=== PATIENT | male | born 1940 | race Hispanic/Latino ===

== ENCOUNTER 2018-01-21 19:30 | Inpatient (IN) | payer OTHER ==
--- OUTSIDE RECORDS SUMMARY | 2018-01-21 19:32 | XMS REPORT | Clinical Summary ---
:1940 Author Organization [facility] Address [address] [place] [address] Care Team Providers Name Role Phone Asked, No Pcp Primary Care Provider Unavailable Allergies Active Allergy Reactions Severity Noted Date Comments Codeine Other (See Comments) 05/11/2016 Nausea/vomiting Codeine GI Intolerance 08/03/2016 Current Medications Prescription Sig. Disp. Refills Start Date End Date Status losartan (COZAAR) Take 50 mg by Active 50 MG tablet mouth daily. brimonidine Administer 1 drop Active (ALPHAGAN P) 0.1 to both eyes % drops every 8 (eight) hours. cycloSPORINE 1 drop 2 (two) Active (RESTASIS) 0.05 % times a day. ophthalmic emulsion prednisoLONE 1 drop 4 (four) Active acetate (PRED times a day. FORTE) 1 % ophthalmic suspension ALPHAGAN P 0.1 % 07/11/2016 Active drops losartan (COZAAR) Take 50 mg by 1 05/26/2016 Active 50 MG tablet mouth 2 (two) times a day. prednisoLONE PLACE 1 DROP INTO 4 05/09/2016 Active acetate (PRED THE RIGHT EYE 3 FORTE) 1 % TIMES DAILY. ophthalmic SHAKE WELL BEFORE suspension INSTILLATION cycloSPORINE 1 drop 2 (two) Active (RESTASIS) 0.05 % times a day. ophthalmic emulsion FERROUS FUMARATE Take 56 mg by Active (IRON ORAL) mouth daily. VITAMIN B COMPLEX Take by mouth Active ORAL daily. vitamin A 30454 Take 25,000 Units Active UNIT capsule by mouth daily. ascorbic acid, Take 500 mg by Active vitamin C, mouth daily. (ascorbic acid with tarah hips) 500 MG tablet cholecalciferol, Take 2,000 Units Active vitamin D3, by mouth daily. (VITAMIN D3) 2,000 unit capsule capsule VENTOLIN HFA 90 2 puffs into each 1 05/09/2016 Active mcg/actuation nostril as inhaler needed. ketoconazole Apply 1 Active (NIZORAL) 2 % application shampoo topically 2 (two) times a week. Apply to damp skin, lather, leave on 5 minutes, and rinse tamsulosin TAKE ONE CAPSULE 30 capsule 0 11/16/2017 Active (FLOMAX) 0.4 mg BY MOUTH EVERY capsule,extended DAY release 24hrIndications: Enlarged prostate with urinary obstruction tamsulosin Take 1 capsule 30 capsule 0 10/12/2016 Discontinued (FLOMAX) 0.4 mg (0.4 mg total) by 8 capsule,extended mouth daily. release 24hrIndications: Enlarged prostate with urinary obstruction Active Problems No known active problems Encounters Date Type Specialty Care Team Description 11/16/2017 Refill Urology Gucci Calvin MD Enlarged prostate with urinary obstruction 04/30/2017 Hospital Encounter Radiology Jesus Vigil, Dysphagia, unspecified MD type 04/20/2017 Transcribe Orders Access Jesus Vigil, Dysphagia, unspecified MD type (Primary Dx) 04/20/2017 Transcribe Orders Access Jesus Vigil, Dysphagia, unspecified MD type (Primary Dx) after 01/20/2017 Social History Tobacco Use Types Packs/Day Years Used Date Former Smoker Cigarettes 1 10 Quit: 1967 Smokeless Tobacco: Never Used Alcohol Use Drinks/Week oz/Week Comments No Sex Assigned at Date Recorded Not on file Last Filed Vital Signs Not on file Plan of Treatment Health Maintenance Due Date Last Done Comments ZOSTER VACCINE 1998 PNEUMOCOCCAL POLYSACCHARIDE VACCINE AGE 65 AND OVER 2003 PNEUMOCOCCAL-13 2003 INFLUENZA VACCINE 06/05/2017 Results [place] Modified Barium Swallow (04/30/2017 2:10 PM) Specimen Performing Laboratory [facility] [address] [place] [address] Narrative EXAMINATION:FL MODIFIED BARIUM SWALLOW CLINICAL HISTORY:R13.10 Dysphagiaunspecified, DYSPHAGIA COMPARISON:None. TOTAL PATIENT RADIATION DOSE: 7.17 mGy FINDINGS: The patient swallowed varying consistencies of barium under direct lateral fluoroscopic evaluation. The study was performed in conjunction with speech pathology. IMPRESSION: Flash penetration on swallows of thin barium was seen. No aspiration was seen on swallows of any barium consistency. There is impression on the posterior esophagus from a C6 osteophyte. Please refer to Speech Pathology report for further details. [facility]-[id number] Procedure Note Hm Interface, Radiology Results Incoming - 04/30/2017 6:30 PM CDT EXAMINATION: FL MODIFIED BARIUM SWALLOW CLINICAL HISTORY: R13.10 Dysphagia unspecified, DYSPHAGIA COMPARISON: None. TOTAL PATIENT RADIATION DOSE: 7.17 mGy FINDINGS: The patient swallowed varying consistencies of barium under direct lateral fluoroscopic evaluation. The study was performed in conjunction with speech pathology. IMPRESSION: Flash penetration on swallows of thin barium was seen. No aspiration was seen on swallows of any barium consistency. There is impression on the posterior esophagus from a C6 osteophyte. Please refer to Speech Pathology report for further details. [facility]-[id number] after 01/20/2017 Insurance Payer Benefit Plan / Group Subscriber ID Type Phone Address MEDICARE MEDICARE PART A AND B xxxxxxxxxxx Medicare [place], [place] MEDICARE MEDICARE PART A AND B xxxxxxxxxxx Medicare [place] AETNA AETNA HMO,POS,EPO, MC/EC xxxxxxxxxx HMO AETNA AETNA [employer] INDEMNITY xxxxxxxxxx Indemnity Home: [address] [place], [place] [phone] [place] [id number]
[2018-01-21 20:20] LABS: Absolute Lymphocytes (CBC) 0.6 K/uL (0.7-4.9); Absolute Monocytes 0.4 K/uL (0.1-1.3); Absolute Neutrophil 6.4 K/uL (1.8-8.0); Basophils % 0.7 % (0-1.3); Eosinophils % 1.3 % (0-4.4); MCH 30.2 pg (27.0-35.0); MPV 8.4 fL (7.6-11.3); Monocytes % 5.7 % (3.3-12.3); RBC Red Blood Cell Count 2.23 M/uL (4.33-5.43)
[2018-01-21 20:26] LABS: Hematocrit 20.1 % (39.6-49.0)
[2018-01-21] MEDS ORDERED: LEVALBUTEROL 1.25 MG/3 ML NEB ONE (20:28)
[2018-01-21] MEDS ORDERED: METHYLPREDNISOLONE 125 MG INJ ONE (20:28)
[2018-01-21 20:33] LABS: Magnesium 2.1 mg/dL (1.8-2.5)
[2018-01-21 20:34] LABS: Protime INR 1.18
[2018-01-21 20:50] LABS: Urine Blood 2+ (NEG); Urine Glucose NEGATIVE (NEG); Urine Protein 2+ (NEG)
--- NOTE | 2018-01-21 20:52 | EDPHYS ---
Physician Documentation [facility] Name: Gio Matute Age: 77 yrs Sex: Male : 1940 Arrival Date: 01/21/2018 Time: 19:32 Bed 8 Private MD: ED Physician Sid Tirado HPI: 01/21 20:45 This 77 yrs old Male presents to ER via EMS with complaints of Shortness Of rn Breath. 20:45 The patient has shortness of breath at rest. Onset: The symptoms/episode began/occurred rn at an unknown time. Duration: The symptoms are intermittent. The patient's shortness of breath is aggravated by supine position, talking. Severity of symptoms: At their worst the symptoms were moderate in the emergency department the symptoms are unchanged. The patient has experienced similar episodes in the past. brings patient in for generalized weakness, not eating/drinking, + sob, no fever, oxygen going down to mid-80s, no oxygen at home. No hematemesis/blood in stool. Patient denies pain. . 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 - Social history:: Smoking status: Patient/guardian denies using tobacco. - Family history:: not pertinent. - Hospitalizations: : No recent hospitalization is reported. ROS: 20:45 Constitutional: Negative for fever, chills, + weight loss Eyes: Negative for injury, rn pain, redness, and discharge, ENT: dry MM Neck: Negative for injury, pain, and swelling, Cardiovascular: Negative for chest pain, palpitations, and edema, Respiratory: Negative for wheezing, and pleuritic chest pain, + sob Abdomen/GI: Negative for abdominal pain, nausea, vomiting, diarrhea, and constipation, MS/Extremity: Negative for injury and deformity, Skin: Negative for injury, rash, and discoloration, Neuro: Negative for headache, numbness, tingling, and seizure. Exam: 20:45 Constitutional: This is a well developed, well nourished patient who is awake, alert, rn hard of hearing, has hearing device Head/Face: Normocephalic, atraumatic, sunken temples Eyes: sunken eyes, no trauma ENT: dry MM< no stridor Cardiovascular: Regular rate and rhythm with a normal S1 and S2. No gallops, murmurs, or rubs. Normal PMI, no JVD. No pulse deficits. Respiratory: diminished breath sounds right lung bases, no wheezing, normal respiratory effort Abdomen/GI: scaphoid abdomen, non-tender MS/ Extremity: Pulses equal, no cyanosis. Neuro: Awake and alert, GCS 15, oriented to person, place, and situation. Vital Signs: 19:45 BP 151 / 68; Pulse 86; Resp 12; Temp 98.4(O); Pulse Ox 90% on R/A; Weight 61.23 kg (R); ao Height 6 ft. 1 in. (185.42 cm) (R); Pain 0/10; 21:17 BP 143 / 77; Pulse 84; Resp 12; Pulse Ox 98% on 2 lpm NC; Pain 0/10; ao 19:45 Body Mass Index 17.81 (61.23 kg, 185.42 cm) ao MDM: 19:34 Patient medically screened. rn 20:45 Differential diagnosis: reactive airway disease, cathleen's granulomatosis, pneumonia, rn atypical infection, dehydration, failure to thrive. Data reviewed: vital signs, nurses notes, lab test result(s), radiologic studies, plain films, and as a result, I will admit patient. Counseling: I had a detailed discussion with the patient and/or guardian regarding: the historical points, exam findings, and any diagnostic results supporting the discharge/admit diagnosis, radiology results, the need for further work-up and treatment in the hospital. Admission orders: after a detailed discussion of the patient's condition and case, the admit orders are written by me. ED course: Pt with worsening of CXR, + anemia with 3 point drop, does not seem to be GI in nature, spoke with Dr. Robert, will admit with Dr. Lee consult and abx. . 01/21 19:43 Order name: Blood Culture Adult (2) rn 01/21 19:43 Order name: BMP rn 01/21 19:43 Order name: BNP rn 01/21 19:43 Order name: CBC with Diff rn 01/21 19:43 Order name: Magnesium rn 01/21 19:43 Order name: PT-INR rn 01/21 19:43 Order name: Ptt, Activated rn 01/21 19:43 Order name: Procalcitonin rn 01/21 20:19 Order name: Urine Dipstick--Ancillary (enter results) cc 01/21 20:27 Order name: CBC with Automated Diff; Complete Time: 20:27 EDMS 01/21 20:33 Order name: Basic Metabolic Panel; Complete Time: 21:26 EDMS 01/21 20:33 Order name: Magnesium; Complete Time: 21:26 EDMS 01/21 20:42 Order name: BNP B-Type Natriuretic Peptide; Complete Time: 20:51 EDMS 01/21 20:42 Order name: Protime (+INR); Complete Time: 20:51 EDMS 01/21 19:43 Order name: Urine Dipstick-Ancillary (obtain specimen); Complete Time: 20:16 rn 01/21 19:43 Order name: XRAY CXR (1 view) rn 01/21 19:43 Order name: EKG; Complete Time: 19:44 rn 01/21 19:43 Order name: Cardiac monitoring; Complete Time: 20:02 rn 01/21 19:43 Order name: EKG - Nurse/Tech; Complete Time: 20:02 rn 01/21 19:43 Order name: IV Saline Lock; Complete Time: 20:17 rn 01/21 19:43 Order name: Labs collected and sent; Complete Time: 20:17 rn 01/21 20:42 Order name: PTT, Activated Partial Thromb; Complete Time: 20:51 EDMS 01/21 20:51 Order name: Urine Dipstick-Ancillary; Complete Time: 20:51 EDMS 01/21 21:04 Order name: Type And Screen ao 01/21 21:06 Order name: Procalcitonin; Complete Time: 21:26 EDMS 01/21 21:15 Order name: RAD; Complete Time: 21:26 EDMS 01/21 22:21 Order name: Type and Screen EDMS 01/21 19:43 Order name: O2 Per Protocol; Complete Time: 20:02 rn 01/21 19:43 Order name: O2 Sat Monitoring; Complete Time: 20:02 rn Administered Medications: 20:17 Drug: SOLU-Medrol 125 mg Route: IVP; Site: right antecubital; ao 22:13 Follow up: Response: No adverse reaction ao 20:17 Drug: Xopenex 1.25 mg Route: Inhalation; ao 22:11 Follow up: Response: No adverse reaction ao 21:13 Drug: LevaQUIN 750 mg Volume: 150 ml; Route: IVPB; Infused Over: 90 mins; Site: right ao antecubital; 22:11 Follow up: IV Status: Completed infusion ao Disposition: 01/21/18 20:51 Hospitalization ordered by Jose Luis Robert for Inpatient Admission. Preliminary diagnosis are Dyspnea, unspecified, Anemia, Pneumonia, Urinary tract infection, site not specified. - Bed requested for Telemetry/MedSurg (Inpatient). - Status is Inpatient Admission. ao - Condition is Stable. - Problem is an ongoing problem. - Symptoms have improved. UTI on Admission? Yes Signatures: Dispatcher [employer] EDMS Sid Tirado MD MD rn Ortiz, Alex RN RN Monica Soriano RN RN bs1
--- NOTE | 2018-01-21 20:52 | ER ---
Nurse's Notes [facility] Name: Gio Matute Age: 77 yrs Sex: Male : 1940 Arrival Date: 01/21/2018 Time: 19:32 Bed 8 Private MD: Diagnosis: Dyspnea, unspecified;Anemia;Pneumonia;Urinary tract infection, site not specified Presentation: 01/21 19:33 Presenting complaint: EMS states: Patient has a history of anemia and today the family ao called because he is been weak and with low oxygen. Oxygen at arrival was 88 on 2 L NC. Transition of care: patient was not received from another setting of care. Onset of symptoms is unknown. Care prior to arrival: None. 19:33 Method Of Arrival: EMS: [facility] ao 19:33 Acuity: MACI 3 ao Triage Assessment: 19:35 General: Appears in no apparent distress. uncomfortable, Behavior is calm, drowsy. ao Pain: Denies pain. EENT: Reports decreased hearing Hearing amplifier . Neuro: Level of Consciousness is awake, alert, obeys commands, Oriented to person, place, time, situation, Moves all extremities. Speech is normal, Facial symmetry appears normal, Pupils are PERRLA. Cardiovascular: Heart tones S1 S2 Capillary refill < 3 seconds Patient's skin is warm and dry. Respiratory: Reports shortness of breath at rest Airway is patent Respiratory effort is unlabored, relaxed, weak, Breath sounds are diminished bilaterally. Onset: The symptoms/episode began/occurred at an unknown time. the patient has moderate shortness of breath. GI: Abdomen is non-distended, Bowel sounds present X 4 quads. : Urine is clear. Derm: No signs and/or symptoms reported regarding the dermatologic system. Musculoskeletal: No deficits noted. No signs and/or symptoms reported regarding the musculoskeletal system. 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 - Social history:: Smoking status: Patient/guardian denies using tobacco. - Family history:: not pertinent. - Hospitalizations: : No recent hospitalization is reported. Screenin:22 Abuse screen: Denies threats or abuse. Denies injuries from another. Nutritional ao screening: No deficits noted. Tuberculosis screening: No symptoms or risk factors identified. Fall Risk Fall in past 12 months (25 points). Assessment: 20:23 General: See triage assessment. Cardiovascular: Rhythm is regular. ao 20:26 Reassessment: Received a lab alert H\T\H 6.[address] Tirado was notified. ao 21:14 Reassessment: Patient appears in no apparent distress at this time. No changes from ao previously documented assessment. Patient and/or family updated on plan of care and expected duration. Pain level reassessed. Patient is alert, oriented x 3, equal unlabored respirations, skin warm/dry/pink. Patient to stay in the hospital. Patient and family aware and agree with it. 22:10 Reassessment: Waiting on Nurse to call back for phone report. ao Vital Signs: 19:45 BP 151 / 68; Pulse 86; Resp 12; Temp 98.4(O); Pulse Ox 90% on R/A; Weight 61.23 kg (R); ao Height 6 ft. 1 in. (185.42 cm) (R); Pain 0/10; 21:17 BP 143 / 77; Pulse 84; Resp 12; Pulse Ox 98% on 2 lpm NC; Pain 0/10; ao 19:45 Body Mass Index 17.81 (61.23 kg, 185.42 cm) ao ED Course: 19:32 Patient arrived in ED. fc 19:33 Jarvis Juares, RN is Primary Nurse. ao 19:34 Sid Tirado MD is Attending Physician. rn 19:38 Triage completed. ao 19:39 Arm band placed on right wrist. Patient placed in an exam room, in a wheelchair, on ao oxygen, Patient notified of wait time. 20:00 No provider procedures requiring assistance completed. Inserted saline lock: 18 gauge ao in right antecubital area, using aseptic technique. Blood collected. 20:16 BMP Sent. cc 20:16 BNP Sent. cc 20:16 CBC with Diff Sent. cc 20:16 Magnesium Sent. cc 20:16 Procalcitonin Sent. cc 20:16 Blood Culture Adult (2) Sent. cc 20:16 PT-INR Sent. cc 20:16 Ptt, Activated Sent. cc 20:23 Patient has correct armband on for positive identification. Pulse ox on. NIBP on. ao 20:35 X-ray completed. Portable x-ray completed in exam room. Patient tolerated procedure kw well. 20:51 Jose Luis Robert MD is Hospitalizing Provider. rn 22:08 Patient admitted, IV remains in place. ao Administered Medications: 20:17 Drug: SOLU-Medrol 125 mg Route: IVP; Site: right antecubital; ao 22:13 Follow up: Response: No adverse reaction ao 20:17 Drug: Xopenex 1.25 mg Route: Inhalation; ao 22:11 Follow up: Response: No adverse reaction ao 21:13 Drug: LevaQUIN 750 mg Volume: 150 ml; Route: IVPB; Infused Over: 90 mins; Site: right ao antecubital; 22:11 Follow up: IV Status: Completed infusion ao Outcome: 20:51 Decision to Hospitalize by Provider. rn 22:08 Admitted to Tele accompanied by tech, room 407, with chart, Report called to NATALEE Vieira ao 22:08 Condition: stable 22:08 Instructed on the need for admit. 22:49 Patient left the ED. ao Signatures: Ailyn Leal RN RN fc Nieto, Roman, MD MD rn Whitley, Kimberlee kw Christian, Chelsea cc Ortiz, Alex, RN RN ao
--- NOTE | 2018-01-21 21:15 | RAD REPORT ---
EXAM DESCRIPTION: RAD - Chest Single View - 01/21/2018 8:36 pm CLINICAL HISTORY: Dyspnea, history of anemia COMPARISON: Portable chest November 29, CT chest December 15 TECHNIQUE: AP portable chest image was obtained 2024 hours . FINDINGS: Moderate bilateral pleural effusions are present. There is extensive airspace opacificatio n in the mid and lower right lung field. Patient has atelectasis related to the pleural effusions. Ri ght lung finding is greater than expected for atelectasis. Right base pneumonia is favored. This coul d be infectious or aspiration. Trachea is midline. Heart size is normal. Pulmonary vasculature within normal limits. No pneumothorax. No gross bony abnormality seen. No acute aortic findings suspected. IMPRESSION: Mid and lower right lung field airspace consolidation superimposed on bilateral atelecta sis and pleural effusions. Infectious or aspiration pneumonia in the right lower lung field suspected.
[2018-01-21 21:16] LABS: Potassium 2.7 mEq/L (3.6-5.0)
[2018-01-21] MEDS ORDERED: Levofloxacin 750mg IV 750 MG/150 ML BAG IV ONE (21:24)
[2018-01-21] MEDS ORDERED: NA CHLORIDE 0.9% 250 ML IV SCH (23:16)
[2018-01-21] MEDS ORDERED: ALBUTEROL 2.5 MG/3 ML NEB SOL NEB PRN (23:16)
[2018-01-21] MEDS ORDERED: ACETAMINOPHEN 500 MG TAB PO PRN (23:16)
[2018-01-21] MEDS ORDERED: IPRATROPIUM BROM 0.5MG/2.5ML NEB PRN (23:16)
[2018-01-21] MEDS ORDERED: ONDANSETRON 4 MG/2 ML VIAL IV PRN (23:16)
[2018-01-22 00:11] VITALS: BMI 17.8
[2018-01-22 06:41] LABS: Absolute Lymphocytes (CBC) 0.3 K/uL (0.7-4.9); Absolute Monocytes 0.1 K/uL (0.1-1.3); Absolute Neutrophil 5.5 K/uL (1.8-8.0); Basophils % 0.1 % (0-1.3); Hematocrit 21.9 % (39.6-49.0); Lymphocytes % 5.2 % (15.3-44.8); MCH 28.8 pg (27.0-35.0); MCV 87.9 fL (80-100); MPV 8.8 fL (7.6-11.3); Monocytes % 2.5 % (3.3-12.3); RBC Red Blood Cell Count 2.49 M/uL (4.33-5.43)
[2018-01-22 07:08] LABS: Potassium 3.7 mEq/L (3.6-5.0)
--- NOTE | 2018-01-22 07:34 | EKG ---
Test Date: 2018-01-21 Test Time: 19:58:21 [employer] T[employer]er: [employer] MEASUREMENT RESULTS: Intervals: Rate: 79 NM: 148 QRSD: 84 QT: 380 QTc: 435 [place]: P: 46 NM: 148 QRS: 72 T: 49 INTERPRETIVE STATEMENTS: Normal sinus rhythm ST abnormality, possible digitalis effect Abnormal ECG Compared to ECG 12/15/2017 08:53:36 ST (T wave) deviation now present Electronically Signed On 01-22-18 07:33:45 CDT by Santiago Ha
[2018-01-22 08:36] LABS: Anisocytosis 1+; Blood Morphology Comment NOTED (NOT SEEN); Hypochromasia 1+; Macrocytosis SLIGHT; Platelet Estimate ADEQ
[2018-01-22] MEDS ORDERED: METHYLPREDNISOLONE 40 MG INJ IV SCH (09:00)
--- NOTE | 2018-01-22 11:52 | P.CNS ---
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 He was doing well he is on a low-dose maintenance dose of prednisone became sick over the weekend had some hemoptysis. Became acutely short of breath was admitted from the emergency room and had bilateral airspace disease the anemia possibly pulmonary hemorrhage abnormal renal function test denies any fever or chills Allergies codeine Adverse Reaction (Verified 01/21/18 23:21) Nausea/Vomiting ANTIHISTAMINES Adverse Reaction (Mild, Uncoded 01/21/18 23:21) Unknown Home Medications: Amlodipine [Norvasc*] 10 mg PO DAILY 30 Days #30 tab 12/02/17 Metoprolol Succinate [Toprol Xl] 100 mg PO DAILY #30 tab.sr.24h 12/17/17 Prednisone [Deltasone*] 10 mg PO BID 01/21/18 - Past Medical/Surgical History Diabetic: Yes -: hypertension -: glaucoma -: anemia -: hypoglycemia -: blindness -: enlarged prostate -: HTN -: wedgners disease -: [place] -: hernia -: bone spur in neck -: vocal cord surg -: corneal transplant sx -: hemorroidectomy - Family History Father Medical History: Lung disease - Social History Smoking Status: Unknown if ever smoked Alcohol use: No CD- Drugs: No Caffeine use: Yes Place of Residence: Home Review of Systems 10-point ROS is otherwise unremarkable General: Weakness Respiratory: Cough, Shortness of Breath Physical Examination Temp Pulse Resp BP Pulse Ox 98.6 F 81 18 146/67 H 98 01/22/18 08:00 01/22/18 08:00 01/22/18 08:00 01/22/18 08:00 01/22/18 08:00 General: Alert, Oriented x3 HEENT: Atraumatic Neck: Supple Respiratory: Crackles/rales, Other Cardiovascular: No edema, Normal pulses, Normal S1 S2 Gastrointestinal: Normal bowel sounds, Soft and benign Laboratory Data (last 24 hrs) 01/21/18 20:00: PT 13.9 H, INR 1.18, APTT 30.1 01/21/18 20:00: WBC 7.6, Hgb 6.7 L*, Hct 20.1 L*, Plt Count 180 01/21/18 20:00: B-Natriuretic Peptide 687 H 01/21/18 20:00: Sodium 141, Potassium 2.7 L*, BUN 21 H, Creatinine 0.93, Glucose 125 H, Magnesium 2.1 - Problems (1) Vasculitis Current Visit: Yes Status: Acute Plan: Patient is 77 years of age with a 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 History of recent hemoptysis and bilateral diffuse airspace disease patient is also anemic he has protein urea mild hematuria. 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 Patient is high risk for the use of cyclophosphamide I have started him on high dose steroids continue with levofloxacin patient was transfuse 1 unit vital signs in oxygenation stable
[2018-01-22] MEDS: METHYLPREDNISOLONE 125 MG INJ IV SCH ×2 (12:02→18:13)
--- NOTE | 2018-01-22 12:06 | P.HP ---
Certification for Inpatient Patient admitted to: Inpatient With expected LOS: >2 Midnights Practitioner: I am a practitioner with admitting privileges, knowledge of patient current condition, hospital course, and medical plan of care. 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 HE HAS HG OF 6.4. AND PULMONARY HEMORHAGE. DR MCCORMACK SAW THE PATIENT. HE HAS BEEN ON STEROIDS FOR CHRONIC USE . Allergies codeine Adverse Reaction (Verified 01/21/18 23:21) Nausea/Vomiting ANTIHISTAMINES Adverse Reaction (Mild, Uncoded 01/21/18 23:21) Unknown Home Medications: Amlodipine [Norvasc*] 10 mg PO DAILY 30 Days #30 tab 12/02/17 Metoprolol Succinate [Toprol Xl] 100 mg PO DAILY #30 tab.sr.24h 12/17/17 Prednisone [Deltasone*] 10 mg PO BID 01/21/18 - Past Medical/Surgical History Has patient received pneumonia vaccine in the past: No Diabetic: Yes -: hypertension -: glaucoma -: anemia -: hypoglycemia -: blindness -: enlarged prostate -: HTN -: wedgners disease -: ASSINIBOINE AND [place] TRIBES -: hernia -: bone spur in neck -: vocal cord surg -: corneal transplant sx -: hemorroidectomy - Family History Father -: Lung disease - Social History Smoking Status: Former smoker Alcohol use: No CD- Drugs: No Caffeine use: Yes Place of Residence: Home Review of Systems 10-point ROS is otherwise unremarkable General: Weakness, Malaise Eyes: Other (BLIND SINCE SEVERE PTERIGIUM.) Respiratory: Shortness of Breath Physical Examination - Vital Signs Temperature: 98.6 F Blood Pressure: 146/67 Pulse: 81 Respirations: 18 Pulse Ox (%): 98 - Physical Exam General: Alert, Cachectic (BED BOUND FOR LONG DURATION FROM DEBILITY.), Mild distress HEENT: Atraumatic, PERRLA, Mucous membr. moist/pink, EOMI, Sclerae nonicteric Neck: Supple, 2+ carotid pulse no bruit, No LAD, Without JVD or thyroid abnormality Respiratory: Clear to auscultation bilaterally, Normal air movement Cardiovascular: Regular rate/rhythm, Normal S1 S2 Gastrointestinal: Normal bowel sounds, No tenderness Musculoskeletal: No tenderness Integumentary: No rashes Neurological: Abnormal speech (CHRONIC HOARSENSS.), Abnormal strength Lymphatics: No axilla or inguinal lymphadenopathy - Studies Laboratory Data (last 24 hrs) 01/21/18 20:00: PT 13.9 H, INR 1.18, APTT 30.1 01/21/18 20:00: WBC 7.6, Hgb 6.7 L*, Hct 20.1 L*, Plt Count 180 01/21/18 20:00: B-Natriuretic Peptide 687 H 01/21/18 20:00: Sodium 141, Potassium 2.7 L*, BUN 21 H, Creatinine 0.93, Glucose 125 H, Magnesium 2.1 Assessment and Plan - Problems (Diagnosis) (1) Pulmonary hemorrhage Current Visit: Yes Status: Acute (2) Anemia Onset Date: 11/23/17 Current Visit: No Status: Chronic Plan: TRANSFUSE PRN KEEP HG HIGHER THAN 7 GM PER NEW RULES. 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 - Advance Directives Does patient have a Living Will: No Does patient have a Durable POA for Healthcare: No
[2018-01-22] MEDS ORDERED: NA CHLORIDE 0.9% 0 ML ONE (16:46)
[2018-01-22] MEDS ORDERED: NA CHLORIDE 0.9% 250 ML ONE (16:47)
[2018-01-22] MEDS ORDERED: Levofloxacin500mg IV 500 MG/100 ML BAG IV SCH (21:00)
[2018-01-22] MEDS: ENSURE ENLIVE 237 ML CAN PO SCH (21:00)
[2018-01-22] MEDS: JUVEN PACKET PO SCH (21:00)
[2018-01-22] MEDS ORDERED: NA CHLORIDE 0.9% 500 ML ONE (23:32)
[2018-01-23] MEDS: METHYLPREDNISOLONE 125 MG INJ IV SCH ×5 (00:19→18:00)
[2018-01-23 06:16] LABS: Hematocrit 25.3 % (39.6-49.0)
[2018-01-23] MEDS ORDERED: PNEUMOCOCCAL VACCINE 0.5 ML IMVAC ONE (08:00)
--- NOTE | 2018-01-23 08:48 | P.PN ---
Subjective Date of Service: 01/23/18 Chief Complaint: Presumed pulmonary hemorrhage Subjective: Improving (Patient is doing well hemodynamically stable and denies any hemoptysis patient concerned about having oxygen at home) Review of Systems General: Weakness Respiratory: Shortness of Breath Physical Examination - Vital Signs Temperature: 99.0 F Blood Pressure: 137/60 Pulse: 84 Respirations: 16 Pulse Ox (%): 97 - Physical Exam General: Alert, Cooperative Neck: Supple Respiratory: Clear to auscultation bilaterally Cardiovascular: No edema, Regular rate/rhythm Assessment & Plan - Problems (Diagnosis) (1) Vasculitis Current Visit: Yes Status: Acute Plan: Patient admitted with presumed a diffuse pulmonary hemorrhage and anemia was transfuse 1 unit of packed red blood cells is currently stable hemoglobin he is increasing agitation satisfactory I have reduced his Solu-Medrol to 50 mg IV q. 6 will leave him on for the next few days he is more concerned about having oxygen at home and is willing to pay for it daily room air pulse ox chest x-ray ordered hemoglobin is increased to 8.3 patient is eating and drinking
[2018-01-23] MEDS: AMLODIPINE 10 MG TAB PO SCH (09:00)
[2018-01-23] MEDS: JUVEN PACKET PO SCH ×2 (09:00→21:59)
[2018-01-23] MEDS: METOPROLOL XL 100 MG TAB PO SCH (09:00)
[2018-01-23] MEDS: ENSURE ENLIVE 237 ML CAN PO SCH ×2 (09:00→21:59)
[2018-01-23] MEDS: levoFLOXacin 500 MG TAB PO SCH (09:00)
--- NOTE | 2018-01-23 10:04 | RAD REPORT ---
EXAM DESCRIPTION: RAD - Chest Single View - 01/23/2018 9:47 am CLINICAL HISTORY: Shortness of breath. COMPARISON: January 21, 2018. FINDINGS: The alveolar opacities within the right lung have mildly improved. No significant change h as occurred in the left lung alveolar opacities. The heart remains enlarged. Pleural effusions are unchanged. IMPRESSION: Mild improvement in the right lung opacities with no significant change in the left lung opacities.
--- NOTE | 2018-01-23 18:12 | P.PN ---
Subjective Date of Service: 01/23/18 Chief Complaint: Presumed pulmonary hemorrhage Subjective: Improving (HE IS A LOT BETTER THAN ABOUT TWO MONTHS AGO.) Review of Systems 10-point ROS is otherwise unremarkable General: Weakness, Malaise Integumentary: As per HPI Physical Examination - Vital Signs Temperature: 98.0 F Blood Pressure: 135/66 Pulse: 83 Respirations: 18 Pulse Ox (%): 100 - Physical Exam General: Alert, Cachectic (BUT LOT BETTER AFTER TESTOSTERONE, PREOTEIN DRINKS AND STEROIDS.), Other (BLIND FOR YEARS.) HEENT: Atraumatic, PERRLA, EOMI Neck: Supple, JVD not distended Respiratory: Clear to auscultation bilaterally, Normal air movement Cardiovascular: Regular rate/rhythm, Normal S1 S2 Gastrointestinal: Normal bowel sounds, No tenderness Musculoskeletal: No tenderness Integumentary: No rashes Neurological: Other (NON AMBULATORY WITH CACHEXIA. CONTRACTURES), Abnormal speech (CHR HOARSNESS.) Lymphatics: No axilla or inguinal lymphadenopathy - Studies Medications List Reviewed: Yes Assessment And Plan - Current Problems (Diagnosis) (1) Pulmonary hemorrhage Current Visit: Yes Status: Acute (2) Anemia Onset Date: 11/23/17 Current Visit: No Status: Chronic Plan: TRANSFUSE PRN KEEP HG HIGHER THAN 7 GM PER NEW RULES. HG I SUP TO 8.3 GMNOW. 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
[2018-01-24] MEDS: METHYLPREDNISOLONE 125 MG INJ IV SCH ×5 (00:15→23:04)
[2018-01-24 04:35] LABS: Rheumatoid Factor NEG (NEG)
[2018-01-24 06:13] LABS: Hematocrit 26.1 % (39.6-49.0); MCH 28.4 pg (27.0-35.0); MCV 84.8 fL (80-100); MPV 9.1 fL (7.6-11.3); RBC Red Blood Cell Count 3.08 M/uL (4.33-5.43)
[2018-01-24] MEDS: AMLODIPINE 10 MG TAB PO SCH (08:28)
[2018-01-24] MEDS: JUVEN PACKET PO SCH ×2 (08:28→21:00)
[2018-01-24] MEDS: METOPROLOL XL 100 MG TAB PO SCH (08:28)
[2018-01-24] MEDS: levoFLOXacin 500 MG TAB PO SCH (08:28)
[2018-01-24] MEDS: ENSURE ENLIVE 237 ML CAN PO SCH ×2 (08:29→21:00)
[2018-01-24 10:37] LABS: Potassium 4.5 mEq/L (3.6-5.0)
--- NOTE | 2018-01-24 18:21 | P.PN ---
Subjective Date of Service: 01/24/18 Chief Complaint: FEELS LOT BETTER Subjective: Improving Review of Systems 10-point ROS is otherwise unremarkable General: Weakness, Malaise Eyes: Other (BLIND FOR LONG DURATION) Physical Examination - Vital Signs Temperature: 97.2 F Blood Pressure: 130/70 Pulse: 70 Respirations: 20 Pulse Ox (%): 99 - Physical Exam General: Alert, In no apparent distress, Cachectic (BUT LOT BETTER NOW.) HEENT: Atraumatic, PERRLA, EOMI Neck: Supple, JVD not distended Respiratory: Clear to auscultation bilaterally, Normal air movement Cardiovascular: Regular rate/rhythm, Normal S1 S2 Gastrointestinal: Normal bowel sounds, No tenderness Musculoskeletal: No tenderness Integumentary: No rashes Neurological: Normal speech, Normal tone, Normal affect Lymphatics: No axilla or inguinal lymphadenopathy - Studies Medications List Reviewed: Yes Assessment And Plan - Current Problems (Diagnosis) (1) Pulmonary hemorrhage Current Visit: Yes Status: Acute Plan: STABLE IV STEROIDS DOING THIS FROM JONG'S (2) Anemia Onset Date: 11/23/17 Current Visit: No Status: Chronic Plan: TRANSFUSE PRN KEEP HG HIGHER THAN 7 GM PER NEW RULES. HG I SUP TO 8.3 GMNOW. 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
[2018-01-25] MEDS: METHYLPREDNISOLONE 125 MG INJ IV SCH (05:11)
[2018-01-25 05:22] LABS: MCH 28.2 pg (27.0-35.0); MCV 85.4 fL (80-100); RBC Red Blood Cell Count 3.16 M/uL (4.33-5.43)
[2018-01-25] MEDS: METOPROLOL XL 100 MG TAB PO SCH (08:43)
[2018-01-25] MEDS: JUVEN PACKET PO SCH (08:44)
[2018-01-25] MEDS: AMLODIPINE 10 MG TAB PO SCH (08:44)
[2018-01-25] MEDS: ENSURE ENLIVE 237 ML CAN PO SCH (08:44)
[2018-01-25] MEDS: levoFLOXacin 500 MG TAB PO SCH (08:44)
[2018-01-25 09:39] LABS: Potassium 4.4 mEq/L (3.6-5.0)
--- NOTE | 2018-01-25 10:12 | P.PN ---
Subjective Date of Service: 01/25/18 Chief Complaint: Shortness of breath Patient is improving a shortness of breath has improved no hemoptysis wants to go home requesting a p.r.n. home ox Review of Systems General: Weakness Respiratory: Shortness of Breath Physical Examination - Vital Signs Temperature: 98.1 F Blood Pressure: 119/73 Pulse: 56 Respirations: 18 Pulse Ox (%): 97 - Physical Exam General: Alert, Oriented x3 Respiratory: Clear to auscultation bilaterally, Diminished Cardiovascular: No edema, Regular rate/rhythm - Studies Medications List Reviewed: Yes Assessment & Plan - Problems (Diagnosis) (1) Vasculitis Current Visit: Yes Status: Acute Plan: Patient has pulmonary vasculitis adjust he be discharged home on prednisone 20 mg twice a day for 2 weeks and then taper it by 5 mg per week to her maintenance dose prednisone 10 mg twice a day or even higher hemoglobin is stable patient's BECKY screen is negative anti glomerular basement membrane antibodies also negative Discharge Plan: Home
[2018-01-25 12:24] VITALS: TEMP 98.9; O2SAT 97
[2018-01-25 16:16] VITALS: BP 131/61
[2018-01-25] MEDS ORDERED: predniSONE 20 MG TAB PO SCH (21:00)
--- NOTE | 2018-03-05 13:17 | P.DS ---
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 HE HAS HG OF 6.4. AND PULMONARY HEMORHAGE. DR MCCORMACK SAW THE PATIENT. HE HAS BEEN ON STEROIDS FOR CHRONIC USE . 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 HE IS DOING LOT BETTER WITH IV STEROIDS . HE IS ALSO GIVEN BLOOD FOR HG OF 6.4. HE IS STABLE FOR DISCHARGE. Vital Signs/Physical Exam: Temp Pulse Resp BP Pulse Ox 98.9 F 73 18 131/61 97 01/25/18 16:00 01/25/18 16:00 01/25/18 16:00 01/25/18 16:00 01/25/18 16:00 Laboratory Data at Discharge: WBC 11.3 K/uL (4.3-10.9) H 01/25/18 05:07 Hgb 8.9 g/dL (13.6-17.9) L 01/25/18 05:07 Hct 27.0 % (39.6-49.0) L 01/25/18 05:07 Plt Count 218 K/uL (152-406) 01/25/18 05:07 PT 13.9 SECONDS (9.5-12.5) H 01/21/18 20:00 INR 1.18 01/21/18 20:00 APTT 30.1 SECONDS (24.3-36.9) 01/21/18 20:00 Sodium 134 mEq/L (135-145) L 01/25/18 08:39 Potassium 4.4 mEq/L (3.6-5.0) 01/25/18 08:39 BUN 57 mg/dL (6-20) H 01/25/18 08:39 Creatinine 1.08 mg/dL (0.61-1.24) 01/25/18 08:39 Glucose 175 mg/dL (65-120) H 01/25/18 08:39 Magnesium 2.1 mg/dL (1.8-2.5) 01/21/18 20:00 B-Natriuretic Peptide 687 pg/ml (<=100) H 01/21/18 20:00 Home Medications: Amlodipine [Norvasc*] 10 mg PO DAILY 30 Days #30 tab 12/02/17 Metoprolol Succinate [Toprol Xl] 100 mg PO DAILY #30 tab.sr.24h 12/17/17 Prednisone [Deltasone*] 10 mg PO BID 01/21/18 Levofloxacin [Levaquin*] 500 mg PO DAILY #7 tab 01/25/18 Prednisone [Deltasone] 20 mg PO BID #30 tablet 01/25/18 New Medications: Levofloxacin [Levaquin*] 500 mg PO DAILY #7 tab Prednisone [Deltasone] 20 mg PO BID #30 tablet Diet: Regular Activity: Ad mary Followup: Jared Lee MD [ACTIVE - CAN ADMIT] - 1-2 Weeks (call to schedule appointment) Jose Luis Robert MD [Primary Care Provider] - 1-2 Weeks (call to schedule appointment)
== END 2018-01-25 16:24 | disposition home or self-care (01) | DRG 315 ==
LOC: ER 19:30 → ERHOLD 20:53 → 4TH 21:37
PROVIDERS: ADMIT Internal Medicine; ATTEND Internal Medicine
DX: I28.8 Other diseases of pulmonary vessels (principal); R04.89 Hemorrhage from other sites in respiratory passages; M31.30 Wegener's granulomatosis without renal involvement; I10 Essential (primary) hypertension; H40.9 Unspecified glaucoma; D51.9 Vitamin B12 deficiency anemia, unspecified; E11.9 Type 2 diabetes mellitus without complications
CPT/HCPCS: 36415; 71045; 80048; 81003; 83520; 83735; 83880; 84145; 85014; 85018; 85025; 85027; 85610; 85730; 86038; 86430; 86850; 86900; 86901; 87040; 93005; 94760; 96365; 96375; 97163; 99285; J2930; P9016

== ENCOUNTER 2018-04-11 16:46 | Emergency (ER) | payer OTHER ==
--- OUTSIDE RECORDS SUMMARY | 2018-04-11 16:48 | XMS REPORT | Clinical Summary ---
:1940 Author Organization [facility] Address [address] [place] [address] Care Team Providers Name Role Phone Asked, [...] by mouth Active ORAL daily. vitamin A 67769 Take 25,000 Units Active UNIT capsule by [...] (Primary Dx) 04/20/2017 Transcribe Orders Access Jesus Vigil Dysphagia, unspecified MD type (Primary Dx) after 04/10/2017 Social History Tobacco Use Types Packs/Day Years Used Date Former Smoker Cigarettes 1 10 Quit: 1968 Smokeless Tobacco: Never Used Alcohol Use Drinks/Week oz/Week Comments No Sex Assigned at Date Recorded Not on file Last Filed Vital Signs Not on file Plan of Treatment Health Maintenance Due Date Last Done Comments SHINGRIX VACCINE (#1) 01/24/1988 ZOSTER VACCINE 1998 PNEUMOCOCCAL POLYSACCHARIDE VACCINE AGE 65 AND OVER 2003 PNEUMOCOCCAL-13 2003 INFLUENZA VACCINE 06/05/2018 Results [place] Modified Barium Swallow (04/30/2017 2:10 PM) Specimen Performing Laboratory [facility] [address] [place] [id number] Narrative EXAMINATION:[place] MODIFIED BARIUM SWALLOW CLINICAL HISTORY:R13.10 [...] to Speech Pathology report for further details. [facility]-[id number] Procedure Note Hm Interface, Radiology Results Incoming [...] to Speech Pathology report for further details. [facility]-[id number] after 04/10/2017 Insurance Payer Benefit Plan / Group Subscriber ID Type Phone Address MEDICARE MEDICARE PART A AND B xxxxxxxxxxx Medicare [place], [place] MEDICARE MEDICARE PART A AND B xxxxxxxxxxx Medicare [place] AETNA AETNA HMO,POS,EPO, MC/EC xxxxxxxxxx HMO AETNA [facility]NA [facility] xxxxxxxxxx Indemnity [phone] [facility] [address] [place] [id number]
[2018-04-11 18:23] LABS: Absolute Lymphocytes (CBC) 0.7 K/uL (0.7-4.9); Absolute Neutrophil 12.4 K/uL (1.8-8.0); Basophils % 0.4 % (0-1.3); Eosinophils % 0.3 % (0-4.4); Hematocrit 32.5 % (39.6-49.0); Lymphocytes % 5.1 % (15.3-44.8); MCV 85.4 fL (80-100); MPV 8.1 fL (7.6-11.3); Monocytes % 6.8 % (3.3-12.3); RBC Red Blood Cell Count 3.81 M/uL (4.33-5.43)
[2018-04-11 18:33] LABS: Potassium 4.8 mEq/L (3.6-5.0)
[2018-04-11] MEDS ORDERED: CEFTRIAXONE/SWI 1gm 1 GM/10 ML SYR ONE (18:55)
[2018-04-11] MEDS ORDERED: NA CHLORIDE 0.9% 1,000 ML ONE (18:55)
--- NOTE | 2018-04-11 18:56 | RAD REPORT ---
EXAM DESCRIPTION: Domenico Single View04/11/2018 6:32 pm CLINICAL HISTORY: Shortness of breath COMPARISON: January 2018 FINDINGS: The right base is hazy. Remainder lungs appear clear. The heart is mildly to moderately en larged. IMPRESSION: The right base is hazy which may indicate a small pleural effusion with right basilar a telectasis/infiltrate.
[2018-04-11 19:23] LABS: Urine Blood TRACE (NEG); Urine Glucose NEGATIVE (NEG); Urine Protein 1+ (NEG)
[2018-04-11 19:24] LABS: Urine Bacteria >50 /HPF (NONE SEEN); Urine Culture Reflex Order REFLEXED; Urine RBC NONE SEEN /HPF (NONE SEEN); Urine Volume 1 ML
--- NOTE | 2018-04-11 19:38 | ER ---
Nurse's Notes [facility] Name: Gio Matute Age: 78 yrs Sex: Male : 1940 Arrival Date: 04/11/2018 Time: 16:49 Bed 28 Private MD: Diagnosis: Urinary tract infection, site not specified;Dehydration;Rash and other nonspecific skin eruption Presentation: 04/11 16:49 Presenting complaint: EMS states: rash to lower back/ buttock. Transition of care: ss patient was not received from another setting of care. Onset of symptoms is unknown. Risk Assessment: Do you want to hurt yourself or someone else? Patient reports no desire to harm self or others. 16:49 Method Of Arrival: EMS: [facility] ss 16:49 Acuity: MACI 3 ss 17:20 Initial Sepsis Screen: Does the patient meet any 2 criteria? No. Patient's initial ed1 sepsis screen is negative. Does the patient have a suspected source of infection? No. Patient's initial sepsis screen is negative. Care prior to arrival: None. Historical: - Allergies: 16:50 Antihistamine; ss 16:50 Codeine; ss - PMHx: 16:50 Anemia; BLINDNESS; Diabetes - NIDDM; enlarged prostate; Glaucoma; Hypertension; ss - Immunization history:: Adult Immunizations unknown. - Social history:: Smoking status: Patient/guardian denies using tobacco. - Ebola Screening: : Patient denies exposure to infectious person Patient denies travel to an Ebola-affected area in the 21 days before illness onset. Screenin:20 Abuse screen: Denies threats or abuse. Denies injuries from another. Nutritional ed1 screening: No deficits noted. Tuberculosis screening: No symptoms or risk factors identified. Fall Risk Fall in past 12 months (25 points). Secondary diagnosis (15 points) impaired mobility, No IV (0 pts). Ambulatory Aid- None/Bed Rest/Nurse Assist (0 pts). Gait- Normal/Bed Rest/Wheelchair (0 pts) Mental Status- Oriented to own ability (0 pts). Total Hines Fall Scale indicates Low Risk Score (25-44 pts). Fall prevention measures have been instituted. Side Rails Up X 2 Frequent Obs/Assesments occuring Family Present and informed to notify staff if they need to leave bedside As available Patient and Family Educated on Fall Prevention Program and strategies. Assessment: 17:20 General: Appears in no apparent distress. Behavior is calm, cooperative. Pain: Denies ed1 pain. Neuro: Level of Consciousness is awake, alert, obeys commands, Oriented to person. Cardiovascular: Denies chest pain, Heart tones S1 S2 present. Respiratory: Airway is patent Respiratory effort is even, unlabored, Respiratory pattern is regular, symmetrical, Breath sounds are clear bilaterally. GI: No signs and/or symptoms were reported involving the gastrointestinal system. : No signs and/or symptoms were reported regarding the genitourinary system. EENT: No signs and/or symptoms were reported regarding the EENT system. Derm: Skin is fragile, is thin, Skin is dry, Skin is normal, Skin temperature is warm Parent/caregiver reports the patient having rash to buttock area. Musculoskeletal: pt unable to ambulate. 17:30 General: The previous assessment is accurate, call light remains within reach. . ss 18:36 Reassessment: Patient appears in no apparent distress at this time. No changes from ed1 previously documented assessment. Patient and/or family updated on plan of care and expected duration. Pain level reassessed. 19:42 Reassessment: Patient appears in no apparent distress at this time. No changes from ed1 previously documented assessment. Patient and/or family updated on plan of care and expected duration. Pain level reassessed. Vital Signs: 16:49 BP 134 / 69; Pulse 65; Resp 16; Temp 98.4(O); Pulse Ox 100% on R/A; Height 6 ft. 1 in. ss (185.42 cm); 18:36 BP 135 / 78; Pulse 60; Resp 18; Pulse Ox 100% on R/A; Pain 4/10; ed1 19:42 BP 133 / 63; Pulse 62; Resp 18; Pulse Ox 100% on R/A; Pain 0/10; ed1 ED Course: 16:49 Patient arrived in ED. ss 16:49 Arm band placed on right wrist. ss 16:57 Triage completed. ss 17:19 Edna Fox LVN is Primary Nurse. ed1 17:20 Patient has correct armband on for positive identification. Placed in gown. Bed in low ed1 position. Call light in reach. Side rails up X2. Adult w/ patient. Pulse ox on. NIBP on. 17:22 Resting quietly. Awaiting ED provider evaluation. ed1 17:28 Bismark Sumner MD is Attending Physician. 17:28 Alex Champion PA is PHCP. [email or web address] 18:32 X-ray completed. Portable x-ray completed in exam room. Patient tolerated procedure bb2 well. 18:32 XRAY Chest (1 view) In Process Unspecified. EDMS 18:57 Inserted saline lock: 22 gauge in right antecubital area, using aseptic technique. ed1 20:04 transfer transportation to receiving facility. ed1 20:04 No provider procedures requiring assistance completed. IV discontinued, intact, ed1 bleeding controlled, No redness/swelling at site. Pressure dressing applied. Administered Medications: 18:57 Drug: NS 0.9% 1000 ml Route: IV; Rate: 1000 ml; Site: right antecubital; ed1 20:05 Follow up: IV Status: Completed infusion; IV Intake: 1000ml ed1 18:58 Drug: Rocephin 1 grams Route: IV; Rate: calculated rate; Site: right antecubital; ed1 20:05 Follow up: Response: No adverse reaction; IV Status: Completed infusion ed1 Intake: 20:05 IV: 1000ml; Total: 1000ml. ed1 Outcome: 19:37 Discharge ordered by . [email or web address] 20:17 Discharged to home via ambulance. ed1 20:17 Condition: good 20:17 Discharge instructions given to high worker, Instructed on discharge instructions, follow up and referral plans. medication usage, Demonstrated understanding of instructions, follow-up care, medications, Prescriptions given X 1. 20:17 Patient left the ED. ed1 Addendum: 04/15/2018 07:18 Addendum: Culture Results: Positive urine culture. Bacteria is resistant to, has s s intermediate sensitivity, or is not tested against prescribed antibiotics. Report given to CECI for further evaluation and then to offset proof press operator for follow up with patient. Signatures: Dispatcher [employer] [facility] Brooke Garcia RN RN Edna Ortega LVN PROGRAM SUPPORT SPECIALIST ed1 Alex Champion PA PA jrBismark Gross MD MD gs Bock, Brittany bb2
--- NOTE | 2018-04-11 19:38 | EDPHYS ---
Physician Documentation [facility] Name: Gio Matute Age: 78 yrs Sex: Male : 1940 Arrival Date: 04/11/2018 Time: 16:49 Bed 28 Private MD: ED Physician Bismark Sumner HPI: 04/11 18:29 This 78 yrs old Male presents to ER via EMS with complaints of Rash. jr8 18:29 The rash is located on the back and buttocks. The rash can be described as papular. jr8 Onset: The symptoms/episode began/occurred gradually, 3 week(s) ago. Associated signs and symptoms: Pertinent positives: itching. Severity of symptoms: At their worst the symptoms were mild in the emergency department the symptoms are unchanged. The patient has not experienced similar symptoms in the past. The patient has not recently seen a physician. Stated that they have tried hydrocortisone and nystatin powder. No results. Noticed he has been sleeping more and note eating as well. Historical: - Allergies: 16:50 Antihistamine; ss 16:50 Codeine; ss - PMHx: 16:50 Anemia; BLINDNESS; Diabetes - NIDDM; enlarged prostate; Glaucoma; Hypertension; ss - Immunization history:: Adult Immunizations unknown. - Social history:: Smoking status: Patient/guardian denies using tobacco. - Ebola Screening: : Patient denies exposure to infectious person Patient denies travel to an Ebola-affected area in the 21 days before illness onset. ROS: 18:29 Eyes: Negative for injury, pain, redness, and discharge, ENT: Negative for injury, jr8 pain, and discharge, Neck: Negative for injury, pain, and swelling, Cardiovascular: Negative for chest pain, palpitations, and edema, Respiratory: Negative for shortness of breath, cough, wheezing, and pleuritic chest pain, Abdomen/GI: Negative for abdominal pain, nausea, vomiting, diarrhea, and constipation, Back: Negative for injury and pain, MS/Extremity: Negative for injury and deformity, Neuro: Negative for headache, weakness, numbness, tingling, and seizure. 18:29 Skin: Positive for rash. Exam: 18:29 Head/Face: Normocephalic, atraumatic. Eyes: Pupils equal round and reactive to light, jr8 extra-ocular motions intact. Lids and lashes normal. Conjunctiva and sclera are non-icteric and not injected. Cornea within normal limits. Periorbital areas with no swelling, redness, or edema. ENT: Nares patent. No nasal discharge, no septal abnormalities noted. Tympanic membranes are normal and external auditory canals are clear. Oropharynx with no redness, swelling, or masses, exudates, or evidence of obstruction, uvula midline. Mucous membranes moist. Neck: Trachea midline, no thyromegaly or masses palpated, and no cervical lymphadenopathy. Supple, full range of motion without nuchal rigidity, or vertebral point tenderness. No Meningismus. Cardiovascular: Regular rate and rhythm with a normal S1 and S2. No gallops, murmurs, or rubs. Normal PMI, no JVD. No pulse deficits. Respiratory: Lungs have equal breath sounds bilaterally, clear to auscultation and percussion. No rales, rhonchi or wheezes noted. No increased work of breathing, no retractions or nasal flaring. Abdomen/GI: Soft, non-tender, with normal bowel sounds. No distension or tympany. No guarding or rebound. No evidence of tenderness throughout. Back: No spinal tenderness. No costovertebral tenderness. Full range of motion. MS/ Extremity: Pulses equal, no cyanosis. Neurovascular intact. Full, normal range of motion. Neuro: Awake and alert, GCS 15, oriented to person, place, time, and situation. Cranial nerves II-XII grossly intact. Motor strength 5/5 in all extremities. Sensory grossly intact. Cerebellar exam normal. Normal gait. 18:29 : a chirinos is noted, urine is cloudy. 18:29 Skin: papular red rash noted to buttocks and low back. Small area to right shoulder . Vital Signs: 16:49 BP 134 / 69; Pulse 65; Resp 16; Temp 98.4(O); Pulse Ox 100% on R/A; Height 6 ft. 1 in. ss (185.42 cm); 18:36 BP 135 / 78; Pulse 60; Resp 18; Pulse Ox 100% on R/A; Pain 4/10; ed1 19:42 BP 133 / 63; Pulse 62; Resp 18; Pulse Ox 100% on R/A; Pain 0/10; ed1 MDM: 17:30 Patient medically screened. [facility] 19:36 Data reviewed: vital signs, nurses notes, lab test result(s), radiologic studies, plain jr8 films, and as a result, I will discharge patient. Data interpreted: Pulse oximetry: on room air is 100 %. Interpretation: normal. Counseling: I had a detailed discussion with the patient and/or guardian regarding: the historical points, exam findings, and any diagnostic results supporting the discharge/admit diagnosis, lab results, radiology results, the need for outpatient follow up, a family practitioner, to return to the emergency department if symptoms worsen or persist or if there are any questions or concerns that arise at home. 04/11 17:52 Order name: CBC with Diff; Complete Time: 19:50 8 04/11 17:52 Order name: Basic Metabolic Panel; Complete Time: 18:37 8 04/11 17:52 Order name: Urine Microscopic Only; Complete Time: 19:36 jr8 04/11 18:01 Order name: Urine Dipstick--Ancillary (enter results); Complete Time: 19:36 ag 04/11 18:27 Order name: Manual Differential; Complete Time: 19:50 EDMT 04/11 19:25 Order name: Urine Culture; Complete Time: 11:22 EDMT 04/11 17:52 Order name: IV; Complete Time: 18:51 8 04/11 17:52 Order name: Urine Dipstick-Ancillary (obtain specimen); Complete Time: 18:01 8 04/11 17:52 Order name: XRAY Chest (1 view); Complete Time: 19:23 jr8 Administered Medications: 18:57 Drug: NS 0.9% 1000 ml Route: IV; Rate: 1000 ml; Site: right antecubital; ed1 20:05 Follow up: IV Status: Completed infusion; IV Intake: 1000ml ed1 18:58 Drug: Rocephin 1 grams Route: IV; Rate: calculated rate; Site: right antecubital; ed1 20:05 Follow up: Response: No adverse reaction; IV Status: Completed infusion ed1 Disposition: 04/11/18 19:37 Discharged to Home. Impression: Urinary tract infection, site not specified, Dehydration, Rash and other nonspecific skin eruption. - Condition is Stable. - Discharge Instructions: Dehydration, Adult, Rash, Urinary Tract Infection. - Prescriptions for Augmentin 875- 125 mg Oral Tablet - take 1 tablet by ORAL route every 12 hours for 10 days; 20 tablet. - SBAR form, Medication Reconciliation Form, Thank You Letter, Antibiotic Education, Prescription Opioid Use form. - Follow up: Private Physician; When: 2 - 3 days; Reason: Recheck today's complaints, Continuance of care, Re-evaluation by your physician. - Problem is new. - Symptoms have improved. Addendum: 04/19/2018 11:51 Co-signature as Attending Physician, Bismark Sumner MD. g s Signatures: Dispatcher [employer] EDMT Brooke Garcia RN RN ss Edna Fox, BUSINESS WRITER BUSINESS WRITER ed1 Alex Champion PA PA jr8 Messi Shook, CANDLE MAKER CANDLE MAKER pm1 Bismark Sumner MD MD Corrections: (The following items were deleted from the chart) 04/11 20:17 19:37 04/11/2018 19:37 Discharged to Home. Impression: Urinary tract infection, site ed1 not specified; Dehydration; Rash and other nonspecific skin eruption. Condition is Stable. Forms are Medication Reconciliation Form, Thank You Letter, Antibiotic Education, Prescription Opioid Use. Follow up: Private Physician; When: 2 - 3 days; Reason: Recheck today's complaints, Continuance of care, Re-evaluation by your physician. Problem is new. Symptoms have improved. jr8
[2018-04-11 19:41] LABS: Blood Morphology Comment NOT SEEN (NOT SEEN); Platelet Estimate ADEQ
[2018-04-11 20:22] VITALS: TEMP 98.4; O2SAT 100
[2018-04-11 20:25] VITALS: BP 133/63
== END 2018-04-11 20:17 | disposition home or self-care (01) ==
LOC: ER 16:46
DX: N39.0 Urinary tract infection, site not specified (principal); E86.0 Dehydration; I10 Essential (primary) hypertension; Z88.5 Allergy status to narcotic agent; Z88.8 Allergy status to other drugs, medicaments and biological substances
CPT/HCPCS: 36415; 71045; 80048; 85025; 87077 ×3; 87086; 87088; 87186 ×3; 96361; 96365; 99284; J0696; J7030; 81003; 81015

== ENCOUNTER 2018-08-02 11:01 | Emergency (ER) | payer OTHER ==
--- OUTSIDE RECORDS SUMMARY | 2018-08-02 11:04 | XMS REPORT | Clinical Summary ---
:1940 Author Organization [facility] Address [address] [place] [address] Care Team Providers Name Role Phone Asked, [...] by mouth Active ORAL daily. vitamin A 85385 Take 25,000 Units Active UNIT capsule by [...] Calvin MD Enlarged prostate with urinary obstruction after 08/01/2017 Social History Tobacco Use Types Packs/Day Years [...] 2003 PNEUMOCOCCAL-13 2003 INFLUENZA VACCINE 06/05/2018 Results Not on fileafter 08/01/2017 Insurance Payer Benefit Plan / Group Subscriber ID Type Phone Address MEDICARE MEDICARE PART A AND B xxxxxxxxxxx Medicare [place], [place] MEDICARE MEDICARE PART A AND B xxxxxxxxxxx Medicare [place] AETNA AETNA HMO,POS,EPO, MC/EC xxxxxxxxxx HMO AETNA AETNA USHE[employer] INDEMNITY xxxxxxxxxx Indemnity [phone] [place] [id number]
[2018-08-02] MEDS ORDERED: NA CHLORIDE 0.9% 500 ML ONE (11:45)
[2018-08-02 11:58] LABS: Urine Blood NEGATIVE (NEG); Urine Glucose NEGATIVE (NEG); Urine Protein TRACE (NEG); Urine pH 5.5 (5.0-7.0)
--- NOTE | 2018-08-02 12:08 | RAD REPORT ---
EXAM DESCRIPTION: RAD - Chest Single View - 08/02/2018 12:00 pm CLINICAL HISTORY: COUGH Chest pain. COMPARISON: Chest Single View dated 04/11/2018; Chest Single View dated 01/23/2018; Chest Single View d ated 01/21/2018; Chest Single View dated 11/29/2017 FINDINGS: Portable technique limits examination quality. Emphysematous changes are present throughout the lungs. Small calcified granulomas are present bilate rally. No focal infiltrate detected. The heart is normal in size. No displaced fractures. IMPRESSION: Prominent COPD.
[2018-08-02 12:17] LABS: Absolute Lymphocytes (CBC) 1.7 K/uL (0.7-4.9); Absolute Monocytes 1.3 K/uL (0.1-1.3); Absolute Neutrophil 9.6 K/uL (1.8-8.0); Basophils % 0.2 % (0-1.3); Eosinophils % 0.6 % (0-4.4); Hematocrit 37.3 % (39.6-49.0); Lymphocytes % 13.1 % (15.3-44.8); MCH 28.3 pg (27.0-35.0); MPV 8.5 fL (7.6-11.3); Monocytes % 10.1 % (3.3-12.3); RBC Red Blood Cell Count 4.56 M/uL (4.33-5.43)
[2018-08-02 12:23] LABS: Potassium 3.5 mmol/L (3.5-5.1)
[2018-08-02 12:24] LABS: Urine Bacteria 20-50 /HPF (NONE SEEN); Urine Culture Reflex Order NOT NEEDED; Urine RBC <5 /HPF (NONE SEEN)
[2018-08-02 12:25] LABS: Urine Yeast FEW (NONE SEEN)
--- NOTE | 2018-08-02 13:13 | EDPHYS ---
Physician Documentation [facility] Name: Gio Matute Age: 78 yrs Sex: Male : 1940 Arrival Date: 08/02/2018 Time: 11:11 Bed 16 Private MD: ED Physician Sid Tirado HPI: 08/02 11:41 This 78 yrs old Male presents to ER via EMS with complaints of cough, mucous. rn 11:41 The patient or guardian reports cough. Onset: The symptoms/episode began/occurred 4 rn day(s) ago. Severity of symptoms: At their worst the symptoms were mild, in the emergency department the symptoms are unchanged. Modifying factors: The symptoms are alleviated by nothing, the symptoms are aggravated by nothing. The patient has experienced similar episodes in the past. Family reports cough, a lot of mucous, no fever, not on oxygen, no hemoptysis, unable to get in with pcp due to bed-ridden and lack of transportation, so came here, not as bad as he has bene in past, no pain.. 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 - Family history:: not pertinent. - Hospitalizations: : No recent hospitalization is reported. ROS: 11:42 Constitutional: Negative for fever, chills, and weight loss, Eyes: Negative for injury, rn pain, redness, and discharge, Neck: Negative for injury, pain, and swelling, Cardiovascular: Negative for chest pain, palpitations, and edema, Respiratory: + cough Abdomen/GI: Negative for abdominal pain, nausea, vomiting, diarrhea, and constipation, MS/Extremity: Negative for injury and deformity, Skin: Negative for injury, rash, and discoloration, Neuro: Negative for headache, numbness, tingling, and seizure. Exam: 11:42 Constitutional: This is a well developed, well nourished patient who is awake, alert, rn and in no acute distress. Head/Face: Normocephalic, atraumatic. Eyes: Pupils equal round and reactive to light, extra-ocular motions intact. Lids and lashes normal. Conjunctiva and sclera are non-icteric and not injected. Cornea within normal limits. Periorbital areas with no swelling, redness, or edema. ENT: dry MM, no stridor Cardiovascular: Regular rate and rhythm with a normal S1 and S2. No gallops, murmurs, or rubs. Normal PMI, no JVD. No pulse deficits. Respiratory: decreased breath sounds/air movement bilaterally, no wheezing, no retractions, breathing comfortably Abdomen/GI: Soft, non-tender, with normal bowel sounds. No distension or tympany. No guarding or rebound. No evidence of tenderness throughout. MS/ Extremity: Pulses equal, no cyanosis. Neurovascular intact. Full, normal range of motion. Equal circumference. Neuro: Awake and alert, GCS 15, oriented to person, place, and situation. Cranial nerves II-XII grossly intact. Motor strength 4/5 in all extremities, slightly weaker in lower extremities. Sensory grossly intact. Vital Signs: 11:15 BP 135 / 88; Pulse 64; Resp 16 S; Temp 98.0(TE); Pulse Ox 100% on R/A; Pain 0/10; aa5 13:01 BP 113 / 74; Pulse 82; Resp 18; Pulse Ox 100% on R/A; em MDM: 11:27 Patient medically screened. rn 13:11 Differential Diagnosis: Bronchitis Upper Respiratory Infection Viral Syndrome rn Pneumonia. Data reviewed: vital signs, nurses notes, lab test result(s), radiologic studies, plain films, and as a result, I will discharge patient. Counseling: I had a detailed discussion with the patient and/or guardian regarding: the historical points, exam findings, and any diagnostic results supporting the discharge/admit diagnosis, lab results, the need for outpatient follow up, to return to the emergency department if symptoms worsen or persist or if there are any questions or concerns that arise at home. Special discussion: I discussed with the patient/guardian in detail that at this point there is no indication for admission to the hospital. It is understood, however, that if the symptoms persist or worsen the patient needs to return immediately for re-evaluation. 08/02 11:36 Order name: CBC with Diff; Complete Time: 13:40 rn 08/02 11:36 Order name: Basic Metabolic Panel; Complete Time: 12:58 rn 08/02 11:36 Order name: Urine Culture rn 08/02 11:36 Order name: Urine Microscopic Only; Complete Time: 12:58 rn 08/02 11:36 Order name: Blood Culture Adult (2) rn 08/02 11:36 Order name: Procalcitonin; Complete Time: 12:58 rn 08/02 11:36 Order name: IV Start; Complete Time: 12:05 rn 08/02 11:36 Order name: Urine Dipstick-Ancillary (obtain specimen); Complete Time: 11:55 rn 08/02 11:36 Order name: XRAY Chest (1 view); Complete Time: 12:18 rn 08/02 11:54 Order name: Urine Dipstick--Ancillary (enter results); Complete Time: 12:18 eb 08/02 13:29 Order name: CBC Smear Scan; Complete Time: 13:40 EDMS Administered Medications: 12:00 Drug: NS 0.9% 500 ml Route: IV; Rate: bolus; Site: left antecubital; aa5 12:59 Follow up: IV Status: Completed infusion; IV Intake: 500ml em Disposition: 08/02/18 13:12 Discharged to Home. Impression: Dehydration, Cough. - Condition is Stable. - Discharge Instructions: Dehydration, Adult, Cough, Adult. - Medication Reconciliation Form, Thank You Letter, Antibiotic Education, Prescription Opioid Use form. - Follow up: Private Physician; When: As needed; Reason: Recheck today's complaints, Re-evaluation by your physician. - Problem is new. - Symptoms have improved. Signatures: Dispatcher [employer] [facility] Jaswant Sweet, ELECTRICAL ASSISTANT ELECTRICAL ASSISTANT Sid Briceño MD MD rn Calderon, Audri, RN RN aa5 Corrections: (The following items were deleted from the chart) 14:00 13:12 08/02/2018 13:12 Discharged to Home. Impression: Dehydration; Cough. Condition is em Stable. Forms are Medication Reconciliation Form, Thank You Letter, Antibiotic Education, Prescription Opioid Use. Follow up: Private Physician; When: As needed; Reason: Recheck today's complaints, Re-evaluation by your physician. Problem is new. Symptoms have improved. rn
--- NOTE | 2018-08-02 13:13 | ER ---
Nurse's Notes [facility] Name: Gio Matute Age: 78 yrs Sex: Male : 1940 Arrival Date: 08/02/2018 Time: 11:11 Bed 16 Private MD: Diagnosis: Dehydration;Cough Presentation: 08/02 11:11 Presenting complaint: Presenting complaint: Pt's states "he has Jong's and it aa5 causes him to have difficulty coughing up or swallowing but lately he's been having more difficulty controlling the mucus". 11:11 Transition of care: patient was not received from another setting of care. Onset of aa5 symptoms was August 02, 2018. Risk Assessment: Do you want to hurt yourself or someone else? Patient reports no desire to harm self or others. Initial Sepsis Screen: Does the patient meet any 2 criteria? No. Patient's initial sepsis screen is negative. Does the patient have a suspected source of infection? No. Patient's initial sepsis screen is negative. Care prior to arrival: None. 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 - Family history:: not pertinent. - Hospitalizations: : No recent hospitalization is reported. Screenin:20 Abuse screen: Denies threats or abuse. Nutritional screening: No deficits noted. aa5 Tuberculosis screening: No symptoms or risk factors identified. 12:00 Fall Risk No fall in past 12 months (0 pts). Secondary diagnosis (15 points) impaired aa5 mobility, Blind. IV access (20 points). Ambulatory Aid- None/Bed Rest/Nurse Assist (0 pts). Gait- Normal/Bed Rest/Wheelchair (0 pts) Mental Status- Oriented to own ability (0 pts). Total Hines Fall Scale indicates Low Risk Score (25-44 pts). Fall prevention measures have been instituted. Side Rails Up X 2. Assessment: 11:15 General: Appears comfortable, Behavior is calm, cooperative. Pain: Denies pain. Neuro: aa5 Level of Consciousness is awake, alert, obeys commands, Oriented to person, place, time, situation, Rock Climbing Instructor are equal bilaterally Moves all extremities. Unable to visualize pupils, pt states he is blind. . Cardiovascular: Heart tones S1 S2 present Rhythm is regular. Respiratory: Reports cough. Pt states "I only cough when I feel the mucus" Airway is patent Respiratory effort is even, unlabored, Respiratory pattern is regular, symmetrical, Breath sounds are diminished bilaterally. GI: Abdomen is round non-distended, Bowel sounds present X 4 quads. Abd is soft and non tender X 4 quads. Patient currently denies nausea, vomiting. : Brief noted, condom catheter noted. EENT: No signs and/or symptoms were reported regarding the EENT system. Derm: Skin is pink, warm \\T\\ dry. Musculoskeletal: Pt reports being bed bound. 13:05 Reassessment: Patient appears in no apparent distress at this time. Patient and/or em family updated on plan of care and expected duration. Pain level reassessed. 13:41 Reassessment: Patient appears in no apparent distress at this time. Patient and/or em family updated on plan of care and expected duration. Pain level reassessed. pt discharged, pending ambulance to transport home. 14:00 Reassessment: Patient appears in no apparent distress at this time. Patient and/or em family updated on plan of care and expected duration. Pain level reassessed. report given to [facility]. Vital Signs: 11:15 BP 135 / 88; Pulse 64; Resp 16 S; Temp 98.0(TE); Pulse Ox 100% on R/A; Pain 0/10; aa5 13:01 BP 113 / 74; Pulse 82; Resp 18; Pulse Ox 100% on R/A; em ED Course: 11:11 Patient arrived in ED. aa5 11:11 Arm band placed on Patient placed in an exam room, on a stretcher. aa5 11:11 Patient has correct armband on for positive identification. Bed in low position. Call aa5 light in reach. Side rails up X2. Adult w/ patient. 11:13 Ronit Pratt, NATALEE is Primary Nurse. aa5 11:14 Triage completed. aa5 11:27 Sid Tirado MD is Attending Physician. rn 11:48 X-ray completed. Portable x-ray completed in exam room. Patient tolerated procedure ml well. 11:50 XRAY Chest (1 view) In Process Unspecified. EDNH 11:54 Urine collected: Gaviria catheter specimen, cloudy, sofía colored. 3 11:59 Initial lab(s) drawn, by nc, sent to lab. Inserted saline lock: 20 gauge in left aa5 antecubital area, using aseptic technique. Blood collected. 12:30 Report given to Jaswant Sweet LVN. aa5 13:41 No provider procedures requiring assistance completed. IV discontinued, intact, em bleeding controlled, No redness/swelling at site. Pressure dressing applied. Administered Medications: 12:00 Drug: NS 0.9% 500 ml Route: IV; Rate: bolus; Site: left antecubital; aa5 12:59 Follow up: IV Status: Completed infusion; IV Intake: 500ml em Intake: 12:59 IV: 500ml; Total: 500ml. em Outcome: 13:12 Discharge ordered by MD. rn 13:41 Discharged to home via ambulance. em 13:41 Condition: good 13:41 Discharge instructions given to family, Instructed on discharge instructions, follow up and referral plans. Demonstrated understanding of instructions, follow-up care. 14:00 Patient left the ED. em Addendum: 08/05/2018 16:45 Addendum: Culture Results: Positive urine culture. Phone call Attempt #1 no answer, s s left VM. Certified letter sent to listed address for patient. Signatures: Dispatcher [employer] [facility] Jaswant Sweet LVN SALES RECRUITMENT SPECIALIST Dulce Ulrich Sid Tirado MD MD rn Calderon, Audri RN RN 5 Brooke Garcia RN RN ss Herrera, Deanna formerly [facility] Corrections: (The following items were deleted from the chart) 08/02 11:14 11:14 Presenting complaint: aa5 aa5 11:22 11:11 Presenting complaint: aa5 aa5
[2018-08-02 13:32] LABS: Blood Morphology Comment NOT SEEN (NOT SEEN); Platelet Estimate ADEQ; Urine White Blood Cell Casts OK
[2018-08-02 14:19] VITALS: TEMP 98; O2SAT 100
[2018-08-02 14:20] VITALS: BP 113/74
== END 2018-08-02 14:00 | disposition home or self-care (01) ==
LOC: ER 11:01
DX: E86.0 Dehydration (principal); I10 Essential (primary) hypertension; Z88.5 Allergy status to narcotic agent; Z88.8 Allergy status to other drugs, medicaments and biological substances
CPT/HCPCS: 36415; 71045; 80048; 81003; 81015; 84145; 85025; 87040; 87077; 87086; 87088; 87186; 96360; 99284

== ENCOUNTER 2018-09-23 21:17 | Emergency (ER) | payer OTHER ==
--- OUTSIDE RECORDS SUMMARY | 2018-09-23 21:19 | XMS REPORT | Clinical Summary ---
:1940 Author Organization [facility] Address [address] [place] [address] Care Team Providers Name Role Phone Asked, No Pcp Primary Care Provider Unavailable Allergies Active Allergy Reactions Severity Noted Date Comments Codeine Other (See Comments) 05/11/2016 Nausea/vomiting Codeine GI Intolerance 08/03/2016 Medications Medication Sig Dispensed Refills Start Date End Date Status losartan (COZAAR) Take 50 mg by 0 Active 50 MG tablet mouth daily. brimonidine Administer 1 drop 0 Active (ALPHAGAN P) 0.1 to both eyes % drops every 8 (eight) hours. cycloSPORINE 1 drop 2 (two) 0 Active (RESTASIS) 0.05 % times a day. ophthalmic emulsion prednisoLONE 1 drop 4 (four) 0 Active acetate (PRED times a day. FORTE) 1 % ophthalmic suspension ALPHAGAN P 0.1 % 0 07/11/2016 Active drops losartan (COZAAR) Take 50 mg by 1 05/26/2016 Active 50 MG tablet mouth 2 (two) times a day. prednisoLONE PLACE 1 DROP INTO 4 05/09/2016 Active acetate (PRED THE RIGHT EYE 3 FORTE) 1 % TIMES DAILY. ophthalmic SHAKE WELL BEFORE suspension INSTILLATION cycloSPORINE 1 drop 2 (two) 0 Active (RESTASIS) 0.05 % times a day. ophthalmic emulsion FERROUS FUMARATE Take 56 mg by 0 Active (IRON ORAL) mouth daily. VITAMIN B COMPLEX Take by mouth 0 Active ORAL daily. vitamin A 99648 Take 25,000 Units 0 Active UNIT capsule by mouth daily. ascorbic acid, Take 500 mg by 0 Active vitamin C, mouth daily. (ascorbic acid with tarah hips) 500 MG tablet cholecalciferol, Take 2,000 Units 0 Active vitamin D3, by mouth daily. (VITAMIN D3) 2,000 unit capsule capsule VENTOLIN HFA 90 2 puffs into each 1 05/09/2016 Active mcg/actuation nostril as inhaler needed. ketoconazole Apply 1 0 Active (NIZORAL) 2 % application shampoo topically [...] MD Enlarged prostate with urinary obstruction after 09/22/2017 Social History Tobacco Use Types Packs/Day Years Used Date Former Smoker Cigarettes 1 10 Quit: 1967 Smokeless Tobacco: Never Used Alcohol Use Drinks/Week oz/Week Comments No Sex Assigned at Date Recorded Not on file Job Start Date Occupation Industry Not on file Not on file Not on file Travel History Travel Start Travel End No recent travel history available. Last Filed Vital Signs Not on file Plan of Treatment Health Maintenance Due Date Last Done Comments SHINGRIX VACCINE (1 of 2) 01/24/1988 ZOSTER VACCINE 1998 PNEUMOCOCCAL POLYSACCHARIDE VACCINE AGE 65 AND OVER 2003 PNEUMOCOCCAL-13 2003 INFLUENZA VACCINE 06/05/2018 Results Not on fileafter 09/22/2017 Insurance Payer Benefit Plan / Group Subscriber ID Type Phone Address MEDICARE MEDICARE PART A AND B xxxxxxxxxxx Medicare [place], [place] MEDICARE MEDICARE PART A AND B xxxxxxxxxxx Medicare [place] AETNA AETNA HMO,POS,EPO, MC/EC xxxxxxxxxx HMO AETNA AETNA USHEALTHCARE INDEMNITY xxxxxxxxxx Indemnity ([address] [place] [address] Advance Directives Patient has advance care planning documents on file. For more information, please contact:Babar [id number] [place] [address]
--- NOTE | 2018-09-23 22:44 | RAD REPORT ---
EXAM DESCRIPTION: RAD - Chest Single View - 09/23/2018 10:38 pm CLINICAL HISTORY: SOB Chest pain. COMPARISON: Chest Single View dated 08/02/2018; Chest Single View dated 04/11/2018; Chest Single View d ated 01/23/2018; Chest Single View dated 01/21/2018 FINDINGS: Portable technique limits examination quality. Bibasilar lung opacities are noted, greater on the right, suspicious for pneumonia. The heart is mild ly enlarged in size. No displaced fractures. IMPRESSION: Moderate bibasilar pneumonia.
[2018-09-23 23:04] LABS: Absolute Monocytes 0.9 K/uL (0.1-1.3); Absolute Neutrophil 9.7 K/uL (1.8-8.0); Basophils % 0.3 % (0-1.3); Eosinophils % 0.6 % (0-4.4); Hematocrit 36.2 % (39.6-49.0); Lymphocytes % 8.9 % (15.3-44.8); MCH 29.5 pg (27.0-35.0); MCV 88.3 fL (80-100); MPV 8.7 fL (7.6-11.3); Monocytes % 7.3 % (3.3-12.3)
[2018-09-23 23:05] LABS: Protime INR 1.08
[2018-09-23 23:20] LABS: ALT/SGPT 28 U/L (12-78); AST/SGOT 15 U/L (15-37); Albumin 2.7 g/dL (3.4-5.0); Alkaline Phosphatase 119 U/L (45-117); BUN Blood Urea Nitrogen 14 mg/dL (7-18); Bicarbonate 25 mmol/L (21-32); Bilirubin Direct 0.2 mg/dL (0-0.2); Bilirubin Total 0.6 mg/dL (0.2-1.0); Glucose Level 93 mg/dL (74-106); Magnesium 2.1 mg/dL (1.8-2.4); NT PRO-BNP 3230 pg/mL (<450); Potassium 3.4 mmol/L (3.5-5.1); Protein, Total 5.9 g/dL (6.4-8.2); Sodium Level 140 mmol/L (136-145); Troponin (Emerg Dept Use Only) < 0.02 ng/mL (0.0-0.045)
[2018-09-24 00:11] LABS: Blood Morphology Comment NOT SEEN (NOT SEEN); Platelet Estimate ADEQ
[2018-09-24] MEDS ORDERED: Levofloxacin 750mg IV 750 MG/150 ML BAG IV ONE (01:57)
--- NOTE | 2018-09-24 02:29 | ER ---
Nurse's Notes [facility] Name: Gio Matute Age: 78 yrs Sex: Male : 1940 Arrival Date: 09/23/2018 Time: 21:23 Bed 6 Private MD: Diagnosis: Malignant otitis externa, right ear Presentation: 09/23 21:10 Presenting complaint: EMS states: coughing out mucus since last night, which according cc3 to the family was not normal for the patient. Transition of care: patient was not received from another setting of care. Onset of symptoms was September 22, 2018. Risk Assessment: Do you want to hurt yourself or someone else? Patient reports no desire to harm self or others. Initial Sepsis Screen: Does the patient meet any 2 criteria? No. Patient's initial sepsis screen is negative. Does the patient have a suspected source of infection? No. Patient's initial sepsis screen is negative. Care prior to arrival: None. 21:10 Method Of Arrival: EMS: [facility] cc3 21:10 Acuity: MACI 3 cc3 Triage Assessment: 21:10 General: Appears in no apparent distress. comfortable, Behavior is calm, cooperative. cc3 Pain: Denies pain. EENT: Parent/caregiver reports the patient having coughing out mucus continuously since last night, right ear swelling and discharge since 3-4 days as per the patient's family. Neuro: Level of Consciousness is awake, alert, obeys commands, Oriented to person, place. Cardiovascular: Denies chest pain. Respiratory: Reports cough that is productive, persistent since last night Airway is patent Respiratory effort is even, unlabored, Respiratory pattern is regular, symmetrical, Onset: The symptoms/episode began/occurred yesterday, the patient has mild shortness of breath. GI: Abdomen is round non-distended. : condom catheter. Derm: No signs and/or symptoms reported regarding the dermatologic system. Musculoskeletal: Circulation, motion, and sensation intact. Range of motion: limited in bilateral legs. 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 - Social history:: Smoking status: Patient/guardian denies using tobacco, but has a distant history of tobacco abuse. - Ebola Screening: : No symptoms or risks identified at this time. Screenin:10 Abuse screen: Denies threats or abuse. Denies injuries from another. Nutritional cc3 screening: No deficits noted. Tuberculosis screening: No symptoms or risk factors identified. Fall Risk Ambulatory Aid- None/Bed Rest/Nurse Assist (0 pts). Gait- Impaired (20 pts.). Mental Status- Oriented to own ability (0 pts). Assessment: 21:10 General: see triage assessment. cc3 21:10 Cardiovascular: Rhythm is regular. Respiratory: Airway is patent Respiratory effort is cc3 even, unlabored, Respiratory pattern is regular, symmetrical, Breath sounds are clear bilaterally. 22:20 Reassessment: Patient appears in no apparent distress at this time. Patient and/or cc3 family updated on plan of care and expected duration. Pain level reassessed. Patient is alert, oriented x 3, equal unlabored respirations, skin warm/dry/pink. 23:15 Reassessment: Patient appears in no apparent distress at this time. Patient and/or cc3 family updated on plan of care and expected duration. Pain level reassessed. Patient is alert, oriented x 3, equal unlabored respirations, skin warm/dry/pink. 09/24 00:14 Reassessment: Patient appears in no apparent distress at this time. Patient and/or cc3 family updated on plan of care and expected duration. Pain level reassessed. Patient is alert, oriented x 3, equal unlabored respirations, skin warm/dry/pink. Patient came back from CT scan department, CT soft tissue neck done as ordered, awaiting result. 01:10 Reassessment: Patient appears in no apparent distress at this time. Patient and/or cc3 family updated on plan of care and expected duration. Pain level reassessed. Patient is alert, oriented x 3, equal unlabored respirations, skin warm/dry/pink. 01:50 Reassessment: Patient appears in no apparent distress at this time. Patient and/or cc3 family updated on plan of care and expected duration. Pain level reassessed. Patient is alert, oriented x 3, equal unlabored respirations, skin warm/dry/pink. Dr. Jameson said the patient is for transfer to [facility] in [place], transfer on process. 02:10 Reassessment: Patient appears in no apparent distress at this time. Patient and/or cc3 family updated on plan of care and expected duration. Pain level reassessed. Patient is alert, oriented x 3, equal unlabored respirations, skin warm/dry/pink. Report given to [facility] air liaison and special staffNATALEE Rosas for continuity of care. 03:00 Reassessment: Patient appears in no apparent distress at this time. Patient and/or cc3 family updated on plan of care and expected duration. Pain level reassessed. Patient is alert, oriented x 3, equal unlabored respirations, skin warm/dry/pink. [facility] came and took the patient for transfer to [facility] vitally stable by stretcher with family. 03:15 Reassessment: Patient left ER vitally stable by stretcher EMS with family. 3 Vital Signs: 09/23 21:10 BP 160 / 80; Pulse 81; Resp 20 S; Temp 98.1(O); Pulse Ox 98% on R/A; Weight 63.5 kg cc3 (R); Height 6 ft. 1 in. (185.42 cm) (R); 22:30 BP 142 / 85; Pulse 67; Resp 19 S; Pulse Ox 99% on R/A; cc3 23:10 BP 139 / 87; Pulse 73; Resp 18 S; Pulse Ox 98% on R/A; cc3 09/24 00:13 BP 137 / 64; Pulse 77; Resp 19 S; Pulse Ox 98% on R/A; cc3 01:04 BP 135 / 77; Pulse 73; Resp 17; Pulse Ox 98% on R/A; cc3 02:31 BP 133 / 79; Pulse 75; Resp 19 S; Pulse Ox 99% on R/A; cc3 02:50 BP 123 / 79; Pulse 73; Resp 18 S; Pulse Ox 98% on R/A; cc3 09/23 21:10 Body Mass Index 18.47 (63.50 kg, 185.42 cm) cc3 ED Course: 09/23 21:10 Arm band placed on right wrist. Patient notified of wait time. cc3 21:10 Patient has correct armband on for positive identification. Bed in low position. Call cc3 light in reach. Side rails up X2. mechanical door repairer on. Pulse ox on. NIBP on. 21:23 Patient arrived in ED. ak1 21:29 Juno Jameson MD is Attending Physician. tw4 21:32 Marielos Emanuel is Primary Nurse. cc3 21:38 Triage completed. cc3 22:40 Inserted saline lock: 22 gauge in right antecubital area, using aseptic technique. cc3 Blood collected. inserted by turbine technician Arun. 22:46 Radiology exam delayed due to lab results not completed at this time. (BUN/Creatinine). kw1 23:[address] via stretcher. kw1 09/24 00:03 CT completed. Patient tolerated procedure well. Patient moved back from CT. kw1 02:10 No provider procedures requiring assistance completed. Patient transferred, IV remains cc3 in place. Administered Medications: 01:50 Drug: LevaQUIN 750 mg Volume: 150 ml; Route: IVPB; Infused Over: 90 mins; Site: right cc3 antecubital; 02:50 Follow up: Response: No adverse reaction; IV Status: Infusion continued upon transfer cc3 Outcome: 02:28 ER care complete, transfer ordered by . tw4 03:00 Transferred by ground EMS to [facility], Transfer form completed. cc3 03:00 Condition: stable 03:00 Instructed on the need for transfer, Demonstrated understanding of instructions. 03:17 Patient left the ED. cc3 Signatures: Natasha Armendariz, RN RN ak1 Rema Talbot kw1 Juno Jameson MD MD tw4 Marielos Emanuel cc3 Corrections: (The following items were deleted from the chart) 00:15 00:13 Pulse 77bpm; Resp 19bpm; Spontaneous; Pulse Ox 98% RA; cc3 cc3 02:10 09/23 21:10 EENT: Parent/caregiver reports the patient having coughing out mucus cc3 continuously since last night. cc3 09/24 03:14 02:10 Reassessment: Patient appears in no apparent distress at this time. Patient cc3 and/or family updated on plan of care and expected duration. Pain level reassessed. Patient is alert, oriented x 3, equal unlabored respirations, skin warm/dry/pink. Report given to [facility] air liaison and special staff Arvind Rosas for continuity of care. cc3
--- NOTE | 2018-09-24 02:29 | EDPHYS ---
Physician Documentation [facility] Name: Gio Matute Age: 78 yrs Sex: Male : 1940 Arrival Date: 09/23/2018 Time: 21:23 Bed 6 Private MD: ED Physician Juno Jameson HPI: 09/24 02:07 This 78 yrs old Male presents to ER via EMS with complaints of Productive tw4 Cough. 02:07 The patient or guardian reports cough. Onset: The symptoms/episode began/occurred 1 tw4 week(s) ago. Severity of symptoms: At their worst the symptoms were moderate, in the emergency department the symptoms are unchanged. Modifying factors: The symptoms are alleviated by nothing, the symptoms are aggravated by nothing. The patient has experienced similar episodes in the past. history from Family pt nonverbal due to hearing loss. 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 - Social history:: Smoking status: Patient/guardian denies using tobacco, but has a distant history of tobacco abuse. - Ebola Screening: : No symptoms or risks identified at this time. ROS: 09/24 02:07 Constitutional: Negative for fever, chills, and weight loss, Eyes: Negative for injury, tw4 pain, redness, and discharge, Cardiovascular: Negative for chest pain, palpitations, and edema, Abdomen/GI: Negative for abdominal pain, nausea, vomiting, diarrhea, and constipation. ENT: Positive for drainage from ear(s). Respiratory: Positive for cough, Negative for dyspnea on exertion, hemoptysis, orthopnea, pleurisy, sputum production. Exam: 02:07 Constitutional: This is a well developed, well nourished patient who is awake, alert, tw4 and in no acute distress. Head/Face: Normocephalic, atraumatic. 02:07 Chest/axilla: Normal chest wall appearance and motion. Nontender with no deformity. No lesions are appreciated. Cardiovascular: Regular rate and rhythm with a normal S1 and S2. No gallops, murmurs, or rubs. Normal PMI, no JVD. No pulse deficits. Respiratory: Lungs have equal breath sounds bilaterally, clear to auscultation and percussion. No rales, rhonchi or wheezes noted. No increased work of breathing, no retractions or nasal flaring. Abdomen/GI: Soft, non-tender, with normal bowel sounds. No distension or tympany. No guarding or rebound. No evidence of tenderness throughout. MS/ Extremity: Pulses equal, no cyanosis. Neurovascular intact. Full, normal range of motion. Neuro: Awake and alert, GCS 15, oriented to person, place, time, and situation. Cranial nerves II-XII grossly intact. Motor strength 5/5 in all extremities. Sensory grossly intact. Cerebellar exam normal. Normal gait. 02:07 ENT: External ear(s): cellulitis, erythema, of the pinna of right ear and right ear canal, Ear canal(s): erythema, of the right canal, purulent discharge, TM's: Vital Signs: 09/23 21:10 BP 160 / 80; Pulse 81; Resp 20 S; Temp 98.1(O); Pulse Ox 98% on R/A; Weight 63.5 kg cc3 (R); Height 6 ft. 1 in. (185.42 cm) (R); 22:30 BP 142 / 85; Pulse 67; Resp 19 S; Pulse Ox 99% on R/A; cc3 23:10 BP 139 / 87; Pulse 73; Resp 18 S; Pulse Ox 98% on R/A; cc3 09/24 00:13 BP 137 / 64; Pulse 77; Resp 19 S; Pulse Ox 98% on R/A; cc3 01:04 BP 135 / 77; Pulse 73; Resp 17; Pulse Ox 98% on R/A; cc3 02:31 BP 133 / 79; Pulse 75; Resp 19 S; Pulse Ox 99% on R/A; cc3 02:50 BP 123 / 79; Pulse 73; Resp 18 S; Pulse Ox 98% on R/A; cc3 09/23 21:10 Body Mass Index 18.47 (63.50 kg, 185.42 cm) cc3 MDM: 09/23 21:29 Patient medically screened. tw4 09/24 02:07 Differential Diagnosis: Bronchitis Influenza. Data reviewed: vital signs, nurses notes. tw4 Data interpreted: Pulse oximetry:. Test interpretation: by ED physician or midlevel provider: plain radiologic studies. Counseling: I had a detailed discussion with the patient and/or guardian regarding: the historical points, exam findings, and any diagnostic results supporting the discharge/admit diagnosis. 09/23 22:16 Order name: Basic Metabolic Panel tw4 09/23 22:16 Order name: CBC with Diff tw4 09/23 22:16 Order name: LFT's [facility] 09/23 22:16 Order name: Magnesium tw4 09/23 22:16 Order name: NT PRO-BNP tw4 09/23 22:16 Order name: PT-INR tw4 09/23 22:16 Order name: Troponin (emerg Dept Use Only) tw4 09/23 23:09 Order name: Protime (+INR); Complete Time: 00:24 EDMS 09/23 23:10 Order name: CBC with Automated Diff; Complete Time: 00:23 EDMS 09/23 23:21 Order name: Basic Metabolic Panel; Complete Time: 00:24 EDMS 09/24 01:14 Interpretation: Normal except: K 3.4; GFR 81. tw4 09/23 23:21 Order name: Liver (Hepatic) Function; Complete Time: 01:36 EDMS 09/23 23:21 Order name: Troponin (Emerg Dept Use Only); Complete Time: 01:36 EDMS 09/23 23:21 Order name: NT PRO-BNP; Complete Time: 01:36 EDMS 09/23 23:21 Order name: Magnesium; Complete Time: 01:36 EDMS 09/23 22:16 Order name: XRAY Chest (1 view) tw4 09/23 22:16 Order name: EKG; Complete Time: 22:17 tw4 09/23 22:16 Order name: Cardiac monitoring; Complete Time: 22:48 [facility] 09/23 22:16 Order name: IV Saline Lock; Complete Time: 22:57 [facility] 09/23 22:16 Order name: Labs collected and sent; Complete Time: 22:57 [facility] 09/23 22:16 Order name: O2 Per Protocol; Complete Time: 22:48 [facility] 09/23 22:16 Order name: O2 Sat Monitoring; Complete Time: 22:48 [facility] 09/23 22:42 Order name: CT Soft Tissue Neck W/contr [facility] 09/23 22:45 Order name: RAD; Complete Time: 01:36 EDMS 09/24 00:11 Order name: Manual Differential; Complete Time: 01:36 EDMS Administered Medications: 01:50 Drug: LevaQUIN 750 mg Volume: 150 ml; Route: IVPB; Infused Over: 90 mins; Site: right cc3 antecubital; 02:50 Follow up: Response: No adverse reaction; IV Status: Infusion continued upon transfer cc3 Disposition: 09/24/18 02:28 Transfer ordered to [facility]. Diagnosis is Malignant otitis externa, right ear. - Reason for transfer: Higher level of care. - Accepting physician is Dr Curry \[id number]. - Condition is Stable. - Problem is new. - Symptoms are unchanged. Signatures: Dispatcher [employer] EDJuno Reed MD MD tw4 Marielos Emanuel cc3 Corrections: (The following items were deleted from the chart) 09/23 22:58 22:16 EKG - Nurse/Tech ordered. [facility] cc3 09/24 01:14 01:12 K 3.4. 4 tw4 03:17 02:28 09/24/2018 02:28 Transfer ordered to [facility]. Diagnosis is cc3 Malignant otitis externa, right ear. Reason for transfer: Higher level of care. Accepting physician is Dr Curry \[id number]. Condition is Stable. Problem is new. Symptoms are unchanged. tw4
[2018-09-24 03:27] VITALS: BP 123/79; O2SAT 98
[2018-09-24 03:31] VITALS: TEMP 98.8
--- NOTE | 2018-09-24 08:31 | RAD REPORT ---
EXAM DESCRIPTION: CT - Soft Tissue Neck W/Contr CLINICAL HISTORY: FACIAL PAIN Mucoid production, neck pain COMPARISON: SOFT TISSUE NECK W CONTRAST dated 08/08/2015; SOFT TISSUE NECK W CONTRAST dated 4; SOFT TISSUE NECK W CONTRAST dated 06/10/[address] scans are performed using dose optimization technique as appropriate and may includ e automated exposure control or mA/KV adjustment according to patient size. FINDINGS: Chronic opacification of the left maxillary antrum is seen with bony hyperostosis compatib le with chronic sinusitis. Right-sided mastoid fluid is present with soft tissue in the middle ear cavity. There is some coalesc ence of the right mastoid air cells noted with soft tissue thickening adjacent to the mastoid air nhan l and a small rim enhancing collection present measuring 21 x 16 mm. This is suspicious for right-mel ed abscess. Moderate fluid is present in the left mastoid air cell with mild soft tissue noted in the middle ear cavity as well. Intrinsic neck mass is not seen. No bulky adenopathy in the neck. IMPRESSION: The findings are suspicious for right-sided coalescent otomastoiditis with subcutaneous abscess present in the region of the external ear. Direct clinical inspection of this region is advis ed. Early similar mastoiditis versus mastoid effusion findings on the left also noted. Chronic left maxillary sinusitis also seen.
== END 2018-09-24 03:17 | disposition short-term general hospital (02) ==
LOC: ER 21:17
DX: H60.21 Malignant otitis externa, right ear (principal); I10 Essential (primary) hypertension; E11.9 Type 2 diabetes mellitus without complications
CPT/HCPCS: 36415; 70491; 71045; 80048; 80076; 83735; 83880; 84484; 85025; 85610; 96365; 99285; Q9967

== ENCOUNTER 2018-10-31 07:29 | Inpatient (IN) | payer OTHER ==
--- OUTSIDE RECORDS SUMMARY | 2018-10-31 07:32 | XMS REPORT | Clinical Summary ---
:1940 Author Organization [facility] Address [address] [place] [address] Care Team Providers Name Role Phone Jakob Jose Luis Brito Primary Care Provider Allergies Active Allergy Reactions Severity Noted Date Comments Antihistamines - Piperazine 09/25/2018 Urinary retention Codeine Nausea And Vomiting 01/27/2015 nausea Medications Medication Sig Dispensed Refills Start Date End Date Status brimonidine 0 Active (ALPHAGAN P) 0.1 % Drop b complex vitamins Take 1 tablet 0 Active tablet by mouth daily. ferrous sulfate 325 Take 325 mg 0 Active (65 FE) MG tablet by mouth daily with breakfast. amLODIPine Take 1 tablet 30 tablet 0 09/26/2018 09/26/2019 Active (NORVASC) 10 MG (10 mg total) tablet by mouth daily. metoprolol Take 1 tablet 30 tablet 0 09/26/2018 09/26/2019 Active (TOPROL-XL) 100 MG (100 mg 24 hr tablet total) by mouth daily. losartan (COZAAR) Take 50 mg by 0 09/25/2018 Discontinued 50 MG tablet mouth daily. amoxicillin-clavula Take 1 tablet 30 tablet 0 09/25/2018 10/05/2018 óscar (AUGMENTIN) by mouth 3 500-125 mg per (three) times tablet daily for 10 days. levoFLOXacin Take 1 tablet 10 tablet 0 09/25/2018 10/05/2018 (LEVAQUIN) 500 MG (500 mg tablet total) by mouth daily for 10 days. predniSONE Take 1 tablet 0 09/25/2018 10/05/2018 (DELTASONE) 10 MG (10 mg total) tablet by mouth 2 (two) times daily for 10 days. Active Problems Problem Noted Date Otitis externa 09/24/2018 Ear infection 09/24/2018 Encounters Date Type Specialty Care Team Description 09/24/2018 - Hospital Encounter Oncology Alyssa Curry Ear infection 09/25/2018 MD Mariya Tracy Alok, MD Zindani, Shireen, MD after 10/30/2017 Social History Tobacco Use Types Packs/Day Years Used Date Never Smoker Alcohol Use Drinks/Week oz/Week Comments No Sex Assigned at Date Recorded Not on file Job Start Date Occupation Industry Not on file Not on file Not on file Travel History Travel Start Travel End No recent travel history available. Last Filed Vital Signs Vital Sign Reading Time Taken Blood Pressure 130/69 09/25/2018 3:25 PM LATHE SETUP OPERATOR Pulse 90 09/25/2018 3:25 PM LATHE SETUP OPERATOR Temperature 36.7 C (98 F) 09/25/2018 3:25 PM LATHE SETUP OPERATOR Respiratory Rate 18 09/25/2018 3:25 PM LATHE SETUP OPERATOR Oxygen Saturation 100% 09/25/2018 3:25 PM LATHE SETUP OPERATOR Inhaled Oxygen Concentration - - Weight - - Height 182.9 cm (6') 09/24/2018 4:00 AM LATHE SETUP OPERATOR Body Mass Index - - Plan of Treatment Not on file Procedures Procedure Name Priority Date/Time Associated Comments Diagnosis XR CHEST 1 VIEW STAT 09/25/2018 4:07 Results for this PORTABLE/BEDSIDE PM LATHE SETUP OPERATOR procedure are in the results section. HEMOGLOBIN AND Routine 09/25/2018 12:41 Results for this HEMATOCRIT PM LATHE SETUP OPERATOR procedure are in the results section. CBC W/PLT COUNT & Routine 09/25/2018 5:14 Results for this AUTO DIFFERENTIAL AM LATHE SETUP OPERATOR procedure are in the results section. TSH/FREE T4 IF Routine 09/25/2018 5:14 Results for this INDICATED AM LATHE SETUP OPERATOR procedure are in the results section. CBC W/PLT COUNT & Routine 09/25/2018 5:14 Results for this AUTO DIFFERENTIAL AM LATHE SETUP OPERATOR procedure are in the results section. MAGNESIUM Routine 09/25/2018 5:14 Results for this AM LATHE SETUP OPERATOR procedure are in the results section. BASIC METABOLIC PANEL Routine 09/25/2018 5:14 Results for this (7) AM LATHE SETUP OPERATOR procedure are in the results section. ANAEROBIC CULTURE Routine 09/24/2018 7:59 Results for this PM LATHE SETUP OPERATOR procedure are in the results section. EAR CULTURE + GRAM Routine 09/24/2018 5:42 Results for this STAIN PM LATHE SETUP OPERATOR procedure are in the results section. BLOOD CULTURE Routine 09/24/2018 5:51 Results for this AM LATHE SETUP OPERATOR procedure are in the results section. CBC W/PLT COUNT & Routine 09/24/2018 5:50 Results for this AUTO DIFFERENTIAL AM LATHE SETUP OPERATOR procedure are in the results section. CBC W/PLT COUNT & Routine 09/24/2018 5:50 Results for this AUTO DIFFERENTIAL AM LATHE SETUP OPERATOR procedure are in the results section. MAGNESIUM Routine 09/24/2018 5:50 Results for this AM LATHE SETUP OPERATOR procedure are in the results section. BASIC METABOLIC PANEL Routine 09/24/2018 5:50 Results for this (7) AM LATHE SETUP OPERATOR procedure are in the results section. after 10/30/2017 Results XR chest 1 view portable / bedside (09/25/2018 4:07 PM LATHE SETUP OPERATOR) Narrative Performed At FINAL REPORT [facility] INDICATION: SOB TECHNIQUE: Chest radiograph, single view, portable technique. FINDINGS / IMPRESSION: Heart shadow is prominent and there is suggestion of pulmonary venous congestion. No overt pulmonary edema and no pleural effusion demonstrated. No pneumothorax or consolidation. Calcified plaque in the aortic arch noted. Osseous structures unremarkable. Signed: Fabio Rivera MD Report Verified Date/Time:09/25/2018 16:48:03 Reading Location: [facility] Diagnostic Imaging Reading Room - [place] [address] Procedure Note Interface, External Ris In - 09/25/2018 4:59 PM LATHE SETUP OPERATOR FINAL REPORT INDICATION: SOB TECHNIQUE: Chest radiograph, single view, portable technique. FINDINGS / IMPRESSION: Heart shadow is prominent and there is suggestion of pulmonary venous congestion. No overt pulmonary edema and no pleural effusion demonstrated. No pneumothorax or consolidation. Calcified plaque in the aortic arch noted. Osseous structures unremarkable. Signed: Fabio Rivera MD Report Verified Date/Time: 09/25/2018 16:48:03 Reading Location: [facility] Diagnostic Imaging Reading Room - [place] [address] [id number] Performing Organization Address City/State/Zipcode Phone Number [facility] Hemoglobin and hematocrit (09/25/2018 12:41 PM LATHE SETUP OPERATOR) Hemoglobin 10.4 (L) 13.7 - 17.5 GM/DL [facility] Hematocrit 32.6 (L) 40.1 - 51.0 % [facility] Specimen Blood Performing Organization Address City/[facility]/Zipcode Phone Number [address] [address] CENTER TSH/Free T4 If Indicated (09/25/2018 5:14 AM LATHE SETUP OPERATOR) TSH 1.57 0.35 - 4.94 uIU/mL [facility] Specimen Blood - Arm, Left Performing Organization Address [facility] Phone Number [address] [address] CENTER CBC with platelet count + automated diff (09/25/2018 5:14 AM LATHE SETUP OPERATOR)Only the most recent of2 resultswithin the time period is included. WBC 9.3 3.5 - 10.5 K/L [facility] RBC 3.30 (L) 4.63 - 6.08 M/L [facility] Hemoglobin 9.9 (L) 13.7 - 17.5 GM/DL [facility] Hematocrit 30.7 (L) 40.1 - 51.0 % [facility] MCV 93.0 (H) 79.0 - 92.2 fL [facility] MCH 30.0 25.7 - 32.2 pg [facility] MCHC 32.2 (L) 32.3 - 36.5 GM/DL [facility] RDW 15.9 (H) 11.6 - 14.4 % [facility] Platelets 143 (L) 150 - 450 K/CU MM [facility] MPV 10.9 9.4 - 12.4 fL [facility] nRBC 0 0 - 0 /100 WBC [facility] % Neutros 87 % [facility] % Lymphs 6 % [facility] % Monos 5 % [facility] % Eos 0 % [facility] % Baso 0 % [facility] # Neutros 8.10 (H) 1.78 - 5.38 K/L [facility] # Lymphs 0.51 (L) 1.32 - 3.57 K/L [facility] # Monos 0.46 0.30 - 0.82 K/L [facility] # Eos 0.01 (L) 0.04 - 0.54 K/L [facility] # Baso 0.01 0.01 - 0.08 K/L [facility] Immature Granulocytes-Relative 2 (H) 0 - 1 % [facility] Specimen Blood - Arm, Left Performing Organization Address City/[facility] Phone Number [address] [address] CENTER Magnesium (09/25/2018 5:14 AM LATHE SETUP OPERATOR)Only the most recent of2 resultswithin the time period is included. Magnesium 1.8 1.6 - 2.6 mg/dL [facility] Specimen Blood - Arm, Left Performing Organization Address City/[facility]/Zipcode Phone Number [address] [address] CENTER Basic metabolic panel (09/25/2018 5:14 AM LATHE SETUP OPERATOR)Only the most recent of2 resultswithin the time period is included. Sodium 136 136 - 145 meq/L [facility] Potassium 4.0 3.5 - 5.1 meq/L [facility] Chloride 109 (H) 98 - 107 meq/L [facility] CO2 21 (L) 22 - 29 meq/L [facility] BUN 11 7 - 21 mg/dL [facility] Creatinine 0.70 0.57 - 1.25 mg/dL [facility] Glucose 97 70 - 105 mg/dL [facility] Calcium 8.2 (L) 8.4 - 10.2 mg/dL [facility] EGFR 109Comment: ESTIMATED GFR IS mL/min/1.73 sq m [facility] NOT ACCURATE CREATININE [facility] CENTER CLEARANCE IN PREDICTING GLOMERULAR FILTRATION RATE. ESTIMATED GFR IS NOT APPLICABLE FOR DIALYSIS PATIENTS. Specimen Blood - Arm, Left Performing Organization Address City/State/Zipcode Phone Number [address] [address] CENTER Anaerobic culture (09/24/2018 7:59 PM LATHE SETUP OPERATOR) Result No anaerobes isolated [facility] Specimen Wound - Ear, Right Performing Organization Address City/[facility] Phone Number [address] [address] [place] Ear culture + gram stain (09/24/2018 5:42 PM LATHE SETUP OPERATOR) Result PSEUDOMONAS AERUGINOSA (A) [facility] Gram Stain Result 4+ WBCs [facility] Gram Stain Result No organisms seen [facility] Specimen Ear - Ear, Right Organism Antibiotic Method Susceptibility Pseudomonas aeruginosa Amikacin <=8: Susceptible Pseudomonas aeruginosa Aztreonam 4: Susceptible Pseudomonas aeruginosa Cefepime <=4: Susceptible Pseudomonas aeruginosa Ceftazidime <=1: Susceptible Pseudomonas aeruginosa Ciprofloxacin <=0.5: Susceptible Pseudomonas aeruginosa Gentamicin <=2: Susceptible Pseudomonas aeruginosa Levofloxacin <=1: Susceptible Pseudomonas aeruginosa Meropenem <=0.5: Susceptible Pseudomonas aeruginosa Piperacillin <=16: Susceptible Pseudomonas aeruginosa Piperacillin + Tazobactam <=8: Susceptible Pseudomonas aeruginosa Tobramycin <=2: Susceptible Pseudomonas aeruginosa Trimethoprim + Sulfamethoxazole >80: Resistant Performing Organization Address City/[facility] Phone Number [facility] [address] [place] [address] [place] Blood culture #1 (09/24/2018 5:51 AM LATHE SETUP OPERATOR) Result No growth in 5 days [facility] Specimen Blood - Arm, Right Performing Organization Address [facility] Phone Number [facility] [address] [place] [address] [phone] CENTER after 10/30/2017 Insurance Payer Benefit Plan / Group Subscriber ID Type Phone Address MEDICARE MEDICARE A B xxxxxxxxxxx Medicare AETNA - MGD CARE AETNA HMO POS QPOS xxxxxxxxxx HMO/POS HUMANA - MEDICARE MGD HUMANA MEDICARE ADV xxxxxxxxx Maps Contracted CARE AETNA - MGD CARE AETNA [facility] xxxxxxxxxx HMO/POS ACCESS ([place]) [address] [place] [id number] Advance Directives For more information, please contact:[address] [phone] Code Status Date Activated Date Inactivated Comments Full Code 09/24/2018 4:58 AM This code status was determined by: Patient
--- OUTSIDE RECORDS SUMMARY | 2018-10-31 07:32 | XMS REPORT | Clinical Summary ---
:1940 Author Organization [facility] Address [address] [place] [address] Care Team Providers Name Role Phone Asked, [...] mouth 0 Active ORAL daily. vitamin A 08648 Take 25,000 Units 0 Active UNIT capsule [...] MD Enlarged prostate with urinary obstruction after 10/30/2017 Social History Tobacco Use Types [...] Health Maintenance Due Date Last Done Comments SHINGLES VACCINES (1 of 2) 01/24/1988 PNEUMOCOCCAL POLYSACCHARIDE VACCINE AGE 65 AND OVER 2003 PNEUMOCOCCAL-13 2003 INFLUENZA VACCINE 06/05/2018 Results Not on fileafter 10/30/2017 Insurance Payer Benefit Plan / Group Subscriber ID Type Phone Address MEDICARE MEDICARE PART A AND B xxxxxxxxxxx Medicare [place], [place] MEDICARE MEDICARE PART A AND B xxxxxxxxxxx Medicare [place], [place] AETNA AETNA HMO,POS,EPO, MC/EC xxxxxxxxxx HMO AETNA AETNA [employer] INDEMNITY xxxxxxxxxx Indemnity ([place]) [address] [place] [id number] Advance Directives Patient has advance care planning documents on file. For more information, please contact:Babar Rooney[address] [place] [address]
--- OUTSIDE RECORDS SUMMARY | 2018-10-31 07:32 | XMS REPORT ---
:1940 [facility] Address [address] [place] [address] Care Team Providers Name Role Phone CARLOS BARBER Unavailable Unavailable Problems This patient has no known problems. Allergies, Adverse Reactions, Alerts This patient has no known allergies or adverse reactions. Medications This patient has no known medications. Results Test Description Test Time Test Comments Text Results Atomic Results Result Comments BLOOD CULTURE 2018-09-29 11:00:00 Test Item Value Reference Range Comments CULTURE (BEAKER) (test ldef=1975) No growth in 5 days ANAEROBIC [id number] 12:34:00 Test Item Value Reference Range Comments CULTURE (BEAKER) (test trvg=4577) No anaerobes isolated EAR CULTURE + GRAM [id number] 14:27:00 Test Item Value Reference Range Comments CULTURE (BEAKER) (test PSEUDOMONAS 1+ Pseudomonas klni=6343) AERUGINOSA aeruginosa Amikacin (test code=1) Susceptible 0-16 , Resistant <0 or >16 Aztreonam (test code=32) Susceptible 0-8 , Resistant <0 or >8 Cefepime (test code=51) Susceptible 0-8 , Resistant <0 or >8 Ceftazidime (test Susceptible 0-8 , code=27) Resistant <0 or >8 Ciprofloxacin (test Susceptible 0-1 , code=7) Resistant <0 or >1 Gentamicin (test code=18) Susceptible 0-4 , Resistant <0 or >4 Levofloxacin (test Susceptible 0-2 , code=22) Resistant <0 or >2 Meropenem (test code=34) Susceptible 0-2 , Resistant <0 or >2 Piperacillin (test Susceptible 0-16 , code=24) Resistant <0 or >16 Piperacillin + Tazobactam Susceptible 0-16 , (test code=29) Resistant <0 or >16 Tobramycin (test code=25) Susceptible 0-4 , Resistant <0 or >4 Trimethoprim + Susceptible 0-40 , Sulfamethoxazole (test Resistant <0 or >40 code=47) GRAM STAIN RESULT 4+ WBCs (BEAKER) (test kazf=0367) GRAM STAIN RESULT No organisms seen (BEAKER) (test dhrt=859854) RAD, CHEST, 1 VIEW, NON [id number] 16:48:00Reason for exam:->SOBShould this be performed at the bedside?->YesFINAL REPORT INDICATION: SOB TECHNIQUE: Chest radiograph, single view, portable technique. FINDINGS / IMPRESSION: Heart shadow is prominent and there is suggestion of pulmonary venous congestion. No overt pulmonary edema and no pleural effusion demonstrated. No pneumothorax or consolidation. Calcified plaque in the aortic arch noted. Osseous structures unremarkable. Signed: Fabio Riveraeport Verified Date/Time: 09/25/2018 16:48:03 Reading Location: [facility] Diagnostic Imaging Reading Room - [place] [address] HEMOGLOBIN AND [id number] 13:03:00 Test Item Value Reference Range Comments HEMOGLOBIN (BEAKER) (test aprh=561) 10.4 GM/DL 13.7-17.5 HEMATOCRIT (BEAKER) (test ynsh=353) 32.6 % 40.1-51.0 TSH/FREE T4 IF [id number] 06:43:00 Test Item Value Reference Range Comments THYROID STIMULATING HORMONE (BEAKER) (test 1.57 uIU/mL 0.35-4.94 cgml=402) [id number] 06:28:00 Test Item Value Reference Range Comments MAGNESIUM (BEAKER) (test ftyb=722) 1.8 mg/dL 1.6-2.6 BASIC METABOLIC [id number] 06:28:00 Test Item Value Reference Range Comments SODIUM (BEAKER) (test 136 meq/L 136-145 cvdc=498) POTASSIUM (BEAKER) (test 4.0 meq/L 3.5-5.1 bujx=326) CHLORIDE (BEAKER) (test 109 meq/L 98-107 elsq=556) CO2 (BEAKER) (test 21 meq/L 22-29 guox=698) BLOOD UREA NITROGEN 11 mg/dL 7-21 (BEAKER) (test qfpc=561) CREATININE (BEAKER) (test 0.70 mg/dL 0.57-1.25 iyjh=866) GLUCOSE RANDOM (BEAKER) 97 mg/dL 70-105 (test umgh=604) CALCIUM (BEAKER) (test 8.2 mg/dL 8.4-10.2 trhx=906) EGFR (BEAKER) (test 109 mL/min/1.73 sq m ESTIMATED GFR IS NOT hkmc=1478) ACCURATE CREATININE CLEARANCE IN PREDICTING GLOMERULAR FILTRATION RATE. ESTIMATED GFR IS NOT APPLICABLE FOR DIALYSIS PATIENTS. CBC W/PLT COUNT & AUTO [id number] 05:49:00 Test Item Value Reference Range Comments WHITE BLOOD CELL COUNT (BEAKER) (test dgdj=291) 9.3 K/ L 3.5-10.5 RED BLOOD CELL COUNT (BEAKER) (test rwmu=299) 3.30 M/ L 4.63-6.08 HEMOGLOBIN (BEAKER) (test bfls=533) 9.9 GM/DL 13.7-17.5 HEMATOCRIT (BEAKER) (test ghxl=688) 30.7 % 40.1-51.0 MEAN CORPUSCULAR VOLUME (BEAKER) (test piwo=389) 93.0 fL 79.0-92.2 MEAN CORPUSCULAR HEMOGLOBIN (BEAKER) (test 30.0 pg 25.7-32.2 uzpm=252) MEAN CORPUSCULAR HEMOGLOBIN CONC (BEAKER) (test 32.2 GM/DL 32.3-36.5 cnuz=459) RED CELL DISTRIBUTION WIDTH (BEAKER) (test 15.9 % 11.6-14.4 ciob=237) PLATELET COUNT (BEAKER) (test fxoo=902) 143 K/CU MM 150-450 MEAN PLATELET VOLUME (BEAKER) (test xzhy=598) 10.9 fL 9.4-12.4 NUCLEATED RED BLOOD CELLS (BEAKER) (test 0 /100 WBC 0-0 gjok=863) NEUTROPHILS RELATIVE PERCENT (BEAKER) (test 87 % efmu=624) LYMPHOCYTES RELATIVE PERCENT (BEAKER) (test 6 % jsng=415) MONOCYTES RELATIVE PERCENT (BEAKER) (test 5 % hzib=078) EOSINOPHILS RELATIVE PERCENT (BEAKER) (test 0 % qyrq=844) BASOPHILS RELATIVE PERCENT (BEAKER) (test 0 % xecf=011) NEUTROPHILS ABSOLUTE COUNT (BEAKER) (test 8.10 K/ L 1.78-5.38 wgyd=377) LYMPHOCYTES ABSOLUTE COUNT (BEAKER) (test 0.51 K/ L 1.32-3.57 jscl=905) MONOCYTES ABSOLUTE COUNT (BEAKER) (test 0.46 K/ L 0.30-0.82 pzzv=898) EOSINOPHILS ABSOLUTE COUNT (BEAKER) (test 0.01 K/ L 0.04-0.54 ujfp=927) BASOPHILS ABSOLUTE COUNT (BEAKER) (test 0.01 K/ L 0.01-0.08 ziyg=321) IMMATURE GRANULOCYTES-RELATIVE PERCENT (BEAKER) 2 % 0-1 (test fqqt=4495) CBC W/PLT COUNT & AUTO [id number] 07:25:00 Test Item Value Reference Range Comments WHITE BLOOD CELL COUNT (BEAKER) (test rxht=376) 11.2 K/ L 3.5-10.5 RED BLOOD CELL COUNT (BEAKER) (test zbvz=392) 3.99 M/ L 4.63-6.08 HEMOGLOBIN (BEAKER) (test rmjf=606) 11.8 GM/DL 13.7-17.5 HEMATOCRIT (BEAKER) (test syex=110) 36.4 % 40.1-51.0 MEAN CORPUSCULAR VOLUME (BEAKER) (test duoh=518) 91.2 fL 79.0-92.2 MEAN CORPUSCULAR HEMOGLOBIN (BEAKER) (test 29.6 pg 25.7-32.2 ulwv=706) MEAN CORPUSCULAR HEMOGLOBIN CONC (BEAKER) (test 32.4 GM/DL 32.3-36.5 lrem=700) RED CELL DISTRIBUTION WIDTH (BEAKER) (test 16.2 % 11.6-14.4 qtta=455) PLATELET COUNT (BEAKER) (test mkgz=279) 168 K/CU MM 150-450 MEAN PLATELET VOLUME (BEAKER) (test bfju=943) 11.3 fL 9.4-12.4 NUCLEATED RED BLOOD CELLS (BEAKER) (test 0 /100 WBC 0-0 zxmh=856) NEUTROPHILS RELATIVE PERCENT (BEAKER) (test 75 % hcpj=070) LYMPHOCYTES RELATIVE PERCENT (BEAKER) (test 14 % gcyr=045) MONOCYTES RELATIVE PERCENT (BEAKER) (test 8 % twbt=296) EOSINOPHILS RELATIVE PERCENT (BEAKER) (test 1 % xfrf=300) BASOPHILS RELATIVE PERCENT (BEAKER) (test 0 % wxgh=848) NEUTROPHILS ABSOLUTE COUNT (BEAKER) (test 8.31 K/ L 1.78-5.38 qyid=684) LYMPHOCYTES ABSOLUTE COUNT (BEAKER) (test 1.54 K/ L 1.32-3.57 erer=205) MONOCYTES ABSOLUTE COUNT (BEAKER) (test 0.87 K/ L 0.30-0.82 ibvk=564) EOSINOPHILS ABSOLUTE COUNT (BEAKER) (test 0.09 K/ L 0.04-0.54 oibd=989) BASOPHILS ABSOLUTE COUNT (BEAKER) (test 0.03 K/ L 0.01-0.08 mslr=095) IMMATURE GRANULOCYTES-RELATIVE PERCENT (BEAKER) 3 % 0-1 (test eunb=5681) [id number] 07:11:00 Test Item Value Reference Range Comments MAGNESIUM (BEAKER) (test libm=143) 1.9 mg/dL 1.6-2.6 BASIC METABOLIC [id number] 07:11:00 Test Item Value Reference Range Comments SODIUM (BEAKER) (test 136 meq/L 136-145 tudx=707) POTASSIUM (BEAKER) (test 3.4 meq/L 3.5-5.1 xktl=297) CHLORIDE (BEAKER) (test 106 meq/L 98-107 syuu=122) CO2 (BEAKER) (test 23 meq/L 22-29 fwby=066) BLOOD UREA NITROGEN 12 mg/dL 7-21 (BEAKER) (test yano=372) CREATININE (BEAKER) (test 0.74 mg/dL 0.57-1.25 rdyf=412) GLUCOSE RANDOM (BEAKER) 91 mg/dL 70-105 (test opvf=003) CALCIUM (BEAKER) (test 8.3 mg/dL 8.4-10.2 igso=899) EGFR (BEAKER) (test 102 mL/min/1.73 sq m ESTIMATED GFR IS NOT lqen=7488) ACCURATE CREATININE CLEARANCE IN PREDICTING GLOMERULAR FILTRATION RATE. ESTIMATED GFR IS NOT APPLICABLE FOR DIALYSIS PATIENTS.
[2018-10-31 08:20] LABS: Protime INR 1.04
[2018-10-31] MEDS ORDERED: METHYLPREDNISOLONE 125 MG INJ ONE (08:20)
[2018-10-31] MEDS ORDERED: NA CHLORIDE 0.9% 1,000 ML ONE (08:21)
[2018-10-31] MEDS ORDERED: IPRATROPIUM BROM 0.5MG/2.5ML ONE (08:21)
[2018-10-31] MEDS ORDERED: LEVALBUTEROL 1.25 MG/3 ML NEB ONE (08:21)
[2018-10-31] MEDS ORDERED: ALBUTEROL 2.5 MG/3 ML NEB SOL ONE (08:21)
[2018-10-31] MEDS ORDERED: Levofloxacin 750mg IV 750 MG/150 ML BAG IV ONE (08:21)
[2018-10-31 08:26] LABS: Absolute Lymphocytes (CBC) 1.1 K/uL (0.7-4.9); Absolute Neutrophil 14.5 K/uL (1.8-8.0); Basophils % 0.4 % (0-1.3); Eosinophils % 0.4 % (0-4.4); Hematocrit 40.2 % (39.6-49.0); Lymphocytes % 6.3 % (15.3-44.8); Monocytes % 6.2 % (3.3-12.3); RBC Red Blood Cell Count 4.51 M/uL (4.33-5.43)
[2018-10-31 08:54] LABS: ALT/SGPT 31 U/L (12-78); AST/SGOT 20 U/L (15-37); Albumin 2.8 g/dL (3.4-5.0); Alkaline Phosphatase 114 U/L (45-117); BUN Blood Urea Nitrogen 15 mg/dL (7-18); Bicarbonate 26 mmol/L (21-32); Bilirubin Direct 0.1 mg/dL (0-0.2); Bilirubin Total 0.4 mg/dL (0.2-1.0); CKMB Creatine Kinase MB 1.3 ng/mL (0.3-3.6); Creatine Phosphokinase 32 U/L (39-308); Glucose Level 92 mg/dL (74-106); Lipase 161 U/L (73-393); Magnesium 1.9 mg/dL (1.8-2.4); NT PRO-BNP 4074 pg/mL (<450); Potassium 3.8 mmol/L (3.5-5.1); Protein, Total 6.4 g/dL (6.4-8.2); Sodium Level 141 mmol/L (136-145); Troponin (Emerg Dept Use Only) < 0.02 ng/mL (0.0-0.045)
[2018-10-31 08:56] LABS: Platelet Estimate ADEQ; Urine White Blood Cell Casts OK
[2018-10-31 08:57] LABS: Blood Morphology Comment NOT SEEN (NOT SEEN)
--- NOTE | 2018-10-31 08:58 | EKG ---
Test Date: 2018-10-31 Test Time: 08:08:35 [employer] Logging Operator: KLAUDIA MEASUREMENT RESULTS: Intervals: Rate: 125 NE: QRSD: 82 QT: 296 QTc: 427 [place]: P: NE: QRS: 75 T: -90 INTERPRETIVE STATEMENTS: Atrial fibrillation with rapid ventricular response Nonspecific T wave abnormality Abnormal ECG Compared to ECG 01/21/2018 19:58:21 T-wave abnormality now present Sinus rhythm no longer present ST (T wave) deviation no longer present Electronically Signed On 10-31-18 08:57:38 SODA CLERK by Jamir Marie
--- NOTE | 2018-10-31 09:02 | EDPHYS ---
Physician Documentation [facility] Name: Gio Matute Age: 78 yrs Sex: Male : 1940 Arrival Date: 10/31/2018 Time: 07:35 Bed 4 Private MD: ED Physician Shayy Alonso HPI: 10/31 07:42 This 78 yrs old Male presents to ER via EMS with complaints of Shortness Of ma2 Breath. 07:42 The patient has shortness of breath at rest. Onset: The symptoms/episode began/occurred ma2 gradually, 2 day(s) ago. Duration: The symptoms are continuous. Associated signs and symptoms: Pertinent positives: productive cough, Pertinent negatives: chest pain, diaphoresis, dizziness, hemoptysis, loss of consciousness, nausea, numbness in extremities, visual changes. Severity of symptoms: At their worst the symptoms were moderate in the emergency department the symptoms are unchanged. The patient has experienced similar episodes in the past. 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 - Social history:: Smoking status: Patient/guardian denies using tobacco, Patient/guardian denies using alcohol, street drugs, The patient lives with family. - Ebola Screening: : Patient negative for fever greater than or equal to 101.5 degrees Fahrenheit, and additional compatible Ebola Virus Disease symptoms Patient denies exposure to infectious person Patient denies travel to an Ebola-affected area in the 21 days before illness onset No symptoms or risks identified at this time. - Family history:: not pertinent. - Hospitalizations: : No recent hospitalization is reported. ROS: 07:42 Neck: Negative for injury, pain, and swelling, Cardiovascular: Negative for chest pain, ma2 palpitations, and edema. 07:42 Constitutional: Positive for fever, Negative for body aches, chills, malaise, poor PO intake. 07:42 Respiratory: Positive for cough, shortness of breath, Negative for dyspnea on exertion, hemoptysis, orthopnea, pleurisy, wheezing, acute changes. 07:42 All other systems are negative. Exam: 07:42 Constitutional: This is a well developed, well nourished patient who is awake, alert, ma2 and in no acute distress. Chest/axilla: Normal chest wall appearance and motion. Nontender with no deformity. No lesions are appreciated. Cardiovascular: Regular rate and rhythm with a normal S1 and S2. No gallops, murmurs, or rubs. Normal PMI, no JVD. No pulse deficits. 07:42 MS/ Extremity: Pulses equal, no cyanosis. Neurovascular intact. Full, normal range of motion. Neuro: Awake and alert, GCS 15, oriented to person, place, time, and situation. Cranial nerves II-XII grossly intact. Motor strength 5/5 in all extremities. Sensory grossly intact. Cerebellar exam normal. Normal gait. 07:42 Respiratory: mild respiratory distress is noted, moderate respiratory distress is noted, Breath sounds: rales, that are moderate, are located in both bases. Vital Signs: 07:35 BP 140 / 100; Pulse 135; Resp 27; Temp 99.8; Pulse Ox 89% on R/A; Weight 79.38 kg; bp 09:50 BP 126 / 70; Pulse 101; Resp 16; Temp 99.6(O); Pulse Ox 100% on 12% Nebulizer Mask; bp 11:00 BP 132 / 73; Pulse 100; Resp 15; Pulse Ox 100% ; bp MDM: 07:37 Patient medically screened. ma2 07:42 Differential diagnosis: Anemia Anxiety Reaction asthma, Chronic Obstructive Pulmonary ma2 Disease pneumonia. Antibiotic administration: Levaquin given. 09:00 Data reviewed: vital signs, nurses notes, EKG, radiologic studies. Counseling: I had a ma2 detailed discussion with the patient and/or guardian regarding: the historical points, exam findings, and any diagnostic results supporting the discharge/admit diagnosis, the presence of at least one elevated blood pressure reading (>120/80) during this emergency department visit, the need for further work-up and treatment in the hospital. ED course: discussed with dr. robert. 10/31 07:40 Order name: Blood Culture Adult (2) ma2 10/31 07:40 Order name: BMP; Complete Time: 08:56 10/31 07:40 Order name: CBC with Diff; Complete Time: 08:58 10/31 07:40 Order name: Ckmb; Complete Time: 08:56 10/31 07:40 Order name: CPK; Complete Time: 08:56 10/31 07:40 Order name: Hepatic Function; Complete Time: 08:56 10/31 07:40 Order name: Lipase; Complete Time: 08:56 10/31 07:40 Order name: Magnesium; Complete Time: 08:56 10/31 07:40 Order name: NT PRO-BNP; Complete Time: 08:56 10/31 07:40 Order name: PT-INR; Complete Time: 08:56 10/31 07:40 Order name: Ptt, Activated; Complete Time: 08:56 10/31 07:40 Order name: Troponin (emerg Dept Use Only); Complete Time: 08:56 10/31 07:40 Order name: Lactate; Complete Time: 08:56 10/31 07:41 Order name: Blood Culture [facility] 10/31 07:40 Order name: XRAY CXR (1 view); Complete Time: 11:09 10/31 07:40 Order name: EKG; Complete Time: 07:42 10/31 07:41 Order name: Influenza Screen (a \T\ B); Complete Time: 08:56 10/31 08:35 Order name: CBC Smear Scan; Complete Time: 08:58 [facility] 10/31 09:13 Order name: Regular [facility] 10/31 09:13 Order name: Basic Metabolic Panel [facility] 10/31 09:13 Order name: Basic Metabolic Panel [facility] 10/31 09:13 Order name: CBC with Automated Diff [facility] 10/31 09:13 Order name: CBC with Automated Diff [facility] 10/31 07:40 Order name: Gaviria; Complete Time: 08:24 10/31 07:40 Order name: Cardiac monitoring; Complete Time: 08:10 10/31 07:40 Order name: EKG - Nurse/Tech; Complete Time: 08:10 10/31 07:40 Order name: IV Saline Lock; Complete Time: 08:10 [facility] 10/31 07:40 Order name: Labs collected and sent; Complete Time: 08:10 [facility] 10/31 07:40 Order name: O2 Per Protocol; Complete Time: 08:11 [facility] 10/31 07:40 Order name: O2 Sat Monitoring; Complete Time: 08:11 [facility] 10/31 09:13 Order name: EKG Electrocardiogram [facility] 10/31 09:13 Order name: EKG Electrocardiogram EDMS Administered Medications: 08:00 Drug: SOLU-Medrol 125 mg Route: IVP; Site: left antecubital; bp 11:05 Follow up: Response: No adverse reaction bp 08:00 Drug: Xopenex 1.25 mg Route: Inhalation; bp 08:00 Drug: Albuterol 1.25 mg Route: Inhalation; bp 08:00 Drug: AtroVENT Aerosol 0.5 mg Route: Inhalation; bp 08:00 Drug: LevaQUIN 750 mg Volume: 150 ml; Route: IVPB; Infused Over: 90 mins; Site: left bp antecubital; 09:30 Follow up: IV Status: Completed infusion; IV Intake: 150ml bp 08:00 Drug: NS 0.9% 1000 ml Route: IV; Rate: 1 bolus; Site: left antecubital; bp 11:04 Follow up: IV Status: Completed infusion; IV Intake: 1000ml bp 09:05 Drug: Metoprolol 5 mg Route: IVP; Site: left antecubital; bp 11:03 Follow up: Response: Marked relief of symptoms bp Disposition: 10/31/18 09:01 Hospitalization ordered by Jose Luis Robert for Inpatient Admission. Preliminary diagnosis are Pneumonia due to other specified bacteria, Unspecified atrial fibrillation. - Bed requested for Telemetry/MedSurg (Inpatient). - Status is Inpatient Admission. bp - Condition is Fair. - Problem is new. - Symptoms have improved. UTI on Admission? No Signatures: Dispatcher [employer] Anna John RN RN df Peltier, Brian, RN RN bp Alzahri, Mohammad, MD MD ma2 Corrections: (The following items were deleted from the chart) 10:04 09:01 Hospitalization Ordered by Jose Luis Robert MD for Inpatient Admission. Preliminary df diagnosis is Pneumonia due to other specified bacteria; Unspecified atrial fibrillation. Bed requested for Telemetry/MedSurg (Inpatient). Status is Inpatient Admission. Condition is Fair. Problem is new. Symptoms have improved. UTI on Admission? No. ma2 11:49 10:04 10/31/2018 09:01 Hospitalization Ordered by Jose Luis Robert MD for Inpatient bp Admission. Preliminary diagnosis is Pneumonia due to other specified bacteria; Unspecified atrial fibrillation. Bed requested for Telemetry/MedSurg (Inpatient). Status is Inpatient Admission. Condition is Fair. Problem is new. Symptoms have improved. UTI on Admission? No. df
--- NOTE | 2018-10-31 09:02 | ER ---
Nurse's Notes [facility] Name: Gio Matute Age: 78 yrs Sex: Male : 1940 Arrival Date: 10/31/2018 Time: 07:35 Bed 4 Private MD: Diagnosis: Pneumonia due to other specified bacteria;Unspecified atrial fibrillation Presentation: 10/31 07:36 Presenting complaint: EMS states: INCREASING SHORTNESS OF BREATH AND MALAISE. bp Transition of care: patient was not received from another setting of care. Onset of symptoms is unknown. Risk Assessment: Do you want to hurt yourself or someone else? Patient reports no desire to harm self or others. Initial Sepsis Screen: Does the patient meet any 2 criteria? HR > 90 bpm. No. Patient's initial sepsis screen is negative. Does the patient have a suspected source of infection? No. Patient's initial sepsis screen is negative. Care prior to arrival: None. 07:36 Method Of Arrival: EMS: [facility] bp 07:36 Acuity: MACI 2 bp Triage Assessment: 07:40 General: Appears distressed, comfortable, Behavior is cooperative, appropriate for age, bp anxious. Pain: Denies pain. EENT: Parent/caregiver reports the patient having BLIND AND [place]. Neuro: Level of Consciousness is awake, alert, obeys commands, Oriented to person, place, time, situation, Appropriate for age. Cardiovascular: Rhythm is atrial fibrillation with rapid ventricular response. Respiratory: Reports shortness of breath cough that is Breath sounds are coarse Onset: The symptoms/episode began/occurred at an unknown time. the patient has mild shortness of breath. GI: No signs and/or symptoms were reported involving the gastrointestinal system. : CONDOM CATH. Derm: No deficits noted. Musculoskeletal: Circulation, motion, and sensation intact. BED BOUND. 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 - Social history:: Smoking status: Patient/guardian denies using tobacco, Patient/guardian denies using alcohol, street drugs, The patient lives with family. - Ebola Screening: : Patient negative for fever greater than or equal to 101.5 degrees Fahrenheit, and additional compatible Ebola Virus Disease symptoms Patient denies exposure to infectious person Patient denies travel to an Ebola-affected area in the 21 days before illness onset No symptoms or risks identified at this time. - Family history:: not pertinent. - Hospitalizations: : No recent hospitalization is reported. Screenin:59 Abuse screen: Denies threats or abuse. Denies injuries from another. Nutritional bp screening: No deficits noted. Tuberculosis screening: No symptoms or risk factors identified. Fall Risk None identified. Assessment: 10:33 Cardiovascular: Rhythm is atrial fibrillation with rapid ventricular response. bp Respiratory: Airway is patent Respiratory effort is even, labored. 11:07 Reassessment: ADMIT PENDING, AFIB NOTED ON MONITOR. bp Vital Signs: 07:35 BP 140 / 100; Pulse 135; Resp 27; Temp 99.8; Pulse Ox 89% on R/A; Weight 79.38 kg; bp 09:50 BP 126 / 70; Pulse 101; Resp 16; Temp 99.6(O); Pulse Ox 100% on 12% Nebulizer Mask; bp 11:00 BP 132 / 73; Pulse 100; Resp 15; Pulse Ox 100% ; bp ED Course: 07:35 Patient arrived in ED. bp 07:35 Arm band placed on. bp 07:37 Triage completed. bp 07:37 Shayy Alonso MD is Attending Physician. ma2 07:45 First set of blood cultures drawn by me, EKG done, by ED staff, reviewed by Shayy Alonso MD Flu and/or RSV swab sent to lab. 07:59 Patient has correct armband on for positive identification. Bed in low position. Call bp light in reach. Side rails up X2. Adult w/ patient. 08:00 Second set of blood cultures drawn by . justice 08:09 Initial lab(s) drawn, by me, sent to lab. Inserted saline lock: 22 gauge in left jb1 antecubital area, using aseptic technique. Blood collected. 08:10 X-ray completed. Portable x-ray completed in exam room. Patient tolerated procedure tm4 well. 08:11 XRAY CXR (1 view) In Process Unspecified. EDMS 08:17 EKG done, by residential service technician. reviewed by Shayy Alonso MD. tc 08:22 Dipesh Sanchez, RN is Primary Nurse. bp 09:00 Jose Luis Rboert MD is Hospitalizing Provider. ma2 10:37 No provider procedures requiring assistance completed. Patient admitted, IV remains in bp place. Administered Medications: 08:00 Drug: SOLU-Medrol 125 mg Route: IVP; Site: left antecubital; bp 11:05 Follow up: Response: No adverse reaction bp 08:00 Drug: Xopenex 1.25 mg Route: Inhalation; bp 08:00 Drug: Albuterol 1.25 mg Route: Inhalation; bp 08:00 Drug: AtroVENT Aerosol 0.5 mg Route: Inhalation; bp 08:00 Drug: LevaQUIN 750 mg Volume: 150 ml; Route: IVPB; Infused Over: 90 mins; Site: left bp antecubital; 09:30 Follow up: IV Status: Completed infusion; IV Intake: 150ml bp 08:00 Drug: NS 0.9% 1000 ml Route: IV; Rate: 1 bolus; Site: left antecubital; bp 11:04 Follow up: IV Status: Completed infusion; IV Intake: 1000ml bp 09:05 Drug: Metoprolol 5 mg Route: IVP; Site: left antecubital; bp 11:03 Follow up: Response: Marked relief of symptoms bp Intake: 09:30 IV: 150ml; Total: 150ml. bp 11:04 IV: 1000ml; Total: 1150ml. bp Outcome: 09:01 Decision to Hospitalize by Provider. ma2 11:07 Condition: stable bp 11:07 Instructed on the need for admit. 11:35 Admitted to Med/surg accompanied by tech, family with patient, via stretcher, room 217, bp with oxygen, with chart, Report called to THANIA ALBRIGHT 11:49 Patient left the ED. bp Signatures: Dispatcher [employer] EDMS Dav Nunn jb1 Debi Higginbotham tm4 Elida Rene, chalk extruding machine operator EKG Ttc Dipesh Sanchez, RN RN bp Shayy Alonso MD MD ma2 Viridiana Henderson lt1 Corrections: (The following items were deleted from the chart) 10:39 09:50 BP 126 / 70; Pulse 101bpm; Resp 16bpm; Pulse Ox 100%; Temp 99.6F Oral; lt1 bp
[2018-10-31] MEDS ORDERED: METOPROLOL TARTRATE 5 MG/5 ML INJ IV ONE (09:18)
--- NOTE | 2018-10-31 10:12 | RAD REPORT ---
EXAM DESCRIPTION: Domenico Single View10/31/2018 8:12 am CLINICAL HISTORY: Shortness of breath COMPARISON: September 2018 FINDINGS: Moderate bilateral alveolar opacities. The heart is mildly enlarged IMPRESSION: Moderate bilateral alveolar opacities may represent pneumonia or pulmonary edema
[2018-10-31 13:06] VITALS: BMI 23.1
[2018-10-31] MEDS: ALBUTEROL 2.5 MG/3 ML NEB SOL NEB SCH ×2 (13:08→19:54)
--- NOTE | 2018-10-31 15:24 | RAD REPORT ---
EXAM DESCRIPTION: CT - Thorax W/ Con CLINICAL HISTORY: Chest pain PNEUMONIA VS CHF COMPARISON: Thorax Wo Con dated 12/15/2017 FINDINGS: Moderate to large bilateral pleural effusions are present, slightly larger on the right, w ith compressive atelectasis in both lung bases. No pericardial effusion is seen. No pneumothorax. No axillary, mediastinal or hilar adenopathy. No concerning bony finding. No gross upper abdominal finding. All CT scans are performed using dose optimization technique as appropriate and may include automated exposure control or mA/KV adjustment according to patient size. IMPRESSION: Moderate to large bilateral pleural effusions with compressive atelectasis in the lung b ases.No CHF or pneumonia findings are seen.
[2018-10-31] MEDS ORDERED: PIPER/TAZO/NS 3.375gm 3.375 GM/100 ML BAG IV SCH (17:00)
--- NOTE | 2018-10-31 18:00 | P.HP ---
Certification for Inpatient Patient admitted to: Observation With expected LOS: <2 Midnights Practitioner: I am a practitioner with admitting privileges, knowledge of patient current condition, hospital course, and medical plan of care. Services: Services provided to patient in accordance with Admission requirements found in Title 42 Section 412.3 of the Code of Federal Regulations Patient History Date of Service: 10/31/18 Reason for admission: I have pneumonia History of Present Illness: Mr. Matute is a complicated patient with Cortez's granulomatosis, with severe pterygeum induced blindess, history of severe epistaxis but not in recent past. He has improved significantly with prednsione threapy. He was very cachctic before and now he has regained weight. He could not clear up his throat so he came to hospital ER saying I have pneumonia and ER doctor did Xray and called me that he is in for pneumonia. Actually he has no pneumonia symptoms. He has no fever, dyspnea, cough or chest pain. His WBC count is high from chronic steroids and not pneuomnia. I ordered CT scan of chest and it does not show pneumonia. Allergies codeine Adverse Reaction (Verified 01/21/18 23:21) Nausea/Vomiting ANTIHISTAMINES Adverse Reaction (Mild, Uncoded 01/21/18 23:21) Unknown Home Medications: Amlodipine [Norvasc*] 10 mg PO DAILY 30 Days #30 tab 12/02/17 Metoprolol Succinate [Toprol Xl] 100 mg PO DAILY #30 tab.sr.24h 12/17/17 predniSONE [Deltasone*] 10 mg PO BID 01/21/18 - Past Medical/Surgical History Has patient received pneumonia vaccine in the past: No Diabetic: No -: hypertension -: glaucoma -: anemia -: hypoglycemia -: blindness -: enlarged prostate -: HTN -: wedgners disease -: NOME -: hernia -: bone spur in neck -: copd -: vocal cord surg -: corneal transplant sx -: hemorroidectomy -: eye sx - Family History Father -: Lung disease - Social History Smoking Status: Former smoker Alcohol use: No CD- Drugs: No Caffeine use: Yes Place of Residence: Home Review of Systems General: Weakness, Malaise Physical Examination - Vital Signs Temperature: 97.8 F Blood Pressure: 150/81 Pulse: 110 Respirations: 20 Pulse Ox (%): 99 - Physical Exam General: Alert, In no apparent distress, Other (blind totally and deaf also. ) HEENT: Atraumatic, PERRLA, Mucous membr. moist/pink, EOMI, Sclerae nonicteric Neck: Supple, 2+ carotid pulse no bruit, No LAD, Without JVD or thyroid abnormality Respiratory: Clear to auscultation bilaterally, Normal air movement Cardiovascular: Regular rate/rhythm, Normal S1 S2 Gastrointestinal: Normal bowel sounds, No tenderness Musculoskeletal: No tenderness Integumentary: No rashes Neurological: Normal gait, Normal speech, Normal strength at 5/5 x4 extr, Normal tone, Normal affect Lymphatics: No axilla or inguinal lymphadenopathy - Studies Laboratory Data (last 24 hrs) 10/31/18 08:00: PT 12.3, INR 1.04, APTT 28.8 10/31/18 08:00: WBC 16.8 H, Hgb 13.1 L, Hct 40.2, Plt Count 218 10/31/18 08:00: Sodium 141, Potassium 3.8, BUN 15, Creatinine 1.01, Glucose 92, Magnesium 1.9, Total Bilirubin 0.4, AST 20, ALT 31, Alkaline Phosphatase 114, Lipase 161 Microbiology Data (last 24 hrs): 10/31/18 08:00 Nasopharnyx Influenza Type A Antigen Screen - Final 10/31/18 08:00 Nasopharnyx Influenza Type B Antigen Screen - Final Assessment and Plan - Problems (Diagnosis) (1) Pleural effusion due to another disorder Current Visit: Yes Status: Chronic Plan: He has no pneumonia. Large pleural effusions are asymptomatic- once his albumin comes up his effusions will get better. He is looking a lot better but still has poor nutrition. I advise Deniz bid or ensure plus. - Advance Directives Does patient have a Living Will: No Does patient have a Durable POA for Healthcare: Yes
[2018-10-31] MEDS: JUVEN PACKET PO SCH (21:37)
[2018-10-31] MEDS: predniSONE 10 MG TAB PO SCH (21:37)
[2018-11-01] MEDS: ALBUTEROL 2.5 MG/3 ML NEB SOL NEB SCH ×3 (01:27→12:45)
[2018-11-01 05:50] LABS: Absolute Lymphocytes (CBC) 0.2 K/uL (0.7-4.9); Absolute Monocytes 0.4 K/uL (0.1-1.3); Basophils % 0.1 % (0-1.3); Hematocrit 33.7 % (39.6-49.0); Lymphocytes % 1.8 % (15.3-44.8); MPV 9.1 fL (7.6-11.3); Monocytes % 3.8 % (3.3-12.3); RBC Red Blood Cell Count 3.83 M/uL (4.33-5.43)
[2018-11-01 06:18] LABS: Potassium 3.8 mmol/L (3.5-5.1)
[2018-11-01 07:01] LABS: Urine White Blood Cell Casts OK
[2018-11-01 07:02] LABS: Blood Morphology Comment NOT SEEN (NOT SEEN); Platelet Estimate ADEQ
[2018-11-01 08:35] VITALS: O2SAT 99
[2018-11-01] MEDS ORDERED: METOPROLOL XL 100 MG TAB PO SCH (09:00)
[2018-11-01] MEDS ORDERED: AMLODIPINE 10 MG TAB PO SCH (09:00)
[2018-11-01] MEDS: JUVEN PACKET PO SCH (09:54)
[2018-11-01] MEDS: predniSONE 10 MG TAB PO SCH (09:54)
[2018-11-01] MEDS ORDERED: FUROSEMIDE 20 MG/ 2ML VIAL IV SCH (10:18)
[2018-11-01] MEDS ORDERED: FLUTICASONE 50MCG NASAL SPRAY NAS SCH (10:23)
--- NOTE | 2018-11-01 10:24 | P.CNS ---
Date of Consult: 11/01/18 Reason for Consult: SHORTNESS OF BREATH Chief Complaint: SHORTNESS OF BREATH History of Present Illness: Patient is 78 years of age with a history of ANCA positive vasculitis admitted with shortness of breath which is been intermittent very difficult to understand patient has significant hoarseness also has problems swallowing he is nonambulatory in addition patient was found to have bilateral pleural effusions denies any fever or chills was admitted with a diagnosis of pneumonia patient is on chronic prednisone therapy no recent hemoptysis Allergies codeine Adverse Reaction (Verified 01/21/18 23:21) Nausea/Vomiting ANTIHISTAMINES Adverse Reaction (Mild, Uncoded 01/21/18 23:21) Unknown Home Medications: Amlodipine [Norvasc*] 10 mg PO DAILY 30 Days #30 tab 12/02/17 Metoprolol Succinate [Toprol Xl] 100 mg PO DAILY #30 tab.sr.24h 12/17/17 predniSONE [Deltasone*] 10 mg PO BID 01/21/18 - Past Medical/Surgical History Diabetic: No -: hypertension -: glaucoma -: anemia -: hypoglycemia -: blindness -: enlarged prostate -: HTN -: wedgners disease -: [place] -: hernia -: bone spur in neck -: copd -: vocal cord surg -: corneal transplant sx -: hemorroidectomy -: eye sx - Family History Father Medical History: Lung disease - Social History Smoking Status: Unknown if ever smoked Alcohol use: No CD- Drugs: No Caffeine use: Yes Place of Residence: Home Review of Systems General: Weakness Respiratory: Shortness of Breath Physical Examination Temp Pulse Resp BP Pulse Ox 97.7 F 109 H 18 152/90 H 97 11/01/18 00:00 11/01/18 09:55 11/01/18 00:00 11/01/18 09:55 11/01/18 00:00 General: Alert, Cooperative Neck: Supple Respiratory: Diminished Cardiovascular: No edema, Regular rate/rhythm, Normal S1 S2, Irregular heart rate/rhythm - Problems (1) Diastolic heart failure Current Visit: Yes Status: Acute Plan: Patient is 78 years of age admitted with shortness of breath I suspect he has underlying diastolic dysfunction patient has symmetrical bilateral pleural effusions previous echo in 2018 showed and presumed diastolic dysfunction I have added some Lasix repeat echocardiogram reduce dose of prednisone to 10 mg a day no evidence of sepsis patient's blood pressure is also elevated also quite possible that he has postnasal drainage I have added some Flonase daily room air pulse ox Qualifiers: Heart failure chronicity: acute on chronic Qualified Code(s): I50.33 - Acute on chronic diastolic (congestive) heart failure
[2018-11-01 11:30] VITALS: BP 135/79
--- NOTE | 2018-11-01 13:28 | P.DS ---
Admission Date: 10/31/18 Discharge Date: 11/01/18 Disposition: ROUTINE DISCHARGE Discharge Condition: FAIR Reason for Admission: SHORTNESS OF BREATH - Problems (1) Pleural effusion due to another disorder Onset Date: 11/01/18 Current Visit: Yes Status: Chronic Brief History of Present Illness: Mr. Jarvis is a complicated patient with Cortez's granulomatosis, with severe pterygeum induced blindess, history of severe epistaxis but not in recent past. He has improved significantly with prednsione threapy. He was very cachctic before and now he has regained weight. He could not clear up his throat so he came to hospital ER saying I have pneumonia and ER doctor did Xray and called me that he is in for pneumonia. Actually he has no pneumonia symptoms. He has no fever, dyspnea, cough or chest pain. His WBC count is high from chronic steroids and not pneuomnia. I ordered CT scan of chest and it does not show pneumonia. 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 HE COMES FOR NOT BEING ABLE TO CLEAR THE THROAT. HE HAS NO DYSPNEA. HE HAS BILAT PL EFFUSIONS FROM HYPOALBUMINNEMIA FROM MALNUTRITON FROM POOR INTAKE. I ADVISED HIGH PROTEIN DRINKS WHILE AGO BUT HE HAS NOT DONE IT DAILY. HE IS STABLE TO BE DISCHARGED. HE DID NOT NEED AN ADMISSION ANYWAY. Vital Signs/Physical Exam: Temp Pulse Resp BP Pulse Ox 97.6 F 105 H 19 135/79 99 11/01/18 08:00 11/01/18 11:26 11/01/18 08:00 11/01/18 11:26 11/01/18 08:00 Laboratory Data at Discharge: WBC 9.6 K/uL (4.3-10.9) D 11/01/18 05:00 Hgb 11.4 g/dL (13.6-17.9) L 11/01/18 05:00 Hct 33.7 % (39.6-49.0) L D 11/01/18 05:00 Plt Count 187 K/uL (152-406) 11/01/18 05:00 PT 12.3 SECONDS (9.5-12.5) 10/31/18 08:00 INR 1.04 10/31/18 08:00 APTT 28.8 SECONDS (24.3-36.9) 10/31/18 08:00 Sodium 141 mmol/L (136-145) 11/01/18 05:00 Potassium 3.8 mmol/L (3.5-5.1) 11/01/18 05:00 BUN 22 mg/dL (7-18) H 11/01/18 05:00 Creatinine 0.91 mg/dL (0.55-1.3) 11/01/18 05:00 Glucose 210 mg/dL (74-106) H 11/01/18 05:00 Magnesium 1.9 mg/dL (1.8-2.4) 10/31/18 08:00 Total Bilirubin 0.4 mg/dL (0.2-1.0) 10/31/18 08:00 AST 20 U/L (15-37) 10/31/18 08:00 ALT 31 U/L (12-78) 10/31/18 08:00 Alkaline Phosphatase 114 U/L (45-117) 10/31/18 08:00 Lipase 161 U/L (73-393) 10/31/18 08:00 Home Medications: Amlodipine [Norvasc*] 10 mg PO DAILY 30 Days #30 tab 12/02/17 Metoprolol Succinate [Toprol Xl] 100 mg PO DAILY #30 tab.sr.24h 12/17/17 Furosemide 20 mg PO DAILY #90 tablet 11/01/18 predniSONE [Deltasone*] 10 mg PO DAILY tab 11/01/18 New Medications: Furosemide 20 mg PO DAILY #90 tablet Diet: AHA Activity: Ad mary
[2018-11-01 17:22] VITALS: TEMP 98.2
[2018-11-02] MEDS ORDERED: predniSONE 10 MG TAB PO SCH (09:00)
== END 2018-11-01 17:23 | disposition home or self-care (01) | DRG 543 ==
LOC: ER 07:29 → ERHOLD 09:12 → 2ND 11:36
PROVIDERS: ADMIT Internal Medicine; ATTEND Internal Medicine
DX: M31.30 Wegener's granulomatosis without renal involvement (principal); J91.8 Pleural effusion in other conditions classified elsewhere; H54.7 Unspecified visual loss; I10 Essential (primary) hypertension
CPT/HCPCS: 36415; 71045; 71260; 80048; 80076; 82550; 82553; 83605; 83690; 83735; 83880; 84484; 85025; 85610; 85730; 87040; 87804; 93005; 96361; 96365; 96375; 99285; J1940; J2543; J2930; J7030; J7512; Q9967

== ENCOUNTER 2019-01-04 18:22 | Inpatient (IN) | payer OTHER ==
--- OUTSIDE RECORDS SUMMARY | 2019-01-04 18:25 | XMS REPORT | Clinical Summary ---
:1940 Author Organization [facility] Address [address] [place] [address] Care Team Providers Name Role Phone Asked, No Pcp Primary Care Provider Unavailable Allergies Active Allergy Reactions Severity Noted Date Comments Codeine Other (See Comments) 05/11/2016 Nausea/vomiting Codeine GI Intolerance 08/03/2016 Medications Medication Sig Dispensed Refills Start Date End Date Status losartan (COZAAR) 50 Take 50 mg by mouth 0 Active MG tablet daily. brimonidine Administer 1 drop 0 Active (ALPHAGAN P) 0.1 % to both eyes every drops 8 (eight) hours. cycloSPORINE 1 drop 2 (two) 0 Active (RESTASIS) 0.05 % times a day. ophthalmic emulsion prednisoLONE acetate 1 drop 4 (four) 0 Active (PRED FORTE) 1 % times a day. ophthalmic suspension ALPHAGAN P 0.1 % 0 07/11/2016 Active drops losartan (COZAAR) 50 Take 50 mg by mouth 1 05/26/2016 Active MG tablet 2 (two) times a day. prednisoLONE acetate PLACE 1 DROP INTO 4 05/09/2016 Active (PRED FORTE) 1 % THE RIGHT EYE 3 ophthalmic TIMES DAILY. SHAKE suspension WELL BEFORE INSTILLATION cycloSPORINE 1 drop 2 (two) 0 Active (RESTASIS) 0.05 % times a day. ophthalmic emulsion FERROUS FUMARATE Take 56 mg by mouth 0 Active (IRON ORAL) daily. VITAMIN B COMPLEX Take by mouth 0 Active ORAL daily. vitamin A 43509 UNIT Take 25,000 Units 0 Active capsule by mouth daily. ascorbic acid, Take 500 mg by 0 Active vitamin C, (ascorbic mouth daily. acid with tarah hips) 500 MG tablet cholecalciferol, Take 2,000 Units by 0 Active vitamin D3, (VITAMIN mouth daily. D3) 2,000 unit capsule capsule VENTOLIN HFA 90 2 puffs into each 1 05/09/2016 Active mcg/actuation nostril as needed. inhaler ketoconazole Apply 1 application 0 Active (NIZORAL) 2 % topically 2 (two) shampoo times a week. Apply to damp skin, lather, leave on 5 minutes, and rinse tamsulosin (FLOMAX) TAKE ONE CAPSULE BY 30 capsule 0 11/16/2017 Active 0.4 mg MOUTH EVERY DAY capsule,extended release 24hrIndications: Enlarged prostate with urinary obstruction Active Problems No known active problems Social History Tobacco Use Types Packs/Day Years [...] Due Date Last Done Comments SHINGLES VACCINES (#1) 01/24/1988 65+ PNEUMOCOCCAL VACCINE (1 of 2 - PCV13) 2003 PNEUMOCOCCAL POLYSACCHARIDE VACCINE AGE 65 AND OVER 2003 INFLUENZA VACCINE 06/05/2018 Results Not on fileafter 01/03/2018 Insurance Payer Benefit Plan / Group Subscriber ID Type Phone Address MEDICARE MEDICARE PART A AND B xxxxxxxxxxx Medicare [place], [place] MEDICARE MEDICARE PART A AND B xxxxxxxxxxx Medicare [place] AETNA AETNA HMO,POS,EPO, MC/EC xxxxxxxxxx HMO AETNA AETNA [employer] INDEMNITY xxxxxxxxxx Indemnity ([place]) [address] [place] [id number] Advance Directives Patient has advance care planning documents on file. For more information, please contact:[place] [address]
--- OUTSIDE RECORDS SUMMARY | 2019-01-04 18:25 | XMS REPORT | Clinical Summary ---
:1940 Author Organization [facility] Address [address] [place] [address] Care Team Providers Name Role Phone Jakob [...] Tracy Alok, MD Zindani, Shireen, MD after 01/03/2018 Social History Tobacco Use Types Packs/Day Years [...] Taken Blood Pressure 130/69 09/25/2018 3:25 PM [employer]SEMBLY CLEANER Pulse 90 09/25/2018 3:25 PM [employer]SEMBLY CLEANER Temperature 36.7 C (98 F) 09/25/2018 3:25 PM ASSEMBLY CLEANER Respiratory Rate 18 09/25/2018 3:25 PM ASSEMBLY CLEANER Oxygen Saturation 100% 09/25/2018 3:25 PM ASSEMBLY CLEANER Inhaled Oxygen Concentration - - Weight - - Height 182.9 cm (6') 09/24/2018 4:00 AM ASSEMBLY CLEANER Body Mass Index - - Plan of Treatment Not on file Procedures Procedure Name Priority Date/Time Associated Comments Diagnosis XR CHEST 1 VIEW STAT 09/25/2018 4:07 Results for this PORTABLE/BEDSIDE PM [employer] procedure are in the results section. HEMOGLOBIN AND Routine 09/25/2018 12:41 Results for this HEMATOCRIT PM [employer] procedure are in the results section. CBC W/PLT COUNT & Routine 09/25/2018 5:14 Results for this AUTO DIFFERENTIAL AM [employer] procedure are in the results section. TSH/FREE T4 IF Routine 09/25/2018 5:14 Results for this INDICATED AM [employer] procedure are in the results section. CBC W/PLT COUNT & Routine 09/25/2018 5:14 Results for this AUTO DIFFERENTIAL AM [employer] CLE[employer] procedure are in the results section. MAGNESIUM Routine 09/25/2018 5:14 Results for this AM [employer] procedure are in the results section. BASIC METABOLIC PANEL Routine 09/25/2018 5:14 Results for this (7) AM [employer] procedure are in the results section. ANAEROBIC CULTURE Routine 09/24/2018 7:59 Results for this PM [employer] procedure are in the results section. EAR CULTURE + GRAM Routine 09/24/2018 5:42 Results for this STAIN PM [employer] procedure are in the results section. BLOOD CULTURE Routine 09/24/2018 5:51 Results for this AM [employer] procedure are in the results section. CBC W/PLT COUNT & Routine 09/24/2018 5:50 Results for this AUTO DIFFERENTIAL AM [employer] procedure are in the results section. CBC W/PLT COUNT & Routine 09/24/2018 5:50 Results for this AUTO DIFFERENTIAL AM [employer]ER procedure are in the results section. MAGNESIUM Routine 09/24/2018 5:50 Results for this AM [employer]ER procedure are in the results section. BASIC METABOLIC PANEL Routine 09/24/2018 5:50 Results for this (7) AM [employer]ER procedure are in the results section. after 01/03/2018 Results XR chest 1 view portable / bedside (09/25/2018 4:07 PM ASSEMBLY CLEANER) Narrative Performed At FINAL REPORT Major Aide INDICATION: SOB TECHNIQUE: Chest radiograph, single view, portable technique. FINDINGS / IMPRESSION: Heart shadow is prominent and there is suggestion of pulmonary venous congestion. No overt pulmonary edema and no pleural effusion demonstrated. No pneumothorax or consolidation. Calcified plaque in the aortic arch noted. Osseous structures unremarkable. Signed: Fabio Rivera MD Report Verified Date/Time:09/25/2018 16:48:03 Reading Location: [facility] Diagnostic Imaging Reading Room - [place] [address] Procedure Note Interface, External Ris In - 09/25/2018 4:59 PM ASSEMBLY CLEANER FINAL REPORT INDICATION: SOB TECHNIQUE: Chest radiograph, single view, portable technique. FINDINGS / IMPRESSION: Heart shadow is prominent and there is suggestion of pulmonary venous congestion. No overt pulmonary edema and no pleural effusion demonstrated. No pneumothorax or consolidation. Calcified plaque in the aortic arch noted. Osseous structures unremarkable. Signed: Fabio Rivera MD Report Verified Date/Time: 09/25/2018 16:48:03 Reading Location: [facility] Diagnostic Imaging Reading Room - [place] [address]120 Performing Organization Address City/State/Zipcode Phone Number Major Aide Hemoglobin and hematocrit (09/25/2018 12:41 PM ASSEMBLY CLEANER) Hemoglobin 10.4 (L) 13.7 - 17.5 GM/DL [facility] Hematocrit 32.6 (L) 40.1 - 51.0 % [facility] Specimen Blood Performing Organization Address City/[facility]/Zipcode Phone Number [address] [address] [phone] CENTER TSH/Free T4 If Indicated (09/25/2018 5:14 AM ASSEMBLY CLEANER) TSH 1.57 0.35 - 4.94 uIU/mL [facility] Specimen Blood - Arm, Left Performing Organization Address [facility] Phone Number [address] [address] [phone] CENTER CBC with platelet count + automated diff (09/25/2018 5:14 AM ASSEMBLY CLEANER)Only the most recent of2 resultswithin the time period is included. WBC 9.3 3.5 - 10.5 K/L [facility] RBC 3.30 (L) 4.63 - 6.08 M/L [facility] Hemoglobin 9.9 (L) 13.7 - 17.5 GM/DL [facility] Hematocrit 30.7 (L) 40.1 - 51.0 % [facility] MCV 93.0 (H) 79.0 - 92.2 fL [facility] MCH 30.0 25.7 - 32.2 pg [facility] MCHC 32.2 (L) 32.3 - 36.5 GM/DL [facility] RDW 15.9 (H) 11.6 - 14.4 % [facility] Platelets 143 (L) 150 - 450 K/CU MM [facility] MPV 10.9 9.4 - 12.4 fL [facility] nRBC 0 0 - 0 /100 WBC [facility] % Neutros 87 % [facility] % Lymphs 6 % [facility] % Monos 5 % [facility] % Eos 0 % [facility] % Baso 0 % [facility] # Neutros 8.10 (H) 1.78 - 5.38 K/L [facility] # Lymphs 0.51 (L) 1.32 - 3.57 K/L [facility] # Monos 0.46 0.30 - 0.82 K/L [facility] # Eos 0.01 (L) 0.04 - 0.54 K/L [facility] # Baso 0.01 0.01 - 0.08 K/L [facility] Immature Granulocytes-Relative 2 (H) 0 - 1 % [facility] Specimen Blood - Arm, Left Performing Organization Address City/[facility] Phone Number [address] [address] CENTER Magnesium (09/25/2018 5:14 AM ASSEMBLY CLEANER)Only the most recent of2 resultswithin the time period is included. Magnesium 1.8 1.6 - 2.6 mg/dL [facility] Specimen Blood - Arm, Left Performing Organization Address City/[facility]/Zipcode Phone Number [address] [address] CENTER Basic metabolic panel (09/25/2018 5:14 AM ASSEMBLY CLEANER)Only the most recent of2 resultswithin the time period is included. Sodium 136 136 - 145 meq/L [facility] Potassium 4.0 3.5 - 5.1 meq/L [facility] Chloride 109 (H) 98 - 107 meq/L [facility] CO2 21 (L) 22 - 29 meq/L [facility] BUN 11 7 - 21 mg/dL [facility] Creatinine 0.70 0.57 - 1.25 mg/dL [facility] Glucose 97 70 - 105 mg/dL [facility] Calcium 8.2 (L) 8.4 - 10.2 mg/dL [facility] EGFR 109Comment: ESTIMATED GFR IS mL/min/1.[address] [facility] NOT ACCURATE CREATININE [facility] CLEARANCE IN PREDICTING GLOMERULAR FILTRATION RATE. ESTIMATED GFR IS NOT APPLICABLE FOR DIALYSIS PATIENTS. Specimen Blood - Arm, Left Performing Organization Address City/State/Zipcode Phone Number [address] [address] CENTER Anaerobic culture (09/24/2018 7:59 PM ASSEMBLY CLEANER) Result No anaerobes isolated [facility] Specimen Wound - Ear, Right Performing Organization Address City/[facility] Phone Number [address] [address] [phone] [place] Ear culture + gram stain (09/24/2018 5:42 PM ASSEMBLY CLEANER) Result PSEUDOMONAS AERUGINOSA (A) [facility] Gram Stain Result 4+ WBCs [facility] Gram Stain Result No organisms seen [facility] Specimen Ear - Ear, Right Organism Antibiotic [...] + Sulfamethoxazole >80: Resistant Performing Organization Address City/[facility] Phone Number [facility] [address] [place] [address] [place] Blood culture #1 (09/24/2018 5:51 AM ASSEMBLY CLEANER) Result No growth in 5 days [facility] Specimen Blood - Arm, Right Performing Organization Address [facility] Phone Number [facility] [address] [place] [address] [phone] CENTER after 01/03/2018 Insurance Payer Benefit Plan / Group Subscriber ID Type Phone Address MEDICARE MEDICARE A B xxxxxxxxxxx Medicare AETNA - [place] CARE AETNA HMO POS QPOS xxxxxxxxxx HMO/POS HUMANA - MEDICARE MGD HUMANA MEDICARE ADV xxxxxxxxx Maps Contracted CARE AETNA - [place] CARE AETNA [facility] xxxxxxxxxx HMO/POS ACCESS ([place]) [address] [place] [phone] Advance Directives For more information, please contact:[address] [phone] Code Status Date Activated Date Inactivated Comments Full Code 09/24/2018 4:58 AM This code status was determined by: Patient
--- OUTSIDE RECORDS SUMMARY | 2019-01-04 18:25 | XMS REPORT ---
:1940 [facility] Address [address] [place] [address] Dr. Hill [address] [place] [address] Care Team Providers Name Role Phone CARLOS BARBER Unavailable Unavailable Problems This patient has no known problems. Allergies, Adverse Reactions, Alerts This patient has no known allergies or adverse reactions. Medications This patient has no known medications. Results Test Description Test Time Test Comments Text Results Atomic Results Result Comments BLOOD CULTURE 2018-09-29 11:00:00 Test Item Value Reference Range Comments CULTURE (BEAKER) (test lxst=0260) No growth in 5 days ANAEROBIC [id number] 12:34:00 Test Item Value Reference Range Comments CULTURE (BEAKER) (test dqmb=9445) No anaerobes isolated EAR CULTURE + GRAM [id number] 14:27:00 Test Item Value Reference Range Comments CULTURE (BEAKER) (test PSEUDOMONAS 1+ Pseudomonas cmwy=4927) AERUGINOSA aeruginosa Amikacin (test code=1) Susceptible 0-16 [...] GRAM STAIN RESULT 4+ WBCs (BEAKER) (test yhyd=3716) GRAM STAIN RESULT No organisms seen (BEAKER) (test ownn=445671) RAD, CHEST, 1 VIEW, NON [id number] 16:48:00Reason for exam:->SOBShould this be performed at [...] [place] Verified Date/Time: 09/25/2018 16:48:03 Reading [facility] Diagnostic Imaging Reading Room - [place] [address] HEMOGLOBIN AND [id number] 13:03:00 Test Item Value Reference Range Comments HEMOGLOBIN (BEAKER) (test uers=891) 10.4 GM/DL 13.7-17.5 HEMATOCRIT (BEAKER) (test nilh=973) 32.6 % 40.1-51.0 TSH/FREE T4 IF [id number] 06:43:00 Test Item Value Reference Range Comments THYROID STIMULATING HORMONE (BEAKER) (test 1.57 uIU/mL 0.35-4.94 gnmk=823) [id number] 06:28:00 Test Item Value Reference Range Comments MAGNESIUM (BEAKER) (test xzid=416) 1.8 mg/dL 1.6-2.6 BASIC METABOLIC [id number] 06:28:00 Test Item Value Reference Range Comments SODIUM (BEAKER) (test 136 meq/L 136-145 wgqk=193) POTASSIUM (BEAKER) (test 4.0 meq/L 3.5-5.1 yfbv=224) CHLORIDE (BEAKER) (test 109 meq/L 98-107 adrx=178) CO2 (BEAKER) (test 21 meq/L 22-29 cgka=819) BLOOD UREA NITROGEN 11 mg/dL 7-21 (BEAKER) (test qmid=127) CREATININE (BEAKER) (test 0.70 mg/dL 0.57-1.25 tbkz=850) GLUCOSE RANDOM (BEAKER) 97 mg/dL 70-105 (test zibt=631) CALCIUM (BEAKER) (test 8.2 mg/dL 8.4-10.2 rlam=500) EGFR (BEAKER) (test 109 mL/min/1.73 sq m ESTIMATED GFR IS NOT gmii=7446) ACCURATE CREATININE CLEARANCE IN PREDICTING GLOMERULAR FILTRATION RATE. ESTIMATED GFR IS NOT APPLICABLE FOR DIALYSIS PATIENTS. CBC W/PLT COUNT & AUTO [id number] 05:49:00 Test Item Value Reference Range Comments WHITE BLOOD CELL COUNT (BEAKER) (test jxsx=274) 9.3 K/ L 3.5-10.5 RED BLOOD CELL COUNT (BEAKER) (test nwjp=513) 3.30 M/ L 4.63-6.08 HEMOGLOBIN (BEAKER) (test cikm=345) 9.9 GM/DL 13.7-17.5 HEMATOCRIT (BEAKER) (test pnnx=081) 30.7 % 40.1-51.0 MEAN CORPUSCULAR VOLUME (BEAKER) (test npay=574) 93.0 fL 79.0-92.2 MEAN CORPUSCULAR HEMOGLOBIN (BEAKER) (test 30.0 pg 25.7-32.2 lcup=914) MEAN CORPUSCULAR HEMOGLOBIN CONC (BEAKER) (test 32.2 GM/DL 32.3-36.5 bqfu=351) RED CELL DISTRIBUTION WIDTH (BEAKER) (test 15.9 % 11.6-14.4 yaqk=011) PLATELET COUNT (BEAKER) (test ehzj=080) 143 K/CU MM 150-450 MEAN PLATELET VOLUME (BEAKER) (test fbmr=085) 10.9 fL 9.4-12.4 NUCLEATED RED BLOOD CELLS (BEAKER) (test 0 /100 WBC 0-0 xcdl=241) NEUTROPHILS RELATIVE PERCENT (BEAKER) (test 87 % vjgt=739) LYMPHOCYTES RELATIVE PERCENT (BEAKER) (test 6 % inab=765) MONOCYTES RELATIVE PERCENT (BEAKER) (test 5 % uomr=294) EOSINOPHILS RELATIVE PERCENT (BEAKER) (test 0 % pyaw=691) BASOPHILS RELATIVE PERCENT (BEAKER) (test 0 % avii=144) NEUTROPHILS ABSOLUTE COUNT (BEAKER) (test 8.10 K/ L 1.78-5.38 pkrt=322) LYMPHOCYTES ABSOLUTE COUNT (BEAKER) (test 0.51 K/ L 1.32-3.57 uqin=787) MONOCYTES ABSOLUTE COUNT (BEAKER) (test 0.46 K/ L 0.30-0.82 bnuu=745) EOSINOPHILS ABSOLUTE COUNT (BEAKER) (test 0.01 K/ L 0.04-0.54 bzhw=362) BASOPHILS ABSOLUTE COUNT (BEAKER) (test 0.01 K/ L 0.01-0.08 sygu=241) IMMATURE GRANULOCYTES-RELATIVE PERCENT (BEAKER) 2 % 0-1 (test zusw=7683) CBC W/PLT COUNT & AUTO [id number] 07:25:00 Test Item Value Reference Range Comments WHITE BLOOD CELL COUNT (BEAKER) (test numh=384) 11.2 K/ L 3.5-10.5 RED BLOOD CELL COUNT (BEAKER) (test qdha=486) 3.99 M/ L 4.63-6.08 HEMOGLOBIN (BEAKER) (test knts=441) 11.8 GM/DL 13.7-17.5 HEMATOCRIT (BEAKER) (test yofw=559) 36.4 % 40.1-51.0 MEAN CORPUSCULAR VOLUME (BEAKER) (test mtsf=791) 91.2 fL 79.0-92.2 MEAN CORPUSCULAR HEMOGLOBIN (BEAKER) (test 29.6 pg 25.7-32.2 dfbm=217) MEAN CORPUSCULAR HEMOGLOBIN CONC (BEAKER) (test 32.4 GM/DL 32.3-36.5 oqpa=232) RED CELL DISTRIBUTION WIDTH (BEAKER) (test 16.2 % 11.6-14.4 jfhs=829) PLATELET COUNT (BEAKER) (test rctn=320) 168 K/CU MM 150-450 MEAN PLATELET VOLUME (BEAKER) (test dfqq=136) 11.3 fL 9.4-12.4 NUCLEATED RED BLOOD CELLS (BEAKER) (test 0 /100 WBC 0-0 kvxd=933) NEUTROPHILS RELATIVE PERCENT (BEAKER) (test 75 % hjcw=527) LYMPHOCYTES RELATIVE PERCENT (BEAKER) (test 14 % wdbw=900) MONOCYTES RELATIVE PERCENT (BEAKER) (test 8 % hgbi=703) EOSINOPHILS RELATIVE PERCENT (BEAKER) (test 1 % cgkl=581) BASOPHILS RELATIVE PERCENT (BEAKER) (test 0 % nfry=934) NEUTROPHILS ABSOLUTE COUNT (BEAKER) (test 8.31 K/ L 1.78-5.38 ebgy=246) LYMPHOCYTES ABSOLUTE COUNT (BEAKER) (test 1.54 K/ L 1.32-3.57 nmkf=806) MONOCYTES ABSOLUTE COUNT (BEAKER) (test 0.87 K/ L 0.30-0.82 vclv=015) EOSINOPHILS ABSOLUTE COUNT (BEAKER) (test 0.09 K/ L 0.04-0.54 qmky=848) BASOPHILS ABSOLUTE COUNT (BEAKER) (test 0.03 K/ L 0.01-0.08 rfpn=749) IMMATURE GRANULOCYTES-RELATIVE PERCENT (BEAKER) 3 % 0-1 (test bkbn=9014) [id number] 07:11:00 Test Item Value Reference Range Comments MAGNESIUM (BEAKER) (test ijtj=537) 1.9 mg/dL 1.6-2.6 BASIC METABOLIC [id number] 07:11:00 Test Item Value Reference Range Comments SODIUM (BEAKER) (test 136 meq/L 136-145 hlqj=762) POTASSIUM (BEAKER) (test 3.4 meq/L 3.5-5.1 xind=339) CHLORIDE (BEAKER) (test 106 meq/L 98-107 wzts=342) CO2 (BEAKER) (test 23 meq/L 22-29 pwzz=367) BLOOD UREA NITROGEN 12 mg/dL 7-21 (BEAKER) (test pgwz=560) CREATININE (BEAKER) (test 0.74 mg/dL 0.57-1.25 asao=309) GLUCOSE RANDOM (BEAKER) 91 mg/dL 70-105 (test xtgt=929) CALCIUM (BEAKER) (test 8.3 mg/dL 8.4-10.2 luaj=051) EGFR (BEAKER) (test 102 mL/min/1.73 sq m ESTIMATED GFR IS NOT sdjh=4750) ACCURATE CREATININE CLEARANCE IN PREDICTING GLOMERULAR FILTRATION RATE. ESTIMATED GFR IS NOT APPLICABLE FOR DIALYSIS PATIENTS.
[2019-01-04 19:09] LABS: Absolute Lymphocytes (CBC) 0.7 K/uL (0.7-4.9); Absolute Monocytes 0.8 K/uL (0.1-1.3); Absolute Neutrophil 15.5 K/uL (1.8-8.0); Basophils % 0.2 % (0-1.3); Hematocrit 40.5 % (39.6-49.0); Lymphocytes % 3.9 % (15.3-44.8); MPV 8.9 fL (7.6-11.3); Monocytes % 4.5 % (3.3-12.3); RBC Red Blood Cell Count 4.91 M/uL (4.33-5.43)
[2019-01-04 19:12] LABS: Protime INR 1.12
[2019-01-04 19:26] LABS: Albumin 2.7 g/dL (3.4-5.0); Bilirubin Direct 0.2 mg/dL (0-0.2); Bilirubin Total 0.6 mg/dL (0.2-1.0); Magnesium 2.1 mg/dL (1.8-2.4); Protein, Total 6.1 g/dL (6.4-8.2); Troponin (Emerg Dept Use Only) 0.03 ng/mL (0.0-0.045)
[2019-01-04 20:06] LABS: Blood Morphology Comment NOT SEEN (NOT SEEN); Platelet Estimate ADEQ; Urine White Blood Cell Casts OK
[2019-01-04 20:14] LABS: Urine Bacteria LOADED /HPF (NONE SEEN); Urine Culture Reflex Order REFLEXED; Urine RBC 20-50 /HPF (NONE SEEN)
[2019-01-04 20:16] LABS: Urine Blood 2+ (NEG); Urine Glucose NEGATIVE (NEG); Urine Protein 3+ (NEG)
--- NOTE | 2019-01-04 20:20 | RAD REPORT ---
EXAM DESCRIPTION: Domenico Single View01/04/2019 7:05 pm CLINICAL HISTORY: Shortness of breath COMPARISON: October 2018 FINDINGS: Small to moderate bilateral pleural effusions are suspected with bibasilar atelectasis Mild right upper lobe opacities. The upper lobe vessels are prominent indicative of pulmonary venous hypertension. The heart is enlarged IMPRESSION: Small to moderate bilateral pleural effusions Mild right upper lobe opacities may indicate pneumonia
--- NOTE | 2019-01-04 21:12 | ER ---
Nurse's Notes [facility] Name: Gio Matute Age: 78 yrs Sex: Male : 1940 Arrival Date: 01/04/2019 Time: 18:29 Bed 23 Private MD: Diagnosis: Pneumonia due to other specified bacteria;Urinary tract infection, site not specified Presentation: 01/04 18:29 Presenting complaint: EMS states: with O2 sat at 94% RA. Swelling of Right ARM and ca1 both Feet. Transition of care: patient was not received from another setting of care. Onset of symptoms was January 04, 2019. Risk Assessment: Do you want to hurt yourself or someone else? Patient reports no desire to harm self or others. Initial Sepsis Screen: Does the patient meet any 2 criteria? No. Patient's initial sepsis screen is negative. Does the patient have a suspected source of infection? Yes: Productive cough/pneumonia. Care prior to arrival: Glucose check: 122. 18:29 Method Of Arrival: EMS: [facility] ca1 18:29 Acuity: MACI 3 ca1 Triage Assessment: 18:34 General: Appears in no apparent distress. ill, Behavior is calm, cooperative, ca1 appropriate for age. Pain: Denies pain. Respiratory: Reports cough that is Onset: The symptoms/episode began/occurred today, the patient has moderate shortness of breath. Historical: - Allergies: 18:34 Antihistamine; ca1 18:34 Codeine; ca1 - Home Meds: 18:34 amlodipine oral [Active]; metoprolol tartrate 100 mg Oral tab 1 tab once daily ca1 [Active]; prednisone 10 mg Oral tab 2 times per day [Active]; - PMHx: 18:34 BLINDNESS; Condom Gaviria catheter; COPD; Diabetes - NIDDM; enlarged prostate; Hearing ca1 difficulty (hearing aids); Hypertension; Jong's-Reported by family; - PSHx: 18:34 Eye Surgery; Vocal Cords Surgery; ca1 - Immunization history:: Flu vaccine is not up to date. - Social history:: Smoking status: Patient/guardian denies using tobacco. - Ebola Screening: : No symptoms or risks identified at this time. Screenin:30 Abuse screen: Denies threats or abuse. Denies injuries from another. Nutritional ca1 screening: No deficits noted. Tuberculosis screening: No symptoms or risk factors identified. Fall Risk Secondary diagnosis (15 points) blindness. IV access (20 points). Ambulatory Aid- None/Bed Rest/Nurse Assist (0 pts). Assessment: 18:30 General: Appears in no apparent distress. uncomfortable, Behavior is calm, cooperative, ca1 appropriate for age. General: Reports Difficulty of breathing since today. Pain: Denies pain. Neuro: Level of Consciousness is awake, alert, obeys commands, Oriented to person, place, time, situation. Neuro:. Cardiovascular: Heart tones S1 S2 Capillary refill is > 3 seconds Patient's skin is warm and dry. Edema is 2+ to right upper arm, right elbow, right forearm, right wrist, right hand, right fingers, pubic area, left lower thigh, left knee, left midcalf, left ankle, left foot, left toes, left upper arm, left elbow, left fingers, right lower thigh, right knee, right midcalf, right ankle, right foot and right toes Rhythm is irregular. Respiratory: Reports cough that is productive, Airway is patent Respiratory effort is even, unlabored, Respiratory pattern is regular, symmetrical, Breath sounds are clear bilaterally. GI: Abdomen is round Bowel sounds present X 4 quads. Abd is non tender X 4 quads. : : condom. Urine is cloudy, Inguinal Hernia. EENT: No signs and/or symptoms were reported regarding the EENT system. Derm: Skin is fragile, is thin, Skin is pink, warm \T\ dry. Musculoskeletal: Capillary refill is > 3 seconds, Swelling present in right arm, right leg and left leg. 19:25 Reassessment: Patient appears in no apparent distress at this time. Patient and/or ca1 family updated on plan of care and expected duration. Pain level reassessed. Patient is alert, oriented x 3, equal unlabored respirations, skin warm/dry/pink. 20:38 Reassessment: Patient appears in no apparent distress at this time. Patient and/or ca1 family updated on plan of care and expected duration. Pain level reassessed. Patient is alert, oriented x 3, equal unlabored respirations, skin warm/dry/pink. 21:30 Reassessment: Patient appears in no apparent distress at this time. Patient and/or ca1 family updated on plan of care and expected duration. Pain level reassessed. Patient is alert, oriented x 3, equal unlabored respirations, skin warm/dry/pink. family at bedside. 22:30 Reassessment: Patient appears in no apparent distress at this time. Patient and/or ca1 family updated on plan of care and expected duration. Pain level reassessed. Patient is alert, oriented x 3, equal unlabored respirations, skin warm/dry/pink. Vital Signs: 18:29 BP 149 / 79; Pulse 96; Resp 18; Temp 98.7; Pulse Ox 94% on R/A; Height 6 ft. 1 in. ca1 (185.42 cm); Pain 0/10; 19:30 BP 151 / 87; Pulse 84; Resp 16; Pulse Ox 98% on 2 lpm NC; ca1 20:38 BP 133 / 83; Pulse 81; Resp 17; Pulse Ox 100% on 2 lpm NC; ca1 21:30 BP 118 / 79; Pulse 83; Resp 19; Pulse Ox 100% on 2 lpm NC; ca1 22:30 BP 153 / 97; Pulse 94; Resp 21; Pulse Ox 99% on 2 lpm NC; ca1 ED Course: 18:29 Patient arrived in ED. ca1 18:29 Arm band placed on right wrist. EKG completed in triage. Results shown to MD. ca1 18:30 Patient has correct armband on for positive identification. Placed in gown. Bed in low ca1 position. Call light in reach. Side rails up X2. cardiac monitor on. Pulse ox on. NIBP on. Warm blanket given. 18:31 Triage completed. ca1 18:31 Gasper Garcia PA is PHCP. cp 18:31 Shayy Alonso MD is Attending Physician. cp 18:58 Inserted saline lock: 20 gauge in left antecubital area, using aseptic technique. Blood ca1 collected. 18:58 First set of blood cultures drawn by me, Flu and/or RSV swab sent to lab. ca1 19:03 XRAY Chest (1 view) In Process Unspecified. EDMS 19:11 Brenda Corral, RN is Primary Nurse. ca1 19:39 Urine collected: condom cath; 10ml. jp3 19:40 Urine Microscopic Only Sent. jp3 19:40 CBC Smear Scan Sent. jp3 19:40 Blood Culture Adult (2) Sent. jp3 21:11 Shayy Evans MD is Hospitalizing Provider. cp 22:37 No provider procedures requiring assistance completed. Patient admitted, IV remains in ca1 place. Administered Medications: 21:05 Drug: Lasix 40 mg Route: IVP; Site: left antecubital; ca1 22:34 Follow up: Urine output 900 ml; Response: No adverse reaction ca1 21:12 Drug: LevaQUIN 750 mg Volume: 150 ml; Route: IVPB; Infused Over: 90 mins; Site: left ca1 antecubital; 22:37 Follow up: Response: No adverse reaction; IV Status: Infusion continued upon transfer ca1 Output: 22:34 Urine: 900ml; Total: 900ml. ca1 Outcome: 21:11 Decision to Hospitalize by Provider. cp 22:37 Admitted to Med/surg accompanied by tech, family with patient, via stretcher, room 211, ca1 with oxygen, with chart, Report called to Cici Michele RN 22:37 Condition: stable 22:37 Instructed on the need for admit. 22:57 Patient left the ED. ca1 Signatures: Dispatcher [employer] EDMS Gasper Garcia PA PA cp Mike Angel jp3 Brenda Corral RN RN ca1 Corrections: (The following items were deleted from the chart) 20:09 18:30 Cardiovascular: Heart tones S1 S2 Capillary refill is > 3 seconds Patient's skin ca1 is warm and dry. Edema is 2+ to right upper arm, right elbow, right forearm, right wrist, right hand, right fingers, pubic area, left lower thigh, left knee, left midcalf, left ankle, left foot, left toes, left upper arm, left elbow, left fingers, right lower thigh, right knee, right midcalf, right ankle, right foot and right toes Rhythm is irregular ca1
--- NOTE | 2019-01-04 21:12 | EDPHYS ---
Physician Documentation [facility] Name: Gio Matute Age: 78 yrs Sex: Male : 1940 Arrival Date: 01/04/2019 Time: 18:29 Bed 23 Private MD: ED Physician Shayy Alonso HPI: 01/04 18:45 This 78 yrs old Male presents to ER via EMS with complaints of Breathing cp Difficulty. 18:45 The patient has shortness of breath at rest. Onset: The symptoms/episode began/occurred cp today. Duration: The symptoms are continuous. Associated signs and symptoms: Pertinent negatives: chest pain, diaphoresis, fever. Severity of symptoms: in the emergency department the symptoms are unchanged despite home interventions. Historical: - Allergies: 18:34 Antihistamine; ca1 18:34 Codeine; ca1 - Home Meds: 18:34 amlodipine oral [Active]; metoprolol tartrate 100 mg Oral tab 1 tab once daily ca1 [Active]; prednisone 10 mg Oral tab 2 times per day [Active]; - PMHx: 18:34 BLINDNESS; Condom Gaviria catheter; COPD; Diabetes - NIDDM; enlarged prostate; Hearing ca1 difficulty (hearing aids); Hypertension; Jong's-Reported by family; - PSHx: 18:34 Eye Surgery; Vocal Cords Surgery; ca1 - Immunization history:: Flu vaccine is not up to date. - Social history:: Smoking status: Patient/guardian denies using tobacco. - Ebola Screening: : No symptoms or risks identified at this time. ROS: 18:50 Constitutional: Negative for body aches, chills, fever, poor PO intake. cp 18:50 Eyes: Negative for injury, pain, redness, and discharge. cp 18:50 ENT: Negative for drainage from ear(s), ear pain, difficulty swallowing, difficulty handling secretions. 18:50 Cardiovascular: Positive for edema, Negative for chest pain. 18:50 Respiratory: Positive for shortness of breath, at rest. 18:50 Abdomen/GI: Negative for abdominal pain, vomiting, diarrhea, constipation. 18:50 Skin: Negative for cellulitis, rash. 18:50 Neuro: Negative for altered mental status, headache. 18:50 All other systems are negative. Exam: 18:42 ECG was reviewed by the Attending Physician. cp 18:55 Constitutional: The patient appears in no acute distress, alert, awake, cp non-diaphoretic, non-toxic, well developed, well nourished. 18:55 Head/Face: Normocephalic, atraumatic. cp 18:55 Eyes: Periorbital structures: appear normal, Conjunctiva: normal, no exudate, no injection, Lids and lashes: appear normal, bilaterally. 18:55 ENT: External ear(s): are unremarkable, Ear canal(s): are normal, clear, TM's: bulging, is not appreciated, bilaterally, dullness, bilaterally, erythema, is not appreciated, bilaterally, Nose: is normal, Mouth: Lips: moist, Oral mucosa: moist, Posterior pharynx: Airway: no evidence of obstruction, patent. 18:55 Neck: ROM/movement: is normal, is supple, without pain, no range of motions limitations, no meningismus, no nuchal rigidity. 18:55 Chest/axilla: Inspection: normal, Palpation: is normal, no crepitus, no tenderness. 18:55 Cardiovascular: Rate: normal, Rhythm: regular, Edema: ankle edema, that is mild, JVD: is not appreciated. 18:55 Respiratory: the patient does not display signs of respiratory distress, Respirations: normal, no use of accessory muscles, no retractions, no splinting, no tachypnea, labored breathing, is not present, Breath sounds: decreased breath sounds, that are mild, throughout, stridor, is not appreciated, wheezing: is not appreciated. 18:55 Abdomen/GI: Inspection: abdomen appears normal, Bowel sounds: active, all quadrants, Palpation: abdomen is soft and non-tender, in all quadrants. 18:55 Skin: cellulitis, is not appreciated, no rash present. Vital Signs: 18:29 BP 149 / 79; Pulse 96; Resp 18; Temp 98.7; Pulse Ox 94% on R/A; Height 6 ft. 1 in. ca1 (185.42 cm); Pain 0/10; 19:30 BP 151 / 87; Pulse 84; Resp 16; Pulse Ox 98% on 2 lpm NC; ca1 20:38 BP 133 / 83; Pulse 81; Resp 17; Pulse Ox 100% on 2 lpm NC; ca1 21:30 BP 118 / 79; Pulse 83; Resp 19; Pulse Ox 100% on 2 lpm NC; ca1 22:30 BP 153 / 97; Pulse 94; Resp 21; Pulse Ox 99% on 2 lpm NC; ca1 MDM: 18:31 Patient medically screened. cp 19:00 Differential diagnosis: CHF exacerbation, Chronic Obstructive Pulmonary Disease cp Myocardial Infarction pneumonia, Unstable Angina. 21:05 Data reviewed: vital signs, nurses notes, lab test result(s), EKG, radiologic studies, cp plain films. 21:05 Test interpretation: by ED physician or midlevel provider: ECG, plain radiologic cp studies. 21:07 Physician consultation: Shayy Evans MD was called at 20:55, was contacted at 20:55, cp regarding admission, to the telemetry unit. patient's condition. 01/04 18:40 Order name: Basic Metabolic Panel; Complete Time: 20:22 cp 01/04 20:24 Interpretation: Normal except: GLUC 131; GFR 82; CA 8.2. cp 01/04 18:40 Order name: CBC with Diff; Complete Time: 20:22 cp 01/04 20:23 Interpretation: Normal except: WBC 17.0; HGB 13.3; MCV 82.5; RDW 15.7; LEONARDO% 91.4; LYM% cp 3.9; NEUT A 15.5. 01/04 18:40 Order name: LFT's; Complete Time: 20:22 cp 01/04 20:37 Interpretation: Normal except: TP 6.1; ALB 2.7; A/G 0.8. cp 01/04 18:40 Order name: Magnesium; Complete Time: 20:22 cp 01/04 18:40 Order name: NT PRO-BNP; Complete Time: 20:22 cp 01/04 20:23 Interpretation: Abnormal: NT PRO-BNP 6732. cp 01/04 18:40 Order name: PT-INR; Complete Time: 20:22 cp 01/04 18:40 Order name: Troponin (emerg Dept Use Only); Complete Time: 20:22 cp 01/04 18:41 Order name: Blood Culture Adult (2) cp 01/04 18:41 Order name: Influenza Screen (a \T\ B); Complete Time: 20:22 cp 01/04 19:12 Order name: CBC Smear Scan; Complete Time: 20:22 EDMS 01/04 19:38 Order name: Urine Microscopic Only; Complete Time: 20:22 01/04 20:23 Interpretation: Normal except: UWBC 20-50; URBC 20-50; UBACT LOADED. cp 01/04 19:46 Order name: Urine Dipstick--Ancillary (enter results); Complete Time: 20:22 01/04 20:24 Interpretation: Normal except: UBLD 2+; UPROT 3+; UESTR 3+. cp / 20:15 Order name: Urine Culture EDHI 01/04 21:43 Order name: Troponin I EDHI 01/04 18:40 Order name: XRAY Chest (1 view); Complete Time: 20:22 cp / 18:40 Order name: EKG; Complete Time: 18:40 cp 01/04 18:40 Order name: Cardiac monitoring; Complete Time: 18:44 cp 01/04 18:40 Order name: EKG - Nurse/Tech; Complete Time: 18:44 cp 01/04 18:40 Order name: IV Saline Lock; Complete Time: 18:58 cp 01/04 18:40 Order name: Labs collected and sent; Complete Time: 18:58 cp 01/04 18:40 Order name: O2 Per Protocol; Complete Time: 18:44 cp 01/04 18:40 Order name: O2 Sat Monitoring; Complete Time: 18:44 cp 01/04 21:43 Order name: Echo with Doppler EDHI EC:42 Rate is 96 beats/min. Rhythm is irregularly irregular. QRS interval is normal. QT cp interval is normal. Interpreted by me. Reviewed by me. Administered Medications: 21:05 Drug: Lasix 40 mg Route: IVP; Site: left antecubital; ca1 22:34 Follow up: Urine output 900 ml; Response: No adverse reaction ca1 21:12 Drug: LevaQUIN 750 mg Volume: 150 ml; Route: IVPB; Infused Over: 90 mins; Site: left ca1 antecubital; 22:37 Follow up: Response: No adverse reaction; IV Status: Infusion continued upon transfer ca1 Disposition: 01/04/19 21:11 Hospitalization ordered by Shayy Evans for Observation. Preliminary diagnosis are Pneumonia due to other specified bacteria, Urinary tract infection, site not specified. - Bed requested for Telemetry/MedSurg (observation). - Status is Observation. ca1 - Condition is Stable. - Problem is new. - Symptoms have improved. UTI on Admission? Yes Addendum: 01/06/2019 07:30 Co-signature as Attending Physician, Shayy Alonso MD. m a2 Signatures: Dispatcher [employer] EDMS Ivonne Witt RN RN Gasper Mccann, Shayy Doe cp, MD MD ma2 Brenda Corral RN RN ca1 Corrections: (The following items were deleted from the chart) 01/04 20:24 20:23 Normal except: GLUC 131; GFR 82. cp cp 21:45 21:11 Hospitalization Ordered by Shayy Evans MD for Observation. Preliminary mw diagnosis is Pneumonia due to other specified bacteria; Urinary tract infection, site not specified. Bed requested for Telemetry/MedSurg (observation). Status is Observation. Condition is Stable. Problem is new. Symptoms have improved. UTI on Admission? Yes. cp 22:57 21:45 01/04/2019 21:11 Hospitalization Ordered by Shayy Evans MD for Observation. ca1 Preliminary diagnosis is Pneumonia due to other specified bacteria; Urinary tract infection, site not specified. Bed requested for Telemetry/MedSurg (observation). Status is Observation. Condition is Stable. Problem is new. Symptoms have improved. UTI on Admission? Yes.
[2019-01-04] MEDS ORDERED: Levofloxacin 750mg IV 750 MG/150 ML BAG IV ONE (21:26)
[2019-01-04] MEDS ORDERED: FUROSEMIDE 40 MG/4 ML VIAL ONE (21:26)
[2019-01-04] MEDS ORDERED: ACETAMINOPHEN 500 MG TAB PO PRN (21:36)
[2019-01-04] MEDS ORDERED: ONDANSETRON 4 MG/2 ML VIAL IV PRN (21:36)
[2019-01-05 04:34] LABS: Absolute Lymphocytes (CBC) 1.1 K/uL (0.7-4.9); Absolute Monocytes 0.9 K/uL (0.1-1.3); Absolute Neutrophil 8.9 K/uL (1.8-8.0); Basophils % 0.4 % (0-1.3); Eosinophils % 0.6 % (0-4.4); Hematocrit 37.6 % (39.6-49.0); Lymphocytes % 9.8 % (15.3-44.8); MPV 8.9 fL (7.6-11.3); Monocytes % 8.6 % (3.3-12.3); RBC Red Blood Cell Count 4.54 M/uL (4.33-5.43)
[2019-01-05 05:04] LABS: ALT/SGPT 19 U/L (12-78); AST/SGOT 14 U/L (15-37); Albumin 2.3 g/dL (3.4-5.0); Alkaline Phosphatase 82 U/L (45-117); BUN Blood Urea Nitrogen 16 mg/dL (7-18); Bicarbonate 26 mmol/L (21-32); Bilirubin Total 0.6 mg/dL (0.2-1.0); Glucose Level 74 mg/dL (74-106); NT PRO-BNP 6771 pg/mL (<450); Phosphorus 3.2 mg/dL (2.5-4.9); Potassium 3.8 mmol/L (3.5-5.1); Protein, Total 5.6 g/dL (6.4-8.2); Sodium Level 140 mmol/L (136-145)
[2019-01-05] MEDS ORDERED: INFLUENZA VACCINE (for 3y+) 0.5 ML DOSE IMVAC ONE (08:00)
[2019-01-05] MEDS: VALSARTAN 80 MG TAB PO SCH ×2 (09:00→10:02)
[2019-01-05] MEDS ORDERED: METOPROLOL XL 100 MG TAB PO SCH (09:00)
[2019-01-05] MEDS: ASPIRIN EC 81 MG TAB PO SCH ×2 (09:00→10:02)
[2019-01-05] MEDS ORDERED: POTASSIUM 25 MEQ EFFERV TAB PO ONE (09:00)
[2019-01-05] MEDS: predniSONE 10 MG TAB PO SCH (10:02)
[2019-01-05] MEDS: FUROSEMIDE 40 MG/4 ML VIAL IV SCH ×2 (10:02→17:27)
[2019-01-05] MEDS: ENOXAPARIN 40 MG/0.4 ML SQ SCH (10:02)
[2019-01-05] MEDS: METOPROLOL XL 50 MG TAB PO SCH (10:02)
--- NOTE | 2019-01-05 10:03 | P.HP ---
Certification for Inpatient Patient admitted to: Inpatient With expected LOS: >2 Midnights Patient will require the following post-hospital care: None Practitioner: I am a practitioner with admitting privileges, knowledge of patient current condition, hospital course, and medical plan of care. Services: Services provided to patient in accordance with Admission requirements found in Title 42 Section 412.3 of the Code of Federal Regulations Patient History Date of Service: 01/04/19 Reason for admission: Shortness of breath; generalized weakness History of Present Illness: Patient is an 78-year-old gentleman who lives at home with his . She does most of his ADLs. He is very debilitated as he has had numerous procedures over the last year. He pretty much stays in bed most of the day. He has a large inguinal hernia that prevents him from doing much of anything. Over the last few days his condition has worsened. He has had some edema in the lower extremity. He is not eating like he use usually does. He has generalized weakness more so than normal. His brought him into the hospital. His workup revealed a urinary tract infection along with a pneumonia with bilateral pleural effusion. He has poorly nourished and has a significant hypoalbuminemia. Spoke with the and she is needing more assistance at home. She has someone helping her occasionally at night to give him a bath. She had home health but her insurance company is denying her at this time. Will go ahead and admit the patient to the hospital for further evaluation. Allergies codeine Adverse Reaction (Verified 01/04/19 23:21) Nausea/Vomiting ANTIHISTAMINES Adverse Reaction (Mild, Uncoded 01/21/18 23:21) Unknown Home Medications: Amlodipine [Norvasc*] 10 mg PO DAILY 30 Days #30 tab 12/02/17 Metoprolol Succinate [Toprol Xl] 100 mg PO DAILY #30 tab.sr.24h 12/17/17 predniSONE [Deltasone*] 10 mg PO DAILY tab 11/01/18 - Past Medical/Surgical History Has patient received pneumonia vaccine in the past: Yes Diabetic: No -: hypertension -: glaucoma -: anemia -: hypoglycemia -: blindness -: enlarged prostate -: HTN -: wedgners disease -: [place] -: hernia -: bone spur in neck -: copd -: vocal cord surg -: corneal transplant sx -: hemorroidectomy -: eye sx - Family History Father Medical History: Lung disease - Social History Smoking Status: Former smoker Alcohol use: No CD- Drugs: No Caffeine use: Yes Place of Residence: Home Review of Systems 10-point ROS is otherwise unremarkable Physical Examination - Vital Signs Temperature: 98.5 F Blood Pressure: 159/84 Pulse: 110 Respirations: 18 Pulse Ox (%): 97 - Physical Exam General: Alert, In no apparent distress, Oriented x2 HEENT: Atraumatic, PERRLA, Mucous membr. moist/pink, EOMI, Sclerae nonicteric Neck: Supple, 2+ carotid pulse no bruit, No LAD, Without JVD or thyroid abnormality Respiratory: Diminished, Crackles/rales Cardiovascular: Regular rate/rhythm, Normal S1 S2, Systolic murmur Gastrointestinal: Normal bowel sounds, Soft and benign, Non-distended, No tenderness, Other (Large inguinal hernia) Musculoskeletal: No tenderness, Swelling Integumentary: No rashes, Tenderness/swelling Neurological: Normal speech, Normal tone, Sensation intact, Cranial nerves 3-12 intact, Abnormal gait, Abnormal strength, Abnormal affect (Flat affect) Lymphatics: No axilla or inguinal lymphadenopathy - Studies Laboratory Data (last 24 hrs) 01/04/19 18:53: PT 13.2 H, INR 1.12 01/04/19 18:53: WBC 17.0 H, Hgb 13.3 L, Hct 40.5, Plt Count 187 01/04/19 18:53: Sodium 138, Potassium 4.0, BUN 16, Creatinine 0.89, Glucose 131 H, Magnesium 2.1, Total Bilirubin 0.6, AST 17, ALT 24, Alkaline Phosphatase 92 Microbiology Data (last 24 hrs): 01/04/19 18:55 Nasopharnyx Influenza Type A Antigen Screen - Final 01/04/19 18:55 Nasopharnyx Influenza Type B Antigen Screen - Final Assessment & Plan - Problems (Diagnosis) (1) Diastolic heart failure Current Visit: No Status: Acute Qualifiers: (2) Dyspnea Current Visit: No Status: Acute (3) Edema Current Visit: No Status: Acute (4) PNA (pneumonia) Onset Date: 12/17/17 Current Visit: No Status: Acute (5) UTI (urinary tract infection) Current Visit: No Status: Acute (6) Cachexia Current Visit: No Status: Chronic (7) Hypoalbuminemia Current Visit: No Status: Chronic (8) Inguinal hernia Onset Date: 11/22/17 Current Visit: No Status: Chronic (9) Pleural effusion due to another disorder Onset Date: 11/01/18 Current Visit: No Status: Chronic (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 Continue with IV antibiotics 2. Awaiting sputum,blood, urine culture 3. Repeat chest x-ray 4. Will proceed with CT scan of the chest if pneumonia is not improved 5. Case management consultation as patient's is requesting some assistance at the house and she may need information for [employer] to assist at the home or home health evaluation. 6. Supplement with protein as patient is hypoalbuminemic 7. O2 per protocol 8. Heplock IV in am 9. Repeat labs including CBC and renal function in a.m. 10. GI and DVT prophylaxis Discharge Plan: Home Plan to discharge in: Greater than 2 days - Advance Directives Does patient have a Living Will: Yes Does patient have a Durable POA for Healthcare: Yes - Code Status/Comfort Care Code Status Assessed: Yes Code Status: Full Code Critical Care: No Time Spent Managing PTS Care (In Minutes): 50
[2019-01-05] MEDS: PIPER/TAZO/NS 3.375gm 3.375 GM/100 ML BAG IVPB SCH ×2 (13:19→20:10)
[2019-01-06 04:09] VITALS: BMI 27.8
[2019-01-06] MEDS: PIPER/TAZO/NS 3.375gm 3.375 GM/100 ML BAG IVPB SCH ×2 (05:08→12:00)
[2019-01-06 06:15] LABS: Potassium 3.2 mmol/L (3.5-5.1)
[2019-01-06] MEDS: predniSONE 10 MG TAB PO SCH (08:55)
[2019-01-06] MEDS: ENOXAPARIN 40 MG/0.4 ML SQ SCH (08:55)
[2019-01-06] MEDS: FUROSEMIDE 40 MG/4 ML VIAL IV SCH ×2 (08:58→16:26)
[2019-01-06] MEDS: VALSARTAN 80 MG TAB PO SCH (09:00)
[2019-01-06] MEDS: METOPROLOL XL 50 MG TAB PO SCH (09:00)
[2019-01-06] MEDS ORDERED: POTASSIUM CL SA 10 MEQ TAB PO ONE ×2 (09:00→21:00)
[2019-01-06] MEDS: ASPIRIN EC 81 MG TAB PO SCH (09:00)
[2019-01-06] MEDS ORDERED: POTASSIUM CL SA 10 MEQ TAB PO SCH (09:00)
--- NOTE | 2019-01-06 09:16 | EKG ---
Test Date: 2019-01-04 Test Time: 18:31:12 Senior [employer] Developer: MG MEASUREMENT RESULTS: Intervals: Rate: 96 CT: QRSD: 82 QT: 332 QTc: 419 [place]: P: CT: QRS: 83 T: 35 INTERPRETIVE STATEMENTS: Atrial fibrillation Abnormal ECG Compared to ECG 10/31/2018 08:08:35 T-wave abnormality no longer present Electronically Signed On 01-06-19 09:15:47 STOCK BROKER SUPERVISOR by Santiago Ha
--- NOTE | 2019-01-06 10:58 | ECHO ---
HEIGHT: 6 ft 1 in WEIGHT: 211 lb 0 oz DATE OF STUDY: 01/06/[address]: Shayy Evans MD 2-DIMENSIONAL: YES M.MODE: YES DOPPLER: YES COLOR FLOW: YES TDS: NO PORTABLE: NO DEFINITY: NO BUBBLE STUDY: NO DIAGNOSIS: CONGESTIVE HEART FAILURE CARDIAC HISTORY: CATHERIZATION: NO SURGERY: NO PROSTHETIC VALVE: NO PACEMAKER: NO MEASUREMENTS (cm) DIASTOLIC (NORMALS) SYSTOLIC (NORMALS) IVSd 1.3 (0.6-1.2) LA Diam 3.8 (1.9-4.0) LVEF 52% LVIDd 4.1 (3.5-5.7) LVIDs 3.0 (2.0-3.5) %FS 27% LVPWd 1.2 (0.6-1.2) Ao Diam 3.2 (2.0-3.7) 2 DIMENSIONAL ASSESSMENT: RIGHT ATRIUM: NORMAL LEFT ATRIUM: DILATED RIGHT VENTRICLE: NORMAL LEFT VENTRICLE: LEFT VENTRICULAR HYPERTROPHY TRICUSPID VALVE: NORMAL MITRAL VALVE: MITRAL ANNULAR CALCIFICATION PULMONIC VALVE: NORMAL AORTIC VALVE: SCLEROSIS PERICARDIAL EFFUSION: NONE AORTIC ROOT: NORMAL LEFT VENTRICULAR WALL MOTION: NORMAL. DOPPLER/COLOR FLOW: MILD AORTIC REGURGITATION, MITRAL REGURGITATION, TRICUSPID REGURGITATION. NO AORTIC STENOSIS. ESTIMATED RIGHT VENTRICULAR SYSTOLIC PRESSURE 35 [facility] (UPPER LIMIT OF NORMAL). COMMENTS: NORMAL LEFT VENTRICULAR EJECTION FRACTION. LEFT VENTRICULAR HYPERTROPHY. DILATED LEFT ATRIUM. MITRAL ANNULAR CALCIFICATION. AORTIC SCLEROSIS WITH NO AORTIC STENOSIS. MILD AORTIC REGURGITATION, MITRAL REGURGITATION, AND TRICUSPID REGURGITATION. LEFT PLEURAL EFFUSION. TECHNOLOGIST: [facility]
--- NOTE | 2019-01-06 17:41 | P.PN ---
Subjective Date of Service: 01/06/19 Chief Complaint: Shortness of breath; generalized weakness Subjective: Improving MR. JARVIS HAS GENERALAZED ANASARCA. HE HAD QUIT TAKING LASIX A FEW MONTHS AGO HE DID NOT WANT TO. HE HAS CARMITA'S GRANULOMATOSIS. HE DOES NOT COME TO OFFICE HE HAS CONTRACTURES, CAN'T GET AROUND, LEGALLY BLIND AND SEVERELY DEAF. Review of Systems 10-point ROS is otherwise unremarkable General: Weakness, Malaise Physical Examination - Vital Signs Temperature: 97.8 F Blood Pressure: 146/88 Pulse: 93 Respirations: 16 Pulse Ox (%): 96 - Physical Exam General: Alert, Cachectic, Acute distress, Mild distress HEENT: Atraumatic, PERRLA, EOMI Neck: Supple, JVD not distended Respiratory: Clear to auscultation bilaterally, Normal air movement Cardiovascular: Regular rate/rhythm, Normal S1 S2, Edema Gastrointestinal: Normal bowel sounds, No tenderness Musculoskeletal: No tenderness Integumentary: No rashes Neurological: Normal speech, Normal tone, Normal affect Lymphatics: No axilla or inguinal lymphadenopathy - Studies Medications List Reviewed: Yes Assessment And Plan - Current Problems (Diagnosis) (1) Dyspnea Onset Date: 01/06/19 Current Visit: Yes Status: Acute Plan: HE HAS LOW ALBUMIN AND PROTEINURIA. HE MAY HAVE NEPHROTIC SYNDROME WITH THIRD SPACING INTO INTERSTITIAL TISSUE GIVING RISE TO DYSPNEA. HE HAS NO SIGNS OF CHF OR COPD. PROGNOSIS IS GUARDED. WEGNENR'S CAN BE ETIOLOGY FOR NEPHROTIC SYNDROME. Qualifiers: Dyspnea type: shortness of breath Qualified Code(s): R06.02 - Shortness of breath; R06.00 - Dyspnea, unspecified; R06.01 - Orthopnea
--- NOTE | 2019-01-07 04:45 | CON ---
Date of Consultation: 01/06/2019 Chief Complaint: Proteinuria. History Of Present Illness: The patient is an 78-year-old man with multiple medical problems. He is admitted to this hospital because of shortness of breath and generalized weakness. He lives at home with his . He is very deconditioned, debilitated, and has multiple medical procedures done over last year. DICTATION ENDS HERE. DIEGO Voice ID: [id number] Report ID: [id number]
[2019-01-07 06:24] LABS: Potassium 3.3 mmol/L (3.5-5.1)
[2019-01-07] MEDS: VALSARTAN 80 MG TAB PO SCH (09:00)
[2019-01-07] MEDS ORDERED: POTASSIUM 25 MEQ EFFERV TAB PO ONE (09:00)
[2019-01-07] MEDS: ENOXAPARIN 40 MG/0.4 ML SQ SCH (09:00)
[2019-01-07] MEDS: ASPIRIN EC 81 MG TAB PO SCH (09:00)
[2019-01-07] MEDS ORDERED: predniSONE 5 MG TAB PO SCH (09:00)
[2019-01-07] MEDS: predniSONE 10 MG TAB PO SCH (09:00)
--- NOTE | 2019-01-07 09:21 | RAD REPORT ---
EXAM DESCRIPTION: US - Renal Ultrasound-Complete - 01/07/2019 8:37 am CLINICAL HISTORY: Chronic renal disease COMPARISON: August 2018 FINDINGS: The right kidney measures 10 cm with increased echotexture. The left kidney measures 8 cm with increased echotexture. The known small left renal cyst was not vis ualized Hydronephrosis is not seen. 1.4 centimeter right bladder diverticulum. The wall of the bladder is thickened. Marked prostatic hyp ertrophy IMPRESSION: Increased renal echotexture consistent with parenchymal disease Bladder wall thickening probably related to a chronic outlet obstruction
[2019-01-07] MEDS: METOPROLOL XL 50 MG TAB PO SCH (10:35)
[2019-01-07] MEDS: FUROSEMIDE 40 MG/4 ML VIAL IV SCH (10:35)
--- NOTE | 2019-01-07 12:10 | P.DS ---
Admission Date: 01/04/19 Discharge Date: 01/07/19 Disposition: ROUTINE DISCHARGE Discharge Condition: SERIOUS Reason for Admission: Shortness of breath; generalized weakness - Problems (1) Dyspnea Onset Date: 01/06/19 Current Visit: Yes Status: Acute Qualifiers: Dyspnea type: shortness of breath Qualified Code(s): R06.02 - Shortness of breath; R06.00 - Dyspnea, unspecified; R06.01 - Orthopnea Hospital Course: MR. JARVIS IS A DEBILITATED, BEDBOUND GM WITH CONTRACTURE ALL OVER THE JOINTS, COMES WITH DYSPNEA. HE HAS RAPID A FIB THAT IS CONTROLLED. HE CAN'T TAKE ANTICOGUALATION SAFELY HE HAS HAD SEVERE EPISTAXIS BEFORE FROM CARMITA'S GRANULOMATOSIS. HE HAS LOW ALBUMIN MOST LIKELY FROM NEPHROTIC SYNDROME FROM CARMITA'S HE IS SEEN BY ENVIRONMENTAL LAWYER. HE IS NOT ABLE TO COME TO OFFICE FOR VISITS HE IS BED BOUND. FAMILY HAS BEEN EXPLAINED ALL ABOVE. HE IS COMPLETING 24 HOUR URINE AT 3:40 PM AND WILL GO HOME AFTER THAT. HIS EF IS NORMAL ON ECHO. HIS PROGNOSIS IS GUARDED. Vital Signs/Physical Exam: Temp Pulse Resp BP Pulse Ox 98.3 F 95 H 18 148/83 H 99 01/07/19 08:00 01/07/19 10:35 01/07/19 08:00 01/07/19 10:35 01/07/19 08:00 General: In no apparent distress, Cachectic (LEGALLY BLIND.) HEENT: Atraumatic, PERRLA, EOMI Neck: Supple, JVD not distended Respiratory: Clear to auscultation bilaterally, Normal air movement Cardiovascular: Regular rate/rhythm, Normal S1 S2 Gastrointestinal: Normal bowel sounds, No tenderness Musculoskeletal: Other (JOINT CONTRACTURES.) Integumentary: No rashes Neurological: Normal speech, Normal tone, Normal affect Lymphatics: No axilla or inguinal lymphadenopathy Laboratory Data at Discharge: WBC 11.0 K/uL (4.3-10.9) H D 01/05/19 03:38 Hgb 12.2 g/dL (13.6-17.9) L 01/05/19 03:38 Hct 37.6 % (39.6-49.0) L 01/05/19 03:38 Plt Count 172 K/uL (152-406) 01/05/19 03:38 PT 13.2 SECONDS (9.5-12.5) H 01/04/19 18:53 INR 1.12 01/04/19 18:53 Sodium 138 mmol/L (136-145) 01/07/19 05:27 Potassium 3.3 mmol/L (3.5-5.1) L 01/07/19 05:27 BUN 17 mg/dL (7-18) 01/07/19 05:27 Creatinine 0.90 mg/dL (0.55-1.3) 01/07/19 05:27 Glucose 99 mg/dL (74-106) 01/07/19 05:27 Phosphorus 3.2 mg/dL (2.5-4.9) 01/05/19 03:38 Magnesium 2.0 mg/dL (1.8-2.4) 01/05/19 03:38 Total Bilirubin 0.6 mg/dL (0.2-1.0) 01/05/19 03:38 AST 14 U/L (15-37) L 01/05/19 03:38 ALT 19 U/L (12-78) 01/05/19 03:38 Alkaline Phosphatase 82 U/L (45-117) 01/05/19 03:38 Troponin I < 0.02 ng/mL (0.0-0.045) 01/05/19 09:09 Home Medications: Metoprolol Succinate [Toprol Xl] 100 mg PO DAILY #30 tab.sr.24h 12/17/17 Furosemide 20 mg PO DAILY #90 tablet 01/07/19 Spironolactone 50 mg PO DAILY #90 tablet 01/07/19 predniSONE [Prednisone*] 10 mg PO BID 01/07/19 New Medications: Furosemide 20 mg PO DAILY #90 tablet Spironolactone 50 mg PO DAILY #90 tablet Patient Discharge Instructions: FU AT MY OFFICE AND DR. VILLAGRAN FOR 1-2 WEEKS. I CALLED IN PREDNISONE, METOPROLOL FROM OFFICE AND PODIATRIC PHYSICIAN TESTOSTERONE RX FROM OFFICE. STOP AMLODIPINE. Followup: Medina Stuart MD [COURTESY - CAN ADMIT] - 1-2 Weeks
--- NOTE | 2019-01-07 12:46 | RAD REPORT ---
EXAM DESCRIPTION: Domenico Single View01/07/2019 12:36 pm CLINICAL HISTORY: Shortness of breath COMPARISON: January 04 FINDINGS: Small bilateral pleural effusions unchanged. Bibasilar atelectasis. The right upper lobe opacity has mostly resolved. The heart remains enlarged but has mildly decreased size
--- NOTE | 2019-01-07 15:34 | PN ---
Date of Progress Note: 01/07/2019 Subjective: The patient was admitted with anasarca and CHF exacerbation. The patient had history of hypertension. 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 The patient was admitted with congesti ve heart failure exacerbation, increased swelling, cough with sputum. Physical Examination: Vital Signs: When I saw the patient, blood pressure 148/83, pulse of 99, afebrile. The patient had good urine output of 4600 over the night. Chest: Faint crackles at bilateral base. HEART: S1, S2, regular. Abdomen: Soft, nontender. Extremity: Trace edema. Laboratory Data: WBC 11, H and H 12.2/37.6, platelets 172. Sodium 138, potassium 3.3, BUN 17, creat inine 0.9, calcium 8.1. Urinalysis has hematuria, leukouria, proteinuria. ANCA still pending review ing. The record from previous admission, the patient's serology was done. At that time, rheumatoid factor was negative. BECKY was negative. Anti-glomerular basement membrane was negative. ANCA was no t done. The patient at that time was seen by Pulmonary. Had an echocardiogram with ejection fractio n of 52%, questionable diastolic dysfunction. Renal ultrasound 08/12. Chest x-ray showing cardiomega ly with congestion. 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 Serology still pending. We will alessia ntify the proteinuria given the presence of anemia. Light chain disease need to be ruled out. SPEP and UPEP are still pending. The patient is still on the over volume side. I am going to go ahead an d increase the Lasix to q.8 hours and we will follow up the patient. 2.Hypertension, controlled, optimal. We will utilize blood pressure for more diuresis. 3.Hypokalemia. I am going to start the patient on Aldactone to support the presence of congestive h eart failure and for more diuresis. 4.Congestive heart failure as by Cardiology. We will follow up. 5.Proteinuria. SPEP and UPEP are still pending. TSH within normal limit. Continue diuresis. Give n the congestive heart failure, I am going to start the patient on spironolactone and MAURY inhibitor a nd we will follow up the patient. DANY Voice ID: [id number] Report ID: [id number]
[2019-01-07] MEDS ORDERED: FUROSEMIDE 40 MG/4 ML VIAL IV SCH (17:00)
[2019-01-07 17:20] LABS: UR PROTEIN 42 mg/dL (<11.9)
[2019-01-07 18:01] VITALS: BP 137/78; TEMP 98.9
[2019-01-07 18:54] LABS: Urine Total Volume 24 Hours 2650 ml
[2019-01-07 19:08] VITALS: O2SAT 97
--- NOTE | 2019-01-07 21:43 | CON ---
Date of Consultation: 01/06/2019 Chief Complaint: Proteinuria. History Of Present Illness: Nephrology consultation is requested for evaluation and management of pr oteinuria, possible nephrotic syndrome. The patient is an 78-year-old man with multiple medical prob lems. He is admitted to the hospital because of shortness of breath, generalized weakness, failure t o thrive. He lives at home with his . He a has history of deconditioning over last year, his he alth in general has declined. He has multiple procedures done over last year. He has significant co morbidities with history of hypertension, COPD, history of BPH, he is blind and he has history of lar ge hernia. He developed progressively worse shortness of breath, generalized weakness, edema of lower extremitie s. His appetite has declined and he became weak, somewhat obtunded, had episode of altered mental st atus and confusion. He was brought by his to emergency room and workup revealed a urinary tract infection along with pneumonia, bilateral pleural effusions, generalized edema. He was found to hav e hypoalbuminemia and concern was that the patient has nephrotic syndrome. He had fluid overload and he will require treatment with diuretics for volemia control. Review of Systems: Unobtainable. The patient is confused and lethargic. Cannot provide review of systems. Past Medical History: He denies diabetes. There is a history of hypertension, glaucoma, anemia and has blindness, hypoglycemia, BPH, hypertension, hernia, COPD, vocal cord surgery, corneal transplant, hemorrhoidectomy. Family History: Lung disease. Social History: Denies tobacco, alcohol, illicit drugs. Physical Examination: General: The patient is lethargic, confused. Follows commands. Eyes: Anicteric sclerae. He is blind. Ears, Nose, Mouth and Throat: Oral mucosa moist. No pallor. Neck: Supple. No bruits. Lungs: Bilaterally crackles at bases. No wheezing. Heart: S1, S2. No pericardial friction rub. Abdomen: Soft, benign, nontender. Extremities: Edema present in both legs and arms. Neurologic: Moving extremities and follows commands. Laboratory Data: Hemoglobin 13.3, WBC 17.0, platelet count is 187,000, hematocrit 40.5. INR 1.12, P T 13.2. Sodium 138, potassium 4.0, BUN 16, creatinine 0.89, glucose 131, magnesium 2.1. 9 2. Urinalysis showed rbc's from 20-50, wbc's from 20-50, 3+ protein, specific gravity 1.020, pH 7.0, nitrite negative. Anti-GBM pending. ANCA pending. INR 1.12, PT 13.2. Chemistries showed sodium 14 1, potassium 3.2, chloride 104, CO2 of 28, BUN 16, creatinine 0.84, calcium 8.1. BNP 6771, albumin 2 .3, total protein 5.6, globulin is 3.3, phosphorus 3.2, magnesium 2.0. Impression And Plan: 1.Severe hypoalbuminemia, malnutrition, failure to thrive, fluid overload, anasarca. The patient dorota l require diuretics. The patient has congestive heart failure with diastolic dysfunction. Adjust di uretic and monitor fluid balance. Continue to replace potassium when the patient is on diuretic. Mo nitor magnesium and phosphorus. 2.Hypoalbuminemia. Plan is to rule out monoclonal gammopathy of unknown significance and evaluate f or nephrotic range proteinuria. 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 The patient may benef it from TPN. Advance p.o. intake and rule out nephrotic syndrome as a possible etiology. 3.Pleural effusion. The patient needs to be ruled out for empyema. Continue antibiotics, check blo od culture. 4.Urinary tract infection. Continue antibiotics and adjust treatment to the sensitivity panel. 5.Possible pneumonia. The patient will have a CT scan of the chest to rule out empyema. Sputum cul ture, blood culture and urine culture were obtained. The patient was started on broad-spectrum antib iotics. 6.Urinary tract infection. Ultrasound will be done to assess kidney size and echotexture and to rule out obstructive uropathy. EB/MODL Voice ID: [id number] Report ID: [id number]
[2019-01-08] MEDS ORDERED: SPIRONOLACTONE 25 MG TABLET PO SCH (09:00)
[2019-01-11 17:41] LABS: Beta Globulin 24 HR Urine 5 %; Creatinine 24 Hour Urine 0.44 g/24 h (0.50-2.15); Gamma Globulin, 24hr Urine 5 %; Interpretation: REPORT; Urine Alpha-2-Globulins, 24 Hr 7 %; Urine PEP Abn Protein Band1 REPORT; Urine Protein/Creat Ratio 24Hr 2970 mg/g creat (<115); Urine Total Volume 24 Hours 2650 mL
== END 2019-01-07 18:57 | disposition home or self-care (01) | DRG 291 ==
LOC: ER 18:22 → ERHOLD 21:36 → 2ND 22:30
PROVIDERS: ADMIT Hospitalist; ATTEND Internal Medicine
DX: I13.0 Hypertensive heart and chronic kidney disease with heart failure and stage 1 through stage 4 chronic kidney disease, or unspecified chronic kidney disease (principal); J18.9 Pneumonia, unspecified organism; I50.33 Acute on chronic diastolic (congestive) heart failure; N39.0 Urinary tract infection, site not specified; J90 Pleural effusion, not elsewhere classified; M31.30 Wegener's granulomatosis without renal involvement; R64 Cachexia; R06.00 Dyspnea, unspecified; E88.09 Other disorders of plasma-protein metabolism, not elsewhere classified; K40.90 Unilateral inguinal hernia, without obstruction or gangrene, not specified as recurrent; H54.8 Legal blindness, as defined in USA; H91.93 Unspecified hearing loss, bilateral; Z74.01 Bed confinement status; M24.50 Contracture, unspecified joint; I48.91 Unspecified atrial fibrillation; E87.6 Hypokalemia; R80.9 Proteinuria, unspecified; R62.7 Adult failure to thrive; J44.9 Chronic obstructive pulmonary disease, unspecified; N40.0 Benign prostatic hyperplasia without lower urinary tract symptoms; N18.2 Chronic kidney disease, stage 2 (mild); R31.9 Hematuria, unspecified; Z87.891 Personal history of nicotine dependence; Z68.27 Body mass index [BMI] 27.0-27.9, adult
CPT/HCPCS: 36415; 71045; 76770; 80048; 80053; 80076; 81003; 81015; 82570; 82962; 83520; 83735; 83880; 84100; 84132; 84156; 84166; 84484; 85025; 85610; 86021; 87040; 87077; 87086; 87088; 87186; 87804; 93005; 93306; 96365; 96375; 99285; J1650; J1940; J2543; J7512

== ENCOUNTER 2019-02-27 03:14 | Inpatient (IN) | payer OTHER ==
--- OUTSIDE RECORDS SUMMARY | 2019-02-27 03:16 | XMS REPORT | Clinical Summary ---
:1940 Author Organization [facility] Address [address] [place] [address] Care Team Providers Name Role Phone Asked, [...] mouth 0 Active ORAL daily. vitamin A 58674 UNIT Take 25,000 Units 0 Active capsule [...] AGE 65 AND OVER 2003 INFLUENZA VACCINE 06/05/2019 Results Not on fileafter 02/26/2018 Insurance Payer Benefit Plan / Group Subscriber ID Type Phone Address MEDICARE MEDICARE PART A AND B xxxxxxxxxxx Medicare [place], [place] MEDICARE MEDICARE PART A AND B xxxxxxxxxxx Medicare [place] AETNA AETNA HMO,POS,EPO, MC/EC xxxxxxxxxx HMO AETNA AETNA [employer] INDEMNITY xxxxxxxxxx Indemnity ([address]) [address] [place] [id number] Advance Directives Patient has advance care planning documents on file. For more information, please contact:[place] [address]
--- OUTSIDE RECORDS SUMMARY | 2019-02-27 03:17 | XMS REPORT ---
:1940 [facility] Address [address] [place] [address] Dr. Hill [address] [place] [id number] Care Team Providers Name Role Phone CARLOS BARBER Unavailable Unavailable Problems This patient has no known problems. Allergies, Adverse Reactions, Alerts This patient has no known allergies or adverse reactions. Medications This patient has no known medications. Results Test Description Test Time Test Comments Text Results Atomic Results Result Comments BLOOD CULTURE 2018-09-29 11:00:00 Test Item Value Reference Range Comments CULTURE (BEAKER) (test jebt=5562) No growth in 5 days ANAEROBIC [id number] 12:34:00 Test Item Value Reference Range Comments CULTURE (BEAKER) (test issy=3596) No anaerobes isolated EAR CULTURE + GRAM [id number] 14:27:00 Test Item Value Reference Range Comments CULTURE (BEAKER) (test PSEUDOMONAS 1+ Pseudomonas iicm=7240) AERUGINOSA aeruginosa Amikacin (test code=1) Susceptible 0-16 [...] GRAM STAIN RESULT 4+ WBCs (BEAKER) (test guqe=8259) GRAM STAIN RESULT No organisms seen (BEAKER) (test bhhl=187297) RAD, CHEST, 1 VIEW, NON [id number] 16:48:00Reason for exam:->SOBShould this be performed at [...] [place] Verified Date/Time: 09/25/2018 16:48:03 Reading Location: [facility] Diagnostic Imaging Reading Room - [place] [address] HEMOGLOBIN AND [id number] 13:03:00 Test Item Value Reference Range Comments HEMOGLOBIN (BEAKER) (test kqzt=422) 10.4 GM/DL 13.7-17.5 HEMATOCRIT (BEAKER) (test hyfn=045) 32.6 % 40.1-51.0 TSH/FREE T4 IF [id number] 06:43:00 Test Item Value Reference Range Comments THYROID STIMULATING HORMONE (BEAKER) (test 1.57 uIU/mL 0.35-4.94 swhs=213) [id number] 06:28:00 Test Item Value Reference Range Comments MAGNESIUM (BEAKER) (test cnoh=041) 1.8 mg/dL 1.6-2.6 BASIC METABOLIC [id number] 06:28:00 Test Item Value Reference Range Comments SODIUM (BEAKER) (test 136 meq/L 136-145 bseb=119) POTASSIUM (BEAKER) (test 4.0 meq/L 3.5-5.1 rqxw=973) CHLORIDE (BEAKER) (test 109 meq/L 98-107 sksv=323) CO2 (BEAKER) (test 21 meq/L 22-29 mikw=607) BLOOD UREA NITROGEN 11 mg/dL 7-21 (BEAKER) (test gqvh=144) CREATININE (BEAKER) (test 0.70 mg/dL 0.57-1.25 cnre=679) GLUCOSE RANDOM (BEAKER) 97 mg/dL 70-105 (test ggby=511) CALCIUM (BEAKER) (test 8.2 mg/dL 8.4-10.2 iysg=863) EGFR (BEAKER) (test 109 mL/min/1.73 sq m ESTIMATED GFR IS NOT nlcq=8202) ACCURATE CREATININE CLEARANCE IN PREDICTING GLOMERULAR FILTRATION RATE. ESTIMATED GFR IS NOT APPLICABLE FOR DIALYSIS PATIENTS. CBC W/PLT COUNT & AUTO [id number] 05:49:00 Test Item Value Reference Range Comments WHITE BLOOD CELL COUNT (BEAKER) (test glyi=436) 9.3 K/ L 3.5-10.5 RED BLOOD CELL COUNT (BEAKER) (test vzlw=188) 3.30 M/ L 4.63-6.08 HEMOGLOBIN (BEAKER) (test blqn=801) 9.9 GM/DL 13.7-17.5 HEMATOCRIT (BEAKER) (test wlsb=945) 30.7 % 40.1-51.0 MEAN CORPUSCULAR VOLUME (BEAKER) (test hjoj=399) 93.0 fL 79.0-92.2 MEAN CORPUSCULAR HEMOGLOBIN (BEAKER) (test 30.0 pg 25.7-32.2 hnui=079) MEAN CORPUSCULAR HEMOGLOBIN CONC (BEAKER) (test 32.2 GM/DL 32.3-36.5 gdnl=883) RED CELL DISTRIBUTION WIDTH (BEAKER) (test 15.9 % 11.6-14.4 agxe=467) PLATELET COUNT (BEAKER) (test eiqj=975) 143 K/CU MM 150-450 MEAN PLATELET VOLUME (BEAKER) (test zpvu=683) 10.9 fL 9.4-12.4 NUCLEATED RED BLOOD CELLS (BEAKER) (test 0 /100 WBC 0-0 tgnn=799) NEUTROPHILS RELATIVE PERCENT (BEAKER) (test 87 % bbok=838) LYMPHOCYTES RELATIVE PERCENT (BEAKER) (test 6 % wgiy=761) MONOCYTES RELATIVE PERCENT (BEAKER) (test 5 % vukv=102) EOSINOPHILS RELATIVE PERCENT (BEAKER) (test 0 % uldn=188) BASOPHILS RELATIVE PERCENT (BEAKER) (test 0 % cfhd=257) NEUTROPHILS ABSOLUTE COUNT (BEAKER) (test 8.10 K/ L 1.78-5.38 dphs=830) LYMPHOCYTES ABSOLUTE COUNT (BEAKER) (test 0.51 K/ L 1.32-3.57 ltgq=303) MONOCYTES ABSOLUTE COUNT (BEAKER) (test 0.46 K/ L 0.30-0.82 szkg=394) EOSINOPHILS ABSOLUTE COUNT (BEAKER) (test 0.01 K/ L 0.04-0.54 siil=781) BASOPHILS ABSOLUTE COUNT (BEAKER) (test 0.01 K/ L 0.01-0.08 hqef=405) IMMATURE GRANULOCYTES-RELATIVE PERCENT (BEAKER) 2 % 0-1 (test guuu=7320) CBC W/PLT COUNT & AUTO [id number] 07:25:00 Test Item Value Reference Range Comments WHITE BLOOD CELL COUNT (BEAKER) (test rxwp=956) 11.2 K/ L 3.5-10.5 RED BLOOD CELL COUNT (BEAKER) (test owxq=423) 3.99 M/ L 4.63-6.08 HEMOGLOBIN (BEAKER) (test gtcx=717) 11.8 GM/DL 13.7-17.5 HEMATOCRIT (BEAKER) (test pgdu=544) 36.4 % 40.1-51.0 MEAN CORPUSCULAR VOLUME (BEAKER) (test tzdc=994) 91.2 fL 79.0-92.2 MEAN CORPUSCULAR HEMOGLOBIN (BEAKER) (test 29.6 pg 25.7-32.2 janz=777) MEAN CORPUSCULAR HEMOGLOBIN CONC (BEAKER) (test 32.4 GM/DL 32.3-36.5 tfir=133) RED CELL DISTRIBUTION WIDTH (BEAKER) (test 16.2 % 11.6-14.4 jsze=012) PLATELET COUNT (BEAKER) (test hjrx=661) 168 K/CU MM 150-450 MEAN PLATELET VOLUME (BEAKER) (test kree=846) 11.3 fL 9.4-12.4 NUCLEATED RED BLOOD CELLS (BEAKER) (test 0 /100 WBC 0-0 rckf=368) NEUTROPHILS RELATIVE PERCENT (BEAKER) (test 75 % lqvu=977) LYMPHOCYTES RELATIVE PERCENT (BEAKER) (test 14 % szjv=736) MONOCYTES RELATIVE PERCENT (BEAKER) (test 8 % khgl=280) EOSINOPHILS RELATIVE PERCENT (BEAKER) (test 1 % dgvs=112) BASOPHILS RELATIVE PERCENT (BEAKER) (test 0 % tkfv=314) NEUTROPHILS ABSOLUTE COUNT (BEAKER) (test 8.31 K/ L 1.78-5.38 hsog=397) LYMPHOCYTES ABSOLUTE COUNT (BEAKER) (test 1.54 K/ L 1.32-3.57 qihp=326) MONOCYTES ABSOLUTE COUNT (BEAKER) (test 0.87 K/ L 0.30-0.82 fvvw=902) EOSINOPHILS ABSOLUTE COUNT (BEAKER) (test 0.09 K/ L 0.04-0.54 vnko=857) BASOPHILS ABSOLUTE COUNT (BEAKER) (test 0.03 K/ L 0.01-0.08 vuzw=974) IMMATURE GRANULOCYTES-RELATIVE PERCENT (BEAKER) 3 % 0-1 (test lhqm=6667) [id number] 07:11:00 Test Item Value Reference Range Comments MAGNESIUM (BEAKER) (test qmgz=797) 1.9 mg/dL 1.6-2.6 BASIC METABOLIC [id number] 07:11:00 Test Item Value Reference Range Comments SODIUM (BEAKER) (test 136 meq/L 136-145 unbh=444) POTASSIUM (BEAKER) (test 3.4 meq/L 3.5-5.1 vwlz=408) CHLORIDE (BEAKER) (test 106 meq/L 98-107 dacg=963) CO2 (BEAKER) (test 23 meq/L 22-29 jsuo=314) BLOOD UREA NITROGEN 12 mg/dL 7-21 (BEAKER) (test sgjh=973) CREATININE (BEAKER) (test 0.74 mg/dL 0.57-1.25 mafz=840) GLUCOSE RANDOM (BEAKER) 91 mg/dL 70-105 (test bolg=488) CALCIUM (BEAKER) (test 8.3 mg/dL 8.4-10.2 twgw=749) EGFR (BEAKER) (test 102 mL/min/1.73 sq m ESTIMATED GFR IS NOT msfq=2044) ACCURATE CREATININE CLEARANCE IN PREDICTING GLOMERULAR FILTRATION RATE. ESTIMATED GFR IS NOT APPLICABLE FOR DIALYSIS PATIENTS.
--- OUTSIDE RECORDS SUMMARY | 2019-02-27 03:17 | XMS REPORT | Clinical Summary ---
:1940 Author Organization [facility] Address [address] [place] [address] Care Team Providers Name Role Phone Jakob [...] Tracy Alok, MD Zindani, Shireen, MD after 02/26/2018 Social History Tobacco Use Types Packs/Day Years [...] Taken Blood Pressure 130/69 09/25/2018 3:25 PM ORGANIZATIONAL PSYCHOLOGIST Pulse 90 09/25/2018 3:25 PM ORGANIZATIONAL PSYCHOLOGIST Temperature 36.7 C (98 F) 09/25/2018 3:25 PM ORGANIZATIONAL PSYCHOLOGIST Respiratory Rate 18 09/25/2018 3:25 PM ORGANIZATIONAL PSYCHOLOGIST Oxygen Saturation 100% 09/25/2018 3:25 PM ORGANIZATIONAL PSYCHOLOGIST Inhaled Oxygen Concentration - - Weight - - Height 182.9 cm (6') 09/24/2018 4:00 AM ORGANIZATIONAL PSYCHOLOGIST Body Mass Index - - Plan of Treatment Not on file Procedures Procedure Name Priority Date/Time Associated Comments Diagnosis XR CHEST 1 VIEW STAT 09/25/2018 4:07 Results for this PORTABLE/BEDSIDE PM ORGANIZATIONAL PSYCHOLOGIST procedure are in the results section. HEMOGLOBIN AND Routine 09/25/2018 12:41 Results for this HEMATOCRIT PM ORGANIZATIONAL PSYCHOLOGIST procedure are in the results section. CBC W/PLT COUNT & Routine 09/25/2018 5:14 Results for this AUTO DIFFERENTIAL AM ORGANIZATIONAL PSYCHOLOGIST procedure are in the results section. TSH/FREE T4 IF Routine 09/25/2018 5:14 Results for this INDICATED AM ORGANIZATIONAL PSYCHOLOGIST procedure are in the results section. CBC W/PLT COUNT & Routine 09/25/2018 5:14 Results for this AUTO DIFFERENTIAL AM ORGANIZATIONAL PSYCHOLOGIST procedure are in the results section. MAGNESIUM Routine 09/25/2018 5:14 Results for this AM ORGANIZATIONAL PSYCHOLOGIST procedure are in the results section. BASIC METABOLIC PANEL Routine 09/25/2018 5:14 Results for this (7) AM ORGANIZATIONAL PSYCHOLOGIST procedure are in the results section. ANAEROBIC CULTURE Routine 09/24/2018 7:59 Results for this PM ORGANIZATIONAL PSYCHOLOGIST procedure are in the results section. EAR CULTURE + GRAM Routine 09/24/2018 5:42 Results for this STAIN PM ORGANIZATIONAL PSYCHOLOGIST procedure are in the results section. BLOOD CULTURE Routine 09/24/2018 5:51 Results for this AM ORGANIZATIONAL PSYCHOLOGIST procedure are in the results section. CBC W/PLT COUNT & Routine 09/24/2018 5:50 Results for this AUTO DIFFERENTIAL AM ORGANIZATIONAL PSYCHOLOGIST procedure are in the results section. CBC W/PLT COUNT & Routine 09/24/2018 5:50 Results for this AUTO DIFFERENTIAL AM ORGANIZATIONAL PSYCHOLOGIST procedure are in the results section. MAGNESIUM Routine 09/24/2018 5:50 Results for this AM ORGANIZATIONAL PSYCHOLOGIST procedure are in the results section. BASIC METABOLIC PANEL Routine 09/24/2018 5:50 Results for this (7) AM ORGANIZATIONAL PSYCHOLOGIST procedure are in the results section. after 02/26/2018 Results XR chest 1 view portable / bedside (09/25/2018 4:07 PM ORGANIZATIONAL PSYCHOLOGIST) Specimen Narrative Performed At FINAL REPORT [facility] INDICATION: SOB TECHNIQUE: Chest radiograph, single view, portable technique. FINDINGS / IMPRESSION: Heart shadow is prominent and there is suggestion of pulmonary venous congestion. No overt pulmonary edema and no pleural effusion demonstrated. No pneumothorax or consolidation. Calcified plaque in the aortic arch noted. Osseous structures unremarkable. Signed: Fabio Rivera MD Report Verified Date/Time:09/25/2018 16:48:03 Reading Location: [facility] Diagnostic Imaging Reading Room - [place] [address] Procedure Note Interface, External Ris In - 09/25/2018 4:59 PM ORGANIZATIONAL PSYCHOLOGIST FINAL REPORT INDICATION: SOB TECHNIQUE: Chest radiograph, single view, portable technique. FINDINGS / IMPRESSION: Heart shadow is prominent and there is suggestion of pulmonary venous congestion. No overt pulmonary edema and no pleural effusion demonstrated. No pneumothorax or consolidation. Calcified plaque in the aortic arch noted. Osseous structures unremarkable. Signed: Fabio Rivera MD Report Verified Date/Time: 09/25/2018 16:48:03 Reading Location: [facility] Diagnostic Imaging Reading Room - [place] [address] [id number] Performing Organization Address City/State/Zipcode Phone Number RIS Hemoglobin and hematocrit (09/25/2018 12:41 PM ORGANIZATIONAL PSYCHOLOGIST) Hemoglobin 10.4 (L) 13.7 - 17.5 GM/DL [facility] Hematocrit 32.6 (L) 40.1 - 51.0 % [facility] Specimen Blood Performing Organization Address City/[facility]/Zipcode Phone Number [address] [address] [place] TSH/Free T4 If Indicated (09/25/2018 5:14 AM ORGANIZATIONAL PSYCHOLOGIST) TSH 1.57 0.35 - 4.94 uIU/mL [facility] Specimen Blood Performing Organization Address City/[facility] Phone Number [address] [address] [phone] [place] CBC with platelet count + automated diff (09/25/2018 5:14 AM ORGANIZATIONAL PSYCHOLOGIST)Only the most recent of2 resultswithin the time period is included. WBC 9.3 3.5 - 10.5 K/L [facility] RBC 3.30 (L) 4.63 - 6.08 M/L [facility] Hemoglobin 9.9 (L) 13.7 - 17.5 GM/DL [facility] Hematocrit 30.7 (L) 40.1 - 51.0 % [facility] MCV 93.0 (H) 79.0 - 92.2 fL [facility] MCH 30.0 25.7 - 32.2 pg [facility] MCHC 32.2 (L) 32.3 - 36.5 GM/DL [facility] RDW 15.9 (H) 11.6 - 14.4 % [facility] Platelets 143 (L) 150 - 450 K/CU MM [facility] MPV 10.9 9.4 - 12.4 fL [facility] nRBC 0 0 - 0 /100 WBC [facility] % Neutros 87 % [facility] % Lymphs 6 % [facility] % Monos 5 % [facility] % Eos 0 % [facility] % Baso 0 % [facility] # Neutros 8.10 (H) 1.78 - 5.38 K/L [facility] # Lymphs 0.51 (L) 1.32 - 3.57 K/L [facility] # Monos 0.46 0.30 - 0.82 K/L [facility] # Eos 0.01 (L) 0.04 - 0.54 K/L [facility] # Baso 0.01 0.01 - 0.08 K/L [facility] Immature Granulocytes-Relative 2 (H) 0 - 1 % [facility] Specimen Blood Performing Organization Address City/State/Zipcode Phone Number [address] [address] CENTER Magnesium (09/25/2018 5:14 AM ORGANIZATIONAL PSYCHOLOGIST)Only the most recent of2 resultswithin the time period is included. Magnesium 1.8 1.6 - 2.6 mg/dL [facility] Specimen Blood Performing Organization Address City/State/Zipcode Phone Number [address] [address] [phone] CENTER Basic metabolic panel (09/25/2018 5:14 AM ORGANIZATIONAL PSYCHOLOGIST)Only the most recent of2 resultswithin the time period is included. Sodium 136 136 - 145 meq/L [facility] Potassium 4.0 3.5 - 5.1 meq/L [facility] Chloride 109 (H) 98 - 107 meq/L [facility] CO2 21 (L) 22 - 29 meq/L [facility] BUN 11 7 - 21 mg/dL [facility] Creatinine 0.70 0.57 - 1.25 mg/dL [facility] Glucose 97 70 - 105 mg/dL [facility] Calcium 8.2 (L) 8.4 - 10.2 mg/dL [facility] EGFR 109Comment: ESTIMATED GFR IS mL/min/1.[address] [facility] NOT ACCURATE CREATININE [facility] CENTER CLEARANCE IN PREDICTING GLOMERULAR FILTRATION RATE. ESTIMATED GFR IS NOT APPLICABLE FOR DIALYSIS PATIENTS. Specimen Blood Performing Organization Address City/[facility] Cent[facility]ode Phone Number [address] [address] [place] Anaerobic culture (09/24/2018 7:59 PM ORGANIZATIONAL PSYCHOLOGIST) Result No anaerobes isolated [facility] Specimen Wound Performing Organization Address [facility] Phone Number [address] [address] [phone] [place] Ear culture + gram stain (09/24/2018 5:42 PM ORGANIZATIONAL PSYCHOLOGIST) Result PSEUDOMONAS AERUGINOSA (A) [facility] Gram Stain Result 4+ WBCs [facility] Gram Stain Result No organisms seen [facility] Specimen Ear Organism Antibiotic Method Susceptibility Pseudomonas aeruginosa Amikacin [...] + Sulfamethoxazole >80: Resistant Performing Organization Address City/[facility]ode Phone Number [facility] [address] [place] [address] CENTER Blood culture #1 (09/24/2018 5:51 AM ORGANIZATIONAL PSYCHOLOGIST) Result No growth in 5 days [facility] Specimen Blood Performing Organization Address City/[facility]/Zipcode Phone Number [facility] [address] [place] [address] [phone] CENTER after 02/26/2018 Insurance Payer Benefit Plan / Group Subscriber ID Type Phone Address MEDICARE MEDICARE A B xxxxxxxxxxx Medicare AETNA - MGD CARE AETNA HMO POS QPOS xxxxxxxxxx HMO/POS HUMANA - MEDICARE MGD HUMANA MEDICARE ADV xxxxxxxxx [facility] Contracted CARE AETNA - [place]GD CARE AETNA [facility] US xxxxxxxxxx HMO/POS ACCESS ([place]) [address] [place] [phone] Advance Directives For more information, please contact:[address] [phone] Code Status Date Activated Date Inactivated Comments Full Code 09/24/2018 4:58 AM This code status was determined by: Patient
[2019-02-27 04:37] LABS: Absolute Lymphocytes (CBC) 0.5 K/uL (0.7-4.9); Absolute Neutrophil 20.2 K/uL (1.8-8.0); Basophils % 0.4 % (0-1.3); Eosinophils % 0.2 % (0-4.4); Hematocrit 36.5 % (39.6-49.0); Lymphocytes % 2.2 % (15.3-44.8); MPV 8.9 fL (7.6-11.3); Monocytes % 4.6 % (3.3-12.3); RBC Red Blood Cell Count 4.47 M/uL (4.33-5.43)
[2019-02-27 05:04] LABS: Albumin 2.7 g/dL (3.4-5.0); Bilirubin Direct 0.2 mg/dL (0-0.2); Bilirubin Total 0.6 mg/dL (0.2-1.0); Potassium 4.6 mmol/L (3.5-5.1); Protein, Total 5.9 g/dL (6.4-8.2)
[2019-02-27 05:08] LABS: Blood Morphology Comment NOT SEEN (NOT SEEN); Platelet Estimate ADEQ
[2019-02-27 05:27] LABS: Urine Blood 2+ (NEG); Urine Glucose NEGATIVE (NEG); Urine Protein 3+ (NEG); Urine Specific Gravity 1.015 (1.005-1.030)
[2019-02-27 05:35] LABS: Urine Bacteria >50 /HPF (NONE SEEN); Urine Culture Reflex Order REFLEXED; Urine RBC <5 /HPF (NONE SEEN)
--- NOTE | 2019-02-27 05:47 | EDPHYS ---
Physician Documentation [facility] Name: Gio Matute Age: 79 yrs Sex: Male : 1940 Arrival Date: 02/27/2019 Time: 03:26 Bed 2 Private MD: ED Physician Sid Tirado HPI: 02/27 03:28 This 79 yrs old Male presents to ER via Unassigned with complaints of rn coughing, choking. 03:28 The patient or guardian reports cough. Onset: The symptoms/episode began/occurred just rn prior to arrival. Severity of symptoms: At their worst the symptoms were moderate, in the emergency department the symptoms have improved. Modifying factors: The symptoms are alleviated by nothing, the symptoms are aggravated by nothing. The patient has experienced similar episodes in the past. Reports cough and feeling like choking, called nurse hotline who told them to call 911, noted to be in afib with RVR, HR up to 220, given diltiazem IV with improvement, now HR around 110, patient denies pain currently or trouble breathing. states complained of lower abd pain earlier. No vomiting/diarrhea. . 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 - Social history:: Smoking status: Patient/guardian denies using tobacco. - Family history:: not pertinent. - Ebola Screening: : No symptoms or risks identified at this time. - Hospitalizations: : No recent hospitalization is reported. ROS: 03:28 Constitutional: Negative for fever, chills, and weight loss, Eyes: Negative for injury, rn pain, redness, and discharge, Neck: Negative for injury, pain, and swelling, Cardiovascular: Negative for chest pain, palpitations, and edema, Respiratory: Negative for wheezing, and pleuritic chest pain, Abdomen/GI: Negative for abdominal pain, nausea, vomiting, diarrhea, and constipation, MS/Extremity: Negative for injury and deformity, Skin: Negative for injury, rash, and discoloration, Neuro: Negative for headache, numbness, tingling, and seizure. Exam: 03:28 Constitutional: This is a well developed, well nourished patient who is awake, alert, rn and in no acute distress. Head/Face: Normocephalic, atraumatic. ENT: dry MM Cardiovascular: Tachycardic, irregular Respiratory: coarse bilateral breath sounds, no retractions Abdomen/GI: soft, non-tender Male : + indwelling chirinos catheter MS/ Extremity: Pulses equal, no cyanosis. Neuro: Awake, selectively cooperative, very hard of hearing Vital Signs: 03:46 BP 173 / 88; Pulse 106; Resp 20; Pulse Ox 95% on R/A; Weight 86.18 kg; Height 6 ft. 1 lp1 in. (185.42 cm); 04:39 BP 126 / 80; Pulse 84; Resp 18; Pulse Ox 98% on R/A; ea 05:33 BP 124 / 80; Pulse 80; Resp 17; Pulse Ox 97% on R/A; ea 06:23 BP 126 / 75; Pulse 74; Resp 18; Temp 98.9; Pulse Ox 98% ; ea 03:46 Body Mass Index 25.07 (86.18 kg, 185.42 cm) lp1 MDM: 03:27 Patient medically screened. rn 05:43 Differential Diagnosis: Bronchitis Upper Respiratory Infection Viral Syndrome Pneumonia rn Other UTI. Data reviewed: vital signs, nurses notes, lab test result(s), EKG, radiologic studies, plain films, and as a result, I will admit patient. Counseling: I had a detailed discussion with the patient and/or guardian regarding: the historical points, exam findings, and any diagnostic results supporting the discharge/admit diagnosis, lab results, radiology results, the need for further work-up and treatment in the hospital. Response to treatment: the patient's symptoms have mildly improved after treatment, and as a result, I will admit patient. Admission orders: after a detailed discussion of the patient's condition and case, the admit orders are written by me. ED course: Pt with UTI, pulmonary edema, cough and choking likely paroxysmal nocturnal dyspnea. Will admit for AMS, UTI, and afib with rvr. . 02/27 03:28 Order name: CBC with Diff rn 02/27 03:28 Order name: Basic Metabolic Panel rn 02/27 03:28 Order name: Procalcitonin rn 02/27 03:28 Order name: Lactate rn 02/27 03:28 Order name: Blood Culture Adult (2) rn 02/27 03:28 Order name: Flu; Complete Time: 05:24 rn 02/27 03:28 Order name: N-Terminal Pro-brain Natriuretic Peptide; Complete Time: 05:24 rn 02/27 03:28 Order name: Hepatic Function; Complete Time: 05:24 rn 02/27 03:28 Order name: Lipase; Complete Time: 05:24 rn 02/27 03:29 Order name: CBC with Automated Diff; Complete Time: 05:24 EDMS 02/27 03:29 Order name: Basic Metabolic Panel; Complete Time: 05:24 EDMS 02/27 03:29 Order name: Procalcitonin; Complete Time: 06:35 EDMS 02/27 03:29 Order name: Lactate; Complete Time: 05:24 EDMS 02/27 03:29 Order name: Blood Culture EDNH 02/27 03:28 Order name: IV Start; Complete Time: 04:23 rn 02/27 03:28 Order name: EKG; Complete Time: 03:29 rn 02/27 03:28 Order name: EKG - Nurse/Tech; Complete Time: 03:29 rn 02/27 03:28 Order name: XRAY Chest (1 view) rn 02/27 03:28 Order name: Labs collected and sent; Complete Time: 04:23 rn 02/27 03:30 Order name: Troponin (emerg Dept Use Only); Complete Time: 05:24 rn 02/27 04:45 Order name: EKG - Nurse/Tech; Complete Time: 04:59 ms 02/27 04:45 Order name: EKG; Complete Time: 04:45 ms 02/27 04:58 Order name: Urine Dipstick-Ancillary (obtain specimen); Complete Time: 05:25 rn 02/27 05:08 Order name: Manual Differential; Complete Time: 05:24 EDMS 02/27 05:18 Order name: Urine Dipstick--Ancillary (enter results); Complete Time: 06:35 ms 02/27 05:19 Order name: Urine Microscopic Only; Complete Time: 06:35 ms 02/27 05:26 Order name: Urine Culture rn Administered Medications: 05:56 Drug: Rocephin - (cefTRIAXone) 1 grams Route: IVPB; Infused Over: 30 mins; Site: left ea forearm; 06:20 Follow up: Response: No adverse reaction; IV Status: Completed infusion ea Disposition: 02/27/19 05:46 Hospitalization ordered by Jose Luis Robert for Inpatient Admission. Preliminary diagnosis are Altered mental status, unspecified, Urinary tract infection, site not specified, Pulmonary edema. - Bed requested for Telemetry/MedSurg (Inpatient). - Status is Inpatient Admission. ea - Condition is Stable. - Problem is an ongoing problem. - Symptoms are unchanged. UTI on Admission? Yes Signatures: Dispatcher [employer] EDMS Ivonne Witt RN RN mw Rittger, Kevin, MD MD kdr Solis, Maria ms Nieto, Roman, MD MD rn Pena, Laura, RN RN lp1 Kalpana Reddy RN RN ea Corrections: (The following items were deleted from the chart) 03:31 03:28 Constitutional: This is a well developed, well nourished patient who is awake, rn alert, and in no acute distress. rn 05:43 03:28 Constitutional: This is a well developed, well nourished patient who is awake, rn alert, and in no acute distress. Head/Face: Normocephalic, atraumatic. ENT: dry MM Cardiovascular: Tachycardic, irregular Respiratory: coarse bilateral breath sounds, no retractions Abdomen/GI: soft, non-tender MS/ Extremity: Pulses equal, no cyanosis. Neuro: Awake, selectively cooperative, very hard of hearing rn 06:00 05:46 Hospitalization Ordered by Jose Luis Robert MD for Inpatient Admission. Preliminary mw diagnosis is Altered mental status, unspecified; Urinary tract infection, site not specified; Pulmonary edema. Bed requested for Telemetry/MedSurg (Inpatient). Status is Inpatient Admission. Condition is Stable. Problem is an ongoing problem. Symptoms are unchanged. UTI on Admission? Yes. rn 06:44 06:00 02/27/2019 05:46 Hospitalization Ordered by Jose Luis Robert MD for Inpatient ea Admission. Preliminary diagnosis is Altered mental status, unspecified; Urinary tract infection, site not specified; Pulmonary edema. Bed requested for Telemetry/MedSurg (Inpatient). Status is Inpatient Admission. Condition is Stable. Problem is an ongoing problem. Symptoms are unchanged. UTI on Admission? Yes. mw
--- NOTE | 2019-02-27 05:47 | ER ---
Nurse's Notes [facility] Name: Gio Matute Age: 79 yrs Sex: Male : 1940 Arrival Date: 02/27/2019 Time: 03:26 Bed 2 Private MD: Diagnosis: Altered mental status, unspecified;Urinary tract infection, site not specified;Pulmonary edema Presentation: 02/27 03:43 Presenting complaint: EMS states: Called for patient complaint of difficulty breathing, lp1 feels like he is choking; On arrival of EMS patient's airway clear, HR noted to be 160-190, A-fib with RVR; Given Diltiazem 10mg IV with improvement, HR to 110; Temp of 99.0. Transition of care: patient was not received from another setting of care. Onset of symptoms was February 27, 2019. Risk Assessment: Do you want to hurt yourself or someone else? Patient reports no desire to harm self or others. Initial Sepsis Screen:. Care prior to arrival: Medication(s) given: Diltiazem 10mg IV IV initiated. 18 GA, in the right foot Glucose check: 130. 03:43 Method Of Arrival: EMS: [facility] lp1 03:43 Acuity: MACI 2 lp1 04:34 Initial Sepsis Screen: Does the patient meet any 2 criteria? HR > 90 bpm. Does the ea patient have a suspected source of infection? No. Patient's initial sepsis screen is negative. 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 - Social history:: Smoking status: Patient/guardian denies using tobacco. - Family history:: not pertinent. - Ebola Screening: : No symptoms or risks identified at this time. - Hospitalizations: : No recent hospitalization is reported. Screenin:15 Abuse screen: Denies threats or abuse. Nutritional screening: No deficits noted. ea Tuberculosis screening: No symptoms or risk factors identified. Fall Risk IV access (20 points). Assessment: 03:50 General: Appears in no apparent distress. Behavior is cooperative, quiet. Pain: Denies ea pain. Neuro: Level of Consciousness is awake, alert, obeys commands, Oriented to person, place, time, situation. Cardiovascular: Patient's skin is warm and dry. Respiratory: Airway is patent Respiratory effort is even, unlabored, Respiratory pattern is regular, symmetrical. GI: Abdomen is non-distended. : Gaviria in place to gravity drainage. Derm: Skin is dry, Skin is pale, Skin temperature is warm. Musculoskeletal: Circulation, motion, and sensation intact. 04:40 Reassessment: Patient and/or family updated on plan of care and expected duration. Pain ea level reassessed. Patient is alert, oriented x 3, equal unlabored respirations, skin warm/dry/pink. Awaiting on lab results. 05:26 Reassessment: Patient and/or family updated on plan of care and expected duration. Pain ea level reassessed. Pt resting with eyes closed, respirations even and unlabored . Awaiting on lab results. Vital Signs: 03:46 BP 173 / 88; Pulse 106; Resp 20; Pulse Ox 95% on R/A; Weight 86.18 kg; Height 6 ft. 1 lp1 in. (185.42 cm); 04:39 BP 126 / 80; Pulse 84; Resp 18; Pulse Ox 98% on R/A; ea 05:33 BP 124 / 80; Pulse 80; Resp 17; Pulse Ox 97% on R/A; ea 06:23 BP 126 / 75; Pulse 74; Resp 18; Temp 98.9; Pulse Ox 98% ; ea 03:46 Body Mass Index 25.07 (86.18 kg, 185.42 cm) lp1 ED Course: 03:26 Patient arrived in ED. rn 03:26 Sid Tirado MD is Attending Physician. rn 03:29 EKG done, by ED staff, reviewed by Sid Tirado MD. ed1 03:46 Triage completed. lp1 03:46 Arm band placed on left wrist. lp1 03:51 Patient has correct armband on for positive identification. Side rails up X2. Cardiac lp1 monitor on. Pulse ox on. NIBP on. 03:53 X-ray completed. Portable x-ray completed in exam room. Patient tolerated procedure kw well. 03:54 Edna Fox, RN is Primary Nurse. ed1 03:56 XRAY Chest (1 view) In Process Unspecified. EDMS 04:15 Inserted saline lock: 22 gauge in left forearm, using aseptic technique. Blood ea collected. 05:07 Notified ED physician of a critical lab result(s). wbc of 21.8. 05:46 Jose Luis Robert MD is Hospitalizing Provider. rn 06:21 No provider procedures requiring assistance completed. Patient admitted, IV remains in ea place. Administered Medications: 05:56 Drug: Rocephin - (cefTRIAXone) 1 grams Route: IVPB; Infused Over: 30 mins; Site: left ea forearm; 06:20 Follow up: Response: No adverse reaction; IV Status: Completed infusion ea Outcome: 05:46 Decision to Hospitalize by Provider. rn 06:00 Admitted to Med/surg accompanied by nurse, with chart, Report called to Receiving ea nurse on fourth floor. 06:00 Condition: stable 06:00 Instructed on the need for admit. 06:44 Patient left the ED. ea Signatures: Dispatcher [employer] EDAK Ailyn Leal, NATALEE RN Sid Tirado MD MD rn Riggs, Erika, RN RN ed1 Humaira Sainz Laura, RN RN lp1 Kalpana Reddy RN RN ea Corrections: (The following items were deleted from the chart) 03:47 03:46 BP 173 / 88; Pulse 106bpm; Resp 20bpm; Pulse Ox 95% RA; lp1 lp1
[2019-02-27] MEDS ORDERED: CEFTRIAXONE/SWI 1gm 1 GM/10 ML SYR ONE (05:52)
[2019-02-27] MEDS ORDERED: ONDANSETRON 4 MG/2 ML VIAL IV PRN (07:09)
--- NOTE | 2019-02-27 08:37 | EKG ---
Test Date: 2019-02-27 Test Time: 04:52:32 Crew Dispatcher: SURYA MEASUREMENT RESULTS: Intervals: Rate: 91 TN: QRSD: 82 QT: 342 QTc: 420 [place]: P: TN: QRS: 26 T: 89 INTERPRETIVE STATEMENTS: Atrial fibrillation Abnormal ECG Compared to ECG 02/27/2019 03:18:34 ST (T wave) deviation no longer present Electronically Signed On 02-27-19 08:36:29 CDT by Jamir Marie
--- NOTE | 2019-02-27 08:37 | EKG ---
Test Date: 2019-02-27 Test Time: 03:18:34 Hospital Admitting Clerk: SURYA MEASUREMENT RESULTS: Intervals: Rate: 100 [place]: QRSD: 90 QT: 330 QTc: 425 [place]: P: [place]: QRS: 86 T: 127 INTERPRETIVE STATEMENTS: Atrial fibrillation Nonspecific ST and T wave abnormality Abnormal ECG Compared to ECG 01/04/2019 18:31:12 ST (T wave) deviation now present Electronically Signed On 02-27-19 08:36:32 CDT by Jamir Marie
[2019-02-27] MEDS: SOTALOL HCL 80 MG TAB PO SCH ×2 (09:59→21:03)
--- NOTE | 2019-02-27 11:04 | RAD REPORT ---
EXAM DESCRIPTION: RAD - Chest Single View - 02/27/2019 3:58 am CLINICAL HISTORY: The patient is 79 years old and is Male; COUGH TECHNIQUE: Frontal view of the chest. COMPARISON: No relevant prior studies available. FINDINGS: LUNGS: Bibasilar opacities are noted. A 0.9 cm nodule within the right upper lobe is p resent. PLEURAL SPACE: Blunting bilateral costophrenic angles is present. No pneumothorax. HEART: The cardiac silhouette is prominent. MEDIASTINUM: Unremarkable. BONES/JOINTS: There are degenerative changes of the bones. IMPRESSION: 1. Cardiomegaly with findings suggestive of bilateral pleural effusions and bibasilar atelectasis. 2. Right upper lobe pulmonary nodule which may be secondary to calcified granuloma. However, compar layne with prior imaging and/or CT of the chest is recommended. Electronically signed by: Maria Del Rosario Sousa MD 02/27/2019 4:54 AM CDT Due to temporary technical issues with the PACS/Fluency reporting system, reports are being signed by the in house radiologist as a courtesy to ensure prompt reporting. The interpreting radiologist is f ully responsible for the content of the report.
--- NOTE | 2019-02-27 13:08 | P.HP ---
Certification for Inpatient Patient admitted to: Inpatient With expected LOS: >2 Midnights Practitioner: I am a practitioner with admitting privileges, knowledge of patient current condition, hospital course, and medical plan of care. Services: Services provided to patient in accordance with Admission requirements found in Title 42 Section 412.3 of the Code of Federal Regulations Patient History Date of Service: 02/27/19 Reason for admission: WEAK, GAGGING History of Present Illness: MR. 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 HE USUALLY HAS SOME GAGGING FOR WHAT HE COMES. EMS FOUND HIM TO HAVE A FIB AND GAVE A DOSE OF CARDIZEM IV TO CONTROL RATE. Allergies codeine Adverse Reaction (Verified 01/04/19 23:21) Nausea/Vomiting ANTIHISTAMINES Adverse Reaction (Mild, Uncoded 01/21/18 23:21) Unknown Home Medications: Metoprolol Succinate [Toprol Xl] 100 mg PO DAILY #30 tab.sr.24h 12/17/17 Spironolactone 50 mg PO DAILY #90 tablet 01/07/19 predniSONE [Prednisone*] 10 mg PO BID 01/07/19 Amlodipine Besylate 10 mg PO DAILY 02/27/19 - Past Medical/Surgical History Diabetic: No -: hypertension -: glaucoma -: anemia -: hypoglycemia -: blindness -: enlarged prostate -: HTN -: wedgners disease -: [place] -: hernia -: bone spur in neck -: copd -: vocal cord surg -: corneal transplant sx -: hemorroidectomy -: eye sx - Family History Father -: Lung disease - Social History Alcohol use: No CD- Drugs: No Caffeine use: Yes Review of Systems 10-point ROS is otherwise unremarkable General: Weakness, Malaise Respiratory: As per HPI Cardiovascular: As per HPI Physical Examination - Vital Signs Temperature: 97.6 F Blood Pressure: 151/79 Pulse: 70 Respirations: 18 Pulse Ox (%): 98 - Physical Exam General: Alert, Cachectic, Mild distress, Other (BLIND AND DEAF.) HEENT: Atraumatic, PERRLA, Mucous membr. moist/pink, EOMI, Sclerae nonicteric Neck: Supple, 2+ carotid pulse no bruit, No LAD, Without JVD or thyroid abnormality Respiratory: Clear to auscultation bilaterally, Normal air movement Cardiovascular: Regular rate/rhythm, Normal S1 S2 Gastrointestinal: Normal bowel sounds, No tenderness Musculoskeletal: Other (CONTRACTURES ALL JOINTS. ) Integumentary: No rashes Neurological: Abnormal speech (FEEBLE , FAINT.), Abnormal tone (CONTRACTURES, WASTED MUSCLES, NOT BEEN ABLT TO WALK FOR YEARS.) Lymphatics: No axilla or inguinal lymphadenopathy - Studies Laboratory Data (last 24 hrs) 02/27/19 04:15: Sodium 130 L, Potassium 4.6, BUN 22 H, Creatinine 0.90, Glucose 110 H, Total Bilirubin 0.6, AST 22, ALT 38, Alkaline Phosphatase 85, Lipase 346 02/27/19 04:15: WBC 21.8 H*, Hgb 12.3 L, Hct 36.5 L, Plt Count 164 Microbiology Data (last 24 hrs): 02/27/19 04:15 Nasopharnyx Influenza Type A Antigen Screen - Final 02/27/19 04:15 Nasopharnyx Influenza Type B Antigen Screen - Final Assessment and Plan - Problems (Diagnosis) (1) UTI (urinary tract infection) Current Visit: Yes Status: Acute Plan: IS THE MAIN CAUSE OF LEUKOCYTOSIS BESIDES PREDNISONE HE IS ON BID. ROCPHIN DAILY. 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 PROGNOSIS IS POOR. HE SHOULD BE DNR. HE SHOULD BE ON HOSPICE BUT AND KIDS ARE NOT ABLE TO DECIDE YET. (4) A-fib Current Visit: Yes Status: Acute Plan: ADDED BETAPACE STOP METOPROLOL. HE CAN'T TAKE ANTICOAGULATION HE HAS HAD SEVERE ANEMIA, SINUS AND PULMONARY HEMORRHAGE IN THE PAST. Qualifiers: Atrial fibrillation type: paroxysmal Qualified Code(s): I48.0 - Paroxysmal atrial fibrillation - Advance Directives Does patient have a Living Will: Yes Does patient have a Durable POA for Healthcare: Yes
[2019-02-27 17:36] VITALS: BMI 25.0
[2019-02-27] MEDS ORDERED: CEFTRIAXONE 1 GM/NS 50 ML 1 GM/50 ML BAG IV SCH (18:00)
[2019-02-27 20:50] LABS: MPV 8.8 fL (7.6-11.3)
[2019-02-27] MEDS: predniSONE 10 MG TAB PO SCH (21:03)
[2019-02-27] MEDS: CEFTRIAXONE/SWI 1gm 1 GM/10 ML SYR IV SCH (21:03)
[2019-02-27 21:12] LABS: Platelet Estimate ADEQ
[2019-02-28 06:21] LABS: Absolute Lymphocytes (CBC) 0.6 K/uL (0.7-4.9); Absolute Monocytes 0.6 K/uL (0.1-1.3); Absolute Neutrophil 11.3 K/uL (1.8-8.0); Basophils % 0.3 % (0-1.3); Eosinophils % 0.3 % (0-4.4); Hematocrit 35.2 % (39.6-49.0); Lymphocytes % 4.8 % (15.3-44.8); MPV 8.9 fL (7.6-11.3); Monocytes % 4.6 % (3.3-12.3)
[2019-02-28 06:35] LABS: BUN Blood Urea Nitrogen 18 mg/dL (7-18); Bicarbonate 26 mmol/L (21-32); Glucose Level 78 mg/dL (74-106); Potassium 4.1 mmol/L (3.5-5.1); Sodium Level 138 mmol/L (136-145)
[2019-02-28] MEDS: predniSONE 10 MG TAB PO SCH ×2 (08:25→22:09)
[2019-02-28] MEDS: AMLODIPINE 10 MG TAB PO SCH (08:25)
[2019-02-28] MEDS: CEFTRIAXONE/SWI 1gm 1 GM/10 ML SYR IV SCH ×2 (08:25→22:10)
[2019-02-28] MEDS: SPIRONOLACTONE 25 MG TABLET PO SCH (08:25)
[2019-02-28] MEDS: SOTALOL HCL 80 MG TAB PO SCH ×2 (08:25→22:09)
[2019-02-28] MEDS ORDERED: HOME MED 1 EA UNK (Spironolactone [Spironolactone] 50 MG) PO SCH (09:00)
--- NOTE | 2019-02-28 09:45 | RAD REPORT ---
EXAM DESCRIPTION: CT - Thorax W/ Con - 02/28/2019 9:14 am CLINICAL HISTORY: Elevated white blood cell count, pleural effusion COMPARISON: Chest film February 27, CT chest October 2018 TECHNIQUE: Dynamically enhanced 5 mm thick images of the chest were obtained during administration o f 100 mL non-ionic IV contrast. All CT scans are performed using dose optimization technique as appropriate and may include automated exposure control or mA/KV adjustment according to patient size. FINDINGS: Moderately large bilateral pleural effusions are present layering from the apex to lung ba se. Volume of pleural fluid is similar to October 2018. Bilateral lower lobe atelectasis present. Pa rtial atelectasis seen along the major fissure in the right middle lobe. No acute infiltrate or mass identifiable. No endobronchial lesion. No pleural based mass. No pneumothorax. No chest wall mass or abnormal axillary lymphadenopathy. No abnormal mediastinal or hilar mass or lymphadenopathy seen. No pericardial effusion. Limited upper abdomen imaging shows a questionable minimal amount of ascites. Only a small amount of the abdomen is imaged. IMPRESSION: Moderately large bilateral pleural effusions layering in the posterior chest from base t o apex. Pleural fluid volume is similar to the October 2018 study. Complete or near complete bilateral lower lobe atelectasis.
--- NOTE | 2019-02-28 14:43 | P.PN ---
Subjective Date of Service: 02/28/19 Chief Complaint: VERY COMFORTABLE NOW Subjective: Improving MR. JARVIS CAN'T SEE OR HEAR. HE IS NOT ABLE TO COMPLAIN. HE HAS VERY HARD TIME TALKING ALSO. THERE IS NO FAMILY AT BESIDE. Review of Systems is unable to be obtained Physical Examination - Vital Signs Temperature: 98.5 F Blood Pressure: 144/60 Pulse: 68 Respirations: 16 Pulse Ox (%): 100 - Physical Exam General: Alert, In no apparent distress (HE IS NOT IN ANY DISTRESS NOW. BACK TO HIS BASELINE BED BOUND STATUS.) HEENT: Atraumatic, PERRLA, EOMI Neck: Supple, JVD not distended Respiratory: Diminished Cardiovascular: Regular rate/rhythm, Normal S1 S2 Gastrointestinal: Normal bowel sounds, No tenderness Musculoskeletal: No tenderness Integumentary: No rashes Neurological: Other (BLIND AND DEAF), Abnormal speech (HOARSE), Abnormal tone ( WASTED MUSCLES FROM DISUSE ALL BODY.) Lymphatics: No axilla or inguinal lymphadenopathy - Studies Medications List Reviewed: Yes Assessment And Plan - Current Problems (Diagnosis) (1) UTI (urinary tract infection) Current Visit: Yes Status: Acute Plan: IS THE MAIN CAUSE OF LEUKOCYTOSIS BESIDES PREDNISONE HE IS ON BID. ROCPHIN DAILY. WAITING FOR CULTURE HE SHOULD BE ABLE TO GO IN AM. 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 PROGNOSIS IS POOR. HE SHOULD BE DNR. HE SHOULD BE ON HOSPICE BUT AND KIDS ARE NOT ABLE TO DECIDE YET. (4) A-fib Current Visit: Yes Status: Acute Plan: ADDED BETAPACE STOP METOPROLOL. HE CAN'T TAKE ANTICOAGULATION HE HAS HAD SEVERE ANEMIA, SINUS AND PULMONARY HEMORRHAGE IN THE PAST. TOLERATE MEDS WELL. Qualifiers: Atrial fibrillation type: paroxysmal Qualified Code(s): I48.0 - Paroxysmal atrial fibrillation
[2019-02-28] MEDS: ENSURE ENLIVE 237 ML CAN PO SCH (22:10)
[2019-03-01 06:04] LABS: Absolute Lymphocytes (CBC) 0.6 K/uL (0.7-4.9); Absolute Monocytes 0.6 K/uL (0.1-1.3); Basophils % 0.7 % (0-1.3); Eosinophils % 0.3 % (0-4.4); Hematocrit 36.4 % (39.6-49.0); Lymphocytes % 4.6 % (15.3-44.8); MPV 8.4 fL (7.6-11.3); Monocytes % 4.5 % (3.3-12.3); RBC Red Blood Cell Count 4.45 M/uL (4.33-5.43)
[2019-03-01 06:29] LABS: Blood Morphology Comment NOT SEEN (NOT SEEN); Platelet Estimate ADEQ
[2019-03-01 08:44] VITALS: BP 145/76; TEMP 98.3
[2019-03-01] MEDS: ENSURE ENLIVE 237 ML CAN PO SCH (09:00)
[2019-03-01 09:44] VITALS: O2SAT 100
[2019-03-01] MEDS: AMLODIPINE 10 MG TAB PO SCH (10:08)
[2019-03-01] MEDS: SPIRONOLACTONE 25 MG TABLET PO SCH (10:08)
[2019-03-01] MEDS: predniSONE 10 MG TAB PO SCH (10:08)
[2019-03-01] MEDS: SOTALOL HCL 80 MG TAB PO SCH (10:08)
[2019-03-01] MEDS: CEFTRIAXONE/SWI 1gm 1 GM/10 ML SYR IV SCH (10:09)
--- NOTE | 2019-03-01 10:40 | P.DS ---
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 HE USUALLY HAS SOME GAGGING FOR WHAT HE COMES. EMS FOUND HIM TO HAVE A FIB AND GAVE A DOSE OF CARDIZEM IV TO CONTROL RATE. MR. JARVIS IS VERY SICK GENTLEMAN WITH CARMITA'S INDUCED PTERIGYUM INDUCED BLINDNESS, CONTRACTURES ALL OVER THE BODY, TOTAL DEAFNESS, POOR NUTRITION WITH INABLITY TO SWALLOW AND THIS TIME HE HAD UTI. HE IS STABLE WITH POOR PROGNOSIS. HE HAS A VERY CARING FAMILY AND THEY ARE WORKING DAY AND NIGHT TO TAKE CARE OF HIM AT HOME. IDEALLY WITH POOR STATUS HE SHOULD BE ON HOSPICE BUT IS NOT EVEN ABLE TO THINK ABOUT DNR STATUS THAT I ADVISED. I EXPLAINED TO THEM THAT WITH ANY CPR ALL HIS RIBS WILL BREAK AND ATTEMPTS WILL FAIL ANYWAY. I AM ASKING THEM TO THINK ABOUT INEVITABLE WHEN THEY CALL EMT AT HOME AND IF HE QUITS BREATHING THEY MUST HAVE DNR STATUS BUT AGAIN THEY ARE NOT WANTING TO THINK ABOUT THE END OF LIFE. HE IS 79 AND IN VERY POOR SHAPE. THEY SHOULD MAKE HIM DNR. Vital Signs/Physical Exam: Temp Pulse Resp BP Pulse Ox 98.3 F 73 18 145/76 H 100 03/01/19 08:00 03/01/19 08:00 03/01/19 08:00 03/01/19 08:00 03/01/19 08:00 Laboratory Data at Discharge: WBC 12.2 K/uL (4.3-10.9) H 03/01/19 05:56 Hgb 12.3 g/dL (13.6-17.9) L 03/01/19 05:56 Hct 36.4 % (39.6-49.0) L 03/01/19 05:56 Plt Count 195 K/uL (152-406) 03/01/19 05:56 Sodium 138 mmol/L (136-145) 02/28/19 05:50 Potassium 4.1 mmol/L (3.5-5.1) 02/28/19 05:50 BUN 18 mg/dL (7-18) 02/28/19 05:50 Creatinine 0.59 mg/dL (0.55-1.3) 02/28/19 05:50 Glucose 78 mg/dL (74-106) 02/28/19 05:50 Total Bilirubin 0.6 mg/dL (0.2-1.0) 02/27/19 04:15 AST 22 U/L (15-37) 02/27/19 04:15 ALT 38 U/L (12-78) 02/27/19 04:15 Alkaline Phosphatase 85 U/L (45-117) 02/27/19 04:15 Lipase 346 U/L (73-393) 02/27/19 04:15 Home Medications: Spironolactone 50 mg PO DAILY #90 tablet 01/07/19 predniSONE [Prednisone*] 10 mg PO BID 01/07/19 Amlodipine Besylate 10 mg PO DAILY 02/27/19 Cefuroxime [Ceftin] 250 mg PO BID #14 tab 03/01/19 Sotalol HCl [Betapace*] 80 mg PO BID #60 tab 03/01/19 New Medications: Cefuroxime [Ceftin] 250 mg PO BID #14 tab Sotalol HCl [Betapace*] 80 mg PO BID #60 tab
== END 2019-03-01 13:29 | disposition home or self-care (01) | DRG 689 ==
LOC: ER 03:14 → ERHOLD 05:48 → 4TH 06:20
PROVIDERS: ADMIT Internal Medicine; ATTEND Internal Medicine
DX: N39.0 Urinary tract infection, site not specified (principal); R53.2 Functional quadriplegia; J90 Pleural effusion, not elsewhere classified; M31.30 Wegener's granulomatosis without renal involvement; R64 Cachexia; E88.09 Other disorders of plasma-protein metabolism, not elsewhere classified; I48.0 Paroxysmal atrial fibrillation; J44.9 Chronic obstructive pulmonary disease, unspecified; I10 Essential (primary) hypertension; H40.9 Unspecified glaucoma; N40.0 Benign prostatic hyperplasia without lower urinary tract symptoms; H91.93 Unspecified hearing loss, bilateral; H54.7 Unspecified visual loss; M24.50 Contracture, unspecified joint; Z68.25 Body mass index [BMI] 25.0-25.9, adult; Z79.52 Long term (current) use of systemic steroids; Z74.01 Bed confinement status; Z88.5 Allergy status to narcotic agent
CPT/HCPCS: 36415; 71045; 71260; 80048; 80076; 81003; 81015; 83605; 83690; 83880; 84145; 84484; 85025; 85049; 87040; 87077; 87086; 87088; 87186; 87804; 93005; 96365; 99285; J0696; J7512; Q9967

== ENCOUNTER 2019-03-17 04:39 | Emergency (ER) | payer OTHER ==
--- OUTSIDE RECORDS SUMMARY | 2019-03-17 04:41 | XMS REPORT | Clinical Summary ---
:1940 Author Organization [facility] Address [address] [place] [address] Care Team Providers Name Role Phone Asked, [...] mouth 0 Active ORAL daily. vitamin A 16484 UNIT Take 25,000 Units 0 Active capsule [...] INFLUENZA VACCINE 06/05/2019 Results Not on fileafter 03/16/2018 Insurance Payer Benefit Plan / Group Subscriber ID Type Phone Address MEDICARE MEDICARE PART A AND B xxxxxxxxxxx Medicare [place] MEDICARE MEDICARE PART A AND B xxxxxxxxxxx Medicare [place] AETNA AETNA HMO,POS,EPO, MC/EC xxxxxxxxxx HMO AETNA AETNA [employer] INDEMNITY xxxxxxxxxx Indemnity ([place]) [address] [place] [id number] Advance Directives Patient has advance care planning documents on file. For more information, please contact:[place] [address]
--- OUTSIDE RECORDS SUMMARY | 2019-03-17 04:42 | XMS REPORT | Clinical Summary ---
:1940 Author Organization [facility] Address [address] [place] [address] Care Team Providers Name Role Phone Jakob [...] Tracy Alok, MD Zindani, Shireen, MD after 03/16/2018 Social History Tobacco Use Types Packs/Day Years [...] Taken Blood Pressure 130/69 09/25/2018 3:25 PM SINGLE POINTED OPERATOR Pulse 90 09/25/2018 3:25 PM SINGLE POINTED OPERATOR Temperature 36.7 C (98 F) 09/25/2018 3:25 PM SINGLE POINTED OPERATOR Respiratory Rate 18 09/25/2018 3:25 PM SINGLE POINTED OPERATOR Oxygen Saturation 100% 09/25/2018 3:25 PM SINGLE POINTED OPERATOR Inhaled Oxygen Concentration - - Weight - - Height 182.9 cm (6') 09/24/2018 4:00 AM SINGLE POINTED OPERATOR Body Mass Index - - Plan of Treatment Not on file Procedures Procedure Name Priority Date/Time Associated Comments Diagnosis XR CHEST 1 VIEW STAT 09/25/2018 4:07 Results for this PORTABLE/BEDSIDE PM SINGLE POINTED OPERATOR procedure are in the results section. HEMOGLOBIN AND Routine 09/25/2018 12:41 Results for this HEMATOCRIT PM SINGLE POINTED OPERATOR procedure are in the results section. CBC W/PLT COUNT & Routine 09/25/2018 5:14 Results for this AUTO DIFFERENTIAL AM SINGLE POINTED OPERATOR procedure are in the results section. TSH/FREE T4 IF Routine 09/25/2018 5:14 Results for this INDICATED AM SINGLE POINTED OPERATOR procedure are in the results section. CBC W/PLT COUNT & Routine 09/25/2018 5:14 Results for this AUTO DIFFERENTIAL AM SINGLE POINTED OPERATOR procedure are in the results section. MAGNESIUM Routine 09/25/2018 5:14 Results for this AM SINGLE POINTED OPERATOR procedure are in the results section. BASIC METABOLIC PANEL Routine 09/25/2018 5:14 Results for this (7) AM SINGLE POINTED OPERATOR procedure are in the results section. ANAEROBIC CULTURE Routine 09/24/2018 7:59 Results for this PM SINGLE POINTED OPERATOR procedure are in the results section. EAR CULTURE + GRAM Routine 09/24/2018 5:42 Results for this STAIN PM SINGLE POINTED OPERATOR procedure are in the results section. BLOOD CULTURE Routine 09/24/2018 5:51 Results for this AM SINGLE POINTED OPERATOR procedure are in the results section. CBC W/PLT COUNT & Routine 09/24/2018 5:50 Results for this AUTO DIFFERENTIAL AM SINGLE POINTED OPERATOR procedure are in the results section. CBC W/PLT COUNT & Routine 09/24/2018 5:50 Results for this AUTO DIFFERENTIAL AM SINGLE POINTED OPERATOR procedure are in the results section. MAGNESIUM Routine 09/24/2018 5:50 Results for this AM SINGLE POINTED OPERATOR procedure are in the results section. BASIC METABOLIC PANEL Routine 09/24/2018 5:50 Results for this (7) AM SINGLE POINTED OPERATOR procedure are in the results section. after 03/16/2018 Results XR chest 1 view portable / bedside (09/25/2018 4:07 PM SINGLE POINTED OPERATOR) Specimen Narrative Performed At FINAL REPORT [facility] INDICATION: SOB TECHNIQUE: Chest radiograph, single view, portable technique. FINDINGS / IMPRESSION: Heart shadow is prominent and there is suggestion of pulmonary venous congestion. No overt pulmonary edema and no pleural effusion demonstrated. No pneumothorax or consolidation. Calcified plaque in the aortic arch noted. Osseous structures unremarkable. Signed: Fabio Rivera MD Report Verified Date/Time:09/25/2018 16:48:03 Reading Location: [facility] Diagnostic Imaging Reading Room - [place] [address] Procedure Note Interface, External Ris In - 09/25/2018 4:59 PM SINGLE POINTED OPERATOR FINAL REPORT INDICATION: SOB TECHNIQUE: Chest radiograph, single view, portable technique. FINDINGS / IMPRESSION: Heart shadow is prominent and there is suggestion of pulmonary venous congestion. No overt pulmonary edema and no pleural effusion demonstrated. No pneumothorax or consolidation. Calcified plaque in the aortic arch noted. Osseous structures unremarkable. Signed: Fabio Rivera MD Report Verified Date/Time: 09/25/2018 16:48:03 Reading Location: [facility] Diagnostic Imaging Reading Room - [place] [id number] Performing Organization Address City/State/Zipcode Phone Number RIS Hemoglobin and hematocrit (09/25/2018 12:41 PM SINGLE POINTED OPERATOR) Hemoglobin 10.4 (L) 13.7 - 17.5 GM/DL [facility] Hematocrit 32.6 (L) 40.1 - 51.0 % [facility] Specimen Blood Performing Organization Address City/[facility]/Zipcode Phone Number [address] [address] [place] TSH/Free T4 If Indicated (09/25/2018 5:14 AM SINGLE POINTED OPERATOR) TSH 1.57 0.35 - 4.94 uIU/mL [facility] Specimen Blood Performing Organization Address City/[facility] Phone Number [address] [address] [phone] [place] CBC with platelet count + automated diff (09/25/2018 5:14 AM SINGLE POINTED OPERATOR)Only the most recent of2 resultswithin the time period is included. WBC 9.3 3.5 - 10.5 K/L [facility] RBC 3.30 (L) 4.63 - 6.08 M/L [facility] Hemoglobin 9.9 (L) 13.7 - 17.5 GM/DL [facility] Hematocrit 30.7 (L) 40.1 - 51.0 % [facility] MCV 93.0 (H) 79.0 - 92.2 fL [facility] MCH 30.0 25.7 - 32.2 pg [facility] MCHC 32.2 (L) 32.3 - 36.5 GM/DL [facility] RDW 15.9 (H) 11.6 - 14.4 % [facility] Platelets 143 (L) 150 - 450 K/CU MM [facility] MPV 10.9 9.4 - 12.4 fL [facility] nRBC 0 0 - 0 /100 WBC [facility] % Neutros 87 % [facility] % Lymphs 6 % [facility] % Monos 5 % [facility] % Eos 0 % [facility] % Baso 0 % [facility] # Neutros 8.10 (H) 1.78 - 5.38 K/L [facility] # Lymphs 0.51 (L) 1.32 - 3.57 K/L [facility] # Monos 0.46 0.30 - 0.82 K/L [facility] # Eos 0.01 (L) 0.04 - 0.54 K/L [facility] # Baso 0.01 0.01 - 0.08 K/L [facility] Immature Granulocytes-Relative 2 (H) 0 - 1 % [facility] Specimen Blood Performing Organization Address City/State/Zipcode Phone Number [address] [address] [phone] CENTER Magnesium (09/25/2018 5:14 AM SINGLE POINTED OPERATOR)Only the most recent of2 resultswithin the time period is included. Magnesium 1.8 1.6 - 2.6 mg/dL [facility] Specimen Blood Performing Organization Address City/State/Zipcode Phone Number [address] [address] [place] Basic metabolic panel (09/25/2018 5:14 AM SINGLE POINTED OPERATOR)Only the most recent of2 resultswithin the time period is included. Sodium 136 136 - 145 meq/L [facility] Potassium 4.0 3.5 - 5.1 meq/L [facility] Chloride 109 (H) 98 - 107 meq/L [facility] CO2 21 (L) 22 - 29 meq/L [facility] BUN 11 7 - 21 mg/dL [facility] Creatinine 0.70 0.57 - 1.25 mg/dL [facility] Glucose 97 70 - 105 mg/dL [facility] Calcium 8.2 (L) 8.4 - 10.2 mg/dL [facility] EGFR 109Comment: ESTIMATED GFR IS mL/min/1.73 sq m [facility] NOT ACCURATE CREATININE [facility] CLEARANCE IN PREDICTING GLOMERULAR FILTRATION RATE. ESTIMATED GFR IS NOT APPLICABLE FOR DIALYSIS PATIENTS. Specimen Blood Performing Organization Address City/[facility] Phone Number [address] [address] [place] Anaerobic culture (09/24/2018 7:59 PM SINGLE POINTED OPERATOR) Result No anaerobes isolated [facility] Specimen Wound Performing Organization Address [facility] [place] Phone Number [address] [address] [phone] [place] Ear culture + gram stain (09/24/2018 5:42 PM SINGLE POINTED OPERATOR) Result PSEUDOMONAS AERUGINOSA (A) [facility] Gram Stain Result 4+ WBCs [facility] Gram Stain Result No organisms seen [facility] Specimen Ear Organism Antibiotic Method Susceptibility [...] + Sulfamethoxazole >80: Resistant Performing Organization Address City/[facility] Phone Number [facility] [address] [place] [address] [phone] CENTER Blood culture #1 (09/24/2018 5:51 AM SINGLE POINTED OPERATOR) Result No growth in 5 days [facility] Specimen Blood Performing Organization Address City/[facility]/Zipcode Phone Number [facility] [address] [place] [address] CENTER after 03/16/2018 Insurance Payer Benefit Plan / Group Subscriber ID Type Phone Address MEDICARE MEDICARE A B xxxxxxxxxxx Medicare AETNA - [place] CARE AETNA HMO POS QPOS xxxxxxxxxx HMO/POS HUMANA - MEDICARE MGD HUMANA MEDICARE ADV xxxxxxxxx [facility] Contracted CARE AETNA - [place] CARE AETNA SELECT [place] xxxxxxxxxx HMO/POS ACCESS ([place]) [address] [place] [phone] Advance Directives For more information, please contact:[address] [phone] Code Status Date Activated Date Inactivated Comments Full Code 09/24/2018 4:58 AM This code status was determined by: Patient
--- OUTSIDE RECORDS SUMMARY | 2019-03-17 04:42 | XMS REPORT ---
:1940 [facility] Address [address] [place] [address] Dr. Hill [address] [place] [id number] Care Team Providers Name Role Phone CARLOS BARBER Unavailable Unavailable Problems This patient has no known problems. Allergies, Adverse Reactions, Alerts This patient has no known allergies or adverse reactions. Medications This patient has no known medications. Results Test Description Test Time Test Comments Text Results Atomic Results Result Comments BLOOD CULTURE 2018-09-29 11:00:00 Test Item Value Reference Range Comments CULTURE (BEAKER) (test mdkr=4255) No growth in 5 days ANAEROBIC [id number] 12:34:00 Test Item Value Reference Range Comments CULTURE (BEAKER) (test xqyc=1752) No anaerobes isolated EAR CULTURE + GRAM [id number] 14:27:00 Test Item Value Reference Range Comments CULTURE (BEAKER) (test PSEUDOMONAS 1+ Pseudomonas kyuy=3217) AERUGINOSA aeruginosa Amikacin (test code=1) Susceptible 0-16 [...] GRAM STAIN RESULT 4+ WBCs (BEAKER) (test atad=9036) GRAM STAIN RESULT No organisms seen (BEAKER) (test kzmm=119937) RAD, CHEST, 1 VIEW, NON [id number] 16:48:00Reason for exam:->SOBShould this be performed at [...] [place] Verified Date/Time: 09/25/2018 16:48:03 Reading Location: [facility] Diagnostic Imaging Reading Room - [place] [address] HEMOGLOBIN AND [id number] 13:03:00 Test Item Value Reference Range Comments HEMOGLOBIN (BEAKER) (test hhkk=962) 10.4 GM/DL 13.7-17.5 HEMATOCRIT (BEAKER) (test qmqf=713) 32.6 % 40.1-51.0 TSH/FREE T4 IF [id number] 06:43:00 Test Item Value Reference Range Comments THYROID STIMULATING HORMONE (BEAKER) (test 1.57 uIU/mL 0.35-4.94 jvah=119) [id number] 06:28:00 Test Item Value Reference Range Comments MAGNESIUM (BEAKER) (test garx=882) 1.8 mg/dL 1.6-2.6 BASIC METABOLIC [id number] 06:28:00 Test Item Value Reference Range Comments SODIUM (BEAKER) (test 136 meq/L 136-145 tpza=914) POTASSIUM (BEAKER) (test 4.0 meq/L 3.5-5.1 bdyu=462) CHLORIDE (BEAKER) (test 109 meq/L 98-107 xncj=198) CO2 (BEAKER) (test 21 meq/L 22-29 yluv=764) BLOOD UREA NITROGEN 11 mg/dL 7-21 (BEAKER) (test babx=020) CREATININE (BEAKER) (test 0.70 mg/dL 0.57-1.25 jkxp=608) GLUCOSE RANDOM (BEAKER) 97 mg/dL 70-105 (test vfwa=144) CALCIUM (BEAKER) (test 8.2 mg/dL 8.4-10.2 rdyu=348) EGFR (BEAKER) (test 109 mL/min/1.73 sq m ESTIMATED GFR IS NOT zswz=2197) ACCURATE CREATININE CLEARANCE IN PREDICTING GLOMERULAR FILTRATION RATE. ESTIMATED GFR IS NOT APPLICABLE FOR DIALYSIS PATIENTS. CBC W/PLT COUNT & AUTO [id number] 05:49:00 Test Item Value Reference Range Comments WHITE BLOOD CELL COUNT (BEAKER) (test huin=405) 9.3 K/ L 3.5-10.5 RED BLOOD CELL COUNT (BEAKER) (test cbms=727) 3.30 M/ L 4.63-6.08 HEMOGLOBIN (BEAKER) (test baqe=855) 9.9 GM/DL 13.7-17.5 HEMATOCRIT (BEAKER) (test wike=717) 30.7 % 40.1-51.0 MEAN CORPUSCULAR VOLUME (BEAKER) (test qntb=079) 93.0 fL 79.0-92.2 MEAN CORPUSCULAR HEMOGLOBIN (BEAKER) (test 30.0 pg 25.7-32.2 vsrn=735) MEAN CORPUSCULAR HEMOGLOBIN CONC (BEAKER) (test 32.2 GM/DL 32.3-36.5 ibtg=487) RED CELL DISTRIBUTION WIDTH (BEAKER) (test 15.9 % 11.6-14.4 lhjt=508) PLATELET COUNT (BEAKER) (test upbt=482) 143 K/CU MM 150-450 MEAN PLATELET VOLUME (BEAKER) (test ypdg=746) 10.9 fL 9.4-12.4 NUCLEATED RED BLOOD CELLS (BEAKER) (test 0 /100 WBC 0-0 zusw=728) NEUTROPHILS RELATIVE PERCENT (BEAKER) (test 87 % mwje=822) LYMPHOCYTES RELATIVE PERCENT (BEAKER) (test 6 % fsdk=252) MONOCYTES RELATIVE PERCENT (BEAKER) (test 5 % ztnw=186) EOSINOPHILS RELATIVE PERCENT (BEAKER) (test 0 % qbnt=914) BASOPHILS RELATIVE PERCENT (BEAKER) (test 0 % rhdr=894) NEUTROPHILS ABSOLUTE COUNT (BEAKER) (test 8.10 K/ L 1.78-5.38 rdtp=415) LYMPHOCYTES ABSOLUTE COUNT (BEAKER) (test 0.51 K/ L 1.32-3.57 uwju=105) MONOCYTES ABSOLUTE COUNT (BEAKER) (test 0.46 K/ L 0.30-0.82 qhan=518) EOSINOPHILS ABSOLUTE COUNT (BEAKER) (test 0.01 K/ L 0.04-0.54 pkop=391) BASOPHILS ABSOLUTE COUNT (BEAKER) (test 0.01 K/ L 0.01-0.08 ffpk=641) IMMATURE GRANULOCYTES-RELATIVE PERCENT (BEAKER) 2 % 0-1 (test zalu=7929) CBC W/PLT COUNT & AUTO [id number] 07:25:00 Test Item Value Reference Range Comments WHITE BLOOD CELL COUNT (BEAKER) (test cptc=580) 11.2 K/ L 3.5-10.5 RED BLOOD CELL COUNT (BEAKER) (test vkau=540) 3.99 M/ L 4.63-6.08 HEMOGLOBIN (BEAKER) (test llzy=279) 11.8 GM/DL 13.7-17.5 HEMATOCRIT (BEAKER) (test zedp=219) 36.4 % 40.1-51.0 MEAN CORPUSCULAR VOLUME (BEAKER) (test llew=762) 91.2 fL 79.0-92.2 MEAN CORPUSCULAR HEMOGLOBIN (BEAKER) (test 29.6 pg 25.7-32.2 smdz=757) MEAN CORPUSCULAR HEMOGLOBIN CONC (BEAKER) (test 32.4 GM/DL 32.3-36.5 vvgg=573) RED CELL DISTRIBUTION WIDTH (BEAKER) (test 16.2 % 11.6-14.4 rdqd=517) PLATELET COUNT (BEAKER) (test vfui=890) 168 K/CU MM 150-450 MEAN PLATELET VOLUME (BEAKER) (test vcdp=255) 11.3 fL 9.4-12.4 NUCLEATED RED BLOOD CELLS (BEAKER) (test 0 /100 WBC 0-0 zlvh=078) NEUTROPHILS RELATIVE PERCENT (BEAKER) (test 75 % rwnu=005) LYMPHOCYTES RELATIVE PERCENT (BEAKER) (test 14 % txtk=094) MONOCYTES RELATIVE PERCENT (BEAKER) (test 8 % kjir=679) EOSINOPHILS RELATIVE PERCENT (BEAKER) (test 1 % xqvd=600) BASOPHILS RELATIVE PERCENT (BEAKER) (test 0 % umgq=823) NEUTROPHILS ABSOLUTE COUNT (BEAKER) (test 8.31 K/ L 1.78-5.38 zidp=110) LYMPHOCYTES ABSOLUTE COUNT (BEAKER) (test 1.54 K/ L 1.32-3.57 mbiw=927) MONOCYTES ABSOLUTE COUNT (BEAKER) (test 0.87 K/ L 0.30-0.82 hcac=737) EOSINOPHILS ABSOLUTE COUNT (BEAKER) (test 0.09 K/ L 0.04-0.54 vone=223) BASOPHILS ABSOLUTE COUNT (BEAKER) (test 0.03 K/ L 0.01-0.08 sedq=400) IMMATURE GRANULOCYTES-RELATIVE PERCENT (BEAKER) 3 % 0-1 (test snhb=8852) [id number] 07:11:00 Test Item Value Reference Range Comments MAGNESIUM (BEAKER) (test zdbu=145) 1.9 mg/dL 1.6-2.6 BASIC METABOLIC [id number] 07:11:00 Test Item Value Reference Range Comments SODIUM (BEAKER) (test 136 meq/L 136-145 aisd=952) POTASSIUM (BEAKER) (test 3.4 meq/L 3.5-5.1 uuhd=575) CHLORIDE (BEAKER) (test 106 meq/L 98-107 tuvk=268) CO2 (BEAKER) (test 23 meq/L 22-29 egnz=312) BLOOD UREA NITROGEN 12 mg/dL 7-21 (BEAKER) (test dsav=101) CREATININE (BEAKER) (test 0.74 mg/dL 0.57-1.25 epae=081) GLUCOSE RANDOM (BEAKER) 91 mg/dL 70-105 (test aijs=360) CALCIUM (BEAKER) (test 8.3 mg/dL 8.4-10.2 qldo=447) EGFR (BEAKER) (test 102 mL/min/1.73 sq m ESTIMATED GFR IS NOT lqie=6176) ACCURATE CREATININE CLEARANCE IN PREDICTING GLOMERULAR FILTRATION RATE. ESTIMATED GFR IS NOT APPLICABLE FOR DIALYSIS PATIENTS.
[2019-03-17 05:59] LABS: Absolute Lymphocytes (CBC) 0.6 K/uL (0.7-4.9); Absolute Monocytes 0.7 K/uL (0.1-1.3); Basophils % 0.1 % (0-1.3); Eosinophils % 0.2 % (0-4.4); Hematocrit 36.2 % (39.6-49.0); Lymphocytes % 4.2 % (15.3-44.8); MPV 8.8 fL (7.6-11.3); Monocytes % 5.2 % (3.3-12.3)
[2019-03-17 06:01] LABS: Urine Bacteria >50 /HPF (NONE SEEN); Urine Culture Reflex Order REFLEXED; Urine RBC <5 /HPF (NONE SEEN)
[2019-03-17 06:01] LABS: Urine Blood 2+ (NEG); Urine Glucose NEGATIVE (NEG); Urine Protein 2+ (NEG); Urine Specific Gravity 1.015 (1.005-1.030)
[2019-03-17 06:09] LABS: BUN Blood Urea Nitrogen 22 mg/dL (7-18); Bicarbonate 23 mmol/L (21-32); Glucose Level 101 mg/dL (74-106); Potassium 4.8 mmol/L (3.5-5.1); Sodium Level 132 mmol/L (136-145)
[2019-03-17] MEDS ORDERED: CEFTRIAXONE/SWI 1gm 1 GM/10 ML SYR ONE (06:32)
--- NOTE | 2019-03-17 07:01 | EDPHYS ---
Physician Documentation [facility] Name: Gio Matute Age: 79 yrs Sex: Male : 1940 Arrival Date: 03/17/2019 Time: 04:51 Bed 15 Private MD: ED Physician Juno Jameson HPI: 03/17 06:04 This 79 yrs old Male presents to ER via EMS with complaints of Urinary Problem.tw4 06:04 The patient presents with urinary symptoms, dysuria. Onset: The symptoms/episode tw4 began/occurred yesterday. Modifying factors: The symptoms are alleviated by nothing, the symptoms are aggravated by nothing. Associated signs and symptoms: The patient has no apparent associated signs or symptoms. The patient has not experienced similar symptoms in the past. 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 - Social history:: Smoking status: Patient/guardian denies using tobacco, Patient/guardian denies using alcohol. - Ebola Screening: : No symptoms or risks identified at this time. ROS: 06:04 Constitutional: Negative for fever, chills, and weight loss, Eyes: Negative for injury, tw4 pain, redness, and discharge, Cardiovascular: Negative for chest pain, palpitations, and edema, Respiratory: Negative for shortness of breath, cough, wheezing, and pleuritic chest pain, Abdomen/GI: Negative for abdominal pain, nausea, vomiting, diarrhea, and constipation, Back: Negative for injury and pain. 06:04 MS/Extremity: Negative for injury and deformity, Skin: Negative for injury, rash, and discoloration. 06:04 : Positive for burning with urination. Exam: 06:04 Constitutional: This is a well developed, well nourished patient who is awake, alert, tw4 and in no acute distress. Head/Face: Normocephalic, atraumatic. Chest/axilla: Normal chest wall appearance and motion. Nontender with no deformity. No lesions are appreciated. Cardiovascular: Regular rate and rhythm with a normal S1 and S2. No gallops, murmurs, or rubs. Normal PMI, no JVD. No pulse deficits. Respiratory: Lungs have equal breath sounds bilaterally, clear to auscultation and percussion. No rales, rhonchi or wheezes noted. No increased work of breathing, no retractions or nasal flaring. 06:04 MS/ Extremity: Pulses equal, no cyanosis. Neurovascular intact. Full, normal range of motion. Neuro: Awake and alert, GCS 15, oriented to person, place, time, and situation. Cranial nerves II-XII grossly intact. Motor strength 5/5 in all extremities. Sensory grossly intact. Cerebellar exam normal. Normal gait. 06:04 Abdomen/GI: Inspection: abdomen appears normal, Hernia: noted in the right inguinal area and right femoral area, incarceration, is not appreciated, tenderness, is not appreciated, bowel sounds are appreciated on auscultation. 06:04 : CVA tenderness, is absent, Male external genitalia: normal, Bladder: is normal. Vital Signs: 04:36 BP 155 / 84; Pulse 83; Resp 16; Temp 97.8(O); Pulse Ox 99% on R/A; Weight 83.91 kg (R); jb4 Height 6 ft. 1 in. (185.42 cm) (R); Pain 0/10; 05:30 BP 127 / 74; Pulse 85; Resp 19; Pulse Ox 99% on R/A; jb4 06:37 BP 150 / 85; Pulse 76; Resp 16; Pulse Ox 99% on R/A; jb4 07:30 BP 147 / 87; Pulse 75; Resp 18; Temp 97.5; Pulse Ox 99% on R/A; ph 04:36 Body Mass Index 24.41 (83.91 kg, 185.42 cm) jb4 MDM: 04:52 Patient medically screened. tw4 06:04 Data reviewed: vital signs, nurses notes. Data interpreted: Pulse oximetry: tw4 Interpretation: normal. Counseling: I had a detailed discussion with the patient and/or guardian regarding: the historical points, exam findings, and any diagnostic results supporting the discharge/admit diagnosis, the presence of at least one elevated blood pressure reading (>120/80) during this emergency department visit, lab results. 03/17 04:53 Order name: Urine Microscopic Only; Complete Time: 06:04 [facility] 03/17 06:04 Interpretation: Normal except: UBACT >50; UWBC >50. [facility] 03/17 05:24 Order name: Urine Dipstick--Ancillary (enter results) 6 03/17 05:43 Order name: CBC with Diff [facility] 03/17 05:43 Order name: Basic Metabolic Panel; Complete Time: 07:00 [facility] 03/17 07:00 Interpretation: Normal except: BUN 22; NA 132. [facility] 03/17 06:02 Order name: Urine Culture [facility] 03/17 06:09 Order name: CBC Smear Scan [facility] 03/17 04:53 Order name: Urine Dipstick-Ancillary (obtain specimen); Complete Time: 05:26 [facility] 03/17 05:43 Order name: Chest Single View XRAY [facility] 03/17 07:20 Order name: EKG Electrocardiogram [facility] EC:04 Rate is 89 beats/min. Rhythm is irregularly irregular, A fib. Right axis deviation tw4 noted. [place] interval is normal. QRS interval is normal. QT interval is normal. No Q waves. T waves are Normal. No ST changes noted. Clinical impression: Abnormal EKG without significant change. Interpreted by me. Reviewed by me. Administered Medications: 06:27 Drug: Rocephin 1 grams Route: IV; Rate: per protocol; Site: right antecubital; 4 06:29 Follow up: Response: No adverse reaction; IV Status: Completed infusion; IV Intake: [id number] Disposition: 03/17/19 07:01 Discharged to Home. Impression: Urinary tract infection, site not specified. - Condition is Stable. - Discharge Instructions: Urinary Tract Infection, Adult, Antibiotic Medicine, Edjj-cy-Odhn. - Prescriptions for Macrobid 100 mg Oral Capsule - take 1 capsule by ORAL route every 12 hours for 10 days; 20 capsule. - Medication Reconciliation Form, Thank You Letter, Antibiotic Education, Prescription Opioid Use form. - Follow up: Private Physician; When: Upon discharge from the Emergency Department; Reason: If symptoms return, Recheck today's complaints, Continuance of care. - Problem is new. - Symptoms have improved. Signatures: Dispatcher [employer] Shamika Lemus, RN RN Jairo Reed RN RN jb4 Juno Jameson MD MD tw4 Corrections: (The following items were deleted from the chart) 08:22 07:01 03/17/2019 07:01 Discharged to Home. Impression: Urinary tract infection, site ph not specified. Condition is Stable. Forms are Medication Reconciliation Form, Thank You Letter, Antibiotic Education, Prescription Opioid Use. Follow up: Private Physician; When: Upon discharge from the Emergency Department; Reason: If symptoms return, Recheck today's complaints, Continuance of care. Problem is new. Symptoms have improved. tw4
--- NOTE | 2019-03-17 07:01 | ER ---
Nurse's Notes [facility] Name: Gio Matute Age: 79 yrs Sex: Male : 1940 Arrival Date: 03/17/2019 Time: 04:51 Bed 15 Private MD: Diagnosis: Urinary tract infection, site not specified Presentation: 03/17 04:36 Presenting complaint: EMS states: Family reports pt has been complaining of painful jb4 urination. Had a UTI around the of last month. was put on anti-biotics but did not get any better. The urine was cloudy. 04:36 Transition of care: patient was not received from another setting of care. Onset of jb4 symptoms was February 22, 2019. Risk Assessment: Do you want to hurt yourself or someone else? Patient reports no desire to harm self or others. Initial Sepsis Screen: Does the patient meet any 2 criteria? No. Patient's initial sepsis screen is negative. Does the patient have a suspected source of infection? Yes: Dysuria/Frequency/Urgency/UTI. 04:36 Method Of Arrival: EMS: [facility] jb4 04:36 Acuity: MACI 3 jb4 Triage Assessment: 04:36 General: Appears in no apparent distress. comfortable, Behavior is calm, cooperative, jb4 appropriate for age. Pain: Complains of pain in abdomen, generalized Pain does not radiate. Pain currently is 0 out of 10 on a pain scale. EENT: No signs and/or symptoms were reported regarding the EENT system. Neuro: Level of Consciousness is awake, alert, obeys commands, Oriented to person, place, time, situation. Cardiovascular: Patient's skin is warm and dry. Respiratory: Airway is patent Respiratory effort is even, unlabored, Respiratory pattern is regular, symmetrical. GI: Parent/caregiver reports the patient having abdominal pain, inguinal herniation. : Urine is cloudy. Derm: Skin is intact, Skin is pink, warm \T\ dry. Musculoskeletal: Circulation, motion, and sensation intact. 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 - Social history:: Smoking status: Patient/guardian denies using tobacco, Patient/guardian denies using alcohol. - Ebola Screening: : No symptoms or risks identified at this time. Screenin:36 Abuse screen: Denies threats or abuse. Nutritional screening: No deficits noted. jb4 Tuberculosis screening: No symptoms or risk factors identified. Fall Risk IV access (20 points). Total Hines Fall Scale indicates No Risk (0-24 pts). Assessment: 04:36 General: see triage assessment.. Respiratory: Breath sounds with crackles bilaterally. jb4 05:39 Reassessment: Patient appears in no apparent distress at this time. No changes from jb4 previously documented assessment. Patient and/or family updated on plan of care and expected duration. Pain level reassessed. 06:37 Reassessment: Patient appears in no apparent distress at this time. No changes from jb4 previously documented assessment. Patient and/or family updated on plan of care and expected duration. Pain level reassessed. 07:15 Reassessment: Pt cleaned of bowel incontinence and a new diaper placed on pt. sv 07:42 Reassessment: Patient appears in no apparent distress at this time. Patient and/or ph family updated on plan of care and expected duration. Pain level reassessed. Pt awake and alert, VSS, pt bed bound, awaiting EMS for transport home. 08:08 Reassessment: Patient appears in no apparent distress at this time. Patient and/or ph family updated on plan of care and expected duration. Pain level reassessed. Pt awake and alert, [facility] at bedside to transport pt home. Vital Signs: 04:36 BP 155 / 84; Pulse 83; Resp 16; Temp 97.8(O); Pulse Ox 99% on R/A; Weight 83.91 kg (R); jb4 Height 6 ft. 1 in. (185.42 cm) (R); Pain 0/10; 05:30 BP 127 / 74; Pulse 85; Resp 19; Pulse Ox 99% on R/A; jb4 06:37 BP 150 / 85; Pulse 76; Resp 16; Pulse Ox 99% on R/A; jb4 07:30 BP 147 / 87; Pulse 75; Resp 18; Temp 97.5; Pulse Ox 99% on R/A; ph 04:36 Body Mass Index 24.41 (83.91 kg, 185.42 cm) jb4 ED Course: 04:36 Arm band placed on left wrist. jb4 04:36 Patient has correct armband on for positive identification. Bed in low position. Call [facility] light in reach. Side rails up X 1. radiation monitor on. Pulse ox on. NIBP on. 04:51 Patient arrived in ED. jb4 04:52 Juno Jameson MD is Attending Physician. tw4 04:54 Triage completed. jb4 04:55 Inserted saline lock: 20 gauge in right forearm, using aseptic technique. rr5 05:25 Jairo Lamar RN is Primary Nurse. jb4 05:26 Urine Microscopic Only Sent. jb4 06:05 X-ray completed. Portable x-ray completed in exam room. Patient tolerated procedure kw well. 06:06 Chest Single View XRAY In Process Unspecified. EDMS 07:47 No provider procedures requiring assistance completed. IV discontinued, intact, ph bleeding controlled, No redness/swelling at site. Pressure dressing applied. Administered Medications: 06:27 Drug: Rocephin 1 grams Route: IV; Rate: per protocol; Site: right antecubital; 4 06:29 Follow up: Response: No adverse reaction; IV Status: Completed infusion; IV Intake: 25wilt2 Intake: 06:29 IV: 10ml; Total: 10ml. 4 Outcome: 07:01 Discharge ordered by . tw4 08:21 Discharged to home via ambulance, with family. ph 08:21 Condition: good 08:21 Discharge instructions given to family, Instructed on discharge instructions, follow up and referral plans. medication usage, Demonstrated understanding of instructions, follow-up care, medications, Prescriptions given X 1. 08:22 Patient left the ED. ph Signatures: Dispatcher [facility] Francheska Pal RN RN Humaira Sainz Shamika Rodrigez RN RN Jairo Lamar RN RN [facility] Juno Jameson MD MD tw4 Rao Pierce, NATALEE RN rr5
--- NOTE | 2019-03-17 07:35 | RAD REPORT ---
EXAM DESCRIPTION: Domenico Single View03/17/2019 6:06 am CLINICAL HISTORY: Chest pain COMPARISON: February 2019 FINDINGS: Small pleural effusions are suspected with mild bibasilar atelectasis. The upper lobes appear clear. Heart is mildly enlarged
[2019-03-17 08:23] LABS: Blood Morphology Comment NOT SEEN (NOT SEEN); Platelet Estimate ADEQ; Urine White Blood Cell Casts OK
[2019-03-17 08:45] VITALS: O2SAT 99
[2019-03-17 08:47] VITALS: BP 147/87; TEMP 97.5
--- NOTE | 2019-03-17 09:17 | EKG ---
Test Date: 2019-03-17 Test Time: 04:44:53 Industrial Nurse: RR MEASUREMENT RESULTS: Intervals: Rate: 89 [place]: QRSD: 86 QT: 356 QTc: 433 [place]: P: [place]: QRS: 104 T: 103 INTERPRETIVE STATEMENTS: Atrial fibrillation Rightward axis Abnormal ECG Compared to ECG 02/27/2019 04:52:32 Right-axis deviation now present Electronically Signed On 03-17-19 09:17:18 CDT by Santiago Ha
== END 2019-03-17 08:22 | disposition home or self-care (01) ==
LOC: ER 04:39
DX: N39.0 Urinary tract infection, site not specified (principal); H54.7 Unspecified visual loss; J44.9 Chronic obstructive pulmonary disease, unspecified; E11.9 Type 2 diabetes mellitus without complications; I10 Essential (primary) hypertension; I48.91 Unspecified atrial fibrillation; Z88.5 Allergy status to narcotic agent; Z88.8 Allergy status to other drugs, medicaments and biological substances
CPT/HCPCS: 93005; 87088; 85025; 87086; 80048; 36415; 87077; 87186; 71045; 96374; 99285; J0696; 81003; 81015

== ENCOUNTER 2019-03-30 07:56 | Emergency (ER) | payer OTHER ==
--- OUTSIDE RECORDS SUMMARY | 2019-03-30 07:58 | XMS REPORT | Clinical Summary ---
:1940 Author Organization [facility] Address [address] [place] [address] Care Team Providers Name Role Phone Asked, [...] mouth 0 Active ORAL daily. vitamin A 84838 UNIT Take 25,000 Units 0 Active capsule [...] INFLUENZA VACCINE 06/05/2019 Results Not on fileafter 03/29/2018 Insurance Payer Benefit Plan / Subscriber ID Effective Dates Phone Address Type Group MEDICARE MEDICARE PART A AND xxxxxxxxxxx 2003-[place], [place] Medicare B t MEDICARE MEDICARE PART A AND xxxxxxxxxxx 2003-[place], [place] Medicare B t AETNA AETNA HMO,POS,EPO, xxxxxxxxxx 2003-[facility] HMO MC/EC t AETNA AETNA [employer] xxxxxxxxxx 2003-[facility] Indemnity INDEMNITY t ([address] [place] [id number] Advance Directives Patient has advance care planning documents on file. For more information, please contact:[place] [address]
--- OUTSIDE RECORDS SUMMARY | 2019-03-30 07:59 | XMS REPORT | Clinical Summary ---
:1940 Author Organization [facility] Address [address] [place] [address] Care Team Providers Name Role Phone Jakob [...] Tracy Alok, MD Zindani, Shireen, MD after 03/29/2018 Social History Tobacco Use Types Packs/Day Years [...] Taken Blood Pressure 130/69 09/25/2018 3:25 PM NURSES SUPERVISOR Pulse 90 09/25/2018 3:25 PM NURSES SUPERVISOR Temperature 36.7 C (98 F) 09/25/2018 3:25 PM NURSES SUPERVISOR Respiratory Rate 18 09/25/2018 3:25 PM NURSES SUPERVISOR Oxygen Saturation 100% 09/25/2018 3:25 PM NURSES SUPERVISOR Inhaled Oxygen Concentration - - Weight - - Height 182.9 cm (6') 09/24/2018 4:00 AM NURSES SUPERVISOR Body Mass Index - - Plan of Treatment Not on file Procedures Procedure Name Priority Date/Time Associated Comments Diagnosis XR CHEST 1 VIEW STAT 09/25/2018 4:07 Results for this PORTABLE/BEDSIDE PM NURSES SUPERVISOR procedure are in the results section. HEMOGLOBIN AND Routine 09/25/2018 12:41 Results for this HEMATOCRIT PM NURSES SUPERVISOR procedure are in the results section. CBC W/PLT COUNT & Routine 09/25/2018 5:14 Results for this AUTO DIFFERENTIAL AM NURSES SUPERVISOR procedure are in the results section. TSH/FREE T4 IF Routine 09/25/2018 5:14 Results for this INDICATED AM NURSES SUPERVISOR procedure are in the results section. CBC W/PLT COUNT & Routine 09/25/2018 5:14 Results for this AUTO DIFFERENTIAL AM NURSES SUPERVISOR procedure are in the results section. MAGNESIUM Routine 09/25/2018 5:14 Results for this AM NURSES SUPERVISOR procedure are in the results section. BASIC METABOLIC PANEL Routine 09/25/2018 5:14 Results for this (7) AM NURSES SUPERVISOR procedure are in the results section. ANAEROBIC CULTURE Routine 09/24/2018 7:59 Results for this PM NURSES SUPERVISOR procedure are in the results section. EAR CULTURE + GRAM Routine 09/24/2018 5:42 Results for this STAIN PM NURSES SUPERVISOR procedure are in the results section. BLOOD CULTURE Routine 09/24/2018 5:51 Results for this AM NURSES SUPERVISOR procedure are in the results section. CBC W/PLT COUNT & Routine 09/24/2018 5:50 Results for this AUTO DIFFERENTIAL AM NURSES SUPERVISOR procedure are in the results section. CBC W/PLT COUNT & Routine 09/24/2018 5:50 Results for this AUTO DIFFERENTIAL AM NURSES SUPERVISOR procedure are in the results section. MAGNESIUM Routine 09/24/2018 5:50 Results for this AM NURSES SUPERVISOR procedure are in the results section. BASIC METABOLIC PANEL Routine 09/24/2018 5:50 Results for this (7) AM NURSES SUPERVISOR procedure are in the results section. after 03/29/2018 Results XR chest 1 view portable / bedside (09/25/2018 4:07 PM NURSES SUPERVISOR) Specimen Narrative Performed At FINAL REPORT [employer] INDICATION: SOB TECHNIQUE: Chest radiograph, single view, portable technique. FINDINGS / IMPRESSION: Heart shadow is prominent and there is suggestion of pulmonary venous congestion. No overt pulmonary edema and no pleural effusion demonstrated. No pneumothorax or consolidation. Calcified plaque in the aortic arch noted. Osseous structures unremarkable. Signed: Fabio Rivera MD Report Verified Date/Time:09/25/2018 16:48:03 Reading Location: [facility] Diagnostic Imaging Reading Room - [place] [address] Procedure Note Interface, External Ris In - 09/25/2018 4:59 PM NURSES SUPERVISOR FINAL REPORT INDICATION: SOB TECHNIQUE: Chest radiograph, single view, portable technique. FINDINGS / IMPRESSION: Heart shadow is prominent and there is suggestion of pulmonary venous congestion. No overt pulmonary edema and no pleural effusion demonstrated. No pneumothorax or consolidation. Calcified plaque in the aortic arch noted. Osseous structures unremarkable. Signed: Fabio Rivera MD Report Verified Date/Time: 09/25/2018 16:48:03 Reading Location: [facility] Diagnostic Imaging Reading Room - [place] [id number] Performing Organization Address City/State/Zipcode Phone Number GE RIS Hemoglobin and hematocrit (09/25/2018 12:41 PM NURSES SUPERVISOR) Hemoglobin 10.4 (L) 13.7 - 17.5 GM/DL [facility] Hematocrit 32.6 (L) 40.1 - 51.0 % [facility] Specimen Blood Performing Organization Address City/[facility]/Zipcode Phone Number [address] [address] [phone] [place] TSH/Free T4 If Indicated (09/25/2018 5:14 AM NURSES SUPERVISOR) TSH 1.57 0.35 - 4.94 uIU/mL [facility] Specimen Blood Performing Organization Address City/[facility] Phone Number [address] [address] [place] CBC with platelet count + automated diff (09/25/2018 5:14 AM NURSES SUPERVISOR)Only the most recent of2 resultswithin the time period is included. WBC 9.3 3.5 - 10.5 K/L [facility] RBC 3.30 (L) 4.63 - 6.08 M/L [facility] Hemoglobin 9.9 (L) 13.7 - 17.5 GM/DL [facility] Hematocrit 30.7 (L) 40.1 - 51.0 % [facility] MCV 93.0 (H) 79.0 - 92.2 fL [facility] MCH 30.0 25.7 - 32.2 pg [facility] MCHC 32.2 (L) 32.3 - 36.5 GM/DL [facility] RDW 15.9 (H) 11.6 - 14.4 % [facility] Platelets 143 (L) 150 - 450 K/CU MM [facility] MPV 10.9 9.4 - 12.4 fL [facility] nRBC 0 0 - 0 /100 WBC [facility] % Neutros 87 % [facility] % Lymphs 6 % [facility] % Monos 5 % [facility] % Eos 0 % [facility] % Baso 0 % [facility] # Neutros 8.10 (H) 1.78 - 5.38 K/L [facility] # Lymphs 0.51 (L) 1.32 - 3.57 K/L [facility] # Monos 0.46 0.30 - 0.82 K/L [facility] # Eos 0.01 (L) 0.04 - 0.54 K/L [facility] # Baso 0.01 0.01 - 0.08 K/L [facility] Immature Granulocytes-Relative 2 (H) 0 - 1 % [facility] Specimen Blood Performing Organization Address City/State/Zipcode Phone Number [address] [address] [phone] CENTER Magnesium (09/25/2018 5:14 AM NURSES SUPERVISOR)Only the most recent of2 resultswithin the time period is included. Magnesium 1.8 1.6 - 2.6 mg/dL [facility] Specimen Blood Performing Organization Address City/State/Zipcode Phone Number [address] [address] CENTER Basic metabolic panel (09/25/2018 5:14 AM NURSES SUPERVISOR)Only the most recent of2 resultswithin the time period is included. Sodium 136 136 - 145 meq/L [facility] Potassium 4.0 3.5 - 5.1 meq/L [facility] Chloride 109 (H) 98 - 107 meq/L [facility] CO2 21 (L) 22 - 29 meq/L [facility] BUN 11 7 - 21 mg/dL [facility] Creatinine 0.70 0.57 - 1.25 mg/dL [facility] Glucose 97 70 - 105 mg/dL [facility] Calcium 8.2 (L) 8.4 - 10.2 mg/dL [facility] EGFR 109Comment: ESTIMATED GFR IS mL/min/1.73 sq m [facility] NOT ACCURATE CREATININE [facility] CLEARANCE IN PREDICTING GLOMERULAR FILTRATION RATE. ESTIMATED GFR IS NOT APPLICABLE FOR DIALYSIS PATIENTS. Specimen Blood Performing Organization Address City/[facility] Phone Number [address] [address] [phone] [place] Anaerobic culture (09/24/2018 7:59 PM NURSES SUPERVISOR) Result No anaerobes isolated [facility] Specimen Wound Performing Organization Address [facility] Phone Number [address] [address] [place] Ear culture + gram stain (09/24/2018 5:42 PM NURSES SUPERVISOR) Result PSEUDOMONAS AERUGINOSA (A) [facility] Gram Stain Result 4+ WBCs [facility] Gram Stain Result No organisms seen [facility] Specimen Ear Organism Antibiotic Method Susceptibility Pseudomonas [...] + Sulfamethoxazole >80: Resistant Performing Organization Address City/[facility] Phone Number [facility] [address] [place] [address] CENTER Blood culture #1 (09/24/2018 5:51 AM NURSES SUPERVISOR) Result No growth in 5 days [facility] Specimen Blood Performing Organization Address [facility]/Zipcode Phone Number [facility] [address] [place] [address] CENTER after 03/29/2018 Insurance Payer Benefit Plan / Group Subscriber ID Type Phone Address MEDICARE MEDICARE A B xxxxxxxxxxx Medicare AETNA - MGD CARE AETNA HMO POS QPOS xxxxxxxxxx HMO/POS HUMANA - MEDICARE MGD HUMANA MEDICARE ADV xxxxxxxxx [facility] Contracted CARE AETNA - [place]GD CARE AETNA SELECT US xxxxxxxxxx HMO/POS ACCESS ([place]) [address] [place] [phone] Advance Directives For more information, please contact:[address] [phone] Code Status Date Activated Date Inactivated Comments Full Code 09/24/2018 4:58 AM This code status was determined by: Patient
--- OUTSIDE RECORDS SUMMARY | 2019-03-30 07:59 | XMS REPORT ---
:1940 Author Organization [facility] Address [address] [place] [address] Dr. Hill [address] [place] [address] Care Team Providers Name Role Phone CARLOS BARBER Unavailable Unavailable Problems This patient has no known problems. Allergies, Adverse Reactions, Alerts This patient has no known allergies or adverse reactions. Medications This patient has no known medications. Results Test Description Test Time Test Comments Text Results Atomic Results Result Comments BLOOD CULTURE 2018-09-29 11:00:00 Test Item Value Reference Range Comments CULTURE (BEAKER) (test yuoe=3990) No growth in 5 days ANAEROBIC [id number] 12:34:00 Test Item Value Reference Range Comments CULTURE (BEAKER) (test ziwe=3794) No anaerobes isolated EAR CULTURE + GRAM [id number] 14:27:00 Test Item Value Reference Range Comments CULTURE (BEAKER) (test PSEUDOMONAS 1+ Pseudomonas nlmz=0922) AERUGINOSA aeruginosa Amikacin (test code=1) Susceptible 0-16 [...] GRAM STAIN RESULT 4+ WBCs (BEAKER) (test hnxv=3983) GRAM STAIN RESULT No organisms seen (BEAKER) (test fnzk=070955) RAD, CHEST, 1 VIEW, NON [id number] 16:48:00Reason for exam:->SOBShould this be performed at [...] [place]ort Verified Date/Time: 09/25/2018 16:48:03 Reading Location: [facility] Diagnostic Imaging Reading Room - [place] [address] HEMOGLOBIN AND [id number] 13:03:00 Test Item Value Reference Range Comments HEMOGLOBIN (BEAKER) (test xjdn=242) 10.4 GM/DL 13.7-17.5 HEMATOCRIT (BEAKER) (test cipx=991) 32.6 % 40.1-51.0 TSH/FREE T4 IF [id number] 06:43:00 Test Item Value Reference Range Comments THYROID STIMULATING HORMONE (BEAKER) (test 1.57 uIU/mL 0.35-4.94 siea=573) [id number] 06:28:00 Test Item Value Reference Range Comments MAGNESIUM (BEAKER) (test gvyd=499) 1.8 mg/dL 1.6-2.6 BASIC METABOLIC [id number] 06:28:00 Test Item Value Reference Range Comments SODIUM (BEAKER) (test 136 meq/L 136-145 uryu=868) POTASSIUM (BEAKER) (test 4.0 meq/L 3.5-5.1 jrst=408) CHLORIDE (BEAKER) (test 109 meq/L 98-107 simw=239) CO2 (BEAKER) (test 21 meq/L 22-29 imhf=994) BLOOD UREA NITROGEN 11 mg/dL 7-21 (BEAKER) (test madj=788) CREATININE (BEAKER) (test 0.70 mg/dL 0.57-1.25 oswv=723) GLUCOSE RANDOM (BEAKER) 97 mg/dL 70-105 (test hlue=279) CALCIUM (BEAKER) (test 8.2 mg/dL 8.4-10.2 jjot=128) EGFR (BEAKER) (test 109 mL/min/1.73 sq m ESTIMATED GFR IS NOT vavu=6998) ACCURATE CREATININE CLEARANCE IN PREDICTING GLOMERULAR FILTRATION RATE. ESTIMATED GFR IS NOT APPLICABLE FOR DIALYSIS PATIENTS. CBC W/PLT COUNT & AUTO [id number] 05:49:00 Test Item Value Reference Range Comments WHITE BLOOD CELL COUNT (BEAKER) (test drsm=542) 9.3 K/ L 3.5-10.5 RED BLOOD CELL COUNT (BEAKER) (test scwv=599) 3.30 M/ L 4.63-6.08 HEMOGLOBIN (BEAKER) (test ijsk=062) 9.9 GM/DL 13.7-17.5 HEMATOCRIT (BEAKER) (test dnal=619) 30.7 % 40.1-51.0 MEAN CORPUSCULAR VOLUME (BEAKER) (test ywnd=454) 93.0 fL 79.0-92.2 MEAN CORPUSCULAR HEMOGLOBIN (BEAKER) (test 30.0 pg 25.7-32.2 qznk=821) MEAN CORPUSCULAR HEMOGLOBIN CONC (BEAKER) (test 32.2 GM/DL 32.3-36.5 trms=184) RED CELL DISTRIBUTION WIDTH (BEAKER) (test 15.9 % 11.6-14.4 lyjz=208) PLATELET COUNT (BEAKER) (test zunk=609) 143 K/CU MM 150-450 MEAN PLATELET VOLUME (BEAKER) (test uhzw=475) 10.9 fL 9.4-12.4 NUCLEATED RED BLOOD CELLS (BEAKER) (test 0 /100 WBC 0-0 wvmp=390) NEUTROPHILS RELATIVE PERCENT (BEAKER) (test 87 % emqi=677) LYMPHOCYTES RELATIVE PERCENT (BEAKER) (test 6 % wbzf=675) MONOCYTES RELATIVE PERCENT (BEAKER) (test 5 % vcvm=271) EOSINOPHILS RELATIVE PERCENT (BEAKER) (test 0 % xgdz=945) BASOPHILS RELATIVE PERCENT (BEAKER) (test 0 % dleu=383) NEUTROPHILS ABSOLUTE COUNT (BEAKER) (test 8.10 K/ L 1.78-5.38 wjfm=997) LYMPHOCYTES ABSOLUTE COUNT (BEAKER) (test 0.51 K/ L 1.32-3.57 ymcu=493) MONOCYTES ABSOLUTE COUNT (BEAKER) (test 0.46 K/ L 0.30-0.82 lkjo=388) EOSINOPHILS ABSOLUTE COUNT (BEAKER) (test 0.01 K/ L 0.04-0.54 rcqu=961) BASOPHILS ABSOLUTE COUNT (BEAKER) (test 0.01 K/ L 0.01-0.08 fxda=324) IMMATURE GRANULOCYTES-RELATIVE PERCENT (BEAKER) 2 % 0-1 (test wvvj=0954) CBC W/PLT COUNT & AUTO [id number] 07:25:00 Test Item Value Reference Range Comments WHITE BLOOD CELL COUNT (BEAKER) (test iovg=266) 11.2 K/ L 3.5-10.5 RED BLOOD CELL COUNT (BEAKER) (test uevw=389) 3.99 M/ L 4.63-6.08 HEMOGLOBIN (BEAKER) (test lvwd=076) 11.8 GM/DL 13.7-17.5 HEMATOCRIT (BEAKER) (test ynsj=750) 36.4 % 40.1-51.0 MEAN CORPUSCULAR VOLUME (BEAKER) (test ylek=846) 91.2 fL 79.0-92.2 MEAN CORPUSCULAR HEMOGLOBIN (BEAKER) (test 29.6 pg 25.7-32.2 pcto=508) MEAN CORPUSCULAR HEMOGLOBIN CONC (BEAKER) (test 32.4 GM/DL 32.3-36.5 pzwe=173) RED CELL DISTRIBUTION WIDTH (BEAKER) (test 16.2 % 11.6-14.4 dooo=820) PLATELET COUNT (BEAKER) (test hmmo=600) 168 K/CU MM 150-450 MEAN PLATELET VOLUME (BEAKER) (test umlm=378) 11.3 fL 9.4-12.4 NUCLEATED RED BLOOD CELLS (BEAKER) (test 0 /100 WBC 0-0 asbe=605) NEUTROPHILS RELATIVE PERCENT (BEAKER) (test 75 % aytw=372) LYMPHOCYTES RELATIVE PERCENT (BEAKER) (test 14 % yjqy=821) MONOCYTES RELATIVE PERCENT (BEAKER) (test 8 % ucqo=939) EOSINOPHILS RELATIVE PERCENT (BEAKER) (test 1 % ygvd=542) BASOPHILS RELATIVE PERCENT (BEAKER) (test 0 % mzvr=503) NEUTROPHILS ABSOLUTE COUNT (BEAKER) (test 8.31 K/ L 1.78-5.38 knxw=945) LYMPHOCYTES ABSOLUTE COUNT (BEAKER) (test 1.54 K/ L 1.32-3.57 xrvt=832) MONOCYTES ABSOLUTE COUNT (BEAKER) (test 0.87 K/ L 0.30-0.82 nqmg=299) EOSINOPHILS ABSOLUTE COUNT (BEAKER) (test 0.09 K/ L 0.04-0.54 iyys=874) BASOPHILS ABSOLUTE COUNT (BEAKER) (test 0.03 K/ L 0.01-0.08 tdxn=760) IMMATURE GRANULOCYTES-RELATIVE PERCENT (BEAKER) 3 % 0-1 (test trng=7250) [id number] 07:11:00 Test Item Value Reference Range Comments MAGNESIUM (BEAKER) (test pwgo=017) 1.9 mg/dL 1.6-2.6 BASIC METABOLIC [id number] 07:11:00 Test Item Value Reference Range Comments SODIUM (BEAKER) (test 136 meq/L 136-145 pnfo=560) POTASSIUM (BEAKER) (test 3.4 meq/L 3.5-5.1 podl=450) CHLORIDE (BEAKER) (test 106 meq/L 98-107 szlp=423) CO2 (BEAKER) (test 23 meq/L 22-29 oqge=335) BLOOD UREA NITROGEN 12 mg/dL 7-21 (BEAKER) (test ceup=617) CREATININE (BEAKER) (test 0.74 mg/dL 0.57-1.25 oqyb=444) GLUCOSE RANDOM (BEAKER) 91 mg/dL 70-105 (test oxtc=570) CALCIUM (BEAKER) (test 8.3 mg/dL 8.4-10.2 cggv=558) EGFR (BEAKER) (test 102 mL/min/1.73 sq m ESTIMATED GFR IS NOT htoz=2324) ACCURATE CREATININE CLEARANCE IN PREDICTING GLOMERULAR FILTRATION RATE. ESTIMATED GFR IS NOT APPLICABLE FOR DIALYSIS PATIENTS.
[2019-03-30 09:33] LABS: Absolute Neutrophil 10.5 K/uL (1.8-8.0); Basophils % 0.4 % (0-1.3); Eosinophils % 1.1 % (0-4.4); Hematocrit 38.7 % (39.6-49.0); Lymphocytes % 7.7 % (15.3-44.8); MPV 8.3 fL (7.6-11.3); Monocytes % 8.1 % (3.3-12.3); Protime INR 1.03; RBC Red Blood Cell Count 4.65 M/uL (4.33-5.43)
[2019-03-30] MEDS ORDERED: NA CHLORIDE 0.9% 1,000 ML ONE (09:36)
[2019-03-30 09:49] LABS: ALT/SGPT 58 U/L (12-78); AST/SGOT 29 U/L (15-37); Albumin 2.7 g/dL (3.4-5.0); Alkaline Phosphatase 100 U/L (45-117); BUN Blood Urea Nitrogen 21 mg/dL (7-18); Bicarbonate 24 mmol/L (21-32); Bilirubin Direct 0.2 mg/dL (0-0.2); Bilirubin Total 0.5 mg/dL (0.2-1.0); CKMB Creatine Kinase MB 2.4 ng/mL (0.3-3.6); Creatine Phosphokinase 29 U/L (39-308); Glucose Level 74 mg/dL (74-106); Lipase 224 U/L (73-393); Protein, Total 5.8 g/dL (6.4-8.2); Sodium Level 133 mmol/L (136-145); Troponin (Emerg Dept Use Only) < 0.02 ng/mL (0.0-0.045)
--- NOTE | 2019-03-30 11:00 | RAD REPORT ---
EXAM DESCRIPTION: RAD - Chest Single View - 03/30/2019 10:06 am CLINICAL HISTORY: Abdominal pain, atrial fibrillation COMPARISON: March 17 TECHNIQUE: AP portable chest image was obtained 1003 hours . FINDINGS: Lung volumes are low. Interstitial markings are prominent appearing similar or even slight ly less pronounced than seen previously. Vasculature is mildly prominent but stable. Cardiac silhouet te is enlarged also seen as stable. Trachea is in the midline. Granulomatous calcifications are prese nt. No measurable pleural effusion and no pneumothorax. No acute bony abnormality seen. No acute aort ic findings suspected. IMPRESSION: Cardiomegaly and prominent lung markings similar to March 17 imaging. Mild failure/ volume overload pattern suspected.
[2019-03-30 11:04] LABS: Urine Blood 2+ (NEG); Urine Glucose NEGATIVE (NEG); Urine Protein 3+ (NEG)
[2019-03-30 11:15] LABS: Urine Amorphous Sediment 2+ /HPF (NONE SEEN); Urine Bacteria >50 /HPF (NONE SEEN); Urine Culture Reflex Order REFLEXED; Urine RBC 20-50 /HPF (NONE SEEN)
--- NOTE | 2019-03-30 11:38 | RAD REPORT ---
EXAM DESCRIPTION: CT - Abdomen Pelvis W Contrast - 03/30/2019 11:09 am CLINICAL HISTORY: Abdominal pain, known hernia COMPARISON: December 2017 CT imaging TECHNIQUE: Biphasic, helical CT imaging of the abdomen and pelvis was performed following 100 ml non -ionic IV contrast. No oral contrast administered. All CT scans are performed using dose optimization technique as appropriate and may include automated exposure control or mA/KV adjustment according to patient size. FINDINGS: Small to moderate bilateral pleural effusions are present only partially imaged. There is partial atelectasis of each lower lobe. No pericardial thickening or effusion. The liver, spleen, and pancreas show no suspicious findings. A least 1 gallstone is identified. No ac mukesh gallbladder or biliary tree abnormality. Symmetric renal function is seen with no hydronephrosis or suspicious renal mass. No pyelonephritis o r acute parenchymal process. Small renal cortical cysts are present. No adrenal abnormalities. No gastric dilatation or wall thickening. No dilated small bowel loop. No free air or pneumatosis. A n enlarged lobulated prostate gland is present pressing into the bladder base. Large amount of stool is present dilating the rectum and distending the distal sigmoid colon. Minimal diverticulosis is pre sent without diverticulitis. The cecum is intraperitoneal in location with normal ileocecal valve. As cending colon extends into a large known right inguinal hernia. The ascending colon loops into the he rnia. Proximal portion of the hernia is fat filled. A very large quantity of fluid fills and dilates the sc rotum. Scrotum is 20 x 20 x 15 cm and extends inferiorly to the mid femur level. No acute urinary chance dder finding. No mass or bulky lymphadenopathy. No pathologic bone process seen. IMPRESSION: The patient has a known large right inguinal hernia. There is now a large quantity of fl uid or hydrocele filling and dilating the scrotum which measures 20 x 20 x 15 cm. Inferior margin of the scrotum is mid femur level. The proximal portion of the right inguinal hernia along the inguinal canal contains the looping ascen ding colon. Cecum is intraperitoneal. Large quantity of stool dilating the rectum and distending the distal sigmoid colon. Cholelithiasis without acute gallbladder finding. No biliary tree or pancreatic abnormality.
--- NOTE | 2019-03-30 11:40 | RAD REPORT ---
EXAM DESCRIPTION: CT - Head Brain Wo Cont - 03/30/2019 11:08 am CLINICAL HISTORY: Abdominal pain, altered mental status, transient alteration of awareness COMPARISON: November [address] TECHNIQUE: Axial 5 mm thick images of the head were obtained without IV contrast. All CT scans are performed using dose optimization technique as appropriate and may include automated exposure control or mA/KV adjustment according to patient size. FINDINGS: No intracranial hemorrhage, mass, edema or shift of mid-line structures. No acute infarcti on changes seen. Moderate atrophy and chronic ischemic changes are present. Arterial tree calcificati ons are present. Ventricles are normal. Bilateral mastoid air cells are fully opacified similar to the comparison. There is mucosal thickenin g in the sphenoid sinus and complete or near complete opacification of the left maxillary sinus. Scle rotic, thickened left maxillary sinus wall noted. Significant mucosal thickening in the right maxilla ry sinus. No acute bony findings. IMPRESSION: Moderate severity atrophy and chronic ischemic change with no acute intracranial finding . Chronic sinusitis. Complete opacification of the bilateral mastoid air cells similar to comparison.
--- NOTE | 2019-03-30 12:35 | EDPHYS ---
Physician Documentation [facility] Name: Gio Matute Age: 79 yrs Sex: Male : 1940 Arrival Date: 03/30/2019 Time: 08:00 Bed 5 Private MD: ED Physician Panda Sanchez HPI: 03/30 08:36 This 79 yrs old Male presents to ER via EMS with complaints of Abdominal Pain. kdr 08:36 The patient presents with abdominal pain abdominal distention in the right lower kdr quadrant, right lower quadrant. Onset: The symptoms/episode began/occurred This has been a nearly chronic problem for some weeks and has intermittently c/o selling and pain to the RLQ. The patient has an existing right inguinal hernia with apparent prolapse of abdominal contents into the right groin. The patiently being treated for a presumptive UTI with unknown abx (possibly macrobid). The symptoms do not radiate. Associated signs and symptoms: none. The patient is blind and nearly deaf. The history was obtained from the family. 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 - Social history:: Smoking status: Patient/guardian denies using tobacco, Patient/guardian denies using alcohol. - Ebola Screening: : Patient negative for fever greater than or equal to 101.5 degrees Fahrenheit, and additional compatible Ebola Virus Disease symptoms Patient denies exposure to infectious person Patient denies travel to an Ebola-affected area in the 21 days before illness onset. ROS: 08:36 Constitutional: Obtained from the family - they deny fever or other realted s/s kdr Cardiovascular: Negative for chest pain, palpitations, and edema, Respiratory: Negative for shortness of breath, cough, wheezing, and pleuritic chest pain, Back: Negative for injury and pain, Skin: Negative for injury, rash, and discoloration. 08:36 Abdomen/GI: Positive for Swelling in the RLQ/groin - the patient was reportedly to have surgery for this but was felt to be too high risk to withstand anesthesia. Exam: 08:36 Constitutional: This is a well developed, well nourished patient who is awake, alert, kdr and in no acute distress. Head/Face: Normocephalic, atraumatic. Chest/axilla: Normal chest wall appearance and motion. Nontender with no deformity. No lesions are appreciated. Cardiovascular: Regular rate and rhythm with a normal S1 and S2. No gallops, murmurs, or rubs. Normal PMI, no JVD. No pulse deficits. Respiratory: Lungs have equal breath sounds bilaterally, clear to auscultation and percussion. No rales, rhonchi or wheezes noted. No increased work of breathing, no retractions or nasal flaring. Abdomen/GI: Soft, non-tender, with normal bowel sounds. No tympany. No guarding or rebound. There is ab obvious right inguinal hernia with prolapse of abdominal contents into the scrotal sack Back: No spinal tenderness. No costovertebral tenderness. Full range of motion. MS/ Extremity: Pulses equal, no cyanosis. Neurovascular intact. Full, normal range of motion. 12:35 Abdomen/GI: Rectal exam: Prostate: normal, rectal tone poor, Stool: brown, fecal kdr impaction, is not appreciated, the exam is chaperoned by the nurse, Soft brown stool. Vital Signs: 08:07 BP 140 / 78; Pulse 105; Resp 20; Temp 97.8(O); Pulse Ox 97% on R/A; Weight 81.65 kg; hj Height 6 ft. 2 in. (187.96 cm); 09:07 BP 112 / 67; Pulse 84; Resp 18; Pulse Ox 98% on R/A; hj 10:22 BP 150 / 80; Pulse 111; Resp 20; Pulse Ox 95% on R/A; hj 11:25 BP 145 / 78; Pulse 93; Resp 18; Pulse Ox 98% on R/A; hj 12:46 BP 133 / 67; Pulse 90; Resp 18; Pulse Ox 100% on R/A; hj 08:07 Body Mass Index 23.11 (81.65 kg, 187.96 cm) MDM: 12:33 Patient medically screened. [facility] 12:35 Data reviewed: vital signs, nurses notes, lab test result(s), radiologic studies. kdr Counseling: I had a detailed discussion with the patient and/or guardian regarding: the historical points, exam findings, and any diagnostic results supporting the discharge/admit diagnosis, lab results, radiology results, the need for outpatient follow up. ED course: Urine obtained was by staff with clean catch. 03/30 08:34 Order name: Basic Metabolic Panel; Complete Time: 10:23 kdr 03/30 08:34 Order name: CBC with Diff; Complete Time: 09:47 kdr 03/30 08:34 Order name: Creatinine for Radiology; Complete Time: 09:47 kdr 03/30 08:34 Order name: Hepatic Function; Complete Time: 10:23 kdr 03/30 08:34 Order name: Lipase; Complete Time: 10:23 kdr 03/30 08:34 Order name: Blood Culture Adult (2) kdr 03/30 08:34 Order name: Ckmb; Complete Time: 10:23 kdr 03/30 08:34 Order name: CPK; Complete Time: 10:23 kdr 03/30 08:34 Order name: Lactate; Complete Time: 09:47 kdr 03/30 08:34 Order name: Procalcitonin; Complete Time: 10:46 kdr 03/30 08:34 Order name: Protime (+inr); Complete Time: 09:47 kdr 03/30 08:34 Order name: Ptt, Activated; Complete Time: 09:47 kdr 03/30 08:34 Order name: Troponin (emerg Dept Use Only); Complete Time: 10:23 kdr 03/30 08:34 Order name: IV Saline Lock; Complete Time: 09:08 kdr 03/30 08:34 Order name: Labs collected and sent; Complete Time: 09:09 kdr 03/30 08:34 Order name: Urine Microscopic Only; Complete Time: 11:20 kdr 03/30 08:34 Order name: Chest Single View XRAY; Complete Time: 11:20 kdr 03/30 08:34 Order name: Accucheck; Complete Time: 09:08 kdr 03/30 08:34 Order name: Cardiac monitoring; Complete Time: 08:38 kdr 03/30 08:34 Order name: EKG - Nurse/Tech; Complete Time: 09:25 kdr 03/30 08:34 Order name: IV Saline Lock - Large Bore; Complete Time: 09:08 kdr 03/30 08:34 Order name: O2 Per Protocol; Complete Time: 08:39 kdr 03/30 08:34 Order name: O2 Sat Monitoring; Complete Time: 08:39 kdr 03/30 08:34 Order name: CT Head Brain wo Cont; Complete Time: 12:04 kdr 03/30 08:34 Order name: CT Abd/Pelvis - W/Contrast; Complete Time: 12:04 kdr 03/30 10:34 Order name: Urine Dipstick--Ancillary (enter results); Complete Time: 11:20 03/30 11:17 Order name: Urine Culture [facility] [place] 03/30 08:34 Order name: Urine Dipstick-Ancillary (obtain specimen); Complete Time: 10:24 kdr Administered Medications: :26 Drug: NS 0.9% (30 ml/kg) 30 ml/kg Route: IV; Rate: bolus; Site: left forearm; 10:19 Follow up: IV Status: Completed infusion; IV Intake: 1000ml ; 1 L NS only per 10:20 Drug: NS 0.9% (30 ml/kg) 30 ml/kg Route: IV; Rate: bolus; Site: left forearm; 12:47 Follow up: IV Status: Completed infusion; IV Intake: 1000ml ; only to infused 1 L NS 12:40 Drug: Rocephin - (cefTRIAXone) 1 grams Route: IVPB; Infused Over: 30 mins; Site: left hj forearm; 12:46 Follow up: IV Status: Completed infusion; IV Intake: 10ml Point of Care Testing: Blood Glucose: 09:00 Blood Glucose: 107 mg/dL; Ranges: Critical Glucose Levels:Adult <50 mg/dl or >400 mg/dl <40 mg/dl or >180 mg/dl Disposition: 03/30/19 12:33 Discharged to Home. Impression: Constipation, Urinary tract infection, site not specified, Inguinal hernia - EStablished. - Condition is Stable. - Discharge Instructions: Urinary Tract Infection, Adult, Constipation, Adult, [id number]. - Prescriptions for Bactrim DS 800- 160 mg Oral Tablet - take 1 tablet by ORAL route every 12 hours for 10 days; 20 tablet. Miralax 17 gram/dose Oral - take 1 packet by ORAL route once daily dilute powder in 8 ounces of water or juice; 2 box. - Medication Reconciliation Form, Thank You Letter, Antibiotic Education form. - Follow up: Private Physician; When: 2 - 3 days; Reason: If symptoms return, Further diagnostic work-up, Recheck today's complaints, Continuance of care, Re-evaluation by your physician. - Problem is an ongoing problem. - Symptoms are unchanged. Signatures: Dispatcher [employer] [facility] [place] Panda Sanchez MD MD kdr Michael Gatica RN RN hj Corrections: (The following items were deleted from the chart) 08:36 08:35 BASIC METABOLIC PANEL+C.LAB.BRZ ordered. [facility] 13:17 12:33 03/30/2019 12:33 Discharged to Home. Impression: Constipation; Urinary tract hj infection, site not specified; Inguinal hernia - EStablished. Condition is Stable. Forms are Medication Reconciliation Form, Thank You Letter, Antibiotic Education, Prescription Opioid Use. Follow up: Private Physician; When: 2 - 3 days; Reason: If symptoms return, Further diagnostic work-up, Recheck today's complaints, Continuance of care, Re-evaluation by your physician. Problem is an ongoing problem. Symptoms are unchanged. kdr
--- NOTE | 2019-03-30 12:35 | ER ---
Nurse's Notes [facility] Name: Gio Matute Age: 79 yrs Sex: Male : 1940 Arrival Date: 03/30/2019 Time: 08:00 Bed 5 Private MD: Diagnosis: Constipation;Urinary tract infection, site not specified;Inguinal hernia-EStablished Presentation: 03/30 08:00 Presenting complaint: EMS states: from home with complaints of abd pain, chronic, due hj to abdominal hernia; per pt, "the hernia is pushing my bladder area", with condom cath in place, new one placed yesterday; denies fever and chills; pt is deaf and blind, with hx of A fib;. Transition of care: patient was not received from another setting of care. Onset of symptoms was March 30, 2019. Risk Assessment: Do you want to hurt yourself or someone else? Patient reports no desire to harm self or others. Initial Sepsis Screen: Does the patient meet any 2 criteria? No. Patient's initial sepsis screen is negative. Does the patient have a suspected source of infection? No. Patient's initial sepsis screen is negative. Care prior to arrival: None. 08:00 Method Of Arrival: EMS: [facility] 08:00 Acuity: MACI 3 hj 08:04 Note BGL- 88; BP- 160/82; O2 nl;. hj Triage Assessment: 08:05 General: Appears in no apparent distress. uncomfortable, Behavior is cooperative, hj appropriate for age. Pain: Complains of pain in abdomen. EENT: Reports blind and hard of hearing. Neuro: Level of Consciousness is awake, alert, obeys commands. Cardiovascular: Capillary refill < 3 seconds Patient's skin is warm and dry. Respiratory: Airway is patent Respiratory effort is even, unlabored, Respiratory pattern is regular, symmetrical. GI: Abdomen is non-distended, Reports upper abdominal pain. : No signs and/or symptoms were reported regarding the genitourinary system. Derm: No signs and/or symptoms reported regarding the dermatologic system. Musculoskeletal: No signs and/or symptoms reported regarding the musculoskeletal system. 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 - Social history:: Smoking status: Patient/guardian denies using tobacco, Patient/guardian denies using alcohol. - Ebola Screening: : Patient negative for fever greater than or equal to 101.5 degrees Fahrenheit, and additional compatible Ebola Virus Disease symptoms Patient denies exposure to infectious person Patient denies travel to an Ebola-affected area in the 21 days before illness onset. Screenin:06 Abuse screen: Denies threats or abuse. Denies injuries from another. Nutritional hj screening: No deficits noted. Tuberculosis screening: No symptoms or risk factors identified. Fall Risk Secondary diagnosis (15 points). Assessment: 08:07 GI: Bowel sounds present X 4 quads. Abdomen is tender to palpation. hj 08:07 Reassessment: see triage for assessment;. hj 09:31 Reassessment: Patient and/or family updated on plan of care and expected duration. Pain hj level reassessed. awaiting urine sample; will assist in getting specimen; will follow up;. 10:37 Reassessment: Patient and/or family updated on plan of care and expected duration. Pain hj level reassessed. wheeled to XRAY and CT;. 11:25 Reassessment: Patient and/or family updated on plan of care and expected duration. Pain hj level reassessed. awaiting results and POC:. 12:54 Reassessment: awaiting for ambulance ride;. hj Vital Signs: 08:07 BP 140 / 78; Pulse 105; Resp 20; Temp 97.8(O); Pulse Ox 97% on R/A; Weight 81.65 kg; hj Height 6 ft. 2 in. (187.96 cm); 09:07 BP 112 / 67; Pulse 84; Resp 18; Pulse Ox 98% on R/A; hj 10:22 BP 150 / 80; Pulse 111; Resp 20; Pulse Ox 95% on R/A; hj 11:25 BP 145 / 78; Pulse 93; Resp 18; Pulse Ox 98% on R/A; hj 12:46 BP 133 / 67; Pulse 90; Resp 18; Pulse Ox 100% on R/A; hj 08:07 Body Mass Index 23.11 (81.65 kg, 187.96 cm) ED Course: 08:00 Patient arrived in ED. hj 08:02 Triage completed. hj 08:06 Arm band placed on right wrist. hj 08:07 Patient has correct armband on for positive identification. Placed in gown. Bed in low hj position. Call light in reach. Side rails up X2. Adult w/ patient. 08:09 Michael Gatica, RN is Primary Nurse. hj 08:20 Panda Sanchez MD is Attending Physician. kdr 08:37 Radiology exam delayed due to lab results not completed at this time. (BUN/Creatinine). 09:00 Initial lab(s) drawn, by nv, sent to lab. First set of blood cultures drawn by me. hj 09:07 Inserted saline lock: 22 gauge in left forearm, using aseptic technique. Blood collected. 09:16 Second set of blood cultures drawn by me. hj 09:20 EKG done, by ED staff, reviewed by Panda Sanchez MD. hj 10:02 X-ray completed. Portable x-ray completed in exam room. Patient tolerated procedure mh1 well. 10:06 Chest Single View XRAY In Process Unspecified. EDMS 10:23 Urine collected: clean catch specimen, cloudy, sofía colored. jb1 11:09 CT Head Brain wo Cont In Process Unspecified. EDMS 11:09 CT Abd/Pelvis - W/Contrast In Process Unspecified. EDMS 12:51 No provider procedures requiring assistance completed. IV discontinued, intact, hj bleeding controlled, No redness/swelling at site. Pressure dressing applied. Administered Medications: 09:26 Drug: NS 0.9% (30 ml/kg) 30 ml/kg Route: IV; Rate: bolus; Site: left forearm; hj 10:19 Follow up: IV Status: Completed infusion; IV Intake: 1000ml ; 1 L NS only per hj 10:20 Drug: NS 0.9% (30 ml/kg) 30 ml/kg Route: IV; Rate: bolus; Site: left forearm; hj 12:47 Follow up: IV Status: Completed infusion; IV Intake: 1000ml ; only to infused 1 L NS hj 12:40 Drug: Rocephin - (cefTRIAXone) 1 grams Route: IVPB; Infused Over: 30 mins; Site: left hj forearm; 12:46 Follow up: IV Status: Completed infusion; IV Intake: 10ml Point of Care Testing: Blood Glucose: 09:00 Blood Glucose: 107 mg/dL; hj Ranges: Intake: 10:19 IV: 1000ml; Total: 1000ml. hj 12:46 IV: 10ml; Total: 1010ml. hj 12:47 IV: 1000ml; Total: 2010ml. hj Outcome: 12:33 Discharge ordered by MD. kdr 12:52 Discharged to home via ambulance, with family. hj 12:52 Condition: stable 12:52 Discharge instructions given to patient, family, Instructed on discharge instructions, follow up and referral plans. medication usage, Demonstrated understanding of instructions, follow-up care, medications, Prescriptions given X 2. 13:17 Patient left the ED. hj Signatures: Dispatcher [employer] EDMS Dav Nunn jb1 Panda Sanchez MD MD kdr Ivonne Soliz 1 Bhargavi Booth Michael Gatica RN RN hj Corrections: (The following items were deleted from the chart) 08:05 08:00 Presenting complaint: EMS states: from home with complaints of abd pain, chronic, hj due to abdominal hernia; per pt, "the hernia is pushing my bladder area", with chirinos cath in place, inserted yesterday; denies fever and chills; pt is deaf and blind, with hx of A fib; hj
[2019-03-30] MEDS ORDERED: CEFTRIAXONE/SWI 1gm 1 GM/10 ML SYR ONE (12:48)
[2019-03-30 13:24] VITALS: TEMP 97.8
[2019-03-30 13:29] VITALS: BP 133/67; O2SAT 100
--- NOTE | 2019-04-01 08:01 | EKG ---
Test Date: 2019-03-30 Test Time: 09:15:43 Director Payment: FRANCY MEASUREMENT RESULTS: Intervals: Rate: 88 AK: QRSD: 76 QT: 342 QTc: 413 Lewis: P: AK: QRS: 88 T: 101 INTERPRETIVE STATEMENTS: Atrial fibrillation Nonspecific ST abnormality Abnormal ECG Compared to ECG 03/17/2019 04:44:53 ST (T wave) deviation now present Right-axis deviation no longer present Electronically Signed On 04-01-19 07:57:34 CDT by Jamir Marie
== END 2019-03-30 13:17 | disposition home or self-care (01) ==
LOC: ER 07:56
DX: K59.00 Constipation, unspecified (principal); N39.0 Urinary tract infection, site not specified; K40.90 Unilateral inguinal hernia, without obstruction or gangrene, not specified as recurrent; I10 Essential (primary) hypertension; E11.9 Type 2 diabetes mellitus without complications; I48.91 Unspecified atrial fibrillation; J44.9 Chronic obstructive pulmonary disease, unspecified; I50.9 Heart failure, unspecified; Z88.5 Allergy status to narcotic agent; Z88.8 Allergy status to other drugs, medicaments and biological substances
CPT/HCPCS: 96365; 93005; 87040 ×2; 87088; 85025; 87086; 80048; 36415; 82550; 85610; 82962; 80076; 83605; 85730; 87077; 87186; 84484; 82553; 83690; 84145; 70450; 74177; 71045; 96375; 99284; Q9967; J0696; J7030; 81003; 81015

== ENCOUNTER 2019-06-15 18:35 | Emergency (ER) | payer OTHER ==
--- OUTSIDE RECORDS SUMMARY | 2019-06-15 18:38 | XMS REPORT ---
:1940 [facility] Address [address] [place] [address] Dr. [address] [place] [id number] Care Team Providers Name Role Phone CARLOS BARBER Unavailable Unavailable Problems This patient has no known problems. Allergies, Adverse Reactions, Alerts This patient has no known allergies or adverse reactions. Medications This patient has no known medications. Results Test Description Test Time Test Comments Text Results Atomic Results Result Comments BLOOD CULTURE 2018-09-29 11:00:00 Test Item Value Reference Range Comments CULTURE (BEAKER) (test yntp=4375) No growth in 5 days ANAEROBIC [id number] 12:34:00 Test Item Value Reference Range Comments CULTURE (BEAKER) (test fhdx=8654) No anaerobes isolated EAR CULTURE + GRAM [id number] 14:27:00 Test Item Value Reference Range Comments CULTURE (BEAKER) (test PSEUDOMONAS 1+ Pseudomonas mixj=9356) AERUGINOSA aeruginosa Amikacin (test code=1) Susceptible 0-16 [...] GRAM STAIN RESULT 4+ WBCs (BEAKER) (test zyyb=7539) GRAM STAIN RESULT No organisms seen (BEAKER) (test iqyj=175261) RAD, CHEST, 1 VIEW, NON [id number] 16:48:00Reason for exam:->SOBShould this be performed at [...] [place] Verified Date/Time: 09/25/2018 16:48:03 Reading Location: [facility] Diagnostic Imaging Reading Room - [place] [address] HEMOGLOBIN AND [id number] 13:03:00 Test Item Value Reference Range Comments HEMOGLOBIN (BEAKER) (test ixno=088) 10.4 GM/DL 13.7-17.5 HEMATOCRIT (BEAKER) (test drdm=142) 32.6 % 40.1-51.0 TSH/FREE T4 IF [id number] 06:43:00 Test Item Value Reference Range Comments THYROID STIMULATING HORMONE (BEAKER) (test 1.57 uIU/mL 0.35-4.94 usiu=136) [id number] 06:28:00 Test Item Value Reference Range Comments MAGNESIUM (BEAKER) (test ebgc=525) 1.8 mg/dL 1.6-2.6 BASIC METABOLIC [id number] 06:28:00 Test Item Value Reference Range Comments SODIUM (BEAKER) (test 136 meq/L 136-145 onai=823) POTASSIUM (BEAKER) (test 4.0 meq/L 3.5-5.1 tqvd=834) CHLORIDE (BEAKER) (test 109 meq/L 98-107 cfyp=437) CO2 (BEAKER) (test 21 meq/L 22-29 fkux=263) BLOOD UREA NITROGEN 11 mg/dL 7-21 (BEAKER) (test izvs=371) CREATININE (BEAKER) (test 0.70 mg/dL 0.57-1.25 vmvc=635) GLUCOSE RANDOM (BEAKER) 97 mg/dL 70-105 (test pgpo=826) CALCIUM (BEAKER) (test 8.2 mg/dL 8.4-10.2 okix=063) EGFR (BEAKER) (test 109 mL/min/1.73 sq m ESTIMATED GFR IS NOT jdqh=4001) ACCURATE CREATININE CLEARANCE IN PREDICTING GLOMERULAR FILTRATION RATE. ESTIMATED GFR IS NOT APPLICABLE FOR DIALYSIS PATIENTS. CBC W/PLT COUNT & AUTO [id number] 05:49:00 Test Item Value Reference Range Comments WHITE BLOOD CELL COUNT (BEAKER) (test myqh=474) 9.3 K/ L 3.5-10.5 RED BLOOD CELL COUNT (BEAKER) (test dxhj=905) 3.30 M/ L 4.63-6.08 HEMOGLOBIN (BEAKER) (test gfbr=518) 9.9 GM/DL 13.7-17.5 HEMATOCRIT (BEAKER) (test ojkr=992) 30.7 % 40.1-51.0 MEAN CORPUSCULAR VOLUME (BEAKER) (test lfic=692) 93.0 fL 79.0-92.2 MEAN CORPUSCULAR HEMOGLOBIN (BEAKER) (test 30.0 pg 25.7-32.2 ytts=005) MEAN CORPUSCULAR HEMOGLOBIN CONC (BEAKER) (test 32.2 GM/DL 32.3-36.5 yreh=029) RED CELL DISTRIBUTION WIDTH (BEAKER) (test 15.9 % 11.6-14.4 dokr=709) PLATELET COUNT (BEAKER) (test ponu=209) 143 K/CU MM 150-450 MEAN PLATELET VOLUME (BEAKER) (test jiir=716) 10.9 fL 9.4-12.4 NUCLEATED RED BLOOD CELLS (BEAKER) (test 0 /100 WBC 0-0 qzzo=479) NEUTROPHILS RELATIVE PERCENT (BEAKER) (test 87 % nlyh=219) LYMPHOCYTES RELATIVE PERCENT (BEAKER) (test 6 % susi=566) MONOCYTES RELATIVE PERCENT (BEAKER) (test 5 % ctrt=769) EOSINOPHILS RELATIVE PERCENT (BEAKER) (test 0 % xeud=351) BASOPHILS RELATIVE PERCENT (BEAKER) (test 0 % cwmo=707) NEUTROPHILS ABSOLUTE COUNT (BEAKER) (test 8.10 K/ L 1.78-5.38 onnl=124) LYMPHOCYTES ABSOLUTE COUNT (BEAKER) (test 0.51 K/ L 1.32-3.57 xckd=735) MONOCYTES ABSOLUTE COUNT (BEAKER) (test 0.46 K/ L 0.30-0.82 pfvw=914) EOSINOPHILS ABSOLUTE COUNT (BEAKER) (test 0.01 K/ L 0.04-0.54 rwqb=525) BASOPHILS ABSOLUTE COUNT (BEAKER) (test 0.01 K/ L 0.01-0.08 gawv=369) IMMATURE GRANULOCYTES-RELATIVE PERCENT (BEAKER) 2 % 0-1 (test jove=9082) CBC W/PLT COUNT & AUTO [id number] 07:25:00 Test Item Value Reference Range Comments WHITE BLOOD CELL COUNT (BEAKER) (test etpe=799) 11.2 K/ L 3.5-10.5 RED BLOOD CELL COUNT (BEAKER) (test zepi=451) 3.99 M/ L 4.63-6.08 HEMOGLOBIN (BEAKER) (test vviy=768) 11.8 GM/DL 13.7-17.5 HEMATOCRIT (BEAKER) (test jzrq=290) 36.4 % 40.1-51.0 MEAN CORPUSCULAR VOLUME (BEAKER) (test rzli=225) 91.2 fL 79.0-92.2 MEAN CORPUSCULAR HEMOGLOBIN (BEAKER) (test 29.6 pg 25.7-32.2 rizc=660) MEAN CORPUSCULAR HEMOGLOBIN CONC (BEAKER) (test 32.4 GM/DL 32.3-36.5 dbry=011) RED CELL DISTRIBUTION WIDTH (BEAKER) (test 16.2 % 11.6-14.4 vanp=531) PLATELET COUNT (BEAKER) (test uhbz=156) 168 K/CU MM 150-450 MEAN PLATELET VOLUME (BEAKER) (test sczf=629) 11.3 fL 9.4-12.4 NUCLEATED RED BLOOD CELLS (BEAKER) (test 0 /100 WBC 0-0 laio=122) NEUTROPHILS RELATIVE PERCENT (BEAKER) (test 75 % xgdb=778) LYMPHOCYTES RELATIVE PERCENT (BEAKER) (test 14 % olej=978) MONOCYTES RELATIVE PERCENT (BEAKER) (test 8 % qkbi=452) EOSINOPHILS RELATIVE PERCENT (BEAKER) (test 1 % zgmr=810) BASOPHILS RELATIVE PERCENT (BEAKER) (test 0 % rohh=269) NEUTROPHILS ABSOLUTE COUNT (BEAKER) (test 8.31 K/ L 1.78-5.38 oasn=031) LYMPHOCYTES ABSOLUTE COUNT (BEAKER) (test 1.54 K/ L 1.32-3.57 xubc=150) MONOCYTES ABSOLUTE COUNT (BEAKER) (test 0.87 K/ L 0.30-0.82 xgna=339) EOSINOPHILS ABSOLUTE COUNT (BEAKER) (test 0.09 K/ L 0.04-0.54 iccv=881) BASOPHILS ABSOLUTE COUNT (BEAKER) (test 0.03 K/ L 0.01-0.08 qkzz=116) IMMATURE GRANULOCYTES-RELATIVE PERCENT (BEAKER) 3 % 0-1 (test odfw=9999) [id number] 07:11:00 Test Item Value Reference Range Comments MAGNESIUM (BEAKER) (test nbzx=574) 1.9 mg/dL 1.6-2.6 BASIC METABOLIC [id number] 07:11:00 Test Item Value Reference Range Comments SODIUM (BEAKER) (test 136 meq/L 136-145 myli=810) POTASSIUM (BEAKER) (test 3.4 meq/L 3.5-5.1 jzcd=562) CHLORIDE (BEAKER) (test 106 meq/L 98-107 jjsv=150) CO2 (BEAKER) (test 23 meq/L 22-29 syai=713) BLOOD UREA NITROGEN 12 mg/dL 7-21 (BEAKER) (test toet=351) CREATININE (BEAKER) (test 0.74 mg/dL 0.57-1.25 xpfx=838) GLUCOSE RANDOM (BEAKER) 91 mg/dL 70-105 (test fuju=162) CALCIUM (BEAKER) (test 8.3 mg/dL 8.4-10.2 kaml=232) EGFR (BEAKER) (test 102 mL/min/1.73 sq m ESTIMATED GFR IS NOT uwkm=8429) ACCURATE CREATININE CLEARANCE IN PREDICTING GLOMERULAR FILTRATION RATE. ESTIMATED GFR IS NOT APPLICABLE FOR DIALYSIS PATIENTS.
--- OUTSIDE RECORDS SUMMARY | 2019-06-15 18:38 | XMS REPORT | Clinical Summary ---
:1940 Author Organization [facility] Address [address] [place] [address] Care Team Providers Name Role Phone Asked, [...] mouth 0 Active ORAL daily. vitamin A 16940 UNIT Take 25,000 Units 0 Active capsule [...] VACCINE (1 of 2 - PCV13) 2003 INFLUENZA VACCINE 06/05/2019 Results Not on fileafter 06/14/2018 Insurance Payer Benefit Plan / Subscriber ID Effective Dates Phone Address Type Group MEDICARE MEDICARE PART A AND xxxxxxxxxxx 2003-[place], [place] Medicare B t MEDICARE MEDICARE PART A AND xxxxxxxxxxx 2003-[place], [place] Medicare B t AETNA AETNA HMO,POS,EPO, xxxxxxxxxx 2003-[facility] HMO MC/EC t AETNA AETNA [employer] xxxxxxxxxx 2003-[facility] Indemnity INDEMNITY t [address] [place] [address] Advance Directives Patient has advance care planning documents on file. For more information, please contact:[place] [address]
--- OUTSIDE RECORDS SUMMARY | 2019-06-15 18:38 | XMS REPORT | Clinical Summary ---
:1940 Author Organization [facility] Address [address] [place] [address] Care Team Providers Name Role Phone Jakob [...] Tracy Alok, MD Zindani, Shireen, MD after 06/14/2018 Social History Tobacco Use Types Packs/Day Years [...] Taken Blood Pressure 130/69 09/25/2018 3:25 PM EXCEPTIONAL CHILDREN TEACHER ASSISTANT Pulse 90 09/25/2018 3:25 PM EXCEPTIONAL CHILDREN TEACHER ASSISTANT Temperature 36.7 C (98 F) 09/25/2018 3:25 PM EXCEPTIONAL CHILDREN TEACHER ASSISTANT Respiratory Rate 18 09/25/2018 3:25 PM EXCEPTIONAL CHILDREN TEACHER ASSISTANT Oxygen Saturation 100% 09/25/2018 3:25 PM EXCEPTIONAL CHILDREN TEACHER ASSISTANT Inhaled Oxygen Concentration - - Weight - - Height 182.9 cm (6') 09/24/2018 4:00 AM EXCEPTIONAL CHILDREN TEACHER ASSISTANT Body Mass Index - - Plan of Treatment Not on file Procedures Procedure Name Priority Date/Time Associated Comments Diagnosis XR CHEST 1 VIEW STAT 09/25/2018 4:07 Results for this PORTABLE/BEDSIDE PM EXCEPTIONAL CHILDREN TEACHER ASSISTANT procedure are in the results section. HEMOGLOBIN AND Routine 09/25/2018 12:41 Results for this HEMATOCRIT PM EXCEPTIONAL CHILDREN TEACHER ASSISTANT procedure are in the results section. CBC W/PLT COUNT & Routine 09/25/2018 5:14 Results for this AUTO DIFFERENTIAL AM EXCEPTIONAL CHILDREN TEACHER ASSISTANT procedure are in the results section. TSH/FREE T4 IF Routine 09/25/2018 5:14 Results for this INDICATED AM EXCEPTIONAL CHILDREN TEACHER ASSISTANT procedure are in the results section. CBC W/PLT COUNT & Routine 09/25/2018 5:14 Results for this AUTO DIFFERENTIAL AM EXCEPTIONAL CHILDREN TEACHER ASSISTANT procedure are in the results section. MAGNESIUM Routine 09/25/2018 5:14 Results for this AM EXCEPTIONAL CHILDREN TEACHER ASSISTANT procedure are in the results section. BASIC METABOLIC PANEL Routine 09/25/2018 5:14 Results for this (7) AM EXCEPTIONAL CHILDREN TEACHER ASSISTANT procedure are in the results section. ANAEROBIC CULTURE Routine 09/24/2018 7:59 Results for this PM EXCEPTIONAL CHILDREN TEACHER ASSISTANT procedure are in the results section. EAR CULTURE + GRAM Routine 09/24/2018 5:42 Results for this STAIN PM EXCEPTIONAL CHILDREN TEACHER ASSISTANT procedure are in the results section. BLOOD CULTURE Routine 09/24/2018 5:51 Results for this AM EXCEPTIONAL CHILDREN TEACHER ASSISTANT procedure are in the results section. CBC W/PLT COUNT & Routine 09/24/2018 5:50 Results for this AUTO DIFFERENTIAL AM EXCEPTIONAL CHILDREN TEACHER ASSISTANT procedure are in the results section. CBC W/PLT COUNT & Routine 09/24/2018 5:50 Results for this AUTO DIFFERENTIAL AM EXCEPTIONAL CHILDREN TEACHER ASSISTANT procedure are in the results section. MAGNESIUM Routine 09/24/2018 5:50 Results for this AM EXCEPTIONAL CHILDREN TEACHER ASSISTANT procedure are in the results section. BASIC METABOLIC PANEL Routine 09/24/2018 5:50 Results for this (7) AM EXCEPTIONAL CHILDREN TEACHER ASSISTANT procedure are in the results section. after 06/14/2018 Results XR chest 1 view portable / bedside (09/25/2018 4:07 PM EXCEPTIONAL CHILDREN TEACHER ASSISTANT) Specimen Narrative Performed At FINAL REPORT [facility] INDICATION: SOB TECHNIQUE: Chest radiograph, single view, portable technique. FINDINGS / IMPRESSION: Heart shadow is prominent and there is suggestion of pulmonary venous congestion. No overt pulmonary edema and no pleural effusion demonstrated. No pneumothorax or consolidation. Calcified plaque in the aortic arch noted. Osseous structures unremarkable. Signed: Fabio Rivera MD Report Verified Date/Time:09/25/2018 16:48:03 Reading Location: [facility] Diagnostic Imaging Reading Room - [place] [id number] Procedure Note Interface, External Ris In - 09/25/2018 4:59 PM EXCEPTIONAL CHILDREN TEACHER ASSISTANT FINAL REPORT INDICATION: SOB TECHNIQUE: Chest radiograph, single view, portable technique. FINDINGS / IMPRESSION: Heart shadow is prominent and there is suggestion of pulmonary venous congestion. No overt pulmonary edema and no pleural effusion demonstrated. No pneumothorax or consolidation. Calcified plaque in the aortic arch noted. Osseous structures unremarkable. Signed: Fabio Rivera MD Report Verified Date/Time: 09/25/2018 16:48:03 Reading Location: [facility] Diagnostic Imaging Reading Room - [place] [id number] Performing Organization Address City/State/Zipcode Phone Number RIS Hemoglobin and hematocrit (09/25/2018 12:41 PM EXCEPTIONAL CHILDREN TEACHER ASSISTANT) Hemoglobin 10.4 (L) 13.7 - 17.5 GM/DL [facility] Hematocrit 32.6 (L) 40.1 - 51.0 % [facility] Specimen Blood Performing Organization Address City/[facility]/Zipcode Phone Number [address] [address] [place] TSH/Free T4 If Indicated (09/25/2018 5:14 AM EXCEPTIONAL CHILDREN TEACHER ASSISTANT) TSH 1.57 0.35 - 4.94 uIU/mL [facility] Specimen Blood Performing Organization Address City/[facility] Phone Number [address] [phone] [place] CBC with platelet count + automated diff (09/25/2018 5:14 AM EXCEPTIONAL CHILDREN TEACHER ASSISTANT)Only the most recent of2 resultswithin the time period is included. WBC 9.3 3.5 - 10.5 K/L [facility] RBC 3.30 (L) 4.63 - 6.08 M/L [facility] Hemoglobin 9.9 (L) 13.7 - 17.5 GM/DL [facility] Hematocrit 30.7 (L) 40.1 - 51.0 % [facility] MCV 93.0 (H) 79.0 - 92.2 fL [facility] MCH 30.0 25.7 - 32.2 pg [facility] MCHC 32.2 (L) 32.3 - 36.5 GM/DL [facility] RDW 15.9 (H) 11.6 - 14.4 % [facility] Platelets 143 (L) 150 - 450 K/CU MM [facility] MPV 10.9 9.4 - 12.4 fL [facility] nRBC 0 0 - 0 /100 WBC [facility] % Neutros 87 % [facility] % Lymphs 6 % [facility] % Monos 5 % [facility] % Eos 0 % [facility] % Baso 0 % [facility] # Neutros 8.10 (H) 1.78 - 5.38 K/L [facility] # Lymphs 0.51 (L) 1.32 - 3.57 K/L [facility] # Monos 0.46 0.30 - 0.82 K/L [facility] # Eos 0.01 (L) 0.04 - 0.54 K/L [facility] # Baso 0.01 0.01 - 0.08 K/L [facility] Immature Granulocytes-Relative 2 (H) 0 - 1 % [facility] Specimen Blood Performing Organization Address City/State/Zipcode Phone Number [address] [address] CENTER Magnesium (09/25/2018 5:14 AM EXCEPTIONAL CHILDREN TEACHER ASSISTANT)Only the most recent of2 resultswithin the time period is included. Magnesium 1.8 1.6 - 2.6 mg/dL [facility] Specimen Blood Performing Organization Address City/State/Zipcode Phone Number [address] [address] [phone] CENTER Basic metabolic panel (09/25/2018 5:14 AM EXCEPTIONAL CHILDREN TEACHER ASSISTANT)Only the most recent of2 resultswithin the time period is included. Sodium 136 136 - 145 meq/L [facility] Potassium 4.0 3.5 - 5.1 meq/L [facility] Chloride 109 (H) 98 - 107 meq/L [facility] CO2 21 (L) 22 - 29 meq/L [facility] BUN 11 7 - 21 mg/dL [facility] Creatinine 0.70 0.57 - 1.25 mg/dL [facility] Glucose 97 70 - 105 mg/dL [facility] Calcium 8.2 (L) 8.4 - 10.2 mg/dL [facility] EGFR 109Comment: ESTIMATED GFR IS mL/min/1.73 sq m [facility] NOT ACCURATE CREATININE [facility] CLEARANCE IN PREDICTING GLOMERULAR FILTRATION RATE. ESTIMATED GFR IS NOT APPLICABLE FOR DIALYSIS PATIENTS. Specimen Blood Performing Organization Address City/[facility] Phone Number [address] [address] [phone] [place] Anaerobic culture (09/24/2018 7:59 PM EXCEPTIONAL CHILDREN TEACHER ASSISTANT) Result No anaerobes isolated [facility] Specimen Wound Performing Organization Address [facility] Phone Number [facility] [address] [place] [phone] [place] Ear culture + gram stain (09/24/2018 5:42 PM EXCEPTIONAL CHILDREN TEACHER ASSISTANT) Result 1+ Pseudomonas aeruginosa (A) [facility] Gram Stain Result 4+ WBCs [facility] Gram Stain Result No organisms seen [facility] Specimen Ear Organism Antibiotic Method Susceptibility Pseudomonas [...] + Sulfamethoxazole >80: Resistant Performing Organization Address [facility]/Zipcode Phone Number [facility] [address], [place] [phone] CENTER Blood culture #1 (09/24/2018 5:51 AM EXCEPTIONAL CHILDREN TEACHER ASSISTANT) Result No growth in 5 days [facility] Specimen Blood Performing Organization Address [facility] Phone Number [facility] [address], [place] [phone] CENTER after 06/14/2018 Insurance Payer Benefit Plan / Group Subscriber ID Type Phone Address MEDICARE MEDICARE A B xxxxxxxxxxx Medicare AETNA - MGD CARE AETNA HMO POS QPOS xxxxxxxxxx HMO/POS HUMANA - MEDICARE MGD HUMANA MEDICARE ADV xxxxxxxxx [facility] Contracted CARE AETNA - [place] CARE AETNA SELECT US xxxxxxxxxx HMO/POS ACCESS ([place] [place] [phone] Advance Directives For more information, please contact:[address] [phone] Code Status Date Activated Date Inactivated Comments Full Code 09/24/2018 4:58 AM This code status was determined by: Patient
[2019-06-15 19:48] LABS: Absolute Lymphocytes (CBC) 0.9 K/uL (0.7-4.9); Basophils % 0.2 % (0-1.3); Hematocrit 38.6 % (39.6-49.0); Lymphocytes % 6.2 % (15.3-44.8); MPV 8.8 fL (7.6-11.3); RBC Red Blood Cell Count 4.61 M/uL (4.33-5.43)
[2019-06-15 20:08] LABS: ALT/SGPT 29 U/L (12-78); AST/SGOT 36 U/L (15-37); Albumin 2.5 g/dL (3.4-5.0); Alkaline Phosphatase 98 U/L (45-117); BUN Blood Urea Nitrogen 8 mg/dL (7-18); Bicarbonate 24 mmol/L (21-32); Bilirubin Direct < 0.1 mg/dL (0-0.2); Bilirubin Total 0.5 mg/dL (0.2-1.0); Glucose Level 125 mg/dL (74-106); Potassium 4.4 mmol/L (3.5-5.1); Protein, Total 5.8 g/dL (6.4-8.2); Sodium Level 130 mmol/L (136-145)
[2019-06-15 20:32] LABS: Blood Morphology Comment NOTED (NOT SEEN); Platelet Estimate ADEQ; Urine White Blood Cell Casts OK
[2019-06-15 20:33] LABS: Poikilocytosis 1+
[2019-06-15] MEDS ORDERED: CEFTRIAXONE/SWI 1gm 1 GM/10 ML SYR ONE (21:25)
[2019-06-15 21:26] LABS: Urine Bacteria 20-50 /HPF (NONE SEEN); Urine Culture Reflex Order REFLEXED
[2019-06-15 21:27] LABS: Urine Blood 1+ (NEG); Urine Glucose NEGATIVE (NEG); Urine Protein 2+ (NEG); Urine Specific Gravity 1.005 (1.005-1.030); Urine pH 6.5 (5.0-7.0)
--- NOTE | 2019-06-15 22:02 | EDPHYS ---
Physician Documentation [facility] Name: Gio Matute Age: 79 yrs Sex: Male : 1940 Arrival Date: 06/15/2019 Time: 18:38 Bed 7 Private MD: ED Physician Gasper Plummer HPI: 06/15 19:10 This 79 yrs old Male presents to ER via EMS with complaints of Pain All Over. pm1 19:10 Patient with complaints of pain all over. Family reports that when he usually has this pm1 symptom he has a urinary tract infection. Patient uses condom catheter. Onset: The symptoms/episode began/occurred today. Severity of symptoms: in the emergency department the symptoms are worse. The patient has experienced similar episodes in the past, multiple times. The patient has not recently seen a physician, the patient's primary care provider is Dr. Robert. 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 - Social history:: Smoking status: unknown. - Ebola Screening: : No symptoms or risks identified at this time. ROS: 19:10 Constitutional: Negative for fever, chills, and weight loss, Eyes: Negative for injury, pm1 pain, redness, and discharge, ENT: Negative for injury, pain, and discharge, Neck: Negative for injury, pain, and swelling, Cardiovascular: Negative for chest pain, palpitations, and edema, Respiratory: Negative for shortness of breath, cough, wheezing, and pleuritic chest pain, Abdomen/GI: Negative for abdominal pain, nausea, vomiting, diarrhea, and constipation, Back: Negative for injury and pain, : Negative for injury, bleeding, discharge, and swelling, MS/Extremity: Negative for injury and deformity, Skin: Negative for injury, rash, and discoloration, Neuro: Negative for headache, weakness, numbness, tingling, and seizure. Exam: 19:10 Constitutional: This is a well developed, well nourished patient who is awake, alert, pm1 and in no acute distress. Head/Face: Normocephalic, atraumatic. Neck: Trachea midline, no thyromegaly or masses palpated, and no cervical lymphadenopathy. Supple, full range of motion without nuchal rigidity, or vertebral point tenderness. No Meningismus. Chest/axilla: Normal chest wall appearance and motion. Nontender with no deformity. No lesions are appreciated. Cardiovascular: Regular rate and rhythm with a normal S1 and S2. No gallops, murmurs, or rubs. Normal PMI, no JVD. No pulse deficits. Respiratory: Lungs have equal breath sounds bilaterally, clear to auscultation and percussion. No rales, rhonchi or wheezes noted. No increased work of breathing, no retractions or nasal flaring. Abdomen/GI: Soft, non-tender, with normal bowel sounds. No distension or tympany. No guarding or rebound. No evidence of tenderness throughout. Back: No spinal tenderness. No costovertebral tenderness. Full range of motion. Skin: Warm, dry with normal turgor. Normal color with no rashes, no lesions, and no evidence of cellulitis. MS/ Extremity: Pulses equal, no cyanosis. Neurovascular intact. Full, normal range of motion. Vital Signs: 18:40 BP 165 / 95; Pulse 84; Resp 18 S; Temp 98.3(TE); Pulse Ox 100% on R/A; aa5 21:07 BP 146 / 86; Pulse 70; Resp 16; Temp 97.0(TE); Pulse Ox 100% on R/A; Pain 0/10; ss MDM: 18:41 Patient medically screened. chaz 22:01 Data reviewed: vital signs. Data interpreted: Pulse oximetry: on room air is 100 %. pm1 Interpretation: normal. Counseling: I had a detailed discussion with the patient and/or guardian regarding: the historical points, exam findings, and any diagnostic results supporting the discharge/admit diagnosis, lab results, the need for outpatient follow up, to return to the emergency department if symptoms worsen or persist or if there are any questions or concerns that arise at home. 06/15 19:10 Order name: Urine Microscopic Only; Complete Time: 22:09 pm1 06/15 19:10 Order name: CBC with Diff; Complete Time: 21:16 pm1 06/15 19:10 Order name: Basic Metabolic Panel; Complete Time: 20:22 pm1 06/15 19:10 Order name: Hepatic Function; Complete Time: 20:22 pm1 06/15 19:59 Order name: CBC Smear Scan; Complete Time: 21:16 EDMS 06/15 21:17 Order name: Urine Dipstick--Ancillary (enter results); Complete Time: 22:09 lt1 06/15 19:10 Order name: Urine Dipstick-Ancillary (obtain specimen); Complete Time: 21:13 pm1 06/15 19:10 Order name: IV Saline Lock; Complete Time: 19:38 pm1 06/15 19:10 Order name: Labs collected and sent; Complete Time: 19:38 pm1 06/15 21:32 Order name: Urine Culture EDUT Administered Medications: 21:28 Drug: Rocephin 1 grams Route: IV; Rate: calculated rate; Site: left forearm; ss 21:30 Follow up: IV Status: Completed infusion ss Disposition: 06/16 09:35 Co-signature as Attending Physician, Gasper Plummer MD I agree with the assessment and chaz plan of care. Disposition: 06/15/19 22:01 Discharged to Home. Impression: Urinary tract infection, site not specified. - Condition is Stable. - Discharge Instructions: Urinary Tract Infection, Adult. - Prescriptions for cefpodoxime 200 mg Oral Tablet - take 1 tablet by ORAL route every 12 hours for 7 days with food; 14 tablet. - Medication Reconciliation Form, Thank You Letter, Antibiotic Education, Prescription Opioid Use form. - Follow up: Emergency Department; When: As needed; Reason: Worsening of condition. Follow up: Private Physician; When: 2 - 3 days; Reason: Recheck today's complaints, Continuance of care, Re-evaluation by your physician. - Problem is new. - Symptoms have improved. Signatures: Dispatcher [facility] EDUT Gasper Plummer MD MD cha Calderon, Audri RN RN aa5 Brooke Garcia RN RN ss Messi Shook, KADIE PULP SCREEN OPERATOR pm1 Corrections: (The following items were deleted from the chart) 00:29 06/15 22:01 06/15/2019 22:01 Discharged to Home. Impression: Urinary tract infection, ss site not specified. Condition is Stable. Forms are Medication Reconciliation Form, Thank You Letter, Antibiotic Education, Prescription Opioid Use. Follow up: Emergency Department; When: As needed; Reason: Worsening of condition. Follow up: Private Physician; When: 2 - 3 days; Reason: Recheck today's complaints, Continuance of care, Re-evaluation by your physician. Problem is new. Symptoms have improved. pm1
--- NOTE | 2019-06-15 22:02 | ER ---
Nurse's Notes [facility] Name: Gio Matute Age: 79 yrs Sex: Male : 1940 Arrival Date: 06/15/2019 Time: 18:38 Bed 7 Private MD: Diagnosis: Urinary tract infection, site not specified Presentation: 06/15 18:38 Presenting complaint: EMS states: "the family reports that pt's pain is flaring up and aa5 they were concerned because he is hurting more than normal". 18:38 Transition of care: patient was not received from another setting of care. Onset of aa5 symptoms was June 15, 2019. Risk Assessment: Do you want to hurt yourself or someone else? Unable to obtain. Initial Sepsis Screen: Does the patient meet any 2 criteria? No. Patient's initial sepsis screen is negative. Does the patient have a suspected source of infection? No. Patient's initial sepsis screen is negative. Care prior to arrival: None. 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 - Social history:: Smoking status: unknown. - Ebola Screening: : No symptoms or risks identified at this time. Screenin:57 Abuse screen: Denies threats or abuse. Denies injuries from another. Nutritional ss screening: No deficits noted. Tuberculosis screening: Never had TB. Fall Risk No fall in past 12 months (0 pts). Secondary diagnosis (15 points) impaired mobility, IV access (20 points). Ambulatory Aid- None/Bed Rest/Nurse Assist (0 pts). Gait- Normal/Bed Rest/Wheelchair (0 pts) Mental Status- Oriented to own ability (0 pts). Assessment: 20:06 General: Appears in no apparent distress. comfortable, Behavior is calm, cooperative, ss Denies fever, feeling ill, fatigue, chills. Pain: Complains of pain in generalized pain Quality of pain is described as unable to obtain as patient is unable to hear questions for all assessment. Is continuous. Neuro: Level of Consciousness is awake, alert, obeys commands, Oriented to unable to assess properly as patient is unable to hear all question therefore unable to answer appropriately. . Speech gabled, difficult to understand. Is normal . Cardiovascular: Pulses are palpable in right radial artery and left radial artery. Respiratory: Airway is patent Respiratory effort is even, unlabored, Respiratory pattern is regular, symmetrical. GI: Patient currently denies diarrhea, nausea, vomiting. : condom catheter in place. Changed out to obtain clean urine specimen. EENT: Nares are clear. Derm: Skin is intact, is healthy with good turgor, Skin is dry, Skin is pink, warm \\T\\ dry. normal. Musculoskeletal: Range of motion: intact in all extremities, Swelling present in testicles, is baseline. 21:13 Reassessment: Patient appears in no apparent distress at this time. Patient and/or ss family updated on plan of care and expected duration. Pain level reassessed. urine specimen obtained. Patient is resting in exam bed comfortably. Son states, "When we are at the hospital he seems comfortable and sleeps like a baby, but as soon as we get home, it's the opposite.". 21:14 Reassessment: urine specimen obtained, awaiting disposition. ss 22:30 Reassessment: Patient and/or family updated on plan of care and expected duration. Pain ss level reassessed. AWAITING EMS TRANSPORTATION HOME. 23:44 Reassessment: Patient appears in no apparent distress at this time. awaiting EMS ss transportation home. Vital Signs: 18:40 BP 165 / 95; Pulse 84; Resp 18 S; Temp 98.3(TE); Pulse Ox 100% on R/A; aa5 21:07 BP 146 / 86; Pulse 70; Resp 16; Temp 97.0(TE); Pulse Ox 100% on R/A; Pain 0/10; ss ED Course: 18:38 Patient arrived in ED. aa5 18:38 Arm band placed on. aa5 18:38 Patient has correct armband on for positive identification. Bed in low position. Side aa5 rails up X2. quality assurance monitor body on. Pulse ox on. NIBP on. 18:41 Messi Shook NP is PHCP. pm1 18:41 Gasper Plummer MD is Attending Physician. pm1 18:43 Triage completed. aa5 19:37 Initial lab(s) drawn, by la, sent to lab. Inserted saline lock: 22 gauge in left lt1 forearm, using aseptic technique. 19:57 Brooke Garcia, RN is Primary Nurse. ss 21:17 Urine Microscopic Only Sent. lt1 06/16 00:28 No provider procedures requiring assistance completed. IV discontinued, intact, ss bleeding controlled, No redness/swelling at site. Pressure dressing applied. Administered Medications: 06/15 21:28 Drug: Rocephin 1 grams Route: IV; Rate: calculated rate; Site: left forearm; ss 21:30 Follow up: IV Status: Completed infusion ss Outcome: 22:01 Discharge ordered by . pm1 06/16 00:28 Discharged to home with family, VIA EMS ss Condition: good Discharge instructions given to patient, family, Instructed on discharge instructions, follow up and referral plans. medication usage, Demonstrated understanding of instructions, follow-up care, medications, Prescriptions given X 1. 00:29 Patient left the ED. ss Signatures: Ronit Pratt RN RN [facility] Brooke Garcia RN RN Messi Shook NP GROMMET MAN pm1 Viridiana Henderson lt1
[2019-06-16 00:58] VITALS: O2SAT 100
[2019-06-16 01:00] VITALS: BP 146/86; TEMP 97
== END 2019-06-16 00:29 | disposition home or self-care (01) ==
LOC: ER 18:35
DX: N39.0 Urinary tract infection, site not specified (principal); I48.91 Unspecified atrial fibrillation; I11.0 Hypertensive heart disease with heart failure; I50.9 Heart failure, unspecified; J44.9 Chronic obstructive pulmonary disease, unspecified; E11.9 Type 2 diabetes mellitus without complications; H54.7 Unspecified visual loss; Z88.5 Allergy status to narcotic agent; Z88.8 Allergy status to other drugs, medicaments and biological substances
CPT/HCPCS: 87088; 85025; 87086; 80048; 36415; 80076; 96374; 99284; J0696; 81003; 81015; 87077; 87186

== ENCOUNTER 2019-07-06 01:08 | Emergency (ER) | payer OTHER ==
--- OUTSIDE RECORDS SUMMARY | 2019-07-06 01:09 | XMS REPORT | Clinical Summary ---
:1940 Author Organization [facility] Address [address] [place] [address] Care Team Providers Name Role Phone Asked, [...] mouth 0 Active ORAL daily. vitamin A 56211 UNIT Take 25,000 Units 0 Active capsule [...] INFLUENZA VACCINE 06/05/2019 Results Not on fileafter 07/05/2018 Insurance Payer Benefit Plan / Subscriber ID Effective Dates Phone Address Type Group MEDICARE MEDICARE PART A AND xxxxxxxxxxx 2003-[place], [place] Medicare B t MEDICARE MEDICARE PART A AND xxxxxxxxxxx 2003-[place], [place] Medicare B t AETNA AETNA HMO,POS,EPO, xxxxxxxxxx 2003-[facility] HMO MC/EC t AETNA AETNA [employer] xxxxxxxxxx 2003-[facility] Indemnity INDEMNITY t ([address] [place] [address] Advance Directives For more information, please contact: [phone] Type Date Recorded Patient Air Tool Operator Explanation Advance Directives, Living Will and Medical Power of Lepidopterist Advance Directives, Living Will and Medical Power of Lepidopterist
--- OUTSIDE RECORDS SUMMARY | 2019-07-06 01:10 | XMS REPORT ---
:1940 Author Organization [facility] Address [address] [place] [address] Dr. Hill [address] [place] [address] Care Team Providers Name Role Phone CARLOS BARBER Unavailable Unavailable Problems This patient has no known problems. Allergies, Adverse Reactions, Alerts This patient has no known allergies or adverse reactions. Medications This patient has no known medications. Results Test Description Test Time Test Comments Text Results Atomic Results Result Comments BLOOD CULTURE 2018-09-29 11:00:00 Test Item Value Reference Range Comments CULTURE (BEAKER) (test rays=9167) No growth in 5 days ANAEROBIC [id number] 12:34:00 Test Item Value Reference Range Comments CULTURE (BEAKER) (test sytu=3424) No anaerobes isolated EAR CULTURE + GRAM [id number] 14:27:00 Test Item Value Reference Range Comments CULTURE (BEAKER) (test PSEUDOMONAS 1+ Pseudomonas vrnx=1416) AERUGINOSA aeruginosa Amikacin (test code=1) Susceptible 0-16 [...] GRAM STAIN RESULT 4+ WBCs (BEAKER) (test jklo=6189) GRAM STAIN RESULT No organisms seen (BEAKER) (test smkq=619593) RAD, CHEST, 1 VIEW, NON [id number] 16:48:00Reason for exam:->SOBShould this be performed at [...] [place] Verified Date/Time: 09/25/2018 16:48:03 Reading Location: [facility] Diagnostic Imaging Reading Room - [place] [address] HEMOGLOBIN AND [id number] 13:03:00 Test Item Value Reference Range Comments HEMOGLOBIN (BEAKER) (test tgof=273) 10.4 GM/DL 13.7-17.5 HEMATOCRIT (BEAKER) (test cnet=657) 32.6 % 40.1-51.0 TSH/FREE T4 IF [id number] 06:43:00 Test Item Value Reference Range Comments THYROID STIMULATING HORMONE (BEAKER) (test 1.57 uIU/mL 0.35-4.94 invb=058) [id number] 06:28:00 Test Item Value Reference Range Comments MAGNESIUM (BEAKER) (test phbi=420) 1.8 mg/dL 1.6-2.6 BASIC METABOLIC [id number] 06:28:00 Test Item Value Reference Range Comments SODIUM (BEAKER) (test 136 meq/L 136-145 ohiq=708) POTASSIUM (BEAKER) (test 4.0 meq/L 3.5-5.1 uval=645) CHLORIDE (BEAKER) (test 109 meq/L 98-107 hrko=445) CO2 (BEAKER) (test 21 meq/L 22-29 nwkt=144) BLOOD UREA NITROGEN 11 mg/dL 7-21 (BEAKER) (test ljca=005) CREATININE (BEAKER) (test 0.70 mg/dL 0.57-1.25 xjln=077) GLUCOSE RANDOM (BEAKER) 97 mg/dL 70-105 (test tasc=564) CALCIUM (BEAKER) (test 8.2 mg/dL 8.4-10.2 xfcp=216) EGFR (BEAKER) (test 109 mL/min/1.73 sq m ESTIMATED GFR IS NOT vutr=9291) ACCURATE CREATININE CLEARANCE IN PREDICTING GLOMERULAR FILTRATION RATE. ESTIMATED GFR IS NOT APPLICABLE FOR DIALYSIS PATIENTS. CBC W/PLT COUNT & AUTO [id number] 05:49:00 Test Item Value Reference Range Comments WHITE BLOOD CELL COUNT (BEAKER) (test dwxm=765) 9.3 K/ L 3.5-10.5 RED BLOOD CELL COUNT (BEAKER) (test myex=219) 3.30 M/ L 4.63-6.08 HEMOGLOBIN (BEAKER) (test egsd=255) 9.9 GM/DL 13.7-17.5 HEMATOCRIT (BEAKER) (test oxte=117) 30.7 % 40.1-51.0 MEAN CORPUSCULAR VOLUME (BEAKER) (test sbjg=704) 93.0 fL 79.0-92.2 MEAN CORPUSCULAR HEMOGLOBIN (BEAKER) (test 30.0 pg 25.7-32.2 ensz=914) MEAN CORPUSCULAR HEMOGLOBIN CONC (BEAKER) (test 32.2 GM/DL 32.3-36.5 krxr=757) RED CELL DISTRIBUTION WIDTH (BEAKER) (test 15.9 % 11.6-14.4 huey=905) PLATELET COUNT (BEAKER) (test dliq=679) 143 K/CU MM 150-450 MEAN PLATELET VOLUME (BEAKER) (test axwt=611) 10.9 fL 9.4-12.4 NUCLEATED RED BLOOD CELLS (BEAKER) (test 0 /100 WBC 0-0 yhch=353) NEUTROPHILS RELATIVE PERCENT (BEAKER) (test 87 % ajuv=260) LYMPHOCYTES RELATIVE PERCENT (BEAKER) (test 6 % fetc=420) MONOCYTES RELATIVE PERCENT (BEAKER) (test 5 % ltes=235) EOSINOPHILS RELATIVE PERCENT (BEAKER) (test 0 % xybb=973) BASOPHILS RELATIVE PERCENT (BEAKER) (test 0 % umpr=929) NEUTROPHILS ABSOLUTE COUNT (BEAKER) (test 8.10 K/ L 1.78-5.38 hmaa=696) LYMPHOCYTES ABSOLUTE COUNT (BEAKER) (test 0.51 K/ L 1.32-3.57 qnvm=472) MONOCYTES ABSOLUTE COUNT (BEAKER) (test 0.46 K/ L 0.30-0.82 flgj=418) EOSINOPHILS ABSOLUTE COUNT (BEAKER) (test 0.01 K/ L 0.04-0.54 ugvx=494) BASOPHILS ABSOLUTE COUNT (BEAKER) (test 0.01 K/ L 0.01-0.08 xeeu=436) IMMATURE GRANULOCYTES-RELATIVE PERCENT (BEAKER) 2 % 0-1 (test qrvz=6968) CBC W/PLT COUNT & AUTO [id number] 07:25:00 Test Item Value Reference Range Comments WHITE BLOOD CELL COUNT (BEAKER) (test sewj=426) 11.2 K/ L 3.5-10.5 RED BLOOD CELL COUNT (BEAKER) (test oovs=771) 3.99 M/ L 4.63-6.08 HEMOGLOBIN (BEAKER) (test mvdf=198) 11.8 GM/DL 13.7-17.5 HEMATOCRIT (BEAKER) (test bduk=982) 36.4 % 40.1-51.0 MEAN CORPUSCULAR VOLUME (BEAKER) (test uhfk=116) 91.2 fL 79.0-92.2 MEAN CORPUSCULAR HEMOGLOBIN (BEAKER) (test 29.6 pg 25.7-32.2 nrvd=216) MEAN CORPUSCULAR HEMOGLOBIN CONC (BEAKER) (test 32.4 GM/DL 32.3-36.5 hbxe=921) RED CELL DISTRIBUTION WIDTH (BEAKER) (test 16.2 % 11.6-14.4 chac=235) PLATELET COUNT (BEAKER) (test xyeb=783) 168 K/CU MM 150-450 MEAN PLATELET VOLUME (BEAKER) (test zcvr=579) 11.3 fL 9.4-12.4 NUCLEATED RED BLOOD CELLS (BEAKER) (test 0 /100 WBC 0-0 oelh=887) NEUTROPHILS RELATIVE PERCENT (BEAKER) (test 75 % qdpf=627) LYMPHOCYTES RELATIVE PERCENT (BEAKER) (test 14 % skea=980) MONOCYTES RELATIVE PERCENT (BEAKER) (test 8 % kqlu=093) EOSINOPHILS RELATIVE PERCENT (BEAKER) (test 1 % yzqx=710) BASOPHILS RELATIVE PERCENT (BEAKER) (test 0 % govs=837) NEUTROPHILS ABSOLUTE COUNT (BEAKER) (test 8.31 K/ L 1.78-5.38 dkgk=126) LYMPHOCYTES ABSOLUTE COUNT (BEAKER) (test 1.54 K/ L 1.32-3.57 wxln=559) MONOCYTES ABSOLUTE COUNT (BEAKER) (test 0.87 K/ L 0.30-0.82 vhyl=385) EOSINOPHILS ABSOLUTE COUNT (BEAKER) (test 0.09 K/ L 0.04-0.54 ihue=881) BASOPHILS ABSOLUTE COUNT (BEAKER) (test 0.03 K/ L 0.01-0.08 miqj=371) IMMATURE GRANULOCYTES-RELATIVE PERCENT (BEAKER) 3 % 0-1 (test bwzn=9417) [id number] 07:11:00 Test Item Value Reference Range Comments MAGNESIUM (BEAKER) (test brzr=776) 1.9 mg/dL 1.6-2.6 BASIC METABOLIC [id number] 07:11:00 Test Item Value Reference Range Comments SODIUM (BEAKER) (test 136 meq/L 136-145 mmot=982) POTASSIUM (BEAKER) (test 3.4 meq/L 3.5-5.1 bagz=450) CHLORIDE (BEAKER) (test 106 meq/L 98-107 jmiw=515) CO2 (BEAKER) (test 23 meq/L 22-29 oebm=456) BLOOD UREA NITROGEN 12 mg/dL 7-21 (BEAKER) (test jicz=576) CREATININE (BEAKER) (test 0.74 mg/dL 0.57-1.25 rrvj=905) GLUCOSE RANDOM (BEAKER) 91 mg/dL 70-105 (test vcyw=380) CALCIUM (BEAKER) (test 8.3 mg/dL 8.4-10.2 wozp=391) EGFR (BEAKER) (test 102 mL/min/1.73 sq m ESTIMATED GFR IS NOT khep=0774) ACCURATE CREATININE CLEARANCE IN PREDICTING GLOMERULAR FILTRATION RATE. ESTIMATED GFR IS NOT APPLICABLE FOR DIALYSIS PATIENTS.
--- OUTSIDE RECORDS SUMMARY | 2019-07-06 01:10 | XMS REPORT | Clinical Summary ---
:1940 Author Organization [facility] Address [address] [place] [address] Care Team Providers Name Role Phone Jakob [...] Tracy Alok, MD Zindani, Shireen, MD after 07/05/2018 Social History Tobacco Use Types Packs/Day Years [...] Taken Blood Pressure 130/69 09/25/2018 3:25 PM HYDROMETEOROLOGICAL TECHNICIAN Pulse 90 09/25/2018 3:25 PM HYDROMETEOROLOGICAL TECHNICIAN Temperature 36.7 C (98 F) 09/25/2018 3:25 PM HYDROMETEOROLOGICAL TECHNICIAN Respiratory Rate 18 09/25/2018 3:25 PM HYDROMETEOROLOGICAL TECHNICIAN Oxygen Saturation 100% 09/25/2018 3:25 PM HYDROMETEOROLOGICAL TECHNICIAN Inhaled Oxygen Concentration - - Weight - - Height 182.9 cm (6') 09/24/2018 4:00 AM HYDROMETEOROLOGICAL TECHNICIAN Body Mass Index - - Plan of Treatment Not on file Procedures Procedure Name Priority Date/Time Associated Comments Diagnosis XR CHEST 1 VIEW STAT 09/25/2018 4:07 Results for this PORTABLE/BEDSIDE PM HYDROMETEOROLOGICAL TECHNICIAN procedure are in the results section. HEMOGLOBIN AND Routine 09/25/2018 12:41 Results for this HEMATOCRIT PM HYDROMETEOROLOGICAL TECHNICIAN procedure are in the results section. CBC W/PLT COUNT & Routine 09/25/2018 5:14 Results for this AUTO DIFFERENTIAL AM HYDROMETEOROLOGICAL TECHNICIAN procedure are in the results section. TSH/FREE T4 IF Routine 09/25/2018 5:14 Results for this INDICATED AM HYDROMETEOROLOGICAL TECHNICIAN procedure are in the results section. CBC W/PLT COUNT & Routine 09/25/2018 5:14 Results for this AUTO DIFFERENTIAL AM HYDROMETEOROLOGICAL TECHNICIAN procedure are in the results section. MAGNESIUM Routine 09/25/2018 5:14 Results for this AM HYDROMETEOROLOGICAL TECHNICIAN procedure are in the results section. BASIC METABOLIC PANEL Routine 09/25/2018 5:14 Results for this (7) AM HYDROMETEOROLOGICAL TECHNICIAN procedure are in the results section. ANAEROBIC CULTURE Routine 09/24/2018 7:59 Results for this PM HYDROMETEOROLOGICAL TECHNICIAN procedure are in the results section. EAR CULTURE + GRAM Routine 09/24/2018 5:42 Results for this STAIN PM HYDROMETEOROLOGICAL TECHNICIAN procedure are in the results section. BLOOD CULTURE Routine 09/24/2018 5:51 Results for this AM HYDROMETEOROLOGICAL TECHNICIAN procedure are in the results section. CBC W/PLT COUNT & Routine 09/24/2018 5:50 Results for this AUTO DIFFERENTIAL AM HYDROMETEOROLOGICAL TECHNICIAN procedure are in the results section. CBC W/PLT COUNT & Routine 09/24/2018 5:50 Results for this AUTO DIFFERENTIAL AM HYDROMETEOROLOGICAL TECHNICIAN procedure are in the results section. MAGNESIUM Routine 09/24/2018 5:50 Results for this AM HYDROMETEOROLOGICAL TECHNICIAN procedure are in the results section. BASIC METABOLIC PANEL Routine 09/24/2018 5:50 Results for this (7) AM HYDROMETEOROLOGICAL TECHNICIAN procedure are in the results section. after 07/05/2018 Results XR chest 1 view portable / bedside (09/25/2018 4:07 PM HYDROMETEOROLOGICAL TECHNICIAN) Specimen Narrative Performed At FINAL REPORT [employer] INDICATION: SOB TECHNIQUE: Chest radiograph, single view, portable technique. FINDINGS / IMPRESSION: Heart shadow is prominent and there is suggestion of pulmonary venous congestion. No overt pulmonary edema and no pleural effusion demonstrated. No pneumothorax or consolidation. Calcified plaque in the aortic arch noted. Osseous structures unremarkable. Signed: Fabio Rivera MD Report Verified Date/Time:09/25/2018 16:48:03 Reading Location: [facility] Diagnostic Imaging Reading Room - [place] [address] Procedure Note Interface, External Ris In - 09/25/2018 4:59 PM HYDROMETEOROLOGICAL TECHNICIAN FINAL REPORT INDICATION: SOB TECHNIQUE: Chest radiograph, single view, portable technique. FINDINGS / IMPRESSION: Heart shadow is prominent and there is suggestion of pulmonary venous congestion. No overt pulmonary edema and no pleural effusion demonstrated. No pneumothorax or consolidation. Calcified plaque in the aortic arch noted. Osseous structures unremarkable. Signed: Fabio Rivera MD Report Verified Date/Time: 09/25/2018 16:48:03 Reading Location: [facility] Diagnostic Imaging Reading Room - [place] [address] Performing Organization Address City/State/Zipcode Phone Number [facility] Hemoglobin and hematocrit (09/25/2018 12:41 PM HYDROMETEOROLOGICAL TECHNICIAN) Hemoglobin 10.4 (L) 13.7 - 17.5 GM/DL [facility] Hematocrit 32.6 (L) 40.1 - 51.0 % [facility] Specimen Blood Performing Organization Address City/[facility]/Zipcode Phone Number [address] [address] [phone] [place] TSH/Free T4 If Indicated (09/25/2018 5:14 AM HYDROMETEOROLOGICAL TECHNICIAN) TSH 1.57 0.35 - 4.94 uIU/mL [facility] Specimen Blood Performing Organization Address City/[facility] Phone Number [address] [address] [place] CBC with platelet count + automated diff (09/25/2018 5:14 AM HYDROMETEOROLOGICAL TECHNICIAN)Only the most recent of2 resultswithin the time period is included. WBC 9.3 3.5 - 10.5 K/L [facility] RBC 3.30 (L) 4.63 - 6.08 M/L [facility] Hemoglobin 9.9 (L) 13.7 - 17.5 GM/DL [facility] Hematocrit 30.7 (L) 40.1 - 51.0 % [facility] MCV 93.0 (H) 79.0 - 92.2 fL [facility] MCH 30.0 25.7 - 32.2 pg [facility] MCHC 32.2 (L) 32.3 - 36.5 GM/DL [facility] RDW 15.9 (H) 11.6 - 14.4 % [facility] Platelets 143 (L) 150 - 450 K/CU MM [facility] MPV 10.9 9.4 - 12.4 fL [facility] nRBC 0 0 - 0 /100 WBC [facility] % Neutros 87 % [facility] % Lymphs 6 % [facility] % Monos 5 % [facility] % Eos 0 % [facility] % Baso 0 % [facility] # Neutros 8.10 (H) 1.78 - 5.38 K/L [facility] # Lymphs 0.51 (L) 1.32 - 3.57 K/L [facility] # Monos 0.46 0.30 - 0.82 K/L [facility] # Eos 0.01 (L) 0.04 - 0.54 K/L [facility] # Baso 0.01 0.01 - 0.08 K/L [facility] Immature Granulocytes-Relative 2 (H) 0 - 1 % [facility] Specimen Blood Performing Organization Address City/State/Zipcode Phone Number [address] [address] CENTER Magnesium (09/25/2018 5:14 AM HYDROMETEOROLOGICAL TECHNICIAN)Only the most recent of2 resultswithin the time period is included. Magnesium 1.8 1.6 - 2.6 mg/dL [facility] Specimen Blood Performing Organization Address City/State/Zipcode Phone Number [address] [address] CENTER Basic metabolic panel (09/25/2018 5:14 AM HYDROMETEOROLOGICAL TECHNICIAN)Only the most recent of2 resultswithin the time period is included. Sodium 136 136 - 145 meq/L [facility] Potassium 4.0 3.5 - 5.1 meq/L [facility] Chloride 109 (H) 98 - 107 meq/L [facility] CO2 21 (L) 22 - 29 meq/L [facility] BUN 11 7 - 21 mg/dL [facility] Creatinine 0.70 0.57 - 1.25 mg/dL [facility] Glucose 97 70 - 105 mg/dL [facility] Calcium 8.2 (L) 8.4 - 10.2 mg/dL [facility] EGFR 109Comment: ESTIMATED GFR IS mL/min/1.73 sq m [facility] NOT ACCURATE CREATININE [facility] CENTER CLEARANCE IN PREDICTING GLOMERULAR FILTRATION RATE. ESTIMATED GFR IS NOT APPLICABLE FOR DIALYSIS PATIENTS. Specimen Blood Performing Organization Address City/[facility] Centercode Phone Number [address] [address] [phone] [place] Anaerobic culture (09/24/2018 7:59 PM HYDROMETEOROLOGICAL TECHNICIAN) Result No anaerobes isolated [facility] Specimen Wound Performing Organization Address [facility] Phone Number [facility] [address] [place] [address] [phone] [place] Ear culture + gram stain (09/24/2018 5:42 PM HYDROMETEOROLOGICAL TECHNICIAN) Result 1+ Pseudomonas aeruginosa (A) [facility] Gram Stain Result 4+ WBCs [facility] Gram Stain Result No organisms seen [facility] Specimen Ear Organism Antibiotic Method Susceptibility Pseudomonas [...] + Sulfamethoxazole >80: Resistant Performing Organization Address [facility]/Zipcode Phone Number [facility] [address] [place], [place] [phone] CENTER Blood culture #1 (09/24/2018 5:51 AM HYDROMETEOROLOGICAL TECHNICIAN) Result No growth in 5 days [facility] Specimen Blood Performing Organization Address [facility] Centercode Phone Number [facility] [address] [place], [place] [address] CENTER after 07/05/2018 Insurance Payer Benefit Plan / Group Subscriber ID Type Phone Address MEDICARE MEDICARE A B xxxxxxxxxxx Medicare AETNA - [place] CARE AETNA HMO POS QPOS xxxxxxxxxx HMO/POS HUMANA - MEDICARE MGD HUMANA MEDICARE ADV xxxxxxxxx [facility] Contracted CARE AETNA - [place] CARE AETNA SELECT US xxxxxxxxxx HMO/POS ACCESS ([address] [place] [phone] Advance Directives For more information, please contact:[address] [phone] Code Status Date Activated Date Inactivated Comments Full Code 09/24/2018 4:58 AM This code status was determined by: Patient
[2019-07-06 01:42] LABS: Absolute Lymphocytes (CBC) 1.2 K/uL (0.7-4.9); Basophils % 0.4 % (0-1.3); Hematocrit 40.8 % (39.6-49.0); Lymphocytes % 5.2 % (15.3-44.8); MPV 8.2 fL (7.6-11.3); RBC Red Blood Cell Count 4.89 M/uL (4.33-5.43)
[2019-07-06 01:43] LABS: Protime INR 0.96
[2019-07-06 01:56] LABS: ALT/SGPT 49 U/L (12-78); AST/SGOT 25 U/L (15-37); Albumin 2.8 g/dL (3.4-5.0); Alkaline Phosphatase 115 U/L (45-117); BUN Blood Urea Nitrogen 12 mg/dL (7-18); Bicarbonate 27 mmol/L (21-32); Bilirubin Direct 0.2 mg/dL (0-0.2); Bilirubin Total 0.5 mg/dL (0.2-1.0); Glucose Level 82 mg/dL (74-106); Magnesium 1.7 mg/dL (1.8-2.4); NT PRO-BNP 6110 pg/mL (<450); Potassium 4.2 mmol/L (3.5-5.1); Protein, Total 6.1 g/dL (6.4-8.2); Sodium Level 132 mmol/L (136-145); Troponin (Emerg Dept Use Only) < 0.02 ng/mL (0.0-0.045)
[2019-07-06 02:38] LABS: Blood Morphology Comment NOT SEEN (NOT SEEN); Platelet Estimate ADEQ
[2019-07-06] MEDS ORDERED: CEFTRIAXONE/SWI 1gm 1 GM/10 ML SYR ONE (03:37)
[2019-07-06] MEDS ORDERED: AZITHROMYCIN 250 MG TAB ONE (03:37)
--- NOTE | 2019-07-06 03:44 | EDPHYS ---
Physician Documentation [facility] Name: Gio Matute Age: 79 yrs Sex: Male : 1940 Arrival Date: 07/06/2019 Time: 01:15 Bed 16 Private MD: ED Physician Sid Tirado HPI: 07/06 01:58 This 79 yrs old Male presents to ER via EMS with complaints of Chest Pain. pm1 01:58 The patient or guardian reports chest pain that is located primarily in the mid-sternal pm1 area. Onset: yesterday, at 22:45. The pain does not radiate. Associated signs and symptoms: Pertinent negatives: abdominal pain, cough, headache, nausea, shortness of breath, vomiting. Duration: The patient or guardian reports a single episode. Modifying factors: The symptoms are alleviated by nothing. the symptoms are aggravated by nothing. Severity of pain: in the emergency department the pain has resolved. The patient has been recently seen at the [facility] Emergency Department, 06/16/2019 for generalized pain and diagnosed with UTI. 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 - Social history:: Smoking status: Patient/guardian denies using tobacco. - Ebola Screening: : Patient negative for fever greater than or equal to 101.5 degrees Fahrenheit, and additional compatible Ebola Virus Disease symptoms Patient denies exposure to infectious person Patient denies travel to an Ebola-affected area in the 21 days before illness onset. ROS: 01:58 Constitutional: Negative for fever, chills, and weight loss, Eyes: Negative for injury, pm1 pain, redness, and discharge, ENT: Negative for injury, pain, and discharge, Neck: Negative for injury, pain, and swelling. 01:58 Respiratory: Negative for shortness of breath, cough, wheezing, and pleuritic chest pain, Abdomen/GI: Negative for abdominal pain, nausea, vomiting, diarrhea, and constipation, Back: Negative for injury and pain, : Negative for injury, bleeding, discharge, and swelling, MS/Extremity: Negative for injury and deformity, Skin: Negative for injury, rash, and discoloration, Neuro: Negative for headache, weakness, numbness, tingling, and seizure. 01:58 Cardiovascular: Positive for chest pain, Negative for edema, palpitations. Exam: 01:58 Constitutional: This is a well developed, well nourished patient who is awake, alert, pm1 and in no acute distress. Head/Face: Normocephalic, atraumatic. Neck: Trachea midline, no thyromegaly or masses palpated, and no cervical lymphadenopathy. Supple, full range of motion without nuchal rigidity, or vertebral point tenderness. No Meningismus. Chest/axilla: Normal chest wall appearance and motion. Nontender with no deformity. No lesions are appreciated. Cardiovascular: Regular rate and rhythm with a normal S1 and S2. No gallops, murmurs, or rubs. Normal PMI, no JVD. No pulse deficits. Respiratory: Lungs have equal breath sounds bilaterally, clear to auscultation and percussion. No rales, rhonchi or wheezes noted. No increased work of breathing, no retractions or nasal flaring. Abdomen/GI: Soft, non-tender, with normal bowel sounds. No distension or tympany. No guarding or rebound. No evidence of tenderness throughout. Back: No spinal tenderness. No costovertebral tenderness. Full range of motion. Vital Signs: 01:19 BP 149 / 91; Pulse 86; Resp 20; Temp 99.5; Pulse Ox 96% ; Weight 72.57 kg; Height 6 ft. rr5 1 in. (185.42 cm); 02:25 BP 136 / 89; Pulse 85; Resp 19; Pulse Ox 96% ; rr5 03:10 BP 143 / 77; Pulse 76; Resp 17; Pulse Ox 98% ; rr5 04:02 BP 141 / 83; Pulse 84; Resp 19; Temp 98.8; Pulse Ox 98% ; rr5 01:19 Body Mass Index 21.11 (72.57 kg, 185.42 cm) rr5 MDM: 01:16 Patient medically screened. pm1 03:07 Data reviewed: vital signs. Data interpreted: Pulse oximetry: on room air is 96 %. pm1 Interpretation: normal. 03:39 Counseling: I had a detailed discussion with the patient and/or guardian regarding: the pm1 historical points, exam findings, and any diagnostic results supporting the discharge/admit diagnosis, lab results, radiology results, the need for outpatient follow up, to return to the emergency department if symptoms worsen or persist or if there are any questions or concerns that arise at home. 03:40 ED course: Chest x-ray impression volume overload pattern with possible right sided pm1 pneumonia. Elevated WBC. No supplemental oxygen requirements and no shortness of breath, therefore will discharge patient home with antibiotics. 07/06 01:16 Order name: Basic Metabolic Panel; Complete Time: 02:01 pm1 07/06 01:16 Order name: CBC with Diff; Complete Time: 02:45 pm1 07/06 01:16 Order name: LFT's; Complete Time: 02:01 pm1 07/06 01:16 Order name: Magnesium; Complete Time: 02:01 pm1 07/06 01:16 Order name: NT PRO-BNP; Complete Time: 02:01 pm1 07/06 01:16 Order name: PT-INR; Complete Time: 01:51 pm1 07/06 01:16 Order name: Troponin (emerg Dept Use Only); Complete Time: 02:01 pm1 07/06 01:16 Order name: XRAY Chest (1 view) pm1 07/06 01:16 Order name: EKG; Complete Time: 01:22 pm1 07/06 01:51 Order name: Manual Differential; Complete Time: 02:45 EDMS 07/06 03:07 Order name: Troponin (emerg Dept Use Only); Complete Time: 03:34 rr5 07/06 01:16 Order name: Cardiac monitoring; Complete Time: 01:33 pm1 07/06 01:16 Order name: EKG - Nurse/Tech; Complete Time: 01:33 pm1 07/06 01:16 Order name: IV Saline Lock; Complete Time: 03:07 pm1 07/06 01:16 Order name: Labs collected and sent; Complete Time: 01:34 pm1 07/06 01:16 Order name: O2 Per Protocol; Complete Time: 01:42 pm1 07/06 01:16 Order name: O2 Sat Monitoring; Complete Time: 01:42 pm1 EC:58 Rate is 92 beats/min. Rhythm is irregular. No Q waves. T waves are Normal. No ST pm1 changes noted. Clinical impression: Atrial Fibrillation. Administered Medications: 03:38 Drug: AZITHromycin 500 mg Route: PO; rr5 04:12 Follow up: Response: No adverse reaction rr5 03:40 Drug: Rocephin 1 grams Route: IV; Rate: calculated rate; Site: left hand; rr5 04:12 Follow up: Response: No adverse reaction; IV Status: Completed infusion; IV Intake: [id number] Disposition: 06:05 Co-signature as Attending Physician, Sid Tirado MD. rn Disposition: 07/06/19 03:39 Discharged to Home. Impression: Chest pain, unspecified. - Condition is Stable. - Discharge Instructions: Nonspecific Chest Pain. - Prescriptions for Zithromax Z- Breezy 250 mg Oral Tablet - take 1 tablet by ORAL route as directed for 5 days Day 1 - take two (2) tablets one time. Day 2, 3, 4 , 5 take one (1) tablet once daily.; 6 tablet. - Medication Reconciliation Form, Thank You Letter, Antibiotic Education, Prescription Opioid Use form. - Follow up: Emergency Department; When: As needed; Reason: Worsening of condition. Follow up: Private Physician; When: 2 - 3 days; Reason: Recheck today's complaints, Continuance of care, Re-evaluation by your physician. - Problem is new. - Symptoms have improved. Signatures: Dispatcher [employer] EDAK Sid Tirado MD MD rn Marinas, Patrick, KADIE BLOCK SORTER pm1 Rao Pierce, NATALEE RN rr5 Corrections: (The following items were deleted from the chart) 04:54 03:39 07/06/2019 03:39 Discharged to Home. Impression: Chest pain, unspecified. rr5 Condition is Stable. Discharge Instructions: Nonspecific Chest Pain. Prescriptions for Zithromax Z-Breezy 250 mg Oral Tablet - take 1 tablet by ORAL route as directed for 5 days Day 1 - take two (2) tablets one time. Day 2, 3, 4 , 5 take one (1) tablet once daily.; 6 tablet. and Forms are Medication Reconciliation Form, Thank You Letter, Antibiotic Education, Prescription Opioid Use. Follow up: Emergency Department; When: As needed; Reason: Worsening of condition. Follow up: Private Physician; When: 2 - 3 days; Reason: Recheck today's complaints, Continuance of care, Re-evaluation by your physician. Problem is new. Symptoms have improved. pm1
--- NOTE | 2019-07-06 03:44 | ER ---
Nurse's Notes [facility] Name: Gio Matute Age: 79 yrs Sex: Male : 1940 Arrival Date: 07/06/2019 Time: 01:15 Bed 16 Private MD: Diagnosis: Chest pain, unspecified Presentation: 07/06 01:15 Presenting complaint: EMS states: patient complaint of chest pain started at 2245H. he rr5 is having hard to hear legally blind. has a right inguinal hernia. patient took baby aspirin 1 tablet around 9PM. 01:15 Transition of care: patient was not received from another setting of care. Onset of rr5 symptoms was July 05, 2019 at 22:45. Risk Assessment: Do you want to hurt yourself or someone else? Patient reports no desire to harm self or others. Initial Sepsis Screen: Does the patient meet any 2 criteria? No. Patient's initial sepsis screen is negative. Does the patient have a suspected source of infection? No. Patient's initial sepsis screen is negative. Care prior to arrival: Medication(s) given: ASA, 81 mg, x 1. 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 - Social history:: Smoking status: Patient/guardian denies using tobacco. - Ebola Screening: : Patient negative for fever greater than or equal to 101.5 degrees Fahrenheit, and additional compatible Ebola Virus Disease symptoms Patient denies exposure to infectious person Patient denies travel to an Ebola-affected area in the 21 days before illness onset. Screenin:23 Abuse screen: Denies threats or abuse. Denies injuries from another. Nutritional rr5 screening: No deficits noted. Tuberculosis screening: No symptoms or risk factors identified. Fall Risk Secondary diagnosis (15 points) impaired mobility, IV access (20 points). Total Hines Fall Scale indicates Low Risk Score (25-44 pts). Fall prevention measures have been instituted. Side Rails Up X 2 Placed close to Nursing Station Family Present and informed to notify staff if they need to leave bedside As available Patient and Family Educated on Fall Prevention Program and strategies. Assessment: 01:20 General: Appears in no apparent distress. comfortable, Behavior is calm, cooperative. rr5 01:20 Pain: Complains of pain in chest Pain does not radiate. Pain Quality of pain is rr5 described as aching, Pain began gradually, Is intermittent. Neuro: Level of Consciousness is awake, alert, Oriented to person. Cardiovascular: Reports chest pain, Capillary refill < 3 seconds Patient's skin is warm and dry. Respiratory: Airway is patent Respiratory effort is even, unlabored, Respiratory pattern is regular, symmetrical. GI: Abdomen is flat. : to gravity drainage in with condom catheter Urine is cloudy, inguinal hernia, swollen scrotum noted. EENT: Ear canal impacted bilateral ears. blind, hearing difficulty wearing hearing aid. Parent/caregiver reports the patient having patient is blind and having hard to hear.. Derm: Skin is fragile, is thin. Musculoskeletal: Capillary refill < 3 seconds. 01:50 Reassessment: critical laboratory WBC 22.8 called by magdy from laboratory. ED rr5 provider informed. 03:00 Reassessment: Patient appears in no apparent distress at this time. Patient and/or rr5 family updated on plan of care and expected duration. Pain level reassessed. repeat cardiac enzyme extracted and sent to laboratory. 04:09 Reassessment: Patient appears in no apparent distress at this time. Patient and/or rr5 family updated on plan of care and expected duration. Pain level reassessed. discharge instruction given and explained to new car get ready mechanic without complaints made. EMS coordinated by secretary administrative assistant to transport going home. 04:53 Reassessment: endorsed to [facility] vitally stable. escorted by family member. rr5 Vital Signs: 01:19 BP 149 / 91; Pulse 86; Resp 20; Temp 99.5; Pulse Ox 96% ; Weight 72.57 kg; Height 6 ft. rr5 1 in. (185.42 cm); 02:25 BP 136 / 89; Pulse 85; Resp 19; Pulse Ox 96% ; rr5 03:10 BP 143 / 77; Pulse 76; Resp 17; Pulse Ox 98% ; rr5 04:02 BP 141 / 83; Pulse 84; Resp 19; Temp 98.8; Pulse Ox 98% ; rr5 01:19 Body Mass Index 21.11 (72.57 kg, 185.42 cm) rr5 ED Course: 01:15 Patient arrived in ED. rr5 01:16 Messi Shook, KADIE is PHCP. pm1 01:16 Sid Tirado MD is Attending Physician. pm1 01:19 Triage completed. rr5 01:23 Arm band placed on left wrist. EKG completed in triage. Results shown to MD. rr5 01:41 Rao Pierce, RN is Primary Nurse. rr5 01:43 Patient has correct armband on for positive identification. Bed in low position. Call rr5 light in reach. Side rails up X2. Adult w/ patient. quality assurance monitor final on. Pulse ox on. NIBP on. 01:43 No provider procedures requiring assistance completed. Patient maintains SpO2 rr5 saturation greater than 95% on room air. 02:25 condom catheter removed and changed. rr5 02:29 XRAY Chest (1 view) In Process Unspecified. EDMS 03:00 Inserted saline lock: 24 gauge in left hand, using aseptic technique. Blood collected. rr5 04:10 IV discontinued, intact, bleeding controlled, No redness/swelling at site. Pressure rr5 dressing applied. Administered Medications: 03:38 Drug: AZITHromycin 500 mg Route: PO; rr5 04:12 Follow up: Response: No adverse reaction rr5 03:40 Drug: Rocephin 1 grams Route: IV; Rate: calculated rate; Site: left hand; rr5 04:12 Follow up: Response: No adverse reaction; IV Status: Completed infusion; IV Intake: [id number] Intake: 04:12 IV: 10ml; Total: 10ml. rr5 Outcome: 03:39 Discharge ordered by MD. pm1 04:10 Discharged to home via ambulance, with family. rr5 04:10 Condition: stable 04:10 Discharge instructions given to family, Instructed on discharge instructions, follow up and referral plans. medication usage, Demonstrated understanding of instructions, follow-up care, medications, Prescriptions given X 1. 04:54 Patient left the ED. rr5 Signatures: Dispatcher [employer] Messi Vivas NP PIT CRANE OPERATOR pm1 Rao Pierce RN RN rr5 Corrections: (The following items were deleted from the chart) 04:11 04:02 BP 141 / 83; Pulse 84bpm; Resp 75bpm; Pulse Ox 98%; Temp 98.8F; rr5 rr5
[2019-07-06 05:04] VITALS: O2SAT 98
[2019-07-06 05:05] VITALS: BP 141/83; TEMP 98.8
--- NOTE | 2019-07-06 08:07 | EKG ---
Test Date: 2019-07-06 Test Time: 01:07:26 Corporate Safety Coordinator: RR MEASUREMENT RESULTS: Intervals: Rate: 92 [place]: QRSD: 78 QT: 340 QTc: 420 [place]: P: [place]: QRS: 67 T: 60 INTERPRETIVE STATEMENTS: Atrial fibrillation Abnormal ECG Compared to ECG 03/30/2019 09:15:43 ST (T wave) deviation no longer present Electronically Signed On 07-06-19 08:06:45 CDT by Jamir Marie
--- NOTE | 2019-07-06 09:02 | RAD REPORT ---
EXAM DESCRIPTION: Domenico Single View07/06/2019 2:28 am CLINICAL HISTORY: Chest pain COMPARISON: March 2019 FINDINGS: [id number] bilateral pulmonary opacities. Small left pleural effusion is suspected. The heart is moderately enlarged IMPRESSION: Mild to moderate bilateral pulmonary opacities probably representing pulmonary edema. Pn eumonia is another consideration
== END 2019-07-06 04:54 | disposition home or self-care (01) ==
LOC: ER 01:08
DX: R07.9 Chest pain, unspecified (principal); Z88.6 Allergy status to analgesic agent; Z88.8 Allergy status to other drugs, medicaments and biological substances; J44.9 Chronic obstructive pulmonary disease, unspecified; I10 Essential (primary) hypertension; H54.7 Unspecified visual loss
CPT/HCPCS: 96365; 93005; 85025; 80048; 36415; 83735; 85610; 80076; 84484 ×2; 83880; 71045; 99285; J0696

== ENCOUNTER 2019-07-14 23:40 | Emergency (ER) | payer OTHER ==
--- OUTSIDE RECORDS SUMMARY | 2019-07-14 23:42 | XMS REPORT | Clinical Summary ---
:1940 Author Organization [facility] Address [address] [place] [address] Care Team Providers Name Role Phone Asked, [...] mouth 0 Active ORAL daily. vitamin A 49730 UNIT Take 25,000 Units 0 Active capsule [...] INFLUENZA VACCINE 06/05/2019 Results Not on fileafter 07/13/2018 Insurance Payer Benefit Plan / Subscriber ID Effective Dates Phone Address Type Group MEDICARE MEDICARE PART A AND xxxxxxxxxxx 2003-[place] Medicare B t MEDICARE MEDICARE PART A AND xxxxxxxxxxx 2003-[place], [place] Medicare B t AETNA AETNA HMO,POS,EPO, xxxxxxxxxx 2003-[facility] HMO MC/EC t AETNA AETNA [employer] xxxxxxxxxx 2003-[facility] Indemnity INDEMNITY t [address] [place] [address] Advance Directives For more information, please contact: [phone] Type Date Recorded Patient Library Specialist Explanation Advance Directives, Living Will and Medical Power of Promotional Demonstrator Advance Directives, Living Will and Medical Power of Promotional Demonstrator
--- OUTSIDE RECORDS SUMMARY | 2019-07-14 23:43 | XMS REPORT | Clinical Summary ---
:1940 Author Organization [facility] Address [address] [place] [address] Care Team Providers Name Role Phone Jakob [...] Tracy Alok, MD Zindani, Shireen, MD after 07/13/2018 Social History Tobacco Use Types Packs/Day Years [...] Taken Blood Pressure 130/69 09/25/2018 3:25 PM [employer] Pulse 90 09/25/2018 3:25 PM [employer] Temperature 36.7 C (98 F) 09/25/2018 3:25 PM [employer] Respiratory Rate 18 09/25/2018 3:25 PM [employer] Oxygen Saturation 100% 09/25/2018 3:25 PM [employer] Inhaled Oxygen Concentration - - Weight - - Height 182.9 cm (6') 09/24/2018 4:00 AM [employer] Body Mass Index - - Plan of Treatment Not on file Procedures Procedure Name Priority Date/Time Associated Comments Diagnosis XR CHEST 1 VIEW STAT 09/25/2018 4:07 Results for this PORTABLE/BEDSIDE PM [employer] procedure are in the results section. HEMOGLOBIN AND Routine 09/25/2018 12:41 Results for this HEMATOCRIT PM [employer] procedure are in the results section. CBC W/PLT COUNT & Routine 09/25/2018 5:14 Results for this AUTO DIFFERENTIAL AM [employer] procedure are in the results section. TSH/FREE T4 IF Routine 09/25/2018 5:14 Results for this INDICATED AM [employer] procedure are in the results section. CBC W/PLT COUNT & Routine 09/25/2018 5:14 Results for this AUTO DIFFERENTIAL AM [employer] procedure are in the results section. MAGNESIUM Routine 09/25/2018 5:14 Results for this AM [employer] procedure are in the results section. BASIC METABOLIC PANEL Routine 09/25/2018 5:14 Results for this (7) AM [employer] procedure are in the results section. ANAEROBIC CULTURE Routine 09/24/2018 7:59 Results for this PM [employer] procedure are in the results section. EAR CULTURE + GRAM Routine 09/24/2018 5:42 Results for this STAIN PM [employer] procedure are in the results section. BLOOD CULTURE Routine 09/24/2018 5:51 Results for this AM [employer] procedure are in the results section. CBC W/PLT COUNT & Routine 09/24/2018 5:50 Results for this AUTO DIFFERENTIAL AM [employer] procedure are in the results section. CBC W/PLT COUNT & Routine 09/24/2018 5:50 Results for this AUTO DIFFERENTIAL AM [employer] procedure are in the results section. MAGNESIUM Routine 09/24/2018 5:50 Results for this AM [employer] procedure are in the results section. BASIC METABOLIC PANEL Routine 09/24/2018 5:50 Results for this (7) AM [employer] procedure are in the results section. after 07/13/2018 Results XR chest 1 view portable / bedside (09/25/2018 4:07 PM [employer]) Specimen Narrative Performed At FINAL REPORT [employer] INDICATION: SOB TECHNIQUE: Chest radiograph, single view, portable technique. FINDINGS / IMPRESSION: Heart shadow is prominent and there is suggestion of pulmonary venous congestion. No overt pulmonary edema and no pleural effusion demonstrated. No pneumothorax or consolidation. Calcified plaque in the aortic arch noted. Osseous structures unremarkable. Signed: Fabio Rivera MD Report Verified Date/Time:09/25/2018 16:48:03 Reading Location: [facility] Diagnostic Imaging Reading Room - [place] [address] Procedure Note Interface, External Ris In - 09/25/2018 4:59 PM [employer] FINAL REPORT INDICATION: SOB TECHNIQUE: Chest radiograph, single view, portable technique. FINDINGS / IMPRESSION: Heart shadow is prominent and there is suggestion of pulmonary venous congestion. No overt pulmonary edema and no pleural effusion demonstrated. No pneumothorax or consolidation. Calcified plaque in the aortic arch noted. Osseous structures unremarkable. Signed: Fabio Rivera MD Report Verified Date/Time: 09/25/2018 16:48:03 Reading Location: [facility] Diagnostic Imaging Reading Room - [place] [address] 1120 Performing Organization Address City/State/Zipcode Phone Number RIS Hemoglobin and hematocrit (09/25/2018 12:41 PM [employer]) Hemoglobin 10.4 (L) 13.7 - 17.5 GM/DL [facility] Hematocrit 32.6 (L) 40.1 - 51.0 % [facility] Specimen Blood Performing Organization Address City/[facility]/Zipcode Phone Number [address] [address] [phone] [place] TSH/Free T4 If Indicated (09/25/2018 5:14 AM [employer]) TSH 1.57 0.35 - 4.94 uIU/mL [facility] Specimen Blood Performing Organization Address City/[facility] Cent[facility] Phone Number [address] [address] [phone] [place] CBC with platelet count + automated diff (09/25/2018 5:14 AM [employer])Only the most recent of2 resultswithin the time period is included. WBC 9.3 3.5 - 10.5 K/L [facility] RBC 3.30 (L) 4.63 - 6.08 M/L [facility] Hemoglobin 9.9 (L) 13.7 - 17.5 GM/DL [facility] Hematocrit 30.7 (L) 40.1 - 51.0 % [facility] MCV 93.0 (H) 79.0 - 92.2 fL [facility] MCH 30.0 25.7 - 32.2 pg [facility] MCHC 32.2 (L) 32.3 - 36.5 GM/DL [facility] RDW 15.9 (H) 11.6 - 14.4 % [facility] Platelets 143 (L) 150 - 450 K/CU MM [facility] MPV 10.9 9.4 - 12.4 fL [facility] nRBC 0 0 - 0 /100 WBC [facility] % Neutros 87 % [facility] % Lymphs 6 % [facility] % Monos 5 % [facility] % Eos 0 % [facility] % Baso 0 % [facility] # Neutros 8.10 (H) 1.78 - 5.38 K/L [facility] # Lymphs 0.51 (L) 1.32 - 3.57 K/L [facility] # Monos 0.46 0.30 - 0.82 K/L [facility] # Eos 0.01 (L) 0.04 - 0.54 K/L [facility] # Baso 0.01 0.01 - 0.08 K/L [facility] Immature Granulocytes-Relative 2 (H) 0 - 1 % [facility] Specimen Blood Performing Organization Address City/State/Zipcode Phone Number [address] [address] CENTER Magnesium (09/25/2018 5:14 AM [employer])Only the most recent of2 resultswithin the time period is included. Magnesium 1.8 1.6 - 2.6 mg/dL [facility] Specimen Blood Performing Organization Address City/State/Zipcode Phone Number [address] [address] CENTER Basic metabolic panel (09/25/2018 5:14 AM [employer])Only the most recent of2 resultswithin the time period is included. Sodium 136 136 - 145 meq/L [facility] Potassium 4.0 3.5 - 5.1 meq/L [facility] Chloride 109 (H) 98 - 107 meq/L [facility] CO2 21 (L) 22 - 29 meq/L [facility] BUN 11 7 - 21 mg/dL [facility] Creatinine 0.70 0.57 - 1.25 mg/dL [facility] Glucose 97 70 - 105 mg/dL [facility] Calcium 8.2 (L) 8.4 - 10.2 mg/dL [facility] EGFR 109Comment: ESTIMATED GFR IS mL/min/1.73 sq m [facility] NOT ACCURATE CREATININE [facility] CENTER CLEARANCE IN PREDICTING GLOMERULAR FILTRATION RATE. ESTIMATED GFR IS NOT APPLICABLE FOR DIALYSIS PATIENTS. Specimen Blood Performing Organization Address City/[facility] Cent[facility]ode Phone Number [address] [address] [phone] [place] Anaerobic culture (09/24/2018 7:59 PM [employer]) Result No anaerobes isolated [facility] Specimen Wound Performing Organization Address [facility] Phone Number [facility] [address] [place] [address] [phone] [place] Ear culture + gram stain (09/24/2018 5:42 PM [employer]) Result 1+ Pseudomonas aeruginosa (A) [facility] Gram Stain Result 4+ WBCs [facility] Gram Stain Result No organisms seen [facility] Specimen Ear Organism Antibiotic Method [...] + Sulfamethoxazole >80: Resistant Performing Organization Address [facility]/Zipcode Phone Number [facility] [address] [place], [place] [phone] CENTER Blood culture #1 (09/24/2018 5:51 AM [employer]) Result No growth in 5 days [facility] Specimen Blood Performing Organization Address [facility] Phone Number [facility] [address] [place], [place] [phone] CENTER after 07/13/2018 Insurance Payer Benefit Plan / Group Subscriber ID Type Phone Address MEDICARE MEDICARE A B xxxxxxxxxxx Medicare AETNA - MGD CARE AETNA HMO POS QPOS xxxxxxxxxx HMO/POS HUMANA - MEDICARE MGD HUMANA MEDICARE ADV xxxxxxxxx [facility] Contracted CARE AETNA - MGD CARE AETNA SELECT US xxxxxxxxxx HMO/POS [address] [place] [phone] Advance Directives For more information, please contact:[address] [phone] Code Status Date Activated Date Inactivated Comments Full Code 09/24/2018 4:58 AM This code status was determined by: Patient
--- OUTSIDE RECORDS SUMMARY | 2019-07-14 23:43 | XMS REPORT ---
:1940 Author Organization [facility] Address [address] [place] [address] Dr. Hill [address] [place] [address] Care Team Providers Name Role Phone CARLOS BARBER Unavailable Unavailable Problems This patient has no known problems. Allergies, Adverse Reactions, Alerts This patient has no known allergies or adverse reactions. Medications This patient has no known medications. Results Test Description Test Time Test Comments Text Results Atomic Results Result Comments BLOOD CULTURE 2018-09-29 11:00:00 Test Item Value Reference Range Comments CULTURE (BEAKER) (test rhsa=7496) No growth in 5 days ANAEROBIC [id number] 12:34:00 Test Item Value Reference Range Comments CULTURE (BEAKER) (test wijb=0672) No anaerobes isolated EAR CULTURE + GRAM [id number] 14:27:00 Test Item Value Reference Range Comments CULTURE (BEAKER) (test PSEUDOMONAS 1+ Pseudomonas kfwr=6189) AERUGINOSA aeruginosa Amikacin (test code=1) Susceptible 0-16 [...] GRAM STAIN RESULT 4+ WBCs (BEAKER) (test zmme=9370) GRAM STAIN RESULT No organisms seen (BEAKER) (test zznl=210858) RAD, CHEST, 1 VIEW, NON [id number] 16:48:00Reason for exam:->SOBShould this be performed at [...] Riveraeport Verified Date/Time: 09/25/2018 16:48:03 Reading Location: [facility] Diagnostic Imaging Reading Room - [place] [address] HEMOGLOBIN AND [id number] 13:03:00 Test Item Value Reference Range Comments HEMOGLOBIN (BEAKER) (test gmbx=491) 10.4 GM/DL 13.7-17.5 HEMATOCRIT (BEAKER) (test dyxz=034) 32.6 % 40.1-51.0 TSH/FREE T4 IF [id number] 06:43:00 Test Item Value Reference Range Comments THYROID STIMULATING HORMONE (BEAKER) (test 1.57 uIU/mL 0.35-4.94 nqll=736) [id number] 06:28:00 Test Item Value Reference Range Comments MAGNESIUM (BEAKER) (test ctlq=693) 1.8 mg/dL 1.6-2.6 BASIC METABOLIC [id number] 06:28:00 Test Item Value Reference Range Comments SODIUM (BEAKER) (test 136 meq/L 136-145 dpft=907) POTASSIUM (BEAKER) (test 4.0 meq/L 3.5-5.1 qdxw=833) CHLORIDE (BEAKER) (test 109 meq/L 98-107 hbye=365) CO2 (BEAKER) (test 21 meq/L 22-29 pqaa=767) BLOOD UREA NITROGEN 11 mg/dL 7-21 (BEAKER) (test isgt=513) CREATININE (BEAKER) (test 0.70 mg/dL 0.57-1.25 vonl=321) GLUCOSE RANDOM (BEAKER) 97 mg/dL 70-105 (test yecc=495) CALCIUM (BEAKER) (test 8.2 mg/dL 8.4-10.2 tvbc=324) EGFR (BEAKER) (test 109 mL/min/1.73 sq m ESTIMATED GFR IS NOT fcrf=3221) ACCURATE CREATININE CLEARANCE IN PREDICTING GLOMERULAR FILTRATION RATE. ESTIMATED GFR IS NOT APPLICABLE FOR DIALYSIS PATIENTS. CBC W/PLT COUNT & AUTO [id number] 05:49:00 Test Item Value Reference Range Comments WHITE BLOOD CELL COUNT (BEAKER) (test tjky=607) 9.3 K/ L 3.5-10.5 RED BLOOD CELL COUNT (BEAKER) (test lhit=655) 3.30 M/ L 4.63-6.08 HEMOGLOBIN (BEAKER) (test dyxv=723) 9.9 GM/DL 13.7-17.5 HEMATOCRIT (BEAKER) (test kjrf=949) 30.7 % 40.1-51.0 MEAN CORPUSCULAR VOLUME (BEAKER) (test cvaa=040) 93.0 fL 79.0-92.2 MEAN CORPUSCULAR HEMOGLOBIN (BEAKER) (test 30.0 pg 25.7-32.2 xube=050) MEAN CORPUSCULAR HEMOGLOBIN CONC (BEAKER) (test 32.2 GM/DL 32.3-36.5 ewoe=247) RED CELL DISTRIBUTION WIDTH (BEAKER) (test 15.9 % 11.6-14.4 lpnz=013) PLATELET COUNT (BEAKER) (test ovkd=012) 143 K/CU MM 150-450 MEAN PLATELET VOLUME (BEAKER) (test gpxi=670) 10.9 fL 9.4-12.4 NUCLEATED RED BLOOD CELLS (BEAKER) (test 0 /100 WBC 0-0 yymg=782) NEUTROPHILS RELATIVE PERCENT (BEAKER) (test 87 % svir=989) LYMPHOCYTES RELATIVE PERCENT (BEAKER) (test 6 % ownj=765) MONOCYTES RELATIVE PERCENT (BEAKER) (test 5 % tsho=777) EOSINOPHILS RELATIVE PERCENT (BEAKER) (test 0 % bmcj=164) BASOPHILS RELATIVE PERCENT (BEAKER) (test 0 % loal=648) NEUTROPHILS ABSOLUTE COUNT (BEAKER) (test 8.10 K/ L 1.78-5.38 qwuq=221) LYMPHOCYTES ABSOLUTE COUNT (BEAKER) (test 0.51 K/ L 1.32-3.57 fakd=997) MONOCYTES ABSOLUTE COUNT (BEAKER) (test 0.46 K/ L 0.30-0.82 rmqu=145) EOSINOPHILS ABSOLUTE COUNT (BEAKER) (test 0.01 K/ L 0.04-0.54 pqkv=223) BASOPHILS ABSOLUTE COUNT (BEAKER) (test 0.01 K/ L 0.01-0.08 ajmi=633) IMMATURE GRANULOCYTES-RELATIVE PERCENT (BEAKER) 2 % 0-1 (test kslu=6597) CBC W/PLT COUNT & AUTO [id number] 07:25:00 Test Item Value Reference Range Comments WHITE BLOOD CELL COUNT (BEAKER) (test xxom=160) 11.2 K/ L 3.5-10.5 RED BLOOD CELL COUNT (BEAKER) (test tljk=579) 3.99 M/ L 4.63-6.08 HEMOGLOBIN (BEAKER) (test bbrc=953) 11.8 GM/DL 13.7-17.5 HEMATOCRIT (BEAKER) (test duvv=815) 36.4 % 40.1-51.0 MEAN CORPUSCULAR VOLUME (BEAKER) (test stmt=144) 91.2 fL 79.0-92.2 MEAN CORPUSCULAR HEMOGLOBIN (BEAKER) (test 29.6 pg 25.7-32.2 dswx=063) MEAN CORPUSCULAR HEMOGLOBIN CONC (BEAKER) (test 32.4 GM/DL 32.3-36.5 tqal=855) RED CELL DISTRIBUTION WIDTH (BEAKER) (test 16.2 % 11.6-14.4 kdqq=890) PLATELET COUNT (BEAKER) (test urew=103) 168 K/CU MM 150-450 MEAN PLATELET VOLUME (BEAKER) (test yqrw=832) 11.3 fL 9.4-12.4 NUCLEATED RED BLOOD CELLS (BEAKER) (test 0 /100 WBC 0-0 feux=066) NEUTROPHILS RELATIVE PERCENT (BEAKER) (test 75 % ntqu=464) LYMPHOCYTES RELATIVE PERCENT (BEAKER) (test 14 % tkrm=071) MONOCYTES RELATIVE PERCENT (BEAKER) (test 8 % iidr=492) EOSINOPHILS RELATIVE PERCENT (BEAKER) (test 1 % fqqx=966) BASOPHILS RELATIVE PERCENT (BEAKER) (test 0 % qmcz=492) NEUTROPHILS ABSOLUTE COUNT (BEAKER) (test 8.31 K/ L 1.78-5.38 znvf=052) LYMPHOCYTES ABSOLUTE COUNT (BEAKER) (test 1.54 K/ L 1.32-3.57 iscq=643) MONOCYTES ABSOLUTE COUNT (BEAKER) (test 0.87 K/ L 0.30-0.82 ugmo=747) EOSINOPHILS ABSOLUTE COUNT (BEAKER) (test 0.09 K/ L 0.04-0.54 jdwp=939) BASOPHILS ABSOLUTE COUNT (BEAKER) (test 0.03 K/ L 0.01-0.08 alzs=147) IMMATURE GRANULOCYTES-RELATIVE PERCENT (BEAKER) 3 % 0-1 (test nmqq=3802) [id number] 07:11:00 Test Item Value Reference Range Comments MAGNESIUM (BEAKER) (test hnfc=679) 1.9 mg/dL 1.6-2.6 BASIC METABOLIC [id number] 07:11:00 Test Item Value Reference Range Comments SODIUM (BEAKER) (test 136 meq/L 136-145 guuv=427) POTASSIUM (BEAKER) (test 3.4 meq/L 3.5-5.1 rcut=992) CHLORIDE (BEAKER) (test 106 meq/L 98-107 pdov=442) CO2 (BEAKER) (test 23 meq/L 22-29 zqeg=157) BLOOD UREA NITROGEN 12 mg/dL 7-21 (BEAKER) (test bqmp=018) CREATININE (BEAKER) (test 0.74 mg/dL 0.57-1.25 tbck=397) GLUCOSE RANDOM (BEAKER) 91 mg/dL 70-105 (test krpc=073) CALCIUM (BEAKER) (test 8.3 mg/dL 8.4-10.2 qsyj=567) EGFR (BEAKER) (test 102 mL/min/1.73 sq m ESTIMATED GFR IS NOT alva=2151) ACCURATE CREATININE CLEARANCE IN PREDICTING GLOMERULAR FILTRATION RATE. ESTIMATED GFR IS NOT APPLICABLE FOR DIALYSIS PATIENTS.
[2019-07-15 00:41] LABS: Absolute Lymphocytes (CBC) 1.1 K/uL (0.7-4.9); Basophils % 0.8 % (0-1.3); Hematocrit 38.1 % (39.6-49.0); Lymphocytes % 6.3 % (15.3-44.8); MPV 8.2 fL (7.6-11.3); RBC Red Blood Cell Count 4.58 M/uL (4.33-5.43)
[2019-07-15 01:28] LABS: Blood Morphology Comment NOT SEEN (NOT SEEN); Platelet Estimate ADEQ
[2019-07-15 01:51] LABS: ALT/SGPT 44 U/L (12-78); AST/SGOT 23 U/L (15-37); Albumin 2.5 g/dL (3.4-5.0); Alkaline Phosphatase 106 U/L (45-117); BUN Blood Urea Nitrogen 11 mg/dL (7-18); Bicarbonate 24 mmol/L (21-32); Bilirubin Total 0.3 mg/dL (0.2-1.0); Glucose Level 107 mg/dL (74-106); Potassium 4.2 mmol/L (3.5-5.1); Protein, Total 5.3 g/dL (6.4-8.2); Sodium Level 131 mmol/L (136-145)
--- NOTE | 2019-07-15 01:56 | ER ---
Nurse's Notes [facility] Name: Gio Matute Age: 79 yrs Sex: Male : 1940 Arrival Date: 07/14/2019 Time: 23:42 Bed 8 Private MD: Diagnosis: Conjunctivitis Presentation: 07/14 23:44 Presenting complaint: EMS states: they were toned out for report of pt with dyspnea but bb on their arrival the complaint was excessive oral secretions. Transition of care: patient was not received from another setting of care. Onset of symptoms was July 14, 2019. Risk Assessment: Do you want to hurt yourself or someone else? Patient reports no desire to harm self or others. Initial Sepsis Screen: Does the patient meet any 2 criteria? No. Patient's initial sepsis screen is negative. Does the patient have a suspected source of infection? No. Patient's initial sepsis screen is negative. Care prior to arrival: Glucose check: 120. 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 - Social history:: Smoking status: Patient/guardian denies using tobacco. - Ebola Screening: : No symptoms or risks identified at this time. Screenin/10 00:08 Abuse screen: Denies threats or abuse. Denies injuries from another. Nutritional rr5 screening: No deficits noted. Tuberculosis screening: No symptoms or risk factors identified. Fall Risk Secondary diagnosis (15 points) impaired mobility, IV access (20 points). Mental Status- Oriented to own ability (0 pts). Total Hines Fall Scale indicates High Risk Score (45 or more points). Fall prevention measures have been instituted. Side Rails Up X 2 Placed Close to Nursing Station Frequent Obs/Assessments Occuring Family Present and informed to notify staff if the need to leave the bedside As available patient and family educated on Fall Prevention Program and Strategies. Assessment: 07/14 23:45 General: Appears in no apparent distress. comfortable, Behavior is calm, cooperative. rr5 23:45 Pain: Denies pain. Neuro: Level of Consciousness is awake, alert, obeys commands, rr5 Oriented to person. Cardiovascular: Capillary refill < 3 seconds Patient's skin is warm and dry. Respiratory: Airway is patent Respiratory effort is even, unlabored, Respiratory pattern is regular, symmetrical. GI: No signs and/or symptoms were reported involving the gastrointestinal system. : condom catheter connected to urine bag. EENT: ear amplifier and hearing aid attached. patient is having difficulty of hearing.. Parent/caregiver reports the patient having excessive saliva secretion. Derm: Skin is fragile, is thin, Skin temperature is warm. Musculoskeletal: Capillary refill < 3 seconds, bedridden. 23:45 EENT: Parent/caregiver reports the patient having "blind" redness, discharge on the rr5 right eye noted.. 07/15 00:48 Reassessment: Patient appears in no apparent distress at this time. awaiting for result.rr5 02:00 Reassessment: reassessment done by ED provider with order for discharge. rr5 02:22 Reassessment: Patient appears in no apparent distress at this time. discharge rr5 instruction given and explained to processing analyst without complaints made, verbalized understanding. cost clerk called for EMS transport going home. 03:18 Reassessment: Patient appears in no apparent distress at this time. awaiting for EMS rr5 service. it will take time for the EMS to arrive as cost clerk stated. explained to family member of the patient agreed to wait. 06:20 Reassessment: Patient appears in no apparent distress at this time. awaiting for EMS rr5 transport. no complaints made vitally stable. 07:02 Reassessment: Patient appears in no apparent distress at this time. endorsed to [facility] rr5 awake, breathing spontaneously at room air. Vital Signs: 07/14 23:47 BP 156 / 85; Pulse 85; Resp 16 S; Temp 98.3(A); Pulse Ox 98% on R/A; Weight 77.11 kg bb (R); Height 6 ft. 1 in. (185.42 cm) (R); 07/15 00:53 BP 149 / 86; Pulse 71; Resp 16; Pulse Ox 99% on R/A; mt 02:05 BP 112 / 85; Pulse 79; Resp 19; Pulse Ox 97% ; rr5 06:00 BP 144 / 77; Pulse 75; Resp 17; Temp 98; Pulse Ox 99% ; rr5 07/14 23:47 Body Mass Index 22.43 (77.11 kg, 185.42 cm) bb ED Course: 07/14 23:42 Patient arrived in ED. em1 23:43 Messi Shook, KADIE is PHCP. pm1 23:43 Juno Jameson MD is Attending Physician. pm1 23:46 Triage completed. bb 23:47 Rao Pierce, NATALEE is Primary Nurse. rr5 23:47 Arm band placed on Patient placed in an exam room, on a stretcher, on pulse oximetry. bb Family accompanied patient. 07/15 00:09 X-ray completed. Portable x-ray completed in exam room. Patient tolerated procedure kw well. 00:09 Patient has correct armband on for positive identification. Bed in low position. Call rr5 light in reach. Side rails up X2. Adult w/ patient. Pulse ox on. NIBP on. 00:26 Initial lab(s) drawn, by ED staff, sent to lab. rr5 00:28 Missed attempt(s): 20 gauge in left forearm. mt 00:32 Chest Single View XRAY In Process Unspecified. EDMS 01:06 Lab(s) recollected, by me, sent to lab. mt 02:21 No provider procedures requiring assistance completed. Patient did not have IV access rr5 during this emergency room visit. Administered Medications: No medications were administered Output: 03:30 Urine: 600ml (Voided); Total: 600ml. rr5 Outcome: 01:55 Discharge ordered by . pm1 06:21 Discharge instructions given to family, Instructed on discharge instructions, follow up rr5 and referral plans. medication usage, Demonstrated understanding of instructions, follow-up care, medications, Prescriptions given X 1. 07:03 Discharged to home via ambulance. rr5 07:03 Condition: stable 07:03 Patient left the ED. rr5 Signatures: Dispatcher [employer] EDMS Acevedo, Yasemin, RN RN Diego Faria em1 Humaira Sainz Patrick, KADIE SILVERER pm1 Pretty Herrera mt, Raymond, RN RN rr5 Corrections: (The following items were deleted from the chart) 06:21 07/14 23:45 EENT: Parent/caregiver reports the patient having "blind". rr5 rr5 07/15 06:48 03:18 Reassessment: Patient appears in no apparent distress at this time. awaiting for rr5 EMS service. it will take time for the EMS to arrive as cost clerk stated. most probably in the morning. rr5
--- NOTE | 2019-07-15 01:57 | EDPHYS ---
Physician Documentation [facility] Name: Gio Matute Age: 79 yrs Sex: Male : 1940 Arrival Date: 07/14/2019 Time: 23:42 Bed 8 Private MD: ED Physician Juno Jameson HPI: 07/15 00:00 This 79 yrs old Male presents to ER via EMS with complaints of increased oral pm1 secretions. 00:00 Family called EMS due to increased oral secretions. Patient without shortness of breath pm1 or chest pain. No fever or cough.. Onset: The symptoms/episode began/occurred today. Severity of symptoms: in the emergency department the symptoms are unchanged. The patient has been recently seen at the [facility] Emergency Department, last week, for complaint of chest pain. 00:00 Patient with history of urinary tract colonization and condom catheter usage. 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 - Social history:: Smoking status: Patient/guardian denies using tobacco. - Ebola Screening: : No symptoms or risks identified at this time. ROS: 07/15 00:00 Constitutional: Negative for fever, chills, and weight loss, ENT: Negative for injury, pm1 pain, and discharge. Neck: Negative for injury, pain, and swelling, Cardiovascular: Negative for chest pain, palpitations, and edema, Respiratory: Negative for shortness of breath, cough, wheezing, and pleuritic chest pain, Abdomen/GI: Negative for abdominal pain, nausea, vomiting, diarrhea, and constipation, Back: Negative for injury and pain, : Negative for injury, bleeding, discharge, and swelling, MS/Extremity: Negative for injury and deformity, Skin: Negative for injury, rash, and discoloration, Neuro: Negative for headache, weakness, numbness, tingling, and seizure. Eyes: Positive for matting, of the right eye. Exam: 00:00 Constitutional: This is a well developed, well nourished patient who is awake, alert, pm1 and in no acute distress. Head/Face: Normocephalic, atraumatic. ENT: Nares patent. No nasal discharge, no septal abnormalities noted. Tympanic membranes are normal and external auditory canals are clear. Oropharynx with no redness, swelling, or masses, exudates, or evidence of obstruction, uvula midline. Mucous membranes moist. 00:00 Neck: Trachea midline, no thyromegaly or masses palpated, and no cervical lymphadenopathy. Supple, full range of motion without nuchal rigidity, or vertebral point tenderness. No Meningismus. Chest/axilla: Normal chest wall appearance and motion. Nontender with no deformity. No lesions are appreciated. Cardiovascular: Regular rate and rhythm with a normal S1 and S2. No gallops, murmurs, or rubs. Normal PMI, no JVD. No pulse deficits. Respiratory: Lungs have equal breath sounds bilaterally, clear to auscultation and percussion. No rales, rhonchi or wheezes noted. No increased work of breathing, no retractions or nasal flaring. Abdomen/GI: Soft, non-tender, with normal bowel sounds. No distension or tympany. No guarding or rebound. No evidence of tenderness throughout. Back: No spinal tenderness. No costovertebral tenderness. Full range of motion. Skin: Warm, dry with normal turgor. Normal color with no rashes, no lesions, and no evidence of cellulitis. MS/ Extremity: Pulses equal, no cyanosis. Neurovascular intact. Full, normal range of motion. 00:00 Eyes: Periorbital structures: appear normal, Conjunctiva: exudate, in the right eye, injected, Corneas: are normal, Lids and lashes: appear normal. 00:00 Neuro: Orientation: to person, patient's baseline. Vital Signs: 07/14 23:47 BP 156 / 85; Pulse 85; Resp 16 S; Temp 98.3(A); Pulse Ox 98% on R/A; Weight 77.11 kg bb (R); Height 6 ft. 1 in. (185.42 cm) (R); 07/15 00:53 BP 149 / 86; Pulse 71; Resp 16; Pulse Ox 99% on R/A; mt 02:05 BP 112 / 85; Pulse 79; Resp 19; Pulse Ox 97% ; rr5 06:00 BP 144 / 77; Pulse 75; Resp 17; Temp 98; Pulse Ox 99% ; rr5 07/14 23:47 Body Mass Index 22.43 (77.11 kg, 185.42 cm) bb MDM: 07/14 23:43 Patient medically screened. pm1 07/15 01:41 Data reviewed: vital signs. Data interpreted: Pulse oximetry: on room air is 99 %. pm1 Interpretation: normal. 01:41 Counseling: I had a detailed discussion with the patient and/or guardian regarding: the pm1 historical points, exam findings, and any diagnostic results supporting the discharge/admit diagnosis, lab results, radiology results, the need for outpatient follow up, to return to the emergency department if symptoms worsen or persist or if there are any questions or concerns that arise at home. 01:45 ED course: Patient with improved chest xray from prior ER visit on 07/06/2019. Patient pm1 without complaints of shortness of breath or chest pain. VSS with O2 sat of 99%. Patient came to ER with complaints of increased oral secretions. Patient's WBC elevated but decreased from prior visit. Patient with colonization of urine without any complaints of dysuria. I do not want to give the patient any systemic antibiotics without any identifiable source. 07/14 23:56 Order name: CBC with Diff; Complete Time: 01:34 pm1 07/14 23:56 Order name: CMP; Complete Time: 01:54 pm1 07/14 23:56 Order name: Chest Single View XRAY pm1 07/15 00:47 Order name: Manual Differential; Complete Time: 01:34 EDMS 07/15 00:56 Order name: Labs - recollect needed; Complete Time: 01:02 em1 Administered Medications: No medications were administered Disposition: 07/16 05:42 Co-signature as Attending Physician, Juno Jameson MD I agree with the assessment and tw4 plan of care. Disposition: 07/15/19 01:55 Discharged to Home. Impression: Conjunctivitis. - Condition is Stable. - Discharge Instructions: Bacterial Conjunctivitis. - Prescriptions for Erythromycin 5 mg/gram (0.5 %) Ophthalmic Ointment - apply 1 centimeter by OPHTHALMIC route every 8 hours for 7 days; 1 tube. - Medication Reconciliation Form, Thank You Letter, Antibiotic Education, Prescription Opioid Use form. - Follow up: Emergency Department; When: As needed; Reason: Worsening of condition. Follow up: Private Physician; When: 2 - 3 days; Reason: Recheck today's complaints, Continuance of care, Re-evaluation by your physician. - Problem is new. - Symptoms have improved. Signatures: Dispatcher [employer] EDMS Yasemin Acevedo, RN RN Diego Faria em1 Messi Shook, TEXTILE TECHNICAL OFFICER TEXTILE TECHNICAL OFFICER pm1 Juno Jameson MD MD tw4 Rao Pierce RN RN rr5 Corrections: (The following items were deleted from the chart) 07/15 07:03 01:55 07/15/2019 01:55 Discharged to Home. Impression: Conjunctivitis. Condition is rr5 Stable. Forms are Medication Reconciliation Form, Thank You Letter, Antibiotic Education, Prescription Opioid Use. Follow up: Emergency Department; When: As needed; Reason: Worsening of condition. Follow up: Private Physician; When: 2 - 3 days; Reason: Recheck today's complaints, Continuance of care, Re-evaluation by your physician. Problem is new. Symptoms have improved. pm1
[2019-07-15 07:14] VITALS: BP 144/77; TEMP 98; O2SAT 99
--- NOTE | 2019-07-15 07:45 | RAD REPORT ---
EXAM DESCRIPTION: RAD - Chest Single View - 07/15/2019 12:12 am CLINICAL HISTORY: Cough and congestion, dyspnea COMPARISON: July 06 TECHNIQUE: AP portable chest image was obtained 0009 hours . FINDINGS: Lungs are underinflated. Left pleural effusion is similar to comparison. Minimal left base parenchymal opacification improved from the comparison. Right lung field is clear. Trachea is midlin e. Heart size is upper normal. Pulmonary vasculature within normal limits. No measurable pleural effu jeannette and no pneumothorax. No acute bony abnormality seen. No acute aortic findings suspected. IMPRESSION: Small left pleural effusion and remnant left base opacification improved from prior imag ing. No significant failure or volume overload findings.
== END 2019-07-15 07:03 | disposition home or self-care (01) ==
LOC: ER 23:40
DX: H10.9 Unspecified conjunctivitis (principal); I10 Essential (primary) hypertension; Z88.6 Allergy status to analgesic agent; Z88.8 Allergy status to other drugs, medicaments and biological substances
CPT/HCPCS: 36415; 71045; 80053; 85025; 99284

== ENCOUNTER 2019-08-11 09:15 | Inpatient (IN) | payer OTHER, SELFPAY ==
[2019-08-11] MEDS ORDERED: LIDOCAINE VISCOUS 2% SOLN 15 ML UDC ONE (10:04)
[2019-08-11 10:09] LABS: Absolute Lymphocytes (CBC) 0.8 K/uL (0.7-4.9); Basophils % 0.7 % (0-1.3); Hematocrit 36.8 % (39.6-49.0); Lymphocytes % 5.6 % (15.3-44.8); MPV 8.5 fL (7.6-11.3); RBC Red Blood Cell Count 4.44 M/uL (4.33-5.43)
[2019-08-11 10:35] LABS: ALT/SGPT 31 U/L (12-78); AST/SGOT 18 U/L (15-37); Albumin 2.5 g/dL (3.4-5.0); Alkaline Phosphatase 97 U/L (45-117); BUN Blood Urea Nitrogen 13 mg/dL (7-18); Bicarbonate 25 mmol/L (21-32); Bilirubin Direct 0.1 mg/dL (0-0.2); Bilirubin Total 0.4 mg/dL (0.2-1.0); Glucose Level 109 mg/dL (74-106); Lipase 239 U/L (73-393); NT PRO-BNP 5283 pg/mL (<450); Potassium 4.6 mmol/L (3.5-5.1); Protein, Total 5.9 g/dL (6.4-8.2); Sodium Level 132 mmol/L (136-145); Troponin (Emerg Dept Use Only) < 0.02 ng/mL (0.0-0.045)
--- NOTE | 2019-08-11 10:49 | RAD REPORT ---
EXAM DESCRIPTION: RAD - Chest Single View - 08/11/2019 10:38 am CLINICAL HISTORY: COUGH Chest pain. COMPARISON: Chest Single View dated 07/15/2019; Chest Single View dated 07/06/2019; Chest Single View d ated 03/30/2019; Chest Single View dated 03/17/2019 FINDINGS: Portable technique limits examination quality. Mild interstitial pulmonary edema is suspected. Heart is moderately enlarged in size. Trace left pleu ral fluid. IMPRESSION: Mild CHF.
--- NOTE | 2019-08-11 11:08 | ER ---
Nurse's Notes [facility] Name: Gio Matute Age: 79 yrs Sex: Male : 1940 Arrival Date: 08/11/2019 Time: 09:20 Bed 20 Private MD: Diagnosis: Unspecified combined systolic (congestive) and diastolic (congestive) heart failure;Dyspnea;Elevated white blood cell count Presentation: 08/11 09:20 Presenting complaint: EMS states: pt with general malaise, vs stable, pt has hx of tw2 afib, pt is in afib, BGL 115 mg/dL, pt is very hard of hearing , condom catheter in place. Transition of care: patient was not received from another setting of care. Onset of symptoms was August 11, 2019. Risk Assessment: Do you want to hurt yourself or someone else? Patient reports no desire to harm self or others. Initial Sepsis Screen: Does the patient meet any 2 criteria? No. Patient's initial sepsis screen is negative. Does the patient have a suspected source of infection? No. Patient's initial sepsis screen is negative. Care prior to arrival: None. 09:20 Method Of Arrival: EMS: [facility] tw2 09:20 Acuity: MACI 3 tw2 Triage Assessment: 09:31 General: Appears in no apparent distress. Behavior is calm, cooperative, appropriate tw2 for age. Pain: Denies pain. 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 - Social history:: Smoking status: . - Ebola Screening: : Patient denies travel to an Ebola-affected area in the 21 days before illness onset. - Family history:: not pertinent. Screenin:33 Abuse screen: Denies threats or abuse. Nutritional screening: No deficits noted. tw2 Tuberculosis screening: No symptoms or risk factors identified. Fall Risk Secondary diagnosis (15 points) impaired mobility. Assessment: 09:20 General: Appears in no apparent distress. Behavior is appropriate for age, pts family tw2 states he is at baseline. Pain: Denies pain. Neuro: Level of Consciousness is obeys commands, Oriented to person. Cardiovascular: Heart tones S1 S2 Patient's skin is warm and dry. Respiratory: Airway is patent Respiratory effort is even, unlabored, Respiratory pattern is regular, symmetrical, Breath sounds are clear bilaterally. Parent/caregiver reports the patient having shortness of breath at rest on exertion. GI: No signs and/or symptoms were reported involving the gastrointestinal system. Abdomen is flat, Bowel sounds present X 4 quads. : Parent/caregiver report the patient having condom catheter in place, changed today, also reports large hernia to right inguinal area. EENT: No signs and/or symptoms were reported regarding the EENT system. Derm: No signs and/or symptoms reported regarding the dermatologic system. Musculoskeletal: Circulation, motion, and sensation intact. 09:30 Reassessment: provider at bedside at this time. tw2 10:38 Reassessment: No changes from previously documented assessment. Patient and/or family tw2 updated on plan of care and expected duration. Pain level reassessed. 11:40 Reassessment: Patient appears in no apparent distress at this time. No changes from tw2 previously documented assessment. Patient and/or family updated on plan of care and expected duration. Pain level reassessed. 12:30 Reassessment: Patient appears in no apparent distress at this time. No changes from tw2 previously documented assessment. Patient and/or family updated on plan of care and expected duration. Pain level reassessed. 13:08 Reassessment: Patient appears in no apparent distress at this time. No changes from tw2 previously documented assessment. Patient and/or family updated on plan of care and expected duration. Pain level reassessed. 14:00 Reassessment: Patient appears in no apparent distress at this time. No changes from tw2 previously documented assessment. Patient and/or family updated on plan of care and expected duration. Pain level reassessed. Vital Signs: 09:30 BP 151 / 105; Pulse 83; Resp 18; Temp 97.9(TE); Pulse Ox 97% on R/A; Pain 0/10; tw2 10:38 BP 148 / 85; Pulse 86; Resp 16; Pulse Ox 100% on R/A; tw2 11:40 BP 146 / 82; Pulse 75; Resp 17; Pulse Ox 100% on R/A; tw2 12:30 BP 152 / 91; Pulse 75; Resp 17; Pulse Ox 99% on R/A; tw2 13:08 BP 152 / 78; Pulse 88; Resp 18; Pulse Ox 99% on R/A; tw2 14:00 BP 133 / 75; Pulse 87; Resp 17; Pulse Ox 100% on R/A; tw2 ED Course: 09:20 Patient arrived in ED. tw2 09:20 Bed in low position. Call light in reach. Side rails up X2. Adult w/ patient. Cardiac tw2 monitor on. Pulse ox on. NIBP on. 09:22 Triage completed. tw2 09:30 Abiola Kelly, NATALEE is Primary Nurse. tw2 09:31 Arm band placed on. tw2 09:32 Gasper Plummer MD is Attending Physician. chaz 09:33 EKG done, by mechanical laboratory technician. reviewed by Gasper Plummer MD. at1 09:38 Initial lab(s) drawn, by ne, sent to lab. Inserted saline lock: 20 gauge in right ms forearm, using aseptic technique. Blood collected. 10:39 XRAY Chest (1 view) In Process Unspecified. EDMS 11:06 Jose Luis Robert MD is Hospitalizing Provider. chaz 13:52 No provider procedures requiring assistance completed. Patient admitted, IV remains in tw2 place. 13:54 unsuccessful attempt to call report at this time. tw2 Administered Medications: 11:22 Drug: Pepcid 20 mg Route: IVP; Site: right forearm; tw2 13:50 Follow up: Response: No adverse reaction tw2 11:26 Drug: Lasix 40 mg Route: IVP; Site: right forearm; tw2 13:50 Follow up: Response: No adverse reaction tw2 11:26 Drug: Xopenex 1.25 mg Route: Inhalation; tw2 11:26 Drug: AtroVENT Aerosol 0.5 mg Route: Inhalation; tw2 11:27 Drug: Zosyn 3.375 grams Route: IVPB; Infused Over: 60 mins; Site: right forearm; tw2 12:32 Follow up: Response: No adverse reaction; IV Status: Completed infusion tw2 Outcome: 11:07 Decision to Hospitalize by Provider. chaz 14:12 Admitted to Med/surg accompanied by tech, via stretcher, room 417, with chart, Report tw2 called to NATALEE Alejandro 14:12 Condition: stable 14:12 Instructed on the need for admit. 14:25 Patient left the ED. tw2 Signatures: Dispatcher [employer] Gasper Gardner MD MD cha Solis, Maria ms Gonzales, Amanda, depilatory painter EKG Tat1 Abiola Kelly, RN RN tw2
--- NOTE | 2019-08-11 11:09 | EDPHYS ---
Physician Documentation [facility] Name: Gio Matute Age: 79 yrs Sex: Male : 1940 Arrival Date: 08/11/2019 Time: 09:20 Bed 20 Private MD: ED Physician Gasper Plummer HPI: 08/11 09:40 This 79 yrs old Male presents to ER via EMS with complaints of Doesn't Feel chaz Right. 09:40 The patient has shortness of breath at rest, with light activity. Onset: The chaz symptoms/episode began/occurred this morning. Duration: The symptoms are intermittent, with no pattern. The patient's shortness of breath has no apparent modifying factors. The patient or guardian reports chest pain that is located primarily in the substernal area. Onset: at an unknown time. The pain does not radiate. Associated signs and symptoms: The patient has no apparent associated signs or symptoms. Associated signs and symptoms: The patient has no apparent associated signs or symptoms. 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 - Social history:: Smoking status: . - Ebola Screening: : Patient denies travel to an Ebola-affected area in the 21 days before illness onset. - Family history:: not pertinent. ROS: 09:40 Constitutional: Negative for fever, chills, and weight loss, Eyes: Negative for injury, chaz pain, redness, and discharge, ENT: Negative for injury, pain, and discharge, Neck: Negative for injury, pain, and swelling, Cardiovascular: Negative for chest pain, palpitations, and edema, Back: Negative for injury and pain, : Negative for injury, bleeding, discharge, and swelling, MS/Extremity: Negative for injury and deformity, Skin: Negative for injury, rash, and discoloration, Neuro: Negative for headache, weakness, numbness, tingling, and seizure, Psych: Negative for depression, anxiety, suicide ideation, homicidal ideation, and hallucinations, Allergy/Immunology: Negative for hives, rash, and allergies, Endocrine: Negative for neck swelling, polydipsia, polyuria, polyphagia, and marked weight changes, Hematologic/Lymphatic: Negative for swollen nodes, abnormal bleeding, and unusual bruising. 09:40 Respiratory: Positive for cough, shortness of breath. Exam: 09:40 Constitutional: This is a well developed, well nourished patient who is awake, alert, chaz and in no acute distress. Head/Face: Normocephalic, atraumatic. Eyes: Pupils equal round and reactive to light, extra-ocular motions intact. Lids and lashes normal. Conjunctiva and sclera are non-icteric and not injected. Cornea within normal limits. Periorbital areas with no swelling, redness, or edema. ENT: Nares patent. No nasal discharge, no septal abnormalities noted. Tympanic membranes are normal and external auditory canals are clear. Oropharynx with no redness, swelling, or masses, exudates, or evidence of obstruction, uvula midline. Mucous membranes moist. Neck: Trachea midline, no thyromegaly or masses palpated, and no cervical lymphadenopathy. Supple, full range of motion without nuchal rigidity, or vertebral point tenderness. No Meningismus. Chest/axilla: Normal chest wall appearance and motion. Nontender with no deformity. No lesions are appreciated. Cardiovascular: Regular rate and rhythm with a normal S1 and S2. No gallops, murmurs, or rubs. Normal PMI, no JVD. No pulse deficits. Abdomen/GI: Soft, non-tender, with normal bowel sounds. No distension or tympany. No guarding or rebound. No evidence of tenderness throughout. Back: No spinal tenderness. No costovertebral tenderness. Full range of motion. Male : Normal genitalia with no discharge or lesions. Skin: Warm, dry with normal turgor. Normal color with no rashes, no lesions, and no evidence of cellulitis. MS/ Extremity: Pulses equal, no cyanosis. Neurovascular intact. Full, normal range of motion. Psych: Awake, alert, with orientation to person, place and time. Behavior, mood, and affect are within normal limits. 09:40 Respiratory: the patient does not display signs of respiratory distress, Respirations: normal, Breath sounds: decreased breath sounds, Respiratory rate: 18 Vital Signs: 09:30 BP 151 / 105; Pulse 83; Resp 18; Temp 97.9(TE); Pulse Ox 97% on R/A; Pain 0/10; tw2 10:38 BP 148 / 85; Pulse 86; Resp 16; Pulse Ox 100% on R/A; tw2 11:40 BP 146 / 82; Pulse 75; Resp 17; Pulse Ox 100% on R/A; tw2 12:30 BP 152 / 91; Pulse 75; Resp 17; Pulse Ox 99% on R/A; tw2 13:08 BP 152 / 78; Pulse 88; Resp 18; Pulse Ox 99% on R/A; tw2 14:00 BP 133 / 75; Pulse 87; Resp 17; Pulse Ox 100% on R/A; tw2 MDM: 09:32 Patient medically screened. [facility] 09:44 Data reviewed: vital signs, nurses notes, lab test result(s), EKG, radiologic studies, chaz plain films. 08/11 09:39 Order name: Basic Metabolic Panel; Complete Time: 11:03 [facility] 08/11 09:39 Order name: CBC with Diff [facility] 08/11 09:39 Order name: LFT's; Complete Time: 11:03 [facility] 08/11 09:39 Order name: Magnesium; Complete Time: 11:03 [facility] 08/11 09:39 Order name: NT PRO-BNP; Complete Time: 11:03 [facility] 08/11 09:39 Order name: PT-INR; Complete Time: 11:03 [facility] 08/11 09:39 Order name: Troponin (emerg Dept Use Only); Complete Time: 11:03 [facility] 08/11 09:39 Order name: Blood Culture Adult (2) [facility] 08/11 09:39 Order name: Procalcitonin; Complete Time: 11:03 [facility] 08/11 09:39 Order name: Lipase; Complete Time: 11:03 [facility] 08/11 09:39 Order name: Type And Screen chaz 08/11 09:40 Order name: TSH; Complete Time: 11:03 [facility] 08/11 10:24 Order name: Urine Microscopic Only sc 08/11 10:27 Order name: Urine Dipstick--Ancillary (enter results) 08/11 09:39 Order name: XRAY Chest (1 view); Complete Time: 11:03 [facility] 08/11 09:39 Order name: EKG; Complete Time: 09:41 [facility] 08/11 09:39 Order name: Cardiac monitoring; Complete Time: 09:47 [facility] 08/11 09:39 Order name: EKG - Nurse/Tech; Complete Time: 09:48 [facility] 08/11 09:39 Order name: IV Saline Lock; Complete Time: 09:48 [facility] 08/11 09:39 Order name: Labs collected and sent; Complete Time: 09:48 [facility] 08/11 09:39 Order name: O2 Per Protocol; Complete Time: 09:48 [facility] 08/11 09:39 Order name: O2 Sat Monitoring; Complete Time: 09:48 [facility] 08/11 09:39 Order name: Urine Dipstick-Ancillary (obtain specimen); Complete Time: 10:25 [facility] 08/11 11:14 Order name: CONS Physician Consult EDMS 08/11 12:18 Order name: Manual Differential EDMS Administered Medications: 11:22 Drug: Pepcid 20 mg Route: IVP; Site: right forearm; tw2 13:50 Follow up: Response: No adverse reaction tw2 11:26 Drug: Lasix 40 mg Route: IVP; Site: right forearm; tw2 13:50 Follow up: Response: No adverse reaction tw2 11:26 Drug: Xopenex 1.25 mg Route: Inhalation; tw2 11:26 Drug: AtroVENT Aerosol 0.5 mg Route: Inhalation; tw2 11:27 Drug: Zosyn 3.375 grams Route: IVPB; Infused Over: 60 mins; Site: right forearm; tw2 12:32 Follow up: Response: No adverse reaction; IV Status: Completed infusion tw2 Disposition: 08/11/19 11:07 Hospitalization ordered by Jose Luis Robert for Inpatient Admission. Preliminary diagnosis are Unspecified combined systolic (congestive) and diastolic (congestive) heart failure, Dyspnea, Elevated white blood cell count. - Bed requested for Telemetry/MedSurg (Inpatient). - Status is Inpatient Admission. tw2 - Condition is Fair. - Problem is new. - Symptoms have improved. UTI on Admission? No Signatures: Dispatcher [employer] EDMS Dirrim, Gasper Chamberlain MD MD cha Wise, Tara, RN RN tw2 Corrections: (The following items were deleted from the chart) 11:17 11:07 Hospitalization Ordered by Jose Luis Robert MD for Inpatient Admission. Preliminary chaz diagnosis is Unspecified combined systolic (congestive) and diastolic (congestive) heart failure; Dyspnea. Bed requested for Telemetry/MedSurg (Inpatient). Status is Inpatient Admission. Condition is Fair. Problem is new. Symptoms have improved. UTI on Admission? No. chaz 13:51 11:17 08/11/2019 11:07 Hospitalization Ordered by Jose Luis Robert MD for Inpatient bd Admission. Preliminary diagnosis is Unspecified combined systolic (congestive) and diastolic (congestive) heart failure; Dyspnea; Elevated white blood cell count. Bed requested for Telemetry/MedSurg (Inpatient). Status is Inpatient Admission. Condition is Fair. Problem is new. Symptoms have improved. UTI on Admission? No. chaz 14:25 13:51 08/11/2019 11:07 Hospitalization Ordered by Jose Luis Robert MD for Inpatient tw2 Admission. Preliminary diagnosis is Unspecified combined systolic (congestive) and diastolic (congestive) heart failure; Dyspnea; Elevated white blood cell count. Bed requested for Telemetry/MedSurg (Inpatient). Status is Inpatient Admission. Condition is Fair. Problem is new. Symptoms have improved. UTI on Admission? No. bd
[2019-08-11] MEDS ORDERED: FUROSEMIDE 40 MG/4 ML VIAL ONE (11:18)
[2019-08-11] MEDS ORDERED: IPRATROPIUM BROM 0.5MG/2.5ML ONE (11:18)
[2019-08-11] MEDS ORDERED: LEVALBUTEROL 1.25 MG/3 ML NEB ONE (11:18)
[2019-08-11] MEDS ORDERED: FAMOTIDINE 20 MG/2 ML VIAL IV ONE (11:18)
[2019-08-11] MEDS ORDERED: PIPER/TAZO/NS 3.375gm 3.375 GM/100 ML BAG ONE (11:18)
[2019-08-11 11:24] LABS: Urine Bacteria LOADED /HPF (NONE SEEN); Urine Culture Reflex Order REFLEXED
[2019-08-11 11:42] LABS: Urine Blood 2+ (NEG); Urine Glucose NEGATIVE (NEG); Urine Protein 2+ (NEG)
[2019-08-11 12:17] LABS: Platelet Estimate ADEQ
[2019-08-11 12:18] LABS: Blood Morphology Comment NOT SEEN (NOT SEEN)
[2019-08-11] MEDS ORDERED: IPRATROPIUM BROM 0.5MG/2.5ML NEB PRN (14:16)
[2019-08-11] MEDS ORDERED: ONDANSETRON 4 MG/2 ML VIAL IV PRN (14:16)
[2019-08-11] MEDS ORDERED: ALBUTEROL 2.5 MG/3 ML NEB SOL NEB PRN (14:16)
[2019-08-11] MEDS ORDERED: ACETAMINOPHEN 500 MG TAB PO PRN (14:16)
[2019-08-11] MEDS ORDERED: GLUCAGON 1 MG/VIAL IM PRN (14:16)
[2019-08-11] MEDS: INSULIN -REGULAR HUMAN 50 UNIT/0.5 ML ML SQ SCH ×3 (14:16→21:00)
[2019-08-11] MEDS ORDERED: D50W 25 GM/50 ML SYRINGE IV PRN (14:16)
[2019-08-11 16:05] VITALS: BMI 22.8
[2019-08-11] MEDS: HYDROCORTISONE SUC 100 MG INJ IV SCH ×2 (16:23→21:47)
[2019-08-11] MEDS: WATER FOR INJ,STERILE 10 ML IV SCH ×2 (16:23→21:54)
--- NOTE | 2019-08-11 16:47 | CON ---
History Of Present Illness: Mr. Matute came in to the hospital after his called for transportat [facility] to help. She called because the patient was more dyspneic than usual. The patient has a chest x -ray that shows pulmonary edema. He has received some diuretics and seems to be doing better. Mr. Santiago mckeon is a chronically ill gentleman. He has blindness. He is 100% bed-bound, never gets out of bed except with nursing care. I do not think he ever sits in a chair. His x-ray shows that there is pr obably some mild interstitial edema. I do not indicate there is an x-ray, but the patient is being t reated with Zosyn. He does not have elevated temperature. He does have an elevated white count with a left shift, so I think he is being treated for pneumonia just in case. Patient eats all pureed or liquified food, but he seems to get quite a bit of sodium yesterday and drank 4 Glucerna. He likes steak every day, and I add salt to his steak. We do not have any previous echocardiograms. Outpatient Medications: Amlodipine, metoprolol, prednisone. Past Medical History: He has a history of COPD, congestive heart failure, blindness, diabetes, enlar ged prostate, hernia, hypertension, Jong granulomatosis, hearing difficulty. Past Surgical History: He has had previous vocal cord surgery. Physical Examination: Vital Signs: Blood pressure 148/85, heart rate 86, afebrile. HEENT: Reveals bilateral blindness. Lungs: Do not reveal crackles or wheeze. Heart: Regular rate and rhythm. There is a 1/6 holosystolic murmur. No friction rub. Extremities: Reveal a lot of contractures. Atrophic skin. No evidence of any weightbearing on his feet. Distal pulses are diminished. Impression: The patient probably has mild volume overload. He should probably have a diuretic added to his regular regimen and have the family try to follow a low-sodium diet. An echocardiogram might help us provide the best medical care to prevent this from happening in the future. BELKIS/MODL Voice ID: [id number] Report ID: [id number]
[2019-08-11] MEDS ORDERED: PIPER/TAZO/NS 3.375gm 3.375 GM/100 ML BAG IVPB SCH (17:00)
[2019-08-11] MEDS ORDERED: FUROSEMIDE 20 MG/ 2ML VIAL IV SCH (17:00)
--- NOTE | 2019-08-11 17:17 | EKG ---
Test Date: 2019-08-11 Test Time: 09:33:29 Vault Keeper: MECHELLE MEASUREMENT RESULTS: Intervals: Rate: 78 AR: QRSD: 94 QT: 382 QTc: 435 [place]: P: AR: QRS: 79 T: 67 INTERPRETIVE STATEMENTS: Atrial fibrillation with a competing junctional pacemaker Septal infarct, age undetermined Abnormal ECG Compared to ECG 07/06/2019 01:07:26 Myocardial infarct finding now present Electronically Signed On 08-11-19 17:16:41 CDT by Santiago Ha
--- NOTE | 2019-08-11 17:29 | ECHO ---
HEIGHT: 6 ft 2 in WEIGHT: 178 lb 0 oz DATE OF STUDY: 08/11/[address]: Santiago Ha MD 2-DIMENSIONAL: YES M.MODE: YES DOPPLER: YES COLOR FLOW: YES TDS: YES PORTABLE: DEFINITY: BUBBLE STUDY: DIAGNOSIS: CHF CARDIAC HISTORY: CATHERIZATION: NO SURGERY: NO PROSTHETIC VALVE: NO PACEMAKER: NO MEASUREMENTS (cm) DIASTOLIC (NORMALS) SYSTOLIC (NORMALS) IVSd 1.2 (0.6-1.2) LA Diam 3.4 (1.9-4.0) LVEF 58% LVIDd 3.5 (3.5-5.7) LVIDs 2.4 (2.0-3.5) %FS 30% LVPWd 1.3 (0.6-1.2) Ao Diam 2.5 (2.0-3.7) 2 DIMENSIONAL ASSESSMENT: RIGHT ATRIUM: NORMAL LEFT ATRIUM: NORMAL RIGHT VENTRICLE: NORMAL LEFT VENTRICLE: LEFT VENTRICULAR HYPERTROPHY TRICUSPID VALVE: NORMAL MITRAL VALVE: NORMAL PULMONIC VALVE: NORMAL AORTIC VALVE: SCLEROSIS PERICARDIAL EFFUSION: NONE AORTIC ROOT: NORMAL LEFT VENTRICULAR WALL MOTION: NORMAL DOPPLER/COLOR FLOW: MILD AORTIC REGURGITATION, MITRAL REGURGITATION AND TRICUSPID REGURGITATION. NORMAL RIGHT VENTRICULAR SYSTOLIC PRESSURE. NO AORTIC STENOSIS. COMMENTS: NORMAL LEFT VENTRICULAR EJECTION FRACTION. LEFT VENTRICULAR HYPERTROPHY. AORTIC SCLEROSIS WITH NO AORTIC STENOSIS OR AORTIC REGURGITATION. MILD AORTIC REGURGITATION, MITRAL REGURGITATION AND TRICUSPID REGURGITATION. TECHNOLOGIST: NICOLE GRAHAM
[2019-08-11] MEDS ORDERED: PNEUMOCOCCAL VACCINE 0.5 ML IMVAC ONE (18:00)
[2019-08-11] MEDS ORDERED: INFLUENZA VACCINE (for 3y+) 0.5 ML DOSE IMVAC ONE (18:00)
--- NOTE | 2019-08-11 20:31 | P.HP ---
Certification for Inpatient Patient admitted to: Observation With expected LOS: <2 Midnights Practitioner: I am a practitioner with admitting privileges, knowledge of patient current condition, hospital course, and medical plan of care. Services: Services provided to patient in accordance with Admission requirements found in Title 42 Section 412.3 of the Code of Federal Regulations Patient History Date of Service: 08/11/19 Reason for admission: DYSPNEA History of Present Illness: MR. JARVIS IS A VERY SICK GENTLEMAN WHO HAS BEEN BED BOUND FOR ABOUT TWO YEARS, HAS HAD A FIB IN THE PAST BUT DOES NOT LIKE SIDE EFFECTS OF BETA BLOCKERS SO REFUSES TO TAKE IT. HE HAS SEVERE COMPLICATIONS OF CARMITA'S GRANULOMATOSIS LIKE SEVERE BLEEDING FROM NOSE AND LUNGS WHICH NOW HAS RESOLVED WITH STEROIDS. HE IS LEGALLY BLIND FROM PTERIGIUM THAT CAN BE FROM SAME REASON. HE COMES HE WAS MORE DYSPNEIC THAN USUAL. HE DENIES ANY CHEST PAIN. HIS CXR SHOWS MILD PUMONARY EDEMA. ER DOCTOR ALSO GAVE ZOSYN THAT HE DOES NOT POSSIBLY NEED. THERE IS NO PNUEMONIA VISIBLE ON C X RAY. Allergies codeine Adverse Reaction (Verified 01/04/19 23:21) Nausea/Vomiting ANTIHISTAMINES Adverse Reaction (Mild, Uncoded 01/21/18 23:21) Unknown Home Medications: Amlodipine [Norvasc*] 10 mg PO DAILY 08/11/19 Metoprolol Tartrate 100 mg PO DAILY 08/11/19 Prednisone [Sterapred Ds] 10 mg PO BID 08/11/19 - Past Medical/Surgical History Has patient received pneumonia vaccine in the past: No Diabetic: Yes -: hypertension -: glaucoma -: anemia -: hypoglycemia -: blindness -: enlarged prostate -: HTN -: wedgners disease -: [place] -: hernia -: bone spur in neck -: copd -: vocal cord surg -: corneal transplant sx -: hemorroidectomy -: eye sx - Family History Father -: Lung disease - Social History Smoking Status: Former smoker Alcohol use: No CD- Drugs: No Caffeine use: No Place of Residence: Home Review of Systems 10-point ROS is otherwise unremarkable General: Weakness, Malaise Respiratory: Shortness of Breath Neurological: As per HPI Physical Examination - Vital Signs Temperature: 98 F Blood Pressure: 138/78 Pulse: 82 Respirations: 16 Pulse Ox (%): 98 - Physical Exam General: Alert, Cachectic, Mild distress, Other (TOTALLY DEAF, TALKS TO HIM USING A LOUD SPEAKER.) HEENT: Atraumatic, PERRLA, Mucous membr. moist/pink, EOMI, Sclerae nonicteric Neck: Supple, 2+ carotid pulse no bruit, No LAD, Without JVD or thyroid abnormality Respiratory: Clear to auscultation bilaterally, Normal air movement Cardiovascular: Regular rate/rhythm, Normal S1 S2 Gastrointestinal: Normal bowel sounds, No tenderness Musculoskeletal: Other (CONTRACTURES TO ALL JOINTS. FEET HAVE PLANTER FLEXION.) Integumentary: No rashes, Rash(es) (DIFFUSE NON BLANCHING ERYTHEAMTOUS. NEW TODAY. ) Neurological: Normal gait, Normal speech, Normal strength at 5/5 x4 extr, Normal tone, Normal affect Lymphatics: No axilla or inguinal lymphadenopathy - Studies Laboratory Data (last 24 hrs) 08/11/19 09:40: PT 11.8, INR 1.00 08/11/19 09:40: WBC 15.1 H, Hgb 12.7 L, Hct 36.8 L, Plt Count 218 08/11/19 09:40: Sodium 132 L, Potassium 4.6, BUN 13, Creatinine 0.66, Glucose 109 H, Magnesium 2.0, Total Bilirubin 0.4, AST 18, ALT 31, Alkaline Phosphatase 97, Lipase 239 Assessment and Plan - Problems (Diagnosis) (1) A-fib Current Visit: No Status: Chronic Plan: HE REFUSES BETA MARIA ESTHER. START SMALL DOSE OF DIGOXIN . HE CAN'T TO ANTICOAGULATION HE HAS VERY FRAIL MUCOSA ADN UNTIL RECENTLY HE USED TO BLEED PROFUSELY. Qualifiers: Atrial fibrillation type: paroxysmal Qualified Code(s): I48.0 - Paroxysmal atrial fibrillation (2) Diastolic heart failure Onset Date: 01/06/19 Current Visit: No Status: Acute Plan: GENTLE DIRUESIS. PROGNOSIS OVERALL POOR. I AM SURPRISED THAT HE IS STILL ABLE TO SURVIVE. Qualifiers: Heart failure chronicity: acute on chronic (3) Vasculitis Current Visit: No Status: Acute Plan: IV STEORIDS TO OVERCOME VASCULITIC SKIN CHANGES. - Advance Directives Does patient have a Living Will: Yes Does patient have a Durable POA for Healthcare: Yes
[2019-08-11] MEDS: FAMOTIDINE 20 MG/2 ML VIAL IV SCH (21:48)
[2019-08-12] MEDS: WATER FOR INJ,STERILE 10 ML IV SCH ×4 (03:40→21:26)
[2019-08-12] MEDS: HYDROCORTISONE SUC 100 MG INJ IV SCH ×4 (03:40→21:26)
[2019-08-12 04:53] LABS: Absolute Lymphocytes (CBC) 0.7 K/uL (0.7-4.9); Basophils % 0.2 % (0-1.3); Hematocrit 33.1 % (39.6-49.0); Lymphocytes % 5.9 % (15.3-44.8); MPV 8.5 fL (7.6-11.3); RBC Red Blood Cell Count 3.95 M/uL (4.33-5.43)
[2019-08-12 05:47] LABS: Potassium 3.6 mmol/L (3.5-5.1)
--- NOTE | 2019-08-12 07:15 | RAD REPORT ---
EXAM DESCRIPTION: RAD - Chest Single View - 08/12/2019 6:57 am CLINICAL HISTORY: Chest Pain Chest pain. COMPARISON: Chest Single View dated 08/11/2019; Chest Single View dated 07/15/2019; Chest Single View dated 07/06/2019; Chest Single View dated 03/30/2019 FINDINGS: Portable technique limits examination quality. Increased haziness is seen in the inferior right lung likely related to mild increase in a pleural ef fusion. Small left pleural effusion appears unchanged. Mild CHF findings persists. Moderate cardiomeg mable. No displaced fractures. IMPRESSION: Mild worsening in the inferior right hemithorax lung aeration since comparative study.
[2019-08-12] MEDS: INSULIN -REGULAR HUMAN 50 UNIT/0.5 ML ML SQ SCH ×4 (07:30→21:00)
[2019-08-12] MEDS: SPIRONOLACTONE 25 MG TABLET PO SCH (09:00)
[2019-08-12] MEDS: DIGOXIN 0.125 MG TABLET PO SCH (09:00)
[2019-08-12] MEDS: FAMOTIDINE 20 MG/2 ML VIAL IV SCH ×2 (09:01→21:26)
[2019-08-12] MEDS: AMLODIPINE 10 MG TAB PO SCH (09:01)
[2019-08-12] MEDS: FUROSEMIDE 20 MG/ 2ML VIAL IV SCH (09:02)
[2019-08-12 10:27] LABS: Urine Appearance CLOUDY; Urine Bilirubin NEGATIVE (NEG); Urine Blood 3+ (NEG); Urine Color YELLOW; Urine Glucose NEGATIVE (NEG); Urine Protein 2+ (NEG); Urine Urobilinogen 0.2 mg/dL (0.2-1.0); Urine pH 5.5 (5.0-7.0)
[2019-08-12 10:59] LABS: Urine Bacteria <20 /HPF (NONE SEEN); Urine RBC TNTC /HPF (NONE SEEN)
[2019-08-12 11:41] LABS: Urine Culture Reflex Order NOT NEEDED
--- NOTE | 2019-08-12 12:27 | EKG ---
Test Date: 2019-08-12 Test Time: 10:14:56 Senior Sas Programmer: BRITT MEASUREMENT RESULTS: Intervals: Rate: 103 [place]: QRSD: 84 QT: 328 QTc: 429 [place]: P: UT: QRS: 75 T: 71 INTERPRETIVE STATEMENTS: Atrial fibrillation with rapid ventricular response Abnormal ECG Compared to ECG 08/11/2019 09:33:29 Myocardial infarct finding no longer present Electronically Signed On 08-12-19 12:26:19 CDT by Santiago Ha
--- NOTE | 2019-08-13 01:53 | PN ---
Subjective: Mr. Matute is a bed-bound gentleman who is totally with multiple contractures . He has not walked for the last few years and he is reasonably comfortable and is breathing at this point. Physical Examination: Vital Signs: Blood pressure 130/80, pulse is 92. HEENT: No JVD. No carotid bruits. Chest: Clear. Heart: Regular. Neurological: No major changes, but he has contractures of all his joints since has not walked for a few years. Laboratory Examination: White count 11,700, hemoglobin 11, hematocrit 33. Sodium 133, potassium 3.6 , chloride 98, bicarb 28, BUN 20, creatinine 0.84. Assessment And Plan: 1.Mild congestive heart failure secondary to atrial fibrillation. I have started him on digoxin 0.1 25 mg p.o. daily. He has tolerated well this medication. He does not like beta-blockers at home. H e had quit taking beta-blockers. Continue Lasix small dose and spironolactone small dose for control of edema. 2.Edema, which was diffuse from hypoalbuminemia from malnutrition and improved. The family is feedi ng him liquified protein and also protein drinks every day. He seems to have gained some weight with this good care he is getting at home. His albumin is still 2.5, but it looks like he is able to diego id generalized anasarca. Prognosis overall guarded. He never comes to office because he cannot. He always comes to the hospital and ask me to be his primary doctor and appreciates __ to do that. KAREN/SAMSON Voice ID: [id number] Report ID: [id number]
[2019-08-13] MEDS: HYDROCORTISONE SUC 100 MG INJ IV SCH ×2 (03:23→09:35)
[2019-08-13] MEDS: WATER FOR INJ,STERILE 10 ML IV SCH ×2 (03:23→09:47)
[2019-08-13 04:53] VITALS: TEMP 97.1
[2019-08-13] MEDS: INSULIN -REGULAR HUMAN 50 UNIT/0.5 ML ML SQ SCH ×2 (08:00→11:30)
[2019-08-13] MEDS: DIGOXIN 0.125 MG TABLET PO SCH (09:34)
[2019-08-13] MEDS: SPIRONOLACTONE 25 MG TABLET PO SCH (09:34)
[2019-08-13] MEDS: AMLODIPINE 10 MG TAB PO SCH (09:34)
[2019-08-13] MEDS: FAMOTIDINE 20 MG/2 ML VIAL IV SCH (09:35)
[2019-08-13] MEDS: FUROSEMIDE 20 MG/ 2ML VIAL IV SCH (09:35)
--- NOTE | 2019-08-13 11:44 | RAD REPORT ---
EXAM DESCRIPTION: RAD - Lumbar Spine 3 Views - 08/13/2019 11:30 am CLINICAL HISTORY: Back pain FINDINGS: The alignment of the lumbar spine is satisfactory. No fracture or dislocation is seen. Osteoporosis. Mild spondylosis. Osteoarthritis involves facet joints lower lumbar spine
--- NOTE | 2019-08-13 11:47 | RAD REPORT ---
EXAM DESCRIPTION: RAD - Thoracic Spine Ap/Lat - 08/13/2019 11:33 am CLINICAL HISTORY: Back pain FINDINGS: No fracture is seen . Osteoporosis Kyphosis. Mild to moderate spondylosis mainly consisting of osteophytes
[2019-08-13 12:25] VITALS: BP 136/78
[2019-08-13 13:55] VITALS: O2SAT 97
--- NOTE | 2019-08-13 20:49 | P.DS ---
Admission Date: 08/11/19 Discharge Date: 08/13/19 Disposition: ROUTINE DISCHARGE Discharge Condition: SERIOUS Reason for Admission: DYSPNEA - Problems (1) A-fib Status: Chronic Qualifiers: Atrial fibrillation type: paroxysmal Qualified Code(s): I48.0 - Paroxysmal atrial fibrillation (2) Diastolic heart failure Onset Date: 01/06/19 Status: Acute Qualifiers: Heart failure chronicity: acute on chronic (3) Vasculitis Status: Acute Brief History of Present Illness: MR. JARVIS IS A VERY SICK GENTLEMAN WHO HAS BEEN BED BOUND FOR ABOUT TWO YEARS, HAS HAD A FIB IN THE PAST BUT DOES NOT LIKE SIDE EFFECTS OF BETA BLOCKERS SO REFUSES TO TAKE IT. HE HAS SEVERE COMPLICATIONS OF CARMITA'S GRANULOMATOSIS LIKE SEVERE BLEEDING FROM NOSE AND LUNGS WHICH NOW HAS RESOLVED WITH STEROIDS. HE IS LEGALLY BLIND FROM PTERIGIUM THAT CAN BE FROM SAME REASON. HE COMES HE WAS MORE DYSPNEIC THAN USUAL. HE DENIES ANY CHEST PAIN. HIS CXR SHOWS MILD PUMONARY EDEMA. ER DOCTOR ALSO GAVE ZOSYN THAT HE DOES NOT POSSIBLY NEED. THERE IS NO PNUEMONIA VISIBLE ON C X RAY. Hospital Course: MR. 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 HE HAS NOT BEEN TAKING B MARIA ESTHER HE HAS SIDE EFFECTS. I CHANGED TO SMALL DOSE OF DIGOXIN DAILY. HE CAN 'T TAKE ANTICOAGULATION FOR A FIB HE HAS HISTORY OF MASSIVE BLEEDING FROM VASCULITIS. I ALSO ADDE LASIX AND ALDACTONE IN SMALL DOSE TO CONTROL FLUID. HE DOES NOT HAVE THIRD SPACING ANY LOGER HE IS ABLE TO CONSUME CALORIES. HE IS TOTALLY DEAF AND FAMILY IS STRUGGLING TO COMMUNICATE WITH HIM. HE IS STILL VERY SHARP AND VERY CURIOUS ABOUT EVERYTHING. HE ALWAYS HAS WEIRD CONCLUSION TO HIS SYMPOTMS. TODAY HE ASKED FOR ME TO REMOVE FUNGUS BEWEEN HIS EARS. HIS R EAR HAS WAX. WE CAN REMOVE THIS IN OFFICE BUT HE IS NOT ABLE TO COME TO OFFICE. ENT DOCTORS DONT DO REMOVAL OF WAX IN THE HOSPITAL. HIS BACK WAS X RAYED WHILE MOVING HIM THE SON HEARD A POP. THERE IS NO VISIBLE FRACTURE AND HE DOES NOT HAVE MUCH PAIN. Vital Signs/Physical Exam: Temp Pulse Resp BP Pulse Ox 97.1 F 97 H 18 136/78 98 08/13/19 12:00 08/13/19 12:00 08/13/19 12:00 08/13/19 12:00 08/13/19 12:00 Laboratory Data at Discharge: WBC 11.7 K/uL (4.3-10.9) H D 08/12/19 04:20 Hgb 11.1 g/dL (13.6-17.9) L 08/12/19 04:20 Hct 33.1 % (39.6-49.0) L 08/12/19 04:20 Plt Count 178 K/uL (152-406) 08/12/19 04:20 PT 11.8 SECONDS (9.5-12.5) 08/11/19 09:40 INR 1.00 08/11/19 09:40 Sodium 133 mmol/L (136-145) L 08/12/19 04:20 Potassium 3.6 mmol/L (3.5-5.1) 08/12/19 04:20 BUN 20 mg/dL (7-18) H 08/12/19 04:20 Creatinine 0.84 mg/dL (0.55-1.3) 08/12/19 04:20 Glucose 165 mg/dL (74-106) H 08/12/19 04:20 Magnesium 2.0 mg/dL (1.8-2.4) 08/11/19 09:40 Total Bilirubin 0.4 mg/dL (0.2-1.0) 08/11/19 09:40 AST 18 U/L (15-37) 08/11/19 09:40 ALT 31 U/L (12-78) 08/11/19 09:40 Alkaline Phosphatase 97 U/L (45-117) 08/11/19 09:40 Troponin I < 0.02 ng/mL (0.0-0.045) 08/11/19 18:16 Lipase 239 U/L (73-393) 08/11/19 09:40 Home Medications: Amlodipine [Norvasc*] 10 mg PO DAILY 08/11/19 Prednisone [Sterapred Ds] 10 mg PO BID 08/11/19 Amoxicillin 500 mg PO TID 5 Days #15 capsule 08/13/19 Digoxin [Lanoxin*] 0.125 mg PO DAILY #90 tab 08/13/19 Furosemide [Lasix] 20 mg PO DAILY #90 tablet 08/13/19 Spironolactone [Aldactone] 25 mg PO DAILY #90 tablet 08/13/19 New Medications: Amoxicillin 500 mg PO TID 5 Days #15 capsule Digoxin [Lanoxin*] 0.125 mg PO DAILY #90 tab Furosemide [Lasix] 20 mg PO DAILY #90 tablet Spironolactone [Aldactone] 25 mg PO DAILY #90 tablet
== END 2019-08-13 13:59 | disposition home or self-care (01) | DRG 292 ==
LOC: ER 09:15 → ERHOLD 11:10 → 4TH 14:14
PROVIDERS: ADMIT Internal Medicine; ATTEND Internal Medicine
DX: I11.0 Hypertensive heart disease with heart failure (principal); R64 Cachexia; M31.30 Wegener's granulomatosis without renal involvement; E46 Unspecified protein-calorie malnutrition; I50.33 Acute on chronic diastolic (congestive) heart failure; I48.0 Paroxysmal atrial fibrillation; H54.7 Unspecified visual loss; E88.09 Other disorders of plasma-protein metabolism, not elsewhere classified; Z68.22 Body mass index [BMI] 22.0-22.9, adult; I77.6 Arteritis, unspecified; H91.90 Unspecified hearing loss, unspecified ear; Z74.01 Bed confinement status
CPT/HCPCS: 36415; 71045; 72070; 72100; 80048; 80076; 81001; 81003; 81015; 82962; 83690; 83735; 83880; 84145; 84443; 84484; 85025; 85610; 86850; 86900; 86901; 87040; 87077; 87086; 87088; 87186; 92610; 93005; 93306; 96365; 96375; 99285; J1720; J1940; J2543

== ENCOUNTER 2019-08-23 02:23 | Inpatient (IN) | payer OTHER ==
[2019-08-23] MEDS ORDERED: CEFTRIAXONE/SWI 1gm 1 GM/10 ML SYR ONE (03:37)
[2019-08-23] MEDS ORDERED: NA CHLORIDE 0.9% 500 ML ONE (03:43)
[2019-08-23] MEDS ORDERED: NA CHLORIDE 0.9% 1,000 ML ONE (03:43)
[2019-08-23] MEDS ORDERED: FAMOTIDINE 20 MG/2 ML VIAL IV ONE (03:59)
[2019-08-23 04:28] LABS: Protime INR 1.18
[2019-08-23 04:29] LABS: Absolute Lymphocytes (CBC) 0.5 K/uL (0.7-4.9); Basophils % 0.2 % (0-1.3); Hematocrit 36.2 % (39.6-49.0); Lymphocytes % 4.1 % (15.3-44.8); MPV 8.7 fL (7.6-11.3)
[2019-08-23 04:42] LABS: ALT/SGPT 19 U/L (12-78); AST/SGOT 17 U/L (15-37); Albumin 2.3 g/dL (3.4-5.0); Alkaline Phosphatase 99 U/L (45-117); BUN Blood Urea Nitrogen 17 mg/dL (7-18); Bicarbonate 22 mmol/L (21-32); Bilirubin Direct 0.3 mg/dL (0-0.2); Glucose Level 56 mg/dL (74-106); Lipase 81 U/L (73-393); NT PRO-BNP 2511 pg/mL (<450); Potassium 3.9 mmol/L (3.5-5.1); Protein, Total 5.6 g/dL (6.4-8.2); Sodium Level 128 mmol/L (136-145); Troponin (Emerg Dept Use Only) < 0.02 ng/mL (0.0-0.045)
[2019-08-23 05:22] LABS: Blood Morphology Comment NOT SEEN (NOT SEEN); Platelet Estimate ADEQ; Urine White Blood Cell Casts OK
[2019-08-23] MEDS ORDERED: D5 0.45 NS 1,000 ML IV ONE (05:24)
--- NOTE | 2019-08-23 05:27 | ER ---
Nurse's Notes [facility] Name: Gio Matute Age: 79 yrs Sex: Male : 1940 Arrival Date: 08/23/2019 Time: 02:27 Bed 15 Private MD: Diagnosis: Hypoglycemia, unspecified;Anorexia;Weakness;Altered mental status, unspecified;Atrial fibrillation and flutter;Inguinal hernia-right, large, not incarcerated;Urinary tract infection, site not specified Presentation: 08/23 02:44 Presenting complaint: EMS states: PT with AMS since yesterday. PT was just admitted a couple weeks ago for UTI. Pt has Hx of Jong's disease. Transition of care: patient was not received from another setting of care. Onset of symptoms was August 22, 2019. Risk Assessment: Do you want to hurt yourself or someone else? Patient reports no desire to harm self or others. Initial Sepsis Screen: Does the patient meet any 2 criteria? Altered Mental Status. Does the patient have a suspected source of infection? No. Patient's initial sepsis screen is negative. Care prior to arrival: IV initiated. 20 GA, in the right forearm, Glucose check: 81 BS was checked by EMS was 81, started on Iv fluids. 02:44 Method Of Arrival: EMS: [facility] 02:44 Acuity: MACI 3 Historical: - Allergies: 02:53 Antihistamine; 02:53 Codeine; - Home Meds: 02:53 furosemide 40 mg Oral tab 1 tab once daily [Active]; amlodipine 10 mg oral tab 1 tab once daily [Active]; digoxin 125 mcg Oral tab 1 tab once daily [Active]; prednisone 10 mg Oral tab 1 tab 2 times per day [Active]; spironolactone 25 mg Oral tab 1 tab once daily [Active]; - PMHx: 02:53 Atrial Fib; BLINDNESS; CHF; COPD; Diabetes - NIDDM; enlarged prostate; Hearing wh difficulty (hearing aids); Hernia; Hypertension; narrow vocal coords.; narrow vocal cords; Jong's-Reported by family; - Immunization history:: Adult Immunizations up to date. - Social history:: Smoking status: Patient/guardian denies using tobacco. - Ebola Screening: : Patient negative for fever greater than or equal to 101.5 degrees Fahrenheit, and additional compatible Ebola Virus Disease symptoms Patient denies exposure to infectious person. - Family history:: not pertinent. Screenin:48 Abuse screen: Denies threats or abuse. Denies injuries from another. Nutritional wh screening: Difficulty chewing/swallowing? Yes. Tuberculosis screening: No symptoms or risk factors identified. Fall Risk None identified. Assessment: 02:54 General: Appears in no apparent distress. cachectic, Behavior is quiet. Pain: Denies wh pain. Neuro: Level of Consciousness is awake, alert, obeys commands. Cardiovascular: Heart tones S1 S2. Respiratory: Airway is patent Respiratory effort is even, unlabored, Respiratory pattern is regular, symmetrical. GI: Abdomen is flat, non-distended. : to gravity drainage Condom Catheter. EENT: Parent/caregiver reports the patient having blindness. Derm: Skin is intact, is healthy with good turgor, Skin is pink, warm \T\ dry. normal. Musculoskeletal: contractures noted. 03:39 Reassessment: caregiver to change condom cath in order to give a clean sample.. cr4 04:12 Reassessment: Patient appears in no apparent distress at this time. No changes from previously documented assessment. Patient and/or family updated on plan of care and expected duration. Pain level reassessed. Patient is alert, oriented x 3, equal unlabored respirations, skin warm/dry/pink. 05:05 Reassessment: Patient appears in no apparent distress at this time. No changes from previously documented assessment. Patient and/or family updated on plan of care and expected duration. Pain level reassessed. Patient is alert, oriented x 3, equal unlabored respirations, skin warm/dry/pink. BD low at 56 discussed with MD with orders to changed Ivf to D5 1/2 NS and Pt tolerating PO was given 2 orange juice. 06:07 Reassessment: Patient appears in no apparent distress at this time. No changes from previously documented assessment. Patient and/or family updated on plan of care and expected duration. Pain level reassessed. Patient is alert, oriented x 3, equal unlabored respirations, skin warm/dry/pink. Pt much more alert and talkative, was able to drink [place] juice, BS went up to 71 MD notified. 07:05 General: Appears in no apparent distress. comfortable, Behavior is calm. Neuro: Level rb1 of Consciousness is awake, alert, obeys commands. Cardiovascular: Capillary refill < 3 seconds is brisk in bilateral fingers. Respiratory: Airway is patent Respiratory effort is even, unlabored, Respiratory pattern is regular, symmetrical. : Parent/caregiver report the patient having Pt. has a condom catheter on. EENT: Ear canal pt. has hearing aid in right ear, there is not a hearing aid on the left side.. Derm: Skin is pink, warm \T\ dry. 08:00 Reassessment: Patient appears in no apparent distress at this time. No changes from rb1 previously documented assessment. While changing the pt, inspection revealed a large hernia in the scrotum and a Stage 1 decubitus ulcer on his sacrum. 08:24 Reassessment: Gave report to NATALEE Mcduffie. Information from the SBAR was given. All rb1 questions asked and answered. 08:45 Reassessment: Patient appears in no apparent distress at this time. Patient and/or rb1 family updated on plan of care and expected duration. Pain level reassessed. Patient is alert, oriented x 3, equal unlabored respirations, skin warm/dry/pink. Son and caregiver at the bedside. Vital Signs: 02:35 BP 134 / 86; Pulse 93; Resp 17; Temp 97.1(TE); Pulse Ox 97% on R/A; oe 04:13 BP 142 / 86; Pulse 92; Resp 14; Pulse Ox 99% on R/A; wh 05:00 BP 123 / 84; Pulse 74; Resp 18; Pulse Ox 99% on R/A; wh 06:08 BP 136 / 92; Pulse 81; Resp 18; Pulse Ox 99% on R/A; wh 07:08 BP 147 / 87; Pulse 99; Resp 21; Temp 97.1(TE); Pulse Ox 98% on R/A; Pain 0/10; rb1 08:08 BP 135 / 89; Pulse 95; Resp 21; Temp 97.1; Pulse Ox 99% on R/A; Pain 0/10; rb1 ED Course: 02:27 Patient arrived in ED. ds1 02:30 Gasper Plummer MD is Attending Physician. chaz 02:44 Ramez Vivas is Primary Nurse. wh 02:48 Triage completed. wh 02:49 Arm band placed on right wrist. wh 02:49 Patient has correct armband on for positive identification. Placed in gown. Bed in low wh position. Call light in reach. Side rails up X 1. vehicle monitor technician on. Pulse ox on. NIBP on. 02:50 Maintain EMS IV. Dressing intact. Good blood return noted. Site clean \T\ dry. 04:07 X-ray completed. Portable x-ray completed in exam room. Patient tolerated procedure mh1 well. 04:08 XRAY Chest (1 view) In Process Unspecified. EDMS 05:24 Jose Luis Robert MD is Hospitalizing Provider. chaz 07:48 Gordo Harmon MD is Hospitalizing Provider. chaz 08:47 No provider procedures requiring assistance completed. Patient admitted, IV remains in rb1 place. Administered Medications: Discontinued: NS 0.9% 1000 ml IV at 125 ml/hr continuous 03:44 Drug: NS 0.9% 500 ml Route: IV; Rate: bolus; Site: right forearm; cr4 04:24 Follow up: Response: No adverse reaction; IV Status: Completed infusion 03:45 Drug: Rocephin 1 grams Route: IV; Rate: per protocol; Site: right forearm; cr4 05:35 Follow up: Response: No adverse reaction; IV Status: Completed infusion wh 04:05 Drug: Pepcid 20 mg Route: IVP; Site: right forearm; wh 04:24 Follow up: Response: No adverse reaction 04:24 Drug: NS 0.9% 1000 ml Route: IV; Rate: 125 ml/hr; Site: right forearm; wh 05:35 Follow up: IV Status: Order to discontinue infusion 05:28 Drug: D5-1/2 NS 1000 ml Route: IV; Rate: 100 ml/hr; Site: right forearm; wh 07:40 Drug: Digoxin 0.25 mg Route: IVP; Site: right forearm; rb1 07:55 Follow up: Response: No adverse reaction rb1 Intake: 07:55 condom catheter rb1 Output: 07:55 Stool: 1 (Loose Stool) ; Total: 0ml. rb1 07:55 Urine: 75ml (Gaviria); Total: 75ml. rb1 07:55 condom catheter rb1 Outcome: 05:27 Decision to Hospitalize by Provider. chaz 08:47 Admitted to Tele accompanied by tech, family with patient, via stretcher, room 406, rb1 with chart, Report called to Reta, RN 08:47 Condition: stable 08:47 Instructed on the need for admit. 08:47 Patient left the ED. rb1 Signatures: Dispatcher [employer] EDMS Gasper Plummer MD MD cha Harvey, Martha 1 Lisandra Moses 1 Nina Mejia, RN RN cr4 Joselin Sainz RN RN rb1 Manpreet Gerber Winsy Corrections: (The following items were deleted from the chart) 05:55 05:00 BP 123 / 84; Pulse 74bpm; Resp 18bpm; Pulse Ox 99% RA; Temp 18F; wh wh 09:04 09:01 Patient left the ED. rb1 rb1
--- NOTE | 2019-08-23 05:28 | EDPHYS ---
Physician Documentation [facility] Name: Gio Matute Age: 79 yrs Sex: Male : 1940 Arrival Date: 08/23/2019 Time: 02:27 Bed 15 Private MD: ED Physician Gasper Plummer HPI: 08/23 03:02 This 79 yrs old Male presents to ER via EMS with complaints of ams, weakness chaz and anorexia. 03:02 weak, not eating or drinking. The patient presents with confusion, decreased mental chaz status. Onset: The symptoms/episode began/occurred 2 day(s) ago. Possible causes: unknown. Associated signs and symptoms: Pertinent positives: agitation, back pain. Onset: The symptoms/episode began/occurred 2 day(s) ago. Patient's baseline: Neuro: alert but confused. The patient has experienced similar episodes in the past, several times. Historical: - Allergies: 02:53 Antihistamine; wh 02:53 Codeine; wh - Home Meds: 02:53 furosemide 40 mg Oral tab 1 tab once daily [Active]; amlodipine 10 mg oral tab 1 tab wh once daily [Active]; digoxin 125 mcg Oral tab 1 tab once daily [Active]; prednisone 10 mg Oral tab 1 tab 2 times per day [Active]; spironolactone 25 mg Oral tab 1 tab once daily [Active]; - PMHx: 02:53 Atrial Fib; BLINDNESS; CHF; COPD; Diabetes - NIDDM; enlarged prostate; Hearing wh difficulty (hearing aids); Hernia; Hypertension; narrow vocal coords.; narrow vocal cords; Jong's-Reported by family; - Immunization history:: Adult Immunizations up to date. - Social history:: Smoking status: Patient/guardian denies using tobacco. - Ebola Screening: : Patient negative for fever greater than or equal to 101.5 degrees Fahrenheit, and additional compatible Ebola Virus Disease symptoms Patient denies exposure to infectious person. - Family history:: not pertinent. ROS: 03:02 Constitutional: Negative for fever, chills, and weight loss, Eyes: Negative for injury, chaz pain, redness, and discharge, ENT: Negative for injury, pain, and discharge, Neck: Negative for injury, pain, and swelling, Cardiovascular: Negative for chest pain, palpitations, and edema, Respiratory: Negative for shortness of breath, cough, wheezing, and pleuritic chest pain, Abdomen/GI: Negative for abdominal pain, nausea, vomiting, diarrhea, and constipation, Back: Negative for injury and pain, : Negative for injury, bleeding, discharge, and swelling, MS/Extremity: Negative for injury and deformity, Skin: Negative for injury, rash, and discoloration, Psych: Negative for depression, anxiety, suicide ideation, homicidal ideation, and hallucinations, Allergy/Immunology: Negative for hives, rash, and allergies, Endocrine: Negative for neck swelling, polydipsia, polyuria, polyphagia, and marked weight changes, Hematologic/Lymphatic: Negative for swollen nodes, abnormal bleeding, and unusual bruising. 03:02 Neuro: Positive for altered mental status, weakness. Exam: 03:02 Constitutional: This is a well developed, well nourished patient who is awake, alert, chaz and in no acute distress. Head/Face: Normocephalic, atraumatic. Eyes: Pupils equal round and reactive to light, extra-ocular motions intact. Lids and lashes normal. Conjunctiva and sclera are non-icteric and not injected. Cornea within normal limits. Periorbital areas with no swelling, redness, or edema. ENT: Nares patent. No nasal discharge, no septal abnormalities noted. Tympanic membranes are normal and external auditory canals are clear. Oropharynx with no redness, swelling, or masses, exudates, or evidence of obstruction, uvula midline. Mucous membranes moist. Neck: Trachea midline, no thyromegaly or masses palpated, and no cervical lymphadenopathy. Supple, full range of motion without nuchal rigidity, or vertebral point tenderness. No Meningismus. Chest/axilla: Normal chest wall appearance and motion. Nontender with no deformity. No lesions are appreciated. Cardiovascular: Regular rate and rhythm with a normal S1 and S2. No gallops, murmurs, or rubs. Normal PMI, no JVD. No pulse deficits. Respiratory: Lungs have equal breath sounds bilaterally, clear to auscultation and percussion. No rales, rhonchi or wheezes noted. No increased work of breathing, no retractions or nasal flaring. Back: No spinal tenderness. No costovertebral tenderness. Full range of motion. Male : Normal genitalia with no discharge or lesions. Skin: Warm, dry with normal turgor. Normal color with no rashes, no lesions, and no evidence of cellulitis. MS/ Extremity: Pulses equal, no cyanosis. Neurovascular intact. Full, normal range of motion. Psych: Awake, alert, with orientation to person, place and time. Behavior, mood, and affect are within normal limits. 03:02 Abdomen/GI: Inspection: distension, is not seen, Bowel sounds: active, Palpation: abdomen is soft and non-tender. Vital Signs: 02:35 BP 134 / 86; Pulse 93; Resp 17; Temp 97.1(TE); Pulse Ox 97% on R/A; oe 04:13 BP 142 / 86; Pulse 92; Resp 14; Pulse Ox 99% on R/A; wh 05:00 BP 123 / 84; Pulse 74; Resp 18; Pulse Ox 99% on R/A; wh 06:08 BP 136 / 92; Pulse 81; Resp 18; Pulse Ox 99% on R/A; wh 07:08 BP 147 / 87; Pulse 99; Resp 21; Temp 97.1(TE); Pulse Ox 98% on R/A; Pain 0/10; rb1 08:08 BP 135 / 89; Pulse 95; Resp 21; Temp 97.1; Pulse Ox 99% on R/A; Pain 0/10; rb1 MDM: 02:30 Patient medically screened. [facility] 03:02 Data reviewed: vital signs, nurses notes, lab test result(s), EKG, radiologic studies, [facility] CT scan, plain films. 08/23 02:55 Order name: Basic Metabolic Panel; Complete Time: 05:18 [facility] 08/23 02:55 Order name: CBC with Diff; Complete Time: 05:22 [facility] 08/23 02:55 Order name: LFT's; Complete Time: 05:18 [facility] 08/23 02:55 Order name: Magnesium; Complete Time: 05:18 [facility] 08/23 02:55 Order name: NT PRO-BNP; Complete Time: 05:18 [facility] 08/23 02:55 Order name: PT-INR; Complete Time: 05:18 [facility] 08/23 02:55 Order name: Troponin (emerg Dept Use Only); Complete Time: 05:18 [facility] 08/23 02:55 Order name: Lipase; Complete Time: 05:18 [facility] 08/23 02:55 Order name: Urine Culture [facility] 08/23 02:55 Order name: Digoxin; Complete Time: 05:18 [facility] 08/23 02:55 Order name: Procalcitonin; Complete Time: 05:18 [facility] 08/23 02:55 Order name: Blood Culture Adult (2) [facility] 08/23 03:15 Order name: TSH; Complete Time: 05:18 [facility] 08/23 05:22 Order name: CBC Smear Scan; Complete Time: 05:22 [facility] 08/23 02:55 Order name: XRAY Chest (1 view) [facility] 08/23 02:55 Order name: EKG; Complete Time: 02:57 [facility] 08/23 02:55 Order name: Cardiac monitoring; Complete Time: 03:26 [facility] 08/23 02:55 Order name: EKG - Nurse/Tech; Complete Time: 03:26 [facility] 08/23 02:55 Order name: IV Saline Lock; Complete Time: 03:26 [facility] 08/23 02:55 Order name: Labs collected and sent; Complete Time: 03:26 [facility] 08/23 05:51 Order name: Glucometer Result [facility] 08/23 05:53 Order name: Glucose, Ancillary (Novameter); Complete Time: 07:16 [facility] 08/23 08:23 Order name: Urine Dipstick--Ancillary (enter results) 08/23 08:28 Order name: Urine Dipstick-Ancillary [facility] 08/23 02:55 Order name: O2 Per Protocol; Complete Time: 03:26 [facility] 08/23 02:55 Order name: O2 Sat Monitoring; Complete Time: 03:26 [facility] 08/23 02:55 Order name: Urine Dipstick-Ancillary (obtain specimen); Complete Time: 08:17 [facility] 08/23 05:21 Order name: Blood Glucose Level; Complete Time: 05:50 [facility] Administered Medications: Discontinued: NS 0.9% 1000 ml IV at 125 ml/hr continuous 03:44 Drug: NS 0.9% 500 ml Route: IV; Rate: bolus; Site: right forearm; cr4 04:24 Follow up: Response: No adverse reaction; IV Status: Completed infusion 03:45 Drug: Rocephin 1 grams Route: IV; Rate: per protocol; Site: right forearm; cr4 05:35 Follow up: Response: No adverse reaction; IV Status: Completed infusion 04:05 Drug: Pepcid 20 mg Route: IVP; Site: right forearm; 04:24 Follow up: Response: No adverse reaction 04:24 Drug: NS 0.9% 1000 ml Route: IV; Rate: 125 ml/hr; Site: right forearm; 05:35 Follow up: IV Status: Order to discontinue infusion 05:28 Drug: D5-1/2 NS 1000 ml Route: IV; Rate: 100 ml/hr; Site: right forearm; 07:40 Drug: Digoxin 0.25 mg Route: IVP; Site: right forearm; [facility] 07:55 Follow up: Response: No adverse reaction rb1 Disposition: 08/23/19 05:27 Hospitalization ordered by Gordo Harmon for Inpatient Admission. Preliminary diagnosis are Hypoglycemia, unspecified, Anorexia, Weakness, Altered mental status, unspecified, Atrial fibrillation and flutter, Inguinal hernia - right, large, not incarcerated, Urinary tract infection, site not specified. - Bed requested for Telemetry/MedSurg (Inpatient). - Status is Inpatient Admission. rb1 - Condition is Fair. - Problem is new. - Symptoms have improved. UTI on Admission? Yes Signatures: Dispatcher [employer] EDRI Gasper Plummer MD MD cha Ruiz, Claudia, RN RN cr4 Sadie Slade RN RN cg Joselin Sainz, NATALEE RN [facility] Cliff Vivasgo Corrections: (The following items were deleted from the chart) 05:47 05:27 Hospitalization Ordered by Jose Luis Robert MD for Inpatient Admission. Preliminary cg diagnosis is Hypoglycemia, unspecified; Anorexia; Weakness; Altered mental status, unspecified; Atrial fibrillation and flutter; Inguinal hernia - right, large, not incarcerated; Urinary tract infection, site not specified. Bed requested for Telemetry/MedSurg (Inpatient). Status is Inpatient Admission. Condition is Fair. Problem is new. Symptoms have improved. UTI on Admission? Yes. chaz 07:48 05:47 08/23/2019 05:27 Hospitalization Ordered by Jose Luis Robert MD for Inpatient chaz Admission. Preliminary diagnosis is Hypoglycemia, unspecified; Anorexia; Weakness; Altered mental status, unspecified; Atrial fibrillation and flutter; Inguinal hernia - right, large, not incarcerated; Urinary tract infection, site not specified. Bed requested for Telemetry/MedSurg (Inpatient). Status is Inpatient Admission. Condition is Fair. Problem is new. Symptoms have improved. UTI on Admission? Yes. 09:01 07:48 08/23/2019 05:27 Hospitalization Ordered by Gordo Harmon MD for Inpatient rb1 Admission. Preliminary diagnosis is Hypoglycemia, unspecified; Anorexia; Weakness; Altered mental status, unspecified; Atrial fibrillation and flutter; Inguinal hernia - right, large, not incarcerated; Urinary tract infection, site not specified. Bed requested for Telemetry/MedSurg (Inpatient). Status is Inpatient Admission. Condition is Fair. Problem is new. Symptoms have improved. UTI on Admission? Yes. chaz
--- NOTE | 2019-08-23 07:16 | EKG ---
Test Date: 2019-08-23 Test Time: 03:11:08 Quality Assurance Tester: KIP MEASUREMENT RESULTS: Intervals: Rate: 97 RI: QRSD: 94 QT: 350 QTc: 444 [place]: P: RI: QRS: 35 T: 228 INTERPRETIVE STATEMENTS: Atrial fibrillation Nonspecific ST and T wave abnormality Abnormal ECG Compared to ECG 08/12/2019 10:14:56 ST (T wave) deviation now present Electronically Signed On 08-23-19 07:16:01 CDT by Santiago Ha
[2019-08-23] MEDS ORDERED: DIGOXIN 0.25 MG/ML AMP ONE (07:34)
[2019-08-23 08:28] LABS: Urine Blood 2+ (NEG); Urine Glucose NEGATIVE (NEG); Urine Protein 3+ (NEG); Urine Specific Gravity 1.015 (1.005-1.030); Urine pH 5.5 (5.0-7.0)
--- NOTE | 2019-08-23 09:06 | RAD REPORT ---
EXAM DESCRIPTION: RAD - Chest Single View - 08/23/2019 4:08 am CLINICAL HISTORY: Cough, altered mental status COMPARISON: August 12 TECHNIQUE: AP portable chest image was obtained [id number] hours . FINDINGS: Lung volumes are low. Interstitial markings are prominent. Heart size and vasculature are similar to comparison. Trachea is midline. Minimal left pleural effusion is suspected. No significant right pleural effusion. No acute bony abnormality seen. No acute aortic findings suspected. IMPRESSION: Limited portable study showing prominent interstitial pattern and minimal left pleural e ffusion. Findings overall are improved compared to the prior study but could still indicate mild failure or vo lume overload.
[2019-08-23] MEDS ORDERED: ONDANSETRON 4 MG/2 ML VIAL IV PRN (09:57)
[2019-08-23] MEDS ORDERED: ACETAMINOPHEN 500 MG TAB PO PRN (09:57)
[2019-08-23] MEDS: DIGOXIN 0.125 MG TABLET PO SCH ×2 (09:57→11:18)
[2019-08-23] MEDS: LEVALBUTEROL 1.25 MG/3 ML NEB NEB SCH ×3 (09:57→19:00)
[2019-08-23] MEDS: IPRATROPIUM BROM 0.5MG/2.5ML NEB SCH ×3 (09:57→19:00)
[2019-08-23] MEDS: ASPIRIN EC 81 MG TAB PO SCH (11:19)
[2019-08-23] MEDS: D5 0.45 NS 1,000 ML IV SCH (11:19)
[2019-08-23] MEDS ORDERED: CEFEPIME 2 GM in NA CHLORIDE 0.9% 100 ML IV SCH (12:21)
[2019-08-23] MEDS: CEFEPIME/SWI 2gm 2 GM/20 ML SYR IV SCH ×2 (15:15→21:15)
[2019-08-23] MEDS ORDERED: INFLUENZA VACCINE (for 3y+) 0.5 ML DOSE IMVAC ONE (19:00)
--- NOTE | 2019-08-23 22:32 | HP ---
Date of Admission: 08/23/2019 Primary Care Physician: Dr. Robert, hospitalist service, covering per his request while he is out of town. Chief Complaint: Generalized weakness, atrial fibrillation with RVR. Code Status: Full code. History Of Present Illness: The patient is an 79-year-old male with several comorbid conditions, very sick gentleman, who has Jong granulomatosis, blindness, deafness, who is bed bound for past 2 years, atrial fibrillation, does not take beta blockers due to side effects. Has enlarged prostate with recurrent UTIs, anemia, vocal cord dysfunction, who was recently discharged from the hospital for shortness of breath. The patient comes in again due to generalized weakness. Patient has been refusing to eat or drink. Has been declining steadily and significantly in a short period of time. The patient was on doxycycline for another resistant type of UTI. Patient's symptoms are constant, moderate, progressively worsening. It should be noted that the H and P is supplemented by the son and the caregiver due to patient's difficulty to communicate and being hard of hearing, also from details taken from previous records and ER staff and primary care physician. The patient's workup revealed a white count of 12,000. His sodium was 128. Procalcitonin was equivocal at 0.21. His urine was positive for UTI. Chest x-ray showed prominent interstitial pattern and minimal left pleural effusion. Findings are overall improved compared to prior study on the , but still could indicate a mild failure. Patient was then referred for admission. When seen in the ER, he was awake, alert, in some mild distress. Elderly male, ill appearing. Past Medical History: Blindness, deafness, hypertension, glaucoma, anemia, enlarged prostate, recurrent UTIs with resistant bacteria, hypertension, Jong disease. Past Surgical History: Hernia surgery, vocal cord surgery, corneal transplant, hemorrhoidectomy, eye surgery. The patient also has a history of chronic obstructive pulmonary disease. Allergies: TO CODEINE AND ANTIHISTAMINES. Medications: List reviewed. Social History: Patient is a former smoker. No alcohol use. Patient is completely bed-bound. Needs caregivers 28/05. Lives at home. Family History: Father had lung disease. Review of Systems: Ten-point systems reviewed, negative except as per HPI. Physical Examination: Vital signs: Temperature 97.1, heart rate 93, blood pressure 134/86, respirations 17, O2 97% on room air. GENERAL: Awake, alert, oriented x3. Elderly male, in moderate distress, ill- appearing, frail. HEENT: Normocephalic, atraumatic. PERRLA. EOMI. Dry mucous membranes. Oropharynx is clear. Poor dentition. Conjunctivae are anicteric. Neck: Supple. No JVD. Trachea midline. CVS: S1, S2. Peripheral pulses weak. Respiratory: Diminished breath sounds. No wheezing or stridor. Gastrointestinal: Abdomen is soft, nontender, nondistended. Positive bowel sounds. Extremities: No clubbing, cyanosis, or edema. Neuro: Cranial nerves 3 through 12 intact grossly except for cranial nerve 8. Nonfocal. Speech is normal. Laboratory Data: Digoxin level 0.8. UA is positive for nitrite, 1+ leukocyte esterase, 2+ blood. Sodium 128, potassium 3.9, chloride 96, CO2 22, BUN 17, creatinine 0.77, glucose 56, calcium 7.9, magnesium 2. BNP 2511. Albumin 2.3. Procalcitonin 0.21. TSH 1.54. Troponin less than 0.02. WBC 12.3, H and H 12.3 and 36.2, platelets 195, neutrophils 87%. Blood cultures and urine cultures are pending. Chest x-ray, limited portable study showing prominent interstitial pattern and minimal left pleural effusion. Findings overall improved compared to prior study, could still indicate mild failure or volume overload. EKG, atrial fibrillation, nonspecific ST-T wave abnormalities, rate of 97. Assessment/plan: An 79-year-old male with: 1. Generalized weakness secondary to decreased p.o. intake. We will start on IV fluids. Encourage p.o. intake. 2. Acute cystitis with hematuria, likely patient has resistant bacteria. We will start on IV antibiotics and follow up on cultures. 3. Acute dehydration. Continue with IV fluids. 4. Hyponatremia. We will monitor. Continue with normal saline. 5. Atrial fibrillation, rate controlled. Continue with digoxin. Patient is not a candidate for anticoagulation due to a history of bleeding, chronic atrial fibrillation. 6. Diastolic congestive heart failure. Chest x-ray shows improvement from previous. BNP is elevated and still has some volume overload picture. However , at this point is dehydrated and needs fluids. We will monitor closely. 7. Vasculitis. 8. Blindness. 9. Deafness. 10. Essential hypertension, stable. 11. History of glaucoma. 12. Anemia, likely anemia of chronic disease. Monitor H and H. 13. Benign prostatic hyperplasia. Plan: Admit patient to Med-Surg, place as inpatient. Length of stay greater than 2 midnights. Overall, poor prognosis. Service will be turned back to Dr. Robert in a.m. I was contacted regarding the admission at 8 a.m. by PCP and the ER physician BRANDY Voice ID: [id number] MTDMonico
[2019-08-24] MEDS: D5 0.45 NS 1,000 ML IV SCH ×2 (00:29→09:38)
[2019-08-24] MEDS: IPRATROPIUM BROM 0.5MG/2.5ML NEB SCH ×4 (01:17→20:00)
[2019-08-24] MEDS: LEVALBUTEROL 1.25 MG/3 ML NEB NEB SCH ×4 (01:17→20:00)
[2019-08-24 04:28] LABS: Absolute Lymphocytes (CBC) 0.3 K/uL (0.7-4.9); Basophils % 0.2 % (0-1.3); Hematocrit 34.8 % (39.6-49.0); Lymphocytes % 2.8 % (15.3-44.8); MPV 8.1 fL (7.6-11.3); RBC Red Blood Cell Count 4.19 M/uL (4.33-5.43)
[2019-08-24 04:56] LABS: Potassium 3.8 mmol/L (3.5-5.1)
[2019-08-24] MEDS ORDERED: PNEUMOCOCCAL VACCINE 0.5 ML IMVAC ONE (09:00)
[2019-08-24] MEDS: DIGOXIN 0.125 MG TABLET PO SCH (09:35)
[2019-08-24] MEDS: CEFEPIME/SWI 2gm 2 GM/20 ML SYR IV SCH (09:35)
[2019-08-24] MEDS: ASPIRIN EC 81 MG TAB PO SCH (09:35)
--- NOTE | 2019-08-24 10:00 | RAD REPORT ---
EXAM DESCRIPTION: Domenico Single View08/24/2019 6:14 am CLINICAL HISTORY: Chest pain COMPARISON: August 23 FINDINGS: The lungs appear clear of acute infiltrate. The heart is mildly to moderately enlarged. Aorta is tortuous/ectatic. Prominent right paratracheal opacity probably tortuous vessels IMPRESSION: No acute abnormalities displayed
--- NOTE | 2019-08-24 20:58 | PN ---
I was not here yesterday, so Dr. Harmon took care of admission for me on discussion with patient's fam cecilia. Subjective: Patient was listless and did not eat for about 2 to 3 days, that is why they brought him back to the hospital. He denies any other complaints. Now, he is starting to eat today. Physical Examination: Vital Signs: Blood pressure 133/68, pulse is 86. HEENT: No JVD. No carotid bruits. Chest: Clear. Patient is legally blind, lying in the bed. Multiple contractures of his ankles, kne es and elbows are there, which are unchanged from the last few months. Abdomen: No guarding, no rebound, no rigidity. He is totally deaf and cannot communicate except for at home they use loudspeaker for talking to him. Neurological: He is an able to understand what is happening, but cannot do anything except for talki ng to his family members about what he needs. Laboratory Data: White count of 11,000, which is from prednisone; hemoglobin 11; hematocrit 34. Sodi um 129, BUN and creatinine normal. Chest x-ray shows no new findings. Assessment And Plan: 1.Generalized debility from Jong granulomatosis related complications. 2.Severe contractures all over his body, not able to ambulate for long duration. He is slowly decli mercedes his condition. He is a good palliative care patient at this point. I have discussed with gino y again if he wants to be on a palliative care, we can provide him that because I suspect at this point, comfort care is what we can offer him and not the cure. KAREN/SAMSON Voice ID: [id number] Report ID: [id number]
[2019-08-25] MEDS: IPRATROPIUM BROM 0.5MG/2.5ML NEB SCH ×3 (01:44→13:19)
[2019-08-25] MEDS: LEVALBUTEROL 1.25 MG/3 ML NEB NEB SCH ×3 (01:45→13:19)
[2019-08-25 05:05] VITALS: BMI 21.7
[2019-08-25 08:21] VITALS: O2SAT 97
[2019-08-25] MEDS: ASPIRIN EC 81 MG TAB PO SCH (08:23)
[2019-08-25] MEDS: DIGOXIN 0.125 MG TABLET PO SCH (08:23)
[2019-08-25 08:34] VITALS: BP 140/85; TEMP 97.4
--- NOTE | 2019-08-25 18:28 | P.DS ---
Admission Date: 08/23/19 Discharge Date: 08/25/19 Disposition: ROUTINE DISCHARGE Hospital Course: MR. JARVIS WAS ADMITTED WEAKNESS AND REDUCED PO INTAKE. HE HAS BEEN EATING WELL NOW. HE IS TOTALLY BEDBOUND GM WITH CONTRACTURES. HE HAS CARMITA DISEASE. DAUGHTER CAME TODAY AND WE DISCUSSED ABOUT G TUBE IF HE QUITS EATING AGAIN. IT WILL BE HIS DECISION. ER ALWAYS TELLS FAMILY ABOUT UTI. HIS URINE WAS COLLECTED FROM CONDOM CATHETER. [facility] IT WAS A NEW CONDOM, URINE IS STILL CALLED AN UNCLEAN CATCH. HE HAS NO UTI SS. ONLY RELIABLE SAMPLE IS FROM STRAIGHT CATH IN SUCH PATIENTS AND ALSO EVEN THEN IF THERE ARE NO SYMPTOMS THERE SHOULD BE NO TREATMENT. HIS WBC ELEVATION IS FROM STEROIDS. Vital Signs/Physical Exam: Temp Pulse Resp BP Pulse Ox 97.4 F 115 H 18 140/85 100 08/25/19 08:00 08/25/19 08:00 08/25/19 08:00 08/25/19 08:00 08/25/19 08:00 Laboratory Data at Discharge: WBC 11.0 K/uL (4.3-10.9) H 08/24/19 04:18 Hgb 11.9 g/dL (13.6-17.9) L 08/24/19 04:18 Hct 34.8 % (39.6-49.0) L 08/24/19 04:18 Plt Count 178 K/uL (152-406) 08/24/19 04:18 PT 13.8 SECONDS (9.5-12.5) H 08/23/19 03:35 INR 1.18 08/23/19 03:35 Sodium 129 mmol/L (136-145) L 08/24/19 04:18 Potassium 3.8 mmol/L (3.5-5.1) 08/24/19 04:18 BUN 18 mg/dL (7-18) 08/24/19 04:18 Creatinine 0.97 mg/dL (0.55-1.3) 08/24/19 04:18 Glucose 219 mg/dL (74-106) H 08/24/19 04:18 Magnesium 2.0 mg/dL (1.8-2.4) 08/23/19 03:35 Total Bilirubin 1.0 mg/dL (0.2-1.0) 08/23/19 03:35 AST 17 U/L (15-37) 08/23/19 03:35 ALT 19 U/L (12-78) 08/23/19 03:35 Alkaline Phosphatase 99 U/L (45-117) 08/23/19 03:35 Troponin I 0.02 ng/mL (0.0-0.045) 08/23/19 14:12 Lipase 81 U/L (73-393) 08/23/19 03:35 Home Medications: Amlodipine [Norvasc*] 10 mg PO DAILY 08/11/19 Prednisone [Sterapred Ds] 10 mg PO BID 08/11/19 Digoxin [Lanoxin*] 0.125 mg PO DAILY #90 tab 08/13/19 Furosemide [Lasix] 20 mg PO DAILY #90 tablet 08/13/19 Spironolactone [Aldactone] 25 mg PO DAILY #90 tablet 08/13/19 Followup: Jose uLis Robert MD [Primary Care Provider] - 1-2 Weeks (call to schedule an appointment)
== END 2019-08-25 16:18 | disposition home or self-care (01) | DRG 641 ==
LOC: ER 02:23 → ERHOLD 05:50 → 4TH 08:27
PROVIDERS: ADMIT Internal Medicine; ATTEND Internal Medicine
DX: E87.1 Hypo-osmolality and hyponatremia (principal); M31.30 Wegener's granulomatosis without renal involvement; E44.0 Moderate protein-calorie malnutrition; I48.20 Chronic atrial fibrillation, unspecified; I50.32 Chronic diastolic (congestive) heart failure; N30.00 Acute cystitis without hematuria; R53.81 Other malaise; E86.0 Dehydration; H40.9 Unspecified glaucoma; H54.7 Unspecified visual loss; H91.90 Unspecified hearing loss, unspecified ear; I77.6 Arteritis, unspecified; D63.8 Anemia in other chronic diseases classified elsewhere; N40.1 Benign prostatic hyperplasia with lower urinary tract symptoms; Z68.21 Body mass index [BMI] 21.0-21.9, adult; Z74.01 Bed confinement status; Z87.440 Personal history of urinary (tract) infections
CPT/HCPCS: 36415; 71045; 80048; 80076; 80162; 81003; 82962; 83690; 83735; 83880; 84145; 84443; 84484; 85025; 85610; 87040; 87077; 87086; 87088; 87186; 93005; 94640; 96365; 96366; 96375; 99285; J0692; J0696; J1160; J7030; J7040; J7799; Q2035

== ENCOUNTER 2019-09-22 02:23 | Inpatient (IN) | payer OTHER ==
--- OUTSIDE RECORDS SUMMARY | 2019-09-22 02:26 | XMS REPORT ---
:1940 [facility] Address [address] [place] [address] Dr. Hill [address] [place] [id number] Care Team Providers Name Role Phone CARLOS BARBER Unavailable Unavailable Problems This patient has no known problems. Allergies, Adverse Reactions, Alerts This patient has no known allergies or adverse reactions. Medications This patient has no known medications. Results Test Description Test Time Test Comments Text Results Atomic Results Result Comments BLOOD CULTURE 2018-09-29 11:00:00 Test Item Value Reference Range Comments CULTURE (BEAKER) (test msar=5069) No growth in 5 days ANAEROBIC [id number] 12:34:00 Test Item Value Reference Range Comments CULTURE (BEAKER) (test igks=3870) No anaerobes isolated EAR CULTURE + GRAM [id number] 14:27:00 Test Item Value Reference Range Comments CULTURE (BEAKER) (test PSEUDOMONAS 1+ Pseudomonas gujl=6339) AERUGINOSA aeruginosa Amikacin (test code=1) Susceptible 0-16 [...] GRAM STAIN RESULT 4+ WBCs (BEAKER) (test fosc=1107) GRAM STAIN RESULT No organisms seen (BEAKER) (test mgqd=290052) RAD, CHEST, 1 VIEW, NON [id number] 16:48:00Reason for exam:->SOBShould this be performed at [...] [place] Verified Date/Time: 09/25/2018 16:48:03 Reading Location: [facility] Diagnostic Imaging Reading Room - [place] [address] HEMOGLOBIN AND [id number] 13:03:00 Test Item Value Reference Range Comments HEMOGLOBIN (BEAKER) (test logf=915) 10.4 GM/DL 13.7-17.5 HEMATOCRIT (BEAKER) (test ljvl=288) 32.6 % 40.1-51.0 TSH/FREE T4 IF [id number] 06:43:00 Test Item Value Reference Range Comments THYROID STIMULATING HORMONE (BEAKER) (test 1.57 uIU/mL 0.35-4.94 ydqh=262) [id number] 06:28:00 Test Item Value Reference Range Comments MAGNESIUM (BEAKER) (test naym=953) 1.8 mg/dL 1.6-2.6 BASIC METABOLIC [id number] 06:28:00 Test Item Value Reference Range Comments SODIUM (BEAKER) (test 136 meq/L 136-145 hahx=441) POTASSIUM (BEAKER) (test 4.0 meq/L 3.5-5.1 aqxn=256) CHLORIDE (BEAKER) (test 109 meq/L 98-107 fixv=935) CO2 (BEAKER) (test 21 meq/L 22-29 qncb=317) BLOOD UREA NITROGEN 11 mg/dL 7-21 (BEAKER) (test eqtu=453) CREATININE (BEAKER) (test 0.70 mg/dL 0.57-1.25 zfik=259) GLUCOSE RANDOM (BEAKER) 97 mg/dL 70-105 (test qzry=271) CALCIUM (BEAKER) (test 8.2 mg/dL 8.4-10.2 pxvz=717) EGFR (BEAKER) (test 109 mL/min/1.73 sq m ESTIMATED GFR IS NOT tdsp=7997) ACCURATE CREATININE CLEARANCE IN PREDICTING GLOMERULAR FILTRATION RATE. ESTIMATED GFR IS NOT APPLICABLE FOR DIALYSIS PATIENTS. CBC W/PLT COUNT & AUTO [id number] 05:49:00 Test Item Value Reference Range Comments WHITE BLOOD CELL COUNT (BEAKER) (test ubpg=222) 9.3 K/ L 3.5-10.5 RED BLOOD CELL COUNT (BEAKER) (test zney=846) 3.30 M/ L 4.63-6.08 HEMOGLOBIN (BEAKER) (test xwib=340) 9.9 GM/DL 13.7-17.5 HEMATOCRIT (BEAKER) (test iepx=728) 30.7 % 40.1-51.0 MEAN CORPUSCULAR VOLUME (BEAKER) (test hbqy=125) 93.0 fL 79.0-92.2 MEAN CORPUSCULAR HEMOGLOBIN (BEAKER) (test 30.0 pg 25.7-32.2 gewy=833) MEAN CORPUSCULAR HEMOGLOBIN CONC (BEAKER) (test 32.2 GM/DL 32.3-36.5 apcs=352) RED CELL DISTRIBUTION WIDTH (BEAKER) (test 15.9 % 11.6-14.4 dgmq=249) PLATELET COUNT (BEAKER) (test sqre=407) 143 K/CU MM 150-450 MEAN PLATELET VOLUME (BEAKER) (test udxj=515) 10.9 fL 9.4-12.4 NUCLEATED RED BLOOD CELLS (BEAKER) (test 0 /100 WBC 0-0 nhtd=951) NEUTROPHILS RELATIVE PERCENT (BEAKER) (test 87 % ndwv=229) LYMPHOCYTES RELATIVE PERCENT (BEAKER) (test 6 % gojk=527) MONOCYTES RELATIVE PERCENT (BEAKER) (test 5 % looa=537) EOSINOPHILS RELATIVE PERCENT (BEAKER) (test 0 % qhgi=004) BASOPHILS RELATIVE PERCENT (BEAKER) (test 0 % duzv=056) NEUTROPHILS ABSOLUTE COUNT (BEAKER) (test 8.10 K/ L 1.78-5.38 nggd=758) LYMPHOCYTES ABSOLUTE COUNT (BEAKER) (test 0.51 K/ L 1.32-3.57 dloq=806) MONOCYTES ABSOLUTE COUNT (BEAKER) (test 0.46 K/ L 0.30-0.82 qbjy=798) EOSINOPHILS ABSOLUTE COUNT (BEAKER) (test 0.01 K/ L 0.04-0.54 nxok=305) BASOPHILS ABSOLUTE COUNT (BEAKER) (test 0.01 K/ L 0.01-0.08 fotf=800) IMMATURE GRANULOCYTES-RELATIVE PERCENT (BEAKER) 2 % 0-1 (test yghx=9852) CBC W/PLT COUNT & AUTO [id number] 07:25:00 Test Item Value Reference Range Comments WHITE BLOOD CELL COUNT (BEAKER) (test vmot=033) 11.2 K/ L 3.5-10.5 RED BLOOD CELL COUNT (BEAKER) (test rshj=129) 3.99 M/ L 4.63-6.08 HEMOGLOBIN (BEAKER) (test bjqk=284) 11.8 GM/DL 13.7-17.5 HEMATOCRIT (BEAKER) (test zbeg=056) 36.4 % 40.1-51.0 MEAN CORPUSCULAR VOLUME (BEAKER) (test wezo=165) 91.2 fL 79.0-92.2 MEAN CORPUSCULAR HEMOGLOBIN (BEAKER) (test 29.6 pg 25.7-32.2 nwjk=835) MEAN CORPUSCULAR HEMOGLOBIN CONC (BEAKER) (test 32.4 GM/DL 32.3-36.5 wqik=094) RED CELL DISTRIBUTION WIDTH (BEAKER) (test 16.2 % 11.6-14.4 efkp=541) PLATELET COUNT (BEAKER) (test yecd=658) 168 K/CU MM 150-450 MEAN PLATELET VOLUME (BEAKER) (test bdue=794) 11.3 fL 9.4-12.4 NUCLEATED RED BLOOD CELLS (BEAKER) (test 0 /100 WBC 0-0 yxds=291) NEUTROPHILS RELATIVE PERCENT (BEAKER) (test 75 % xdhb=513) LYMPHOCYTES RELATIVE PERCENT (BEAKER) (test 14 % phkk=984) MONOCYTES RELATIVE PERCENT (BEAKER) (test 8 % lpga=204) EOSINOPHILS RELATIVE PERCENT (BEAKER) (test 1 % djml=269) BASOPHILS RELATIVE PERCENT (BEAKER) (test 0 % rred=586) NEUTROPHILS ABSOLUTE COUNT (BEAKER) (test 8.31 K/ L 1.78-5.38 subn=326) LYMPHOCYTES ABSOLUTE COUNT (BEAKER) (test 1.54 K/ L 1.32-3.57 qjqs=239) MONOCYTES ABSOLUTE COUNT (BEAKER) (test 0.87 K/ L 0.30-0.82 lugd=193) EOSINOPHILS ABSOLUTE COUNT (BEAKER) (test 0.09 K/ L 0.04-0.54 lfcv=048) BASOPHILS ABSOLUTE COUNT (BEAKER) (test 0.03 K/ L 0.01-0.08 zqas=433) IMMATURE GRANULOCYTES-RELATIVE PERCENT (BEAKER) 3 % 0-1 (test lixt=9666) [id number] 07:11:00 Test Item Value Reference Range Comments MAGNESIUM (BEAKER) (test ghtk=328) 1.9 mg/dL 1.6-2.6 BASIC METABOLIC [id number] 07:11:00 Test Item Value Reference Range Comments SODIUM (BEAKER) (test 136 meq/L 136-145 ioyd=732) POTASSIUM (BEAKER) (test 3.4 meq/L 3.5-5.1 pxom=685) CHLORIDE (BEAKER) (test 106 meq/L 98-107 yygs=402) CO2 (BEAKER) (test 23 meq/L 22-29 qeep=137) BLOOD UREA NITROGEN 12 mg/dL 7-21 (BEAKER) (test xbyl=122) CREATININE (BEAKER) (test 0.74 mg/dL 0.57-1.25 wzki=621) GLUCOSE RANDOM (BEAKER) 91 mg/dL 70-105 (test fwrh=555) CALCIUM (BEAKER) (test 8.3 mg/dL 8.4-10.2 ivtb=541) EGFR (BEAKER) (test 102 mL/min/1.73 sq m ESTIMATED GFR IS NOT hhka=2782) ACCURATE CREATININE CLEARANCE IN PREDICTING GLOMERULAR FILTRATION RATE. ESTIMATED GFR IS NOT APPLICABLE FOR DIALYSIS PATIENTS.
[2019-09-22 03:36] LABS: Basophils % 0.7 % (0-1.3); Hematocrit 37.7 % (39.6-49.0); Lymphocytes % 6.7 % (15.3-44.8); RBC Red Blood Cell Count 4.44 M/uL (4.33-5.43)
[2019-09-22] MEDS ORDERED: DIGOXIN 0.25 MG/ML AMP ONE (03:52)
[2019-09-22] MEDS ORDERED: NA CHLORIDE 0.9% 500 ML ONE ×2 (03:52→05:49)
[2019-09-22 04:00] LABS: ALT/SGPT 33 U/L (12-78); AST/SGOT 23 U/L (15-37); Albumin 2.5 g/dL (3.4-5.0); Alkaline Phosphatase 124 U/L (45-117); BUN Blood Urea Nitrogen 12 mg/dL (7-18); Bicarbonate 26 mmol/L (21-32); Bilirubin Direct 0.2 mg/dL (0-0.2); Bilirubin Total 0.6 mg/dL (0.2-1.0); Glucose Level 95 mg/dL (74-106); Lipase 121 U/L (73-393); Protein, Total 5.7 g/dL (6.4-8.2); Sodium Level 135 mmol/L (136-145); Troponin (Emerg Dept Use Only) < 0.02 ng/mL (0.0-0.045)
[2019-09-22 05:33] LABS: Urine Blood 2+ (NEG); Urine Glucose NEGATIVE (NEG); Urine Protein 2+ (NEG)
--- NOTE | 2019-09-22 05:34 | ER ---
Nurse's Notes [facility] Name: Gio Matute Age: 79 yrs Sex: Male : 1940 Arrival Date: 09/22/2019 Time: 02:26 Bed 2 Private MD: Diagnosis: Urinary tract infection, site not specified;Atrial Fibrillation with Rapid Ventricular Rate;Altered mental status, unspecified;Pleural effusion, not elsewhere classified;Fecal impaction Presentation: 09/22 02:20 Presenting complaint: EMS states: Pt reports having a gnawing pain in his stomach that jb4 radiates to his back. He thinks its his kidneys. His says it is unusual for him to specify pain like that. 02:20 Transition of care: patient was not received from another setting of care. Onset of jb4 symptoms was September 22, 2019. Risk Assessment: Do you want to hurt yourself or someone else? Patient reports no desire to harm self or others. Initial Sepsis Screen: Does the patient meet any 2 criteria? HR > 90 bpm. Yes Does the patient have a suspected source of infection? Yes: Acute abdominal pain. Care prior to arrival: Glucose check: 107. 02:20 Method Of Arrival: EMS: [facility] jb4 02:20 Acuity: MACI 3 jb4 Historical: - Allergies: 02:20 Antihistamine; jb4 02:20 Codeine; jb4 - Home Meds: 02:20 amlodipine 10 mg tab 1 tab once daily [Active]; digoxin 125 mcg Oral tab 1 tab once jb4 daily [Active]; furosemide 40 mg Oral tab 1 tab once daily [Active]; prednisone 10 mg Oral tab 1 tab 2 times per day [Active]; spironolactone 25 mg Oral tab 1 tab once daily [Active]; - PMHx: 02:20 BLINDNESS; CHF; COPD; Diabetes - NIDDM; enlarged prostate; Hearing difficulty (hearing jb4 aids); Hernia; Hypertension; narrow vocal coords.; narrow vocal cords; Atrial Fib; Jong's-Reported by family; - PSHx: 02:20 eye; jb4 - Immunization history:: Adult Immunizations up to date. - Social history:: Smoking status: Patient/guardian denies using tobacco, Patient/guardian denies using alcohol. - Family history:: not pertinent. - Ebola Screening: : No symptoms or risks identified at this time. - Hospitalizations: : No recent hospitalization is reported. Screenin:46 Abuse screen: Denies threats or abuse. Nutritional screening: No deficits noted. jb4 Tuberculosis screening: No symptoms or risk factors identified. Fall Risk None identified. Assessment: 02:20 General: Appears in no apparent distress. uncomfortable, Behavior is calm, cooperative. jb4 Pain: Complains of pain in abdomen Pain radiates to back Pain currently is 6 out of 10 on a pain scale. Neuro: Level of Consciousness is awake, alert, obeys commands, Oriented to person, situation, Family reports he is at his norm.. Cardiovascular: Patient's skin is warm and dry. Respiratory: Airway is patent Respiratory effort is even, unlabored, Respiratory pattern is regular, symmetrical. GI: Reports lower abdominal pain. : No deficits noted. No signs and/or symptoms were reported regarding the genitourinary system. condom cath noted. EENT: No deficits noted. No signs and/or symptoms were reported regarding the EENT system. Derm: Skin is intact, Skin is pink, warm \T\ dry. Musculoskeletal: Circulation, motion, and sensation intact. 03:30 Reassessment: No changes from previously documented assessment. Patient and/or family jb4 updated on plan of care and expected duration. Pain level reassessed. 04:08 Reassessment: Pt to CT at this time VIA stretcher. Family remain at bedside. ss 05:00 Reassessment: No changes from previously documented assessment. Patient and/or family jb4 updated on plan of care and expected duration. Pain level reassessed. Pt is resting in bed with respirations even and unlabored. family is at the bedside. 06:00 Reassessment: No changes from previously documented assessment. Patient and/or family jb4 updated on plan of care and expected duration. Pain level reassessed. PT is resting in bed with respirations even and unlabored. family is at the bedside, Report called to NATALEE Charlton. Vital Signs: 02:20 BP 167 / 88; Pulse 122; Resp 19; Temp 98.6(O); Pulse Ox 97% on R/A; Weight 79.38 kg jb4 (R); Height 9 ft. 1 in. (276.86 cm) (R); Pain 8/10; 03:45 BP 139 / 104; Pulse 119; Resp 18; Pulse Ox 95% on R/A; jb4 05:45 BP 135 / 83; Pulse 100; Resp 18; Temp 98.7(TE); Pulse Ox 95% ; jb4 02:20 Body Mass Index 10.36 (79.38 kg, 276.86 cm) jb4 ED Course: 02:20 Arm band placed on right wrist. jb4 02:20 Patient has correct armband on for positive identification. Bed in low position. Call jb4 light in reach. Side rails up X 1. halal butcher on. Pulse ox on. NIBP on. 02:26 Patient arrived in ED. ds1 02:29 Sid Tirado MD is Attending Physician. rn 02:36 Jairo Lamar, NATALEE is Primary Nurse. jb4 02:43 Triage completed. jb4 02:54 XRAY Chest (1 view) In Process Unspecified. EDMS 02:59 Radiology exam delayed due to lab results not completed at this time. (BUN/Creatinine). kw1 03:15 Radiology exam delayed due to lab results not completed at this time. (BUN/Creatinine). kw1 03:15 Inserted saline lock: 20 gauge in right forearm, using aseptic technique. Blood ds4 collected. 03:43 BNP Sent. ds4 03:44 Blood Culture Adult (2) Sent. ds4 03:44 Procalcitonin Sent. ds4 03:44 Troponin (emerg Dept Use Only) Sent. ds4 03:44 Basic Metabolic Panel Sent. ds4 03:44 Creatinine for Radiology Sent. ds4 03:45 Hepatic Function Sent. ds4 03:45 Lipase Sent. ds4 03:51 Radiology exam delayed due to lab results not completed at this time. (BUN/Creatinine). kw1 03:59 Radiology exam delayed due to lab results not completed at this time. (BUN/Creatinine). kw1 04:47 CT Abd/Pelvis - IV Contrast Only In Process Unspecified. EDMS 05:27 Urine Culture Sent. ds4 05:27 Urine Microscopic Only Sent. ds4 05:32 Jose Luis Robert MD is Hospitalizing Provider. rn 06:08 No provider procedures requiring assistance completed. Patient admitted, IV remains in jb4 place. Administered Medications: 04:08 Drug: NS 0.9% 500 ml Route: IV; Rate: bolus; Site: right forearm; ss 05:00 Follow up: Response: No adverse reaction; IV Status: Completed infusion; IV Intake: jb4 500ml 04:08 Drug: Digoxin 0.25 mg Route: IVP; Site: right forearm; 04:30 Follow up: Response: No adverse reaction jb4 05:54 Drug: NS 0.9% 250 ml Route: IV; Rate: bolus; Site: right forearm; 06:09 Follow up: Response: No adverse reaction; IV Status: Completed infusion 05:55 Drug: Rocephin - (cefTRIAXone) 1 grams {Note: Given as Rocephin 1 gm IVP as per MD price discretion.} Route: IVPB; Infused Over: 30 mins; Site: right forearm; 06:09 Follow up: Response: No adverse reaction; IV Status: Completed infusion Intake: 05:00 IV: 500ml; Total: 500ml. jb4 Outcome: 05:33 Decision to Hospitalize by Provider. rn 06:08 Admitted to Med/surg accompanied by tech, via stretcher, room 210, with chart, Report jb4 called to NATALEE Charlton 06:08 Condition: stable 06:08 Discharge instructions given to family, Instructed on the need for admit, Demonstrated understanding of instructions. 06:20 Patient left the ED. jb4 Signatures: Dispatcher [employer] EDMS Lisandra Moses ds1 Sid Tirado MD MD rn Smirch, Shelby, RN RN ss Swanson, Donovan ds4 Jairo Lamar RN RN jb4 Habalo, Winsy Rema Talbot kw1
--- NOTE | 2019-09-22 05:34 | EDPHYS ---
Physician Documentation [facility] Name: Gio Matute Age: 79 yrs Sex: Male : 1940 Arrival Date: 09/22/2019 Time: 02:26 Bed 2 Private MD: ED Physician Sid Tirado HPI: 09/22 02:34 This 79 yrs old Male presents to ER via Unassigned with complaints of altered rn menatl status, cough, abd pain. 02:34 The patient presents with decreased responsiveness. Onset: The symptoms/episode rn began/occurred yesterday. Possible causes: unknown. Current symptoms: In the emergency department the patient's symptoms are unchanged from the initial presentation. The patient has experienced similar episodes in the past. The patient has not recently seen a physician. Family member reports decreased responsiveness, has thicker cough, and reported abd pain. Urine looks cloudy. No fever. Decreased PO intake recently. Patient requested help and wanted to come to hospital so family called 911. . 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 - Social history:: Smoking status: Patient/guardian denies using tobacco, Patient/guardian denies using alcohol. - Family history:: not pertinent. - Ebola Screening: : No symptoms or risks identified at this time. - Hospitalizations: : No recent hospitalization is reported. ROS: 02:34 Constitutional: Negative for fever, chills, and weight loss, Eyes: Negative for injury, rn pain, redness, and discharge, Neck: Negative for injury, pain, and swelling, Cardiovascular: Negative for chest pain, palpitations, and edema, Respiratory: + cough Abdomen/GI: Negative for nausea, vomiting, diarrhea, and constipation, MS/Extremity: Negative for injury and deformity, Skin: Negative for injury, rash, and discoloration, Neuro: Negative for headache, numbness, tingling, and seizure. Exam: 02:34 Constitutional: Thin male, no acute distress, constant clearing of throat Head/Face: rn Normocephalic, atraumatic. ENT: dry MM Cardiovascular: Tachycardic, irregular, intact distal pulses Respiratory: coarse bilateral breath sounds, non-labored Abdomen/GI: soft, non-tender, + large inguinal hernia without discoloration or tenderness MS/ Extremity: Pulses equal, no cyanosis. Neuro: Awake, alert, follows commands, speech at baseline and speaking with family member. Vital Signs: 02:20 BP 167 / 88; Pulse 122; Resp 19; Temp 98.6(O); Pulse Ox 97% on R/A; Weight 79.38 kg jb4 (R); Height 9 ft. 1 in. (276.86 cm) (R); Pain 8/10; 03:45 BP 139 / 104; Pulse 119; Resp 18; Pulse Ox 95% on R/A; jb4 05:45 BP 135 / 83; Pulse 100; Resp 18; Temp 98.7(TE); Pulse Ox 95% ; jb4 02:20 Body Mass Index 10.36 (79.38 kg, 276.86 cm) jb4 MDM: 02:29 Patient medically screened. rn 05:30 Differential Diagnosis: electrolyte abnormality, pneumonia, sepsis, UTI, volume rn depletion. Data reviewed: vital signs, nurses notes, lab test result(s), EKG, radiologic studies, CT scan, plain films, and as a result, I will admit patient. Counseling: I had a detailed discussion with the patient and/or guardian regarding: the historical points, exam findings, and any diagnostic results supporting the discharge/admit diagnosis, lab results, radiology results, the need for further work-up and treatment in the hospital. Response to treatment: the patient's symptoms have mildly improved after treatment, and as a result, I will admit patient. Admission orders: after a detailed discussion of the patient's condition and case, the admit orders are written by me. ED course: Pt with bilateral pleural effusions, afib with RVR, rate controlled now after IV digoxin. Pt also with moderate rectal distension from fecal impaction which could explain his pelvic pain of late. Also with UTI. Will admit to Dr. Robert for further care, enema, and IV abx. Dr. Brady notified \T\ 0531. . 09/22 02:30 Order name: Basic Metabolic Panel; Complete Time: 04:08 rn 09/22 02:30 Order name: CBC with Diff rn 09/22 02:30 Order name: Creatinine for Radiology; Complete Time: 04:08 09/22 02:30 Order name: Hepatic Function; Complete Time: 04:08 09/22 02:30 Order name: Lipase; Complete Time: 04:08 09/22 02:30 Order name: Troponin (emerg Dept Use Only); Complete Time: 04:08 09/22 02:30 Order name: XRAY Chest (1 view) 09/22 02:30 Order name: CT Abd/Pelvis - IV Contrast Only 09/22 02:31 Order name: Urine Culture 09/22 02:31 Order name: Urine Microscopic Only 09/22 02:31 Order name: Procalcitonin; Complete Time: 04:57 09/22 02:31 Order name: Blood Culture Adult (2) 09/22 02:32 Order name: BNP 09/22 05:28 Order name: Urine Dipstick--Ancillary (enter results) ds4 09/22 02:30 Order name: IV Start; Complete Time: 03:41 09/22 02:30 Order name: Labs collected and sent; Complete Time: 03:41 09/22 02:30 Order name: EKG; Complete Time: 02:31 rn 09/22 02:30 Order name: EKG - Nurse/Tech; Complete Time: 03:41 09/22 02:31 Order name: Urine Dipstick-Ancillary (obtain specimen); Complete Time: 05:27 rn Administered Medications: 04:08 Drug: NS 0.9% 500 ml Route: IV; Rate: bolus; Site: right forearm; ss 05:00 Follow up: Response: No adverse reaction; IV Status: Completed infusion; IV Intake: jb4 500ml 04:08 Drug: Digoxin 0.25 mg Route: IVP; Site: right forearm; 04:30 Follow up: Response: No adverse reaction [facility] 05:54 Drug: NS 0.9% 250 ml Route: IV; Rate: bolus; Site: right forearm; 06:09 Follow up: Response: No adverse reaction; IV Status: Completed infusion 05:55 Drug: Rocephin - (cefTRIAXone) 1 grams {Note: Given as Rocephin 1 gm IVP as per discretion.} Route: IVPB; Infused Over: 30 mins; Site: right forearm; 06:09 Follow up: Response: No adverse reaction; IV Status: Completed infusion Disposition: 09/22/19 05:33 Hospitalization ordered by Jose Luis Robert for Inpatient Admission. Preliminary diagnosis are Urinary tract infection, site not specified, Atrial Fibrillation with Rapid Ventricular Rate, Altered mental status, unspecified, Pleural effusion, not elsewhere classified, Fecal impaction. - Bed requested for Telemetry/MedSurg (Inpatient). - Status is Inpatient Admission. jb4 - Condition is Stable. - Problem is new. - Symptoms have improved. UTI on Admission? Yes Signatures: Dispatcher [employer] EDMS Sid Tirado MD MD rn Smirch, Shelby, RN RN ss Garcia, Cindy, RN RN Jairo Lamar RN RN [facility] Ramez Vivas Corrections: (The following items were deleted from the chart) 04:09 02:34 Constitutional: Thin male, no acute distress, constant clearing of throat rn Head/Face: Normocephalic, atraumatic. ENT: dry MM Cardiovascular: Tachycardic, regular, intact distal pulses Respiratory: coarse bilateral breath sounds, non-labored Abdomen/GI: soft, non-tender, + large inguinal hernia without discoloration or tenderness MS/ Extremity: Pulses equal, no cyanosis. Neuro: Awake, alert, follows commands, speech at baseline and speaking with family member. rn 05:44 05:33 Hospitalization Ordered by Jose Luis Robert MD for Inpatient Admission. Preliminary cg diagnosis is Urinary tract infection, site not specified; Atrial Fibrillation with Rapid Ventricular Rate; Altered mental status, unspecified; Pleural effusion, not elsewhere classified; Fecal impaction. Bed requested for Telemetry/MedSurg (Inpatient). Status is Inpatient Admission. Condition is Stable. Problem is new. Symptoms have improved. UTI on Admission? Yes. rn 06:20 05:44 09/22/2019 05:33 Hospitalization Ordered by Jose Luis Robert MD for Inpatient jb4 Admission. Preliminary diagnosis is Urinary tract infection, site not specified; Atrial Fibrillation with Rapid Ventricular Rate; Altered mental status, unspecified; Pleural effusion, not elsewhere classified; Fecal impaction. Bed requested for Telemetry/MedSurg (Inpatient). Status is Inpatient Admission. Condition is Stable. Problem is new. Symptoms have improved. UTI on Admission? Yes. cg
[2019-09-22 05:41] LABS: Urine Bacteria LOADED /HPF (NONE SEEN); Urine Culture Reflex Order NOT NEEDED
[2019-09-22] MEDS ORDERED: CEFTRIAXONE/SWI 1gm 1 GM/10 ML SYR ONE (05:49)
[2019-09-22] MEDS ORDERED: ONDANSETRON 4 MG/2 ML VIAL IV PRN (06:12)
[2019-09-22 06:40] LABS: Blood Morphology Comment NOT SEEN (NOT SEEN); Platelet Estimate ADEQ
[2019-09-22] MEDS ORDERED: FLEET ENEMA ADULT PR ONE (07:00)
--- NOTE | 2019-09-22 07:04 | EKG ---
Test Date: 2019-09-22 Test Time: 02:57:39 Respiratory Medicine Physician: ROSALBA MEASUREMENT RESULTS: Intervals: Rate: 126 AK: QRSD: 94 QT: 308 QTc: 446 [place]: P: AK: QRS: 36 T: 228 INTERPRETIVE STATEMENTS: Atrial fibrillation with rapid ventricular response Cannot rule out Inferior infarct, age undetermined Abnormal ECG Compared to ECG 08/23/2019 03:11:08 Myocardial infarct finding now present ST (T wave) deviation no longer present Electronically Signed On 09-22-19 07:04:11 MULTIPLE TUBE WINDING MACHINE OPERATOR by Santiago Ha
--- NOTE | 2019-09-22 09:27 | RAD REPORT ---
EXAM DESCRIPTION: RAD - Chest Single View - 09/22/2019 2:54 am CLINICAL HISTORY: Abdominal pain, lower chest pain COMPARISON: August 24 TECHNIQUE: AP portable chest image was obtained 0241 hours . FINDINGS: Lung volumes are low accentuating lung markings. Patchy left base opacification is present possibly pneumonia. Atelectasis is possible as well. Heart size is upper normal. Vasculature is prom inent. Pleural effusions are suspected. No pneumothorax. No acute bony abnormality seen. No acute aor tic findings suspected. IMPRESSION: Left lung base pneumonia versus failure/volume overload.
[2019-09-22] MEDS ORDERED: LORazepam 2 MG/ML VIAL IV ONE (09:56)
--- NOTE | 2019-09-22 10:39 | RAD REPORT ---
EXAM DESCRIPTION: CT - Abdomen Pelvis W Contrast - 09/22/2019 6:02 am CLINICAL HISTORY: Large inguinal hernia;Abd pain COMPARISON: March 30, 2019. TECHNIQUE: CT ABDOMEN PELVIS WITH IV CONTRAST on 09/22/2019 2:30 AM BENCH PRESS OPERATOR This exam was performed according to our departmental dose-optimization program, which includes autom ated exposure control, adjustment of the mA and/or kV according to patient size and/or use of iterati ve reconstruction technique. FINDINGS: There are moderate bilateral pleural effusions. There is bibasilar atelectasis. Abdomen: The liver is normal in appearance. There is no biliary dilatation. Gallbladder contains a sm all gallstone. The pancreas and spleen are normal in appearance. Adrenal glands are normal. Kidneys a re minimally atrophic. Abdominal aorta is calcified without aneurysm. There is no free air. There is no retroperitoneal akhil opathy. Pelvis: There is mild diverticulosis of the distal colon. Urinary bladder is irregularly thickened. T here is no free fluid. Prostate is enlarged. Appendix is not well seen. There is a right inguinal her katelin containing appendix is not seen. Skeleton: There are likely old upper endplate compression fractures of L1, L2 and L3. IMPRESSION: Unchanged right inguinal hernia. Likely old upper endplate compression fractures of L1, L2 and L3. Electronically signed by: Conrado Valera MD 09/22/2019 5:03 AM BENCH PRESS OPERATOR Due to temporary technical issues with the PACS/Fluency reporting system, reports are being signed by the in house radiologist as a courtesy to ensure prompt reporting. The interpreting radiologist is f ully responsible for the content of the report.
[2019-09-22 11:12] LABS: Urine Appearance SL CLOUDY; Urine Bilirubin NEGATIVE (NEG); Urine Blood 3+ (NEG); Urine Color YELLOW; Urine Glucose NEGATIVE (NEG); Urine Protein 2+ (NEG); Urine Specific Gravity 1.015 (1.005-1.030); Urine Urobilinogen 0.2 mg/dL (0.2-1.0)
[2019-09-22 11:13] LABS: Urine Microscopic Reflex ORDER UMIC
[2019-09-22 11:36] LABS: Urine Bacteria 20-50 /HPF (NONE SEEN); Urine Culture Reflex Order NOT NEEDED; Urine RBC LOADED /HPF (NONE SEEN); Urine White Blood Cell Casts 0-5 /LPF (NONE SEEN)
--- NOTE | 2019-09-22 11:53 | CON ---
History Of Present Illness: Mr. Matute has had atrial fibrillation for about a year. It is easy to control his heart rate with digoxin, but he has not been taking digoxin recently. He thought it was making him feel bad. His family thinks he was feeling bad because he was not taking some of his othe r medications at the time, namely amlodipine 5 mg which he takes for blood pressure control. There w as a lot of confusion amongst the patient and perhaps also his about what the digoxin was for, b ut they seemed to think his blood pressure was poorly controlled by digoxin when in fact, it was not intended to control blood pressure but rather the heart rate. The patient cannot use an anticoagulan t because of a history of severe GI bleeding requiring transfusions. Mr. Matute is legally blind, co mpletely bedridden. He does not even sit in a chair. All care is administered by his family, but I believe he also resides at a [facility]. We do not have a list of his outpatient medications. Physical Examination: General: He is 6 feet 1 inch, 155 pounds. He appears chronically ill. HEENT: Never opens his eyes. He is extremely hard of hearing. If you take your lips within 6 inche s of his ear and yell as loud as you can, he can hear a few words and often he misunderstands that. Extremities: Reveal mild edema. Impression: We should reinstitute digoxin. The patient cannot tolerate beta-blockers. He might thomas erate diltiazem as a way to control both blood pressure and heart rate, but the family seem more comf ortable getting him back on the digoxin that he has had for a while. He did well other than his bloo d pressure being up because amlodipine had been stopped. So, this time, I will try a combination of amlodipine and digoxin on him to control heart rate and blood pressure. BELKIS/SAMSON Voice ID: [id number] Report ID: [id number]
[2019-09-22] MEDS: CEFTRIAXONE/SWI 1gm 1 GM/10 ML SYR IV SCH (17:23)
--- NOTE | 2019-09-22 17:48 | P.HP ---
Certification for Inpatient Patient admitted to: Inpatient With expected LOS: >2 Midnights Practitioner: I am a practitioner with admitting privileges, knowledge of patient current condition, hospital course, and medical plan of care. Services: Services provided to patient in accordance with Admission requirements found in Title 42 Section 412.3 of the Code of Federal Regulations Patient History Date of Service: 09/22/19 Reason for admission: WEAK AND LISTLESS History of Present Illness: MR. 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 HE HAS NO ISSUES WITH FEVER, PAIN, BURNING IN URINATION ETC. CAME TO ER AND ER ADMITTED HIM. Allergies codeine Adverse Reaction (Verified 01/04/19 23:21) Nausea/Vomiting ANTIHISTAMINES Adverse Reaction (Mild, Uncoded 08/23/19 09:53) Unknown Home Medications: Amlodipine [Norvasc*] 10 mg PO DAILY 08/11/19 Prednisone [Sterapred Ds] 10 mg PO BID 08/11/19 Digoxin [Lanoxin*] 0.125 mg PO DAILY #90 tab 08/13/19 Metoprolol Tartrate [Lopressor] 100 mg PO DAILY 09/22/19 - Past Medical/Surgical History Has patient received pneumonia vaccine in the past: No Diabetic: No -: hypertension -: glaucoma -: anemia -: hypoglycemia supposably many years ago. does nothing for it now. -: blindness -: enlarged prostate -: HTN -: wedgners disease -: IONE -: hernia -: bone spur in neck -: copd -: vocal cord surg -: corneal transplant sx -: hemorroidectomy -: eye sx - Family History Father -: Lung disease - Social History Smoking Status: Former smoker Alcohol use: No CD- Drugs: No Caffeine use: Yes Place of Residence: Home Review of Systems is unable to be obtained Physical Examination - Vital Signs Temperature: 98.6 F Blood Pressure: 170/84 Pulse: 120 Respirations: 16 Pulse Ox (%): 95 - Physical Exam General: Alert, In no apparent distress, Cachectic HEENT: Atraumatic, PERRLA, Mucous membr. moist/pink, EOMI, Sclerae nonicteric Neck: Supple, 2+ carotid pulse no bruit, No LAD, Without JVD or thyroid abnormality Respiratory: Clear to auscultation bilaterally, Normal air movement Cardiovascular: Regular rate/rhythm, Normal S1 S2 Gastrointestinal: Normal bowel sounds, No tenderness Musculoskeletal: Other Integumentary: No rashes Neurological: Abnormal speech, Abnormal strength, Abnormal tone (CONTRACTURES, CACHECTIC. WHISPERING SPEECH. ALL NO CHANGES.) Lymphatics: No axilla or inguinal lymphadenopathy - Studies Laboratory Data (last 24 hrs) 09/22/19 03:10: Creatinine 0.63 09/22/19 03:10: WBC 14.2 H, Hgb 12.5 L, Hct 37.7 L, Plt Count 205 09/22/19 03:10: Sodium 135 L, Potassium 4.0, BUN 12, Creatinine 0.68, Glucose 95 , Total Bilirubin 0.6, AST 23, ALT 33, Alkaline Phosphatase 124 H, Lipase 121 Assessment and Plan - Problems (Diagnosis) (1) Debilitated patient Current Visit: Yes Status: Chronic Plan: IDEALLY HE SHOULD BE ON HOSPICE AND COMFORTABLE AT HOME. EVEN THOUGH HE IS TOTALLY CRIPPLED HIS MIND WORKS IN ASKING THE RIGHT QUESTIONS TO FAMILY AND LONG HE IS WANTING TO COME TO HOSPITAL HE WILL NOT BE ON HOSPICE. HE IS TOTALLY CRIPPLED WITH ABOVE CONDITION. (2) A-fib Current Visit: No Status: Chronic Plan: RESUMEMEDS. NOT ABLE TO TAKE AC HE HAS HAD PROFUSE BLEEDING FROM CARMITA'S BEFORE. 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 CONTROLLED WITH PREDNISONE. (4) Leukocytosis Current Visit: Yes Status: Chronic Plan: THIS IS AT BASELINE. FROM PREDNSIONE. I SEE NO SIGNS OF UTI. HE HAS UA POSITIVE BUT AGAIN WITHOUT SYMPTOMS HE SHOULD NOT BE TREATED. IS BEING LISTLESS AND NOT RESPONSIVE A UTI SYMPTOM? THIS IS QUESTIONABLE. - Advance Directives Does patient have a Living Will: No Does patient have a Durable POA for Healthcare: Yes
[2019-09-22] MEDS ORDERED: CEFTRIAXONE 1 GM/NS 50 ML 1 GM/50 ML BAG IV SCH (18:00)
[2019-09-22] MEDS: ACETAMINOPHEN 325 MG TABLET PO PRN (21:40)
[2019-09-22] MEDS: predniSONE 10 MG TAB PO SCH (21:41)
[2019-09-23] MEDS: CEFTRIAXONE/SWI 1gm 1 GM/10 ML SYR IV SCH ×2 (05:19→16:21)
[2019-09-23 05:42] LABS: Absolute Lymphocytes (CBC) 0.4 K/uL (0.7-4.9); Basophils % 0.5 % (0-1.3); Lymphocytes % 4.2 % (15.3-44.8); MPV 8.2 fL (7.6-11.3); RBC Red Blood Cell Count 3.69 M/uL (4.33-5.43)
[2019-09-23 05:48] LABS: BUN Blood Urea Nitrogen 11 mg/dL (7-18); Bicarbonate 26 mmol/L (21-32); Glucose Level 133 mg/dL (74-106); Potassium 4.1 mmol/L (3.5-5.1); Sodium Level 133 mmol/L (136-145)
--- NOTE | 2019-09-23 08:43 | RAD REPORT ---
EXAM DESCRIPTION: RAD - Abdomen Single View - 09/23/2019 8:20 am CLINICAL HISTORY: Fecal impaction Pain COMPARISON: Abdomen Pelvis W Contrast dated 09/22/2019 FINDINGS: Significant amount stool is impacted in the rectum. Dilatation of the sigmoid colon with a ir is present. No free air is seen. No suspicious calcifications.
[2019-09-23] MEDS ORDERED: DIGOXIN 0.25 MG TABLET PO SCH (09:00)
[2019-09-23] MEDS: AMLODIPINE 10 MG TAB PO SCH (09:00)
[2019-09-23] MEDS: predniSONE 10 MG TAB PO SCH ×2 (09:00→21:15)
[2019-09-23] MEDS ORDERED: AMLODIPINE 5 MG TAB PO SCH (09:00)
[2019-09-23] MEDS: DIGOXIN 0.125 MG TABLET PO SCH (09:00)
[2019-09-23] MEDS: METOPROLOL TAR 50 MG TAB PO SCH (09:00)
[2019-09-23] MEDS: MAGNESIUM HYDROXIDE 8% 30 ML PO SCH ×3 (10:28→23:08)
--- NOTE | 2019-09-23 13:24 | ECHO ---
HEIGHT: 6 ft 1 in WEIGHT: 155 lb 0 oz DATE OF STUDY: 09/23/[address]: Jamir Marie MD 2-DIMENSIONAL: YES M.MODE: YES DOPPLER: YES COLOR FLOW: YES TDS: YES PORTABLE: NO DEFINITY: NO BUBBLE STUDY: NO DIAGNOSIS: ATRIAL FIBRILLATION CARDIAC HISTORY: CATHERIZATION: NO SURGERY: NO PROSTHETIC VALVE: NO PACEMAKER: NO MEASUREMENTS (cm) DIASTOLIC (NORMALS) SYSTOLIC (NORMALS) IVSd 1.2 (0.6-1.2) LA Diam 3.8 (1.9-4.0) LVEF 58% LVIDd 4.7 (3.5-5.7) LVIDs 3.3 (2.0-3.5) %FS 30% LVPWd 1.2 (0.6-1.2) Ao Diam 3.1 (2.0-3.7) 2 DIMENSIONAL ASSESSMENT: RIGHT ATRIUM: NORMAL LEFT ATRIUM: NORMAL RIGHT VENTRICLE: NORMAL LEFT VENTRICLE: NORMAL TRICUSPID VALVE: NORMAL MITRAL VALVE: STENOTIC PULMONIC VALVE: NORMAL AORTIC VALVE: STENOTIC PERICARDIAL EFFUSION: NONE AORTIC ROOT: NORMAL LEFT VENTRICULAR WALL MOTION: NORMAL. DOPPLER/COLOR FLOW: MILD MITRAL STENOSI AREA 1.9 CENTIMETERS SQUARED. MODERATE AORTIC STENOSIS AREA 1.4 CENTIMETERS SQUARED. COMMENTS: NORMAL LEFT VENTRICULAR SIZE AND FUNCTION. ATRIAL FIBRILLATION. MILD AORTIC STENOSIS 1. 4 CENTIMETERS SQUARED. MILD MITRAL STENOSIS 1.9 CENTIMETERS SQUARED. NO THROMBUS. NORMAL LEFT ATRIAL SIZE. TECHNOLOGIST: NICOLE KIRK
--- NOTE | 2019-09-23 23:05 | PN ---
Subjective: Mr. Matute is doing better. He is starting to eat this morning. He still has not had a good BM yet. He denies any chest pain, nausea, vomiting. Physical Examination: Mr. Matute is a crippled gentleman, who has contractures all over his bed bound for the last couple o f years. 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 His family is very caring and taking care of him day and night. Assessment And Plan: 1.Urinary tract infection is questionable. Cultures pending. I will give antibiotics because he be came listless at this time and has improved. 2.Jong granulomatosis, chronic problem, on prednisone therapy. 3.Atrial fibrillation, currently controlled on medications. I am not changing any lately. He misse d his metoprolol for few days some and which is why he was tachycardic again. 4.Prognosis remains overall poor. KAREN/SAMSON Voice ID: [id number] Report ID: [id number]
--- NOTE | 2019-09-24 00:35 | PN ---
He was seen by Dr. Ha for atrial fibrillation. Patient's main diagnosis was UTI, altered mental status, and fecal impaction. He normally takes digoxin, Norvasc, metoprolol, and prednisone at home. He was in atrial fibrillation with rapid ventricular response. Digoxin was reinstated at 0.25 once a day. Today, he remains in atrial fibrillation, heart rate of 90. Patient is not a candidate for anticoagulation secondary to GI bleed. No cardiac symptoms today. Echocardiogram that was done show ed a normal ejection fraction. No change in therapy. The patient can go home whenever it is okay wi Dr. Robert. ROBERTO/SAMSON Voice ID: [id number] Report ID: [id number]
[2019-09-24] MEDS: CEFTRIAXONE/SWI 1gm 1 GM/10 ML SYR IV SCH (05:40)
[2019-09-24] MEDS: MAGNESIUM HYDROXIDE 8% 30 ML PO SCH ×2 (05:40→10:03)
[2019-09-24] MEDS: ACETAMINOPHEN 325 MG TABLET PO PRN ×2 (05:51→21:27)
[2019-09-24 06:19] VITALS: BMI 20.5
[2019-09-24] MEDS: AMLODIPINE 10 MG TAB PO SCH (08:51)
[2019-09-24] MEDS: DIGOXIN 0.125 MG TABLET PO SCH (08:51)
[2019-09-24] MEDS: predniSONE 10 MG TAB PO SCH ×2 (08:52→21:27)
[2019-09-24] MEDS: METOPROLOL TAR 50 MG TAB PO SCH (08:52)
[2019-09-24] MEDS: levoFLOXacin 500 MG TAB PO SCH (10:03)
[2019-09-24] MEDS ORDERED: MAGNESIUM CITRATE 300 ML BOT PO ONE (10:45)
[2019-09-24] MEDS ORDERED: GOLYTELY 4000 ML PO SCH (18:00)
[2019-09-24 22:31] VITALS: O2SAT 98
--- NOTE | 2019-09-24 23:10 | PN ---
Subjective: Mr. Matute is doing a lot better. He is able to eat now. He is much more comfortable a ccording to family, but he still has severe constipation, has not had any bowel movement for a few da ys. We tried milk of magnesia, [id number] Mag citrate for a few dosages with no help and I dorota l be trying GoLYTELY by mouth. He refuses to do enemas. He has severe back pain with any movement b ecause it is full of contractures. He has curvature of spine because he lies in bed all day. He has not walked for last couple of years. Objective: Vital Signs: Blood pressure examination 145/70. Chest: Clear. Heart: Regular. Assessment And Plan: 1.Urinary tract infection with Pseudomonas, change of antibiotic to Levaquin once a day. 2.History of atrial fibrillation, currently stable. 3.Severe constipation, as described above. Attempts to improve this status. He will have to stay 1 more day in hospital until he has a large BM because he has severe constipation with impaction of st ool. KAREN/SAMSON Voice ID: [id number] Report ID: [id number]
[2019-09-25] MEDS: AMLODIPINE 10 MG TAB PO SCH (09:06)
[2019-09-25] MEDS: predniSONE 10 MG TAB PO SCH (09:06)
[2019-09-25] MEDS: DIGOXIN 0.125 MG TABLET PO SCH (09:06)
[2019-09-25] MEDS: METOPROLOL TAR 50 MG TAB PO SCH (09:07)
[2019-09-25] MEDS: levoFLOXacin 500 MG TAB PO SCH (09:08)
[2019-09-25 14:33] VITALS: BP 139/76; TEMP 98.1
--- NOTE | 2019-09-26 05:42 | DS ---
Date of Discharge: 09/25/2019 Final Diagnoses: Urinary tract infection with Pseudomonas aeruginosa, severe constipation. Secondary Diagnoses: Severe contractures of all limbs, bed-bound status for last 2 years, Jong's granulomatosis, hypertension, atrial fibrillation. Hospital Course: Patient is an 79-year-old gentleman, who is unfortunately in the bed for last 2 yea rs since he became decrepit, having Sigifredo's granulomatosis, severe hemoptysis, and a total blindness . He has multiple contractures. He is taken care of by the family, in the bed every single day. He is quite demanding. Even though his body is totally disabled, his mind is still working and which i s why he is in control of the family. He comes in with listlessness. I found this to be secondary t o UTI, but he grew Pseudomonas aeruginosa and a straight cath culture, which is covered by Levaquin. He is resistant to Cipro. He is stable for discharge. He had extra 1 or 2 days severely impacted w ith stool, unable to be removed with the enema. He refuses more than 1 enema. We gave him Mag citra te, which did not help. I gave him GoLYTELY, which started to improve his bowel clearance and he had actually small size BM before he went home today. Family will continue GoLYTELY at home, Levaquin o nce a day at home. Other medications remain same as before. KAREN/SAMSON Voice ID: [id number] Report ID: [id number]
== END 2019-09-25 15:45 | disposition home or self-care (01) | DRG 690 ==
LOC: ER 02:23 → 2ND 05:54
PROVIDERS: ADMIT Internal Medicine; ATTEND Internal Medicine
DX: N39.0 Urinary tract infection, site not specified (principal); M31.30 Wegener's granulomatosis without renal involvement; I48.20 Chronic atrial fibrillation, unspecified; B96.5 Pseudomonas (aeruginosa) (mallei) (pseudomallei) as the cause of diseases classified elsewhere; K59.00 Constipation, unspecified; M62.49 Contracture of muscle, multiple sites; Z74.01 Bed confinement status; I10 Essential (primary) hypertension; Z79.01 Long term (current) use of anticoagulants; H54.7 Unspecified visual loss
CPT/HCPCS: 36415; 71045; 74018; 74177; 80048; 80076; 81003; 81015; 83690; 83880; 84145; 84484; 85025; 87040; 87077; 87086; 87088; 87186; 93005; 93306; 96361; 96374; 96375; 99285; J0696; J1160; J7040; J7512; Q9967

== ENCOUNTER 2019-10-06 09:07 | Inpatient (IN) | payer OTHER ==
--- OUTSIDE RECORDS SUMMARY | 2019-10-06 09:15 | XMS REPORT ---
:1940 Author Organization [facility] Address [address] [place] [address] Dr. Hill [address] [place] [id number] Care Team Providers Name Role Phone CARLOS BARBER Unavailable Unavailable Problems This patient has no known problems. Allergies, Adverse Reactions, Alerts This patient has no known allergies or adverse reactions. Medications This patient has no known medications. Results Test Description Test Time Test Comments Text Results Atomic Results Result Comments BLOOD CULTURE 2018-09-29 11:00:00 Test Item Value Reference Range Comments CULTURE (BEAKER) (test hkfr=3544) No growth in 5 days ANAEROBIC [id number] 12:34:00 Test Item Value Reference Range Comments CULTURE (BEAKER) (test hanl=7298) No anaerobes isolated EAR CULTURE + GRAM [id number] 14:27:00 Test Item Value Reference Range Comments CULTURE (BEAKER) (test PSEUDOMONAS 1+ Pseudomonas vljq=8570) AERUGINOSA aeruginosa Amikacin (test code=1) Susceptible 0-16 [...] GRAM STAIN RESULT 4+ WBCs (BEAKER) (test hycb=5105) GRAM STAIN RESULT No organisms seen (BEAKER) (test ulpu=999624) RAD, CHEST, 1 VIEW, NON [id number] 16:48:00Reason for exam:->SOBShould this be performed at [...] [place] Verified Date/Time: 09/25/2018 16:48:03 Reading Location: [facility] Diagnostic Imaging Reading Room - [place] [address] HEMOGLOBIN AND [id number] 13:03:00 Test Item Value Reference Range Comments HEMOGLOBIN (BEAKER) (test thlp=222) 10.4 GM/DL 13.7-17.5 HEMATOCRIT (BEAKER) (test yzzm=081) 32.6 % 40.1-51.0 TSH/FREE T4 IF [id number] 06:43:00 Test Item Value Reference Range Comments THYROID STIMULATING HORMONE (BEAKER) (test 1.57 uIU/mL 0.35-4.94 snln=858) [id number] 06:28:00 Test Item Value Reference Range Comments MAGNESIUM (BEAKER) (test bhbw=806) 1.8 mg/dL 1.6-2.6 BASIC METABOLIC [id number] 06:28:00 Test Item Value Reference Range Comments SODIUM (BEAKER) (test 136 meq/L 136-145 isgg=508) POTASSIUM (BEAKER) (test 4.0 meq/L 3.5-5.1 ilfa=194) CHLORIDE (BEAKER) (test 109 meq/L 98-107 cfhy=599) CO2 (BEAKER) (test 21 meq/L 22-29 efyi=687) BLOOD UREA NITROGEN 11 mg/dL 7-21 (BEAKER) (test uapk=235) CREATININE (BEAKER) (test 0.70 mg/dL 0.57-1.25 qfbp=181) GLUCOSE RANDOM (BEAKER) 97 mg/dL 70-105 (test hixk=370) CALCIUM (BEAKER) (test 8.2 mg/dL 8.4-10.2 wqxn=321) EGFR (BEAKER) (test 109 mL/min/1.73 sq m ESTIMATED GFR IS NOT jvgw=3902) ACCURATE CREATININE CLEARANCE IN PREDICTING GLOMERULAR FILTRATION RATE. ESTIMATED GFR IS NOT APPLICABLE FOR DIALYSIS PATIENTS. CBC W/PLT COUNT & AUTO [id number] 05:49:00 Test Item Value Reference Range Comments WHITE BLOOD CELL COUNT (BEAKER) (test ijmk=017) 9.3 K/ L 3.5-10.5 RED BLOOD CELL COUNT (BEAKER) (test czjn=159) 3.30 M/ L 4.63-6.08 HEMOGLOBIN (BEAKER) (test dbdn=052) 9.9 GM/DL 13.7-17.5 HEMATOCRIT (BEAKER) (test ppsf=236) 30.7 % 40.1-51.0 MEAN CORPUSCULAR VOLUME (BEAKER) (test kcpv=169) 93.0 fL 79.0-92.2 MEAN CORPUSCULAR HEMOGLOBIN (BEAKER) (test 30.0 pg 25.7-32.2 fjcc=379) MEAN CORPUSCULAR HEMOGLOBIN CONC (BEAKER) (test 32.2 GM/DL 32.3-36.5 flgd=909) RED CELL DISTRIBUTION WIDTH (BEAKER) (test 15.9 % 11.6-14.4 dpne=635) PLATELET COUNT (BEAKER) (test vaxd=312) 143 K/CU MM 150-450 MEAN PLATELET VOLUME (BEAKER) (test ztqn=311) 10.9 fL 9.4-12.4 NUCLEATED RED BLOOD CELLS (BEAKER) (test 0 /100 WBC 0-0 ylpx=878) NEUTROPHILS RELATIVE PERCENT (BEAKER) (test 87 % oopw=431) LYMPHOCYTES RELATIVE PERCENT (BEAKER) (test 6 % gzys=216) MONOCYTES RELATIVE PERCENT (BEAKER) (test 5 % wxeu=879) EOSINOPHILS RELATIVE PERCENT (BEAKER) (test 0 % uvwv=363) BASOPHILS RELATIVE PERCENT (BEAKER) (test 0 % dykx=097) NEUTROPHILS ABSOLUTE COUNT (BEAKER) (test 8.10 K/ L 1.78-5.38 bapr=380) LYMPHOCYTES ABSOLUTE COUNT (BEAKER) (test 0.51 K/ L 1.32-3.57 lmsn=458) MONOCYTES ABSOLUTE COUNT (BEAKER) (test 0.46 K/ L 0.30-0.82 buqo=538) EOSINOPHILS ABSOLUTE COUNT (BEAKER) (test 0.01 K/ L 0.04-0.54 fewp=677) BASOPHILS ABSOLUTE COUNT (BEAKER) (test 0.01 K/ L 0.01-0.08 gfiq=145) IMMATURE GRANULOCYTES-RELATIVE PERCENT (BEAKER) 2 % 0-1 (test pdwk=2205) CBC W/PLT COUNT & AUTO [id number] 07:25:00 Test Item Value Reference Range Comments WHITE BLOOD CELL COUNT (BEAKER) (test bibs=677) 11.2 K/ L 3.5-10.5 RED BLOOD CELL COUNT (BEAKER) (test aamh=359) 3.99 M/ L 4.63-6.08 HEMOGLOBIN (BEAKER) (test zehh=294) 11.8 GM/DL 13.7-17.5 HEMATOCRIT (BEAKER) (test ucjn=638) 36.4 % 40.1-51.0 MEAN CORPUSCULAR VOLUME (BEAKER) (test ubuq=782) 91.2 fL 79.0-92.2 MEAN CORPUSCULAR HEMOGLOBIN (BEAKER) (test 29.6 pg 25.7-32.2 thno=356) MEAN CORPUSCULAR HEMOGLOBIN CONC (BEAKER) (test 32.4 GM/DL 32.3-36.5 rhyw=074) RED CELL DISTRIBUTION WIDTH (BEAKER) (test 16.2 % 11.6-14.4 tfki=850) PLATELET COUNT (BEAKER) (test ylfk=160) 168 K/CU MM 150-450 MEAN PLATELET VOLUME (BEAKER) (test wbje=441) 11.3 fL 9.4-12.4 NUCLEATED RED BLOOD CELLS (BEAKER) (test 0 /100 WBC 0-0 zime=780) NEUTROPHILS RELATIVE PERCENT (BEAKER) (test 75 % nvvh=035) LYMPHOCYTES RELATIVE PERCENT (BEAKER) (test 14 % wezk=498) MONOCYTES RELATIVE PERCENT (BEAKER) (test 8 % ooky=733) EOSINOPHILS RELATIVE PERCENT (BEAKER) (test 1 % zyfs=827) BASOPHILS RELATIVE PERCENT (BEAKER) (test 0 % ipgk=032) NEUTROPHILS ABSOLUTE COUNT (BEAKER) (test 8.31 K/ L 1.78-5.38 uizd=717) LYMPHOCYTES ABSOLUTE COUNT (BEAKER) (test 1.54 K/ L 1.32-3.57 itkv=113) MONOCYTES ABSOLUTE COUNT (BEAKER) (test 0.87 K/ L 0.30-0.82 hzee=578) EOSINOPHILS ABSOLUTE COUNT (BEAKER) (test 0.09 K/ L 0.04-0.54 zxgu=965) BASOPHILS ABSOLUTE COUNT (BEAKER) (test 0.03 K/ L 0.01-0.08 ztse=684) IMMATURE GRANULOCYTES-RELATIVE PERCENT (BEAKER) 3 % 0-1 (test cgot=7948) [id number] 07:11:00 Test Item Value Reference Range Comments MAGNESIUM (BEAKER) (test dwss=059) 1.9 mg/dL 1.6-2.6 BASIC METABOLIC [id number] 07:11:00 Test Item Value Reference Range Comments SODIUM (BEAKER) (test 136 meq/L 136-145 izep=015) POTASSIUM (BEAKER) (test 3.4 meq/L 3.5-5.1 pkmw=018) CHLORIDE (BEAKER) (test 106 meq/L 98-107 rdcf=872) CO2 (BEAKER) (test 23 meq/L 22-29 rxxr=461) BLOOD UREA NITROGEN 12 mg/dL 7-21 (BEAKER) (test uxpr=468) CREATININE (BEAKER) (test 0.74 mg/dL 0.57-1.25 jsgb=211) GLUCOSE RANDOM (BEAKER) 91 mg/dL 70-105 (test gehw=483) CALCIUM (BEAKER) (test 8.3 mg/dL 8.4-10.2 xtdj=447) EGFR (BEAKER) (test 102 mL/min/1.73 sq m ESTIMATED GFR IS NOT igte=8766) ACCURATE CREATININE CLEARANCE IN PREDICTING GLOMERULAR FILTRATION RATE. ESTIMATED GFR IS NOT APPLICABLE FOR DIALYSIS PATIENTS.
[2019-10-06] MEDS ORDERED: NA CHLORIDE 0.9% 500 ML ONE (09:26)
[2019-10-06] MEDS ORDERED: LEVALBUTEROL 1.25 MG/3 ML NEB ONE (09:26)
[2019-10-06 10:27] LABS: Absolute Lymphocytes (CBC) 1.3 K/uL (0.7-4.9); Basophils % 0.1 % (0-1.3); Hematocrit 35.6 % (39.6-49.0); Lymphocytes % 5.9 % (15.3-44.8); RBC Red Blood Cell Count 4.24 M/uL (4.33-5.43)
--- NOTE | 2019-10-06 10:40 | RAD REPORT ---
EXAM DESCRIPTION: RAD - Chest Single View - 10/06/2019 9:37 am CLINICAL HISTORY: DYSPNEA Chest pain. COMPARISON: Chest Single View dated 09/22/2019; Chest Single View dated 08/24/2019; Chest Single Vie w dated 08/23/2019; Chest Single View dated 08/12/2019; Abdomen Single View dated 09/23/2019 FINDINGS: Portable technique limits examination quality. Hazy opacity in the left lung base appears slightly progressive since the comparative study. The hear t is mildly enlarged. No displaced fractures. IMPRESSION: Mild worsening in left lung base aeration since comparative study.
[2019-10-06 10:43] LABS: BUN Blood Urea Nitrogen 12 mg/dL (7-18); Bicarbonate 25 mmol/L (21-32); Glucose Level 79 mg/dL (74-106); NT PRO-BNP 5460 pg/mL (<450); Potassium 4.5 mmol/L (3.5-5.1); Sodium Level 131 mmol/L (136-145)
--- NOTE | 2019-10-06 11:16 | ER ---
Nurse's Notes [facility] Name: Gio Matute Age: 79 yrs Sex: Male : 1940 Arrival Date: 10/06/2019 Time: 09:08 Bed 19 Private MD: Diagnosis: Pneumonia;Dehydration;Delirium due to known physiological condition Presentation: 10/06 09:08 Presenting complaint: EMS states: family reports pt having difficulty breathing, having aa5 a cough, having "gaging and hiccup sounding episodes". EMS reports BP was 170 systolic, HR 90, 97% RA O2 sat, and 18 RR upon scene arrival. Transition of care: patient was not received from another setting of care. Onset of symptoms was 2018. Care prior to arrival: None. 09:08 Acuity: MACI 3 aa5 09:08 Method Of Arrival: EMS: [facility] aa5 09:08 Initial Sepsis Screen: Does the patient meet any 2 criteria? HR > 90 bpm. Does the aa5 patient have a suspected source of infection? No. Patient's initial sepsis screen is negative. 09:10 Risk Assessment: Do you want to hurt yourself or someone else? Patient reports no vc desire to harm self or others. 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 - Ebola Screening: : No symptoms or risks identified at this time. - Social history:: Smoking status: Patient/guardian denies using tobacco. - Family history:: not pertinent. - Hospitalizations: : No recent hospitalization is reported. Screenin:20 Abuse screen: Denies threats or abuse. Nutritional screening: No deficits noted. vc Tuberculosis screening: No symptoms or risk factors identified. Fall Risk Secondary diagnosis (15 points) impaired mobility, IV access (20 points). Total Hines Fall Scale indicates Low Risk Score (25-44 pts). Fall prevention measures have been instituted. Side Rails Up X 2 Placed close to Nursing Station Family Present and informed to notify staff if they need to leave bedside. Assessment: 09:15 General: Appears distressed, unkempt, Behavior is calm, cooperative. Pain: Unable to vc use pain scale. Patient is blind and unable to hear. Neuro: Level of Consciousness is lethargic, Oriented to person. Neuro: Patient shaking in bilateral hands, family stated that is new.. Cardiovascular: Capillary refill is sluggish. Respiratory: Airway is patent Trachea midline Respiratory effort is even, unlabored, Respiratory pattern is tachypnea Breath sounds are clear bilaterally. Parent/caregiver reports the patient having shortness of breath cough that is Patient informed family he was SOB. GI: No signs and/or symptoms were reported involving the gastrointestinal system. : to gravity drainage condom catheter. EENT: Eyes are tearing on right inner canthus and left inner canthus with exudate noted from outer aspect of conjuctiva of right eye, iris of right eye, inner aspect of conjuctiva of right eye and right inner canthus. Derm: Skin is intact, Bruising that is dark purple, Decubitus. Musculoskeletal: Range of motion: limited in all extremities. 10:15 Reassessment: Family states he sounds better. . vc 10:39 Reassessment: Patient appears in no apparent distress at this time. Pt's eyes closed. ca1 Resting. Responds to verbal stimuli. Equal and unlabored breathing. Skin pink, warm and dry. Family at bedside. 11:59 Reassessment: Patient appears in no apparent distress at this time. Patient and/or ca1 family updated on plan of care and expected duration. Pain level reassessed. Vancomycin sent with pt to 2nd Floor. Report given to NATALEE Roach. Vital Signs: 09:10 Pulse 98; Resp 18 S; Temp 97.9(TE); Pulse Ox 98% on R/A; aa5 09:15 BP 182 / 87; Pulse 105; Resp 21; Pulse Ox 97% on R/A; vc 10:17 BP 143 / 80; Pulse 86; Resp 22; Pulse Ox 100% on R/A; vc 10:42 BP 155 / 99; Pulse 99; Resp 22; Pulse Ox 99% on R/A; ca1 11:59 BP 137 / 97; Pulse 97; Resp 21 S; Pulse Ox 98% on R/A; ca1 ED Course: 09:08 Patient arrived in ED. aa5 09:08 [facility] Gay F[facility]-C [facility]. la1 09:08 Sid Tirado MD is Attending Physician. la1 09:08 Arm band placed on. aa5 09:10 Patient has correct armband on for positive identification. Bed in low position. Call vc light in reach. Side rails up X2. Adult w/ patient. 09:11 Triage completed. aa5 09:17 Judith Moreland, RN is Primary Nurse. vc 09:33 X-ray completed. Portable x-ray completed in exam room. 1 09:36 XRAY CXR (1 view) In Process Unspecified. EDMS 09:53 EKG done, by technical supervisor. reviewed by Sid Tirado MD. at1 10:10 Initial lab(s) drawn, by ma, sent to lab. Inserted saline lock: 22 gauge in right aa5 forearm, using aseptic technique. Blood collected. 10:30 Report given to Handed patient care over to NATALEE Gutierrez. vc 11:15 Jose Luis Robert MD is Hospitalizing Provider. rn 12:00 No provider procedures requiring assistance completed. Patient admitted, IV remains in ca1 place. Administered Medications: 10:00 Drug: Xopenex 1.25 mg Route: Inhalation; vc 10:49 Follow up: Response: No adverse reaction vc 10:00 Drug: NS 0.9% 500 ml Route: IV; Rate: bolus; Site: right forearm; vc 10:49 Follow up: Response: No adverse reaction vc 11:47 Follow up: Response: No adverse reaction; IV Status: Completed infusion ca1 11:47 Drug: Zosyn 3.375 grams Route: IVPB; Infused Over: 60 mins; Site: right antecubital; ca1 11:48 Follow up: IV Status: Infusion continued upon admission ca1 11:59 Not Given (Vanc sent with pt to 2nd floor. Report given to NATALEE Roach): vancoMYCIN 1 ca1 grams IVPB once over 2 hrs Outcome: 11:15 Decision to Hospitalize by Provider. rn 12:00 Admitted to Med/surg accompanied by tech, family with patient, via stretcher, room 217. ca1 12:00 Condition: stable 12:00 Instructed on the need for admit. 12:05 Patient left the ED. ca1 Signatures: Dispatcher [employer] EDMS Ivonne Soliz [facility] Sid Tirado MD MD rn Calderon, Audri, RN RN aa5 Chely Yeung, public address system operator EKG Tat1 Eliseo Gay, ORCHESTRA TEACHER-C ORCHESTRA TEACHER-Cla1 Brenda Corral RN RN ca1 Judith Moreland RN RN vc Corrections: (The following items were deleted from the chart) 10:41 10:39 General: Appears ca1 ca1 10:43 10:39 Reassessment: Patient appears in no apparent distress at this time. Pt's eyes ca1 closed. Resting. Responds to verbal stimuli. Equal and unlabored breathing. Skin pink, warm and dry ca1 11:01 09:20 Pneumonia Screening: Total Score: vc vc
--- NOTE | 2019-10-06 11:16 | EDPHYS ---
Physician Documentation [facility] Name: Gio Matute Age: 79 yrs Sex: Male : 1940 Arrival Date: 10/06/2019 Time: 09:08 Bed 19 Private MD: ED Physician Sid Tirado HPI: 10/06 11:10 This 79 yrs old Male presents to ER via EMS with complaints of Cough. rn 11:10 The patient or guardian reports cough, difficulty breathing. Onset: The rn symptoms/episode began/occurred yesterday. Severity of symptoms: At their worst the symptoms were moderate, in the emergency department the symptoms are unchanged. Modifying factors: The symptoms are alleviated by nothing, the symptoms are aggravated by nothing. Associated signs and symptoms: Pertinent negatives:. The patient has experienced similar episodes in the past. The patient has been recently been admitted at [facility]. Family reports worsening breathing and cough since yesterday, recently admitted for UTI, just completed levaquin for UTI, 7 days. Family also report increased somnolence.. 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 - Ebola Screening: : No symptoms or risks identified at this time. - Social history:: Smoking status: Patient/guardian denies using tobacco. - Family history:: not pertinent. - Hospitalizations: : No recent hospitalization is reported. ROS: 11:10 Constitutional: Negative for fever, chills, and weight loss, Eyes: Negative for injury, rn pain, redness, and discharge, ENT: Negative for injury, pain, and discharge, Neck: Negative for injury, pain, and swelling, Cardiovascular: Negative for chest pain, palpitations, and edema, Respiratory: + cough and sob MS/Extremity: Negative for injury and deformity, Skin: Negative for injury, rash, and discoloration, Neuro: Negative for headache, and seizure. Exam: 11:10 Constitutional: Thin cachectic male, sleeping but easily arousable. Head/Face: rn Normocephalic, atraumatic. ENT: dry MM with thick mucous in back of throat Cardiovascular: Regular rate, irregular rhythm. No pulse deficits. Respiratory: Coarse bilateral breath sounds with wheezing, + mild tachypnea, no retractions. Abdomen/GI: soft, non-tender, non-distended Skin: Warm, dry Neuro: Awake and alert, answers questions, not as animated as usually is. Vital Signs: 09:10 Pulse 98; Resp 18 S; Temp 97.9(TE); Pulse Ox 98% on R/A; aa5 09:15 BP 182 / 87; Pulse 105; Resp 21; Pulse Ox 97% on R/A; vc 10:17 BP 143 / 80; Pulse 86; Resp 22; Pulse Ox 100% on R/A; vc 10:42 BP 155 / 99; Pulse 99; Resp 22; Pulse Ox 99% on R/A; ca1 11:59 BP 137 / 97; Pulse 97; Resp 21 S; Pulse Ox 98% on R/A; ca1 MDM: 09:08 Patient medically screened. la1 11:10 Differential Diagnosis: Influenza Upper Respiratory Infection Viral Syndrome Pneumonia. rn Data reviewed: vital signs, nurses notes, lab test result(s), EKG, radiologic studies, and as a result, I will admit patient. Test interpretation: by ED physician or midlevel provider: plain radiologic studies, CXR show Worsening left lung opacification. Counseling: I had a detailed discussion with the patient and/or guardian regarding: the historical points, exam findings, and any diagnostic results supporting the discharge/admit diagnosis, lab results, radiology results, the need for further work-up and treatment in the hospital. Admission orders: after a detailed discussion of the patient's condition and case, the admit orders are written by me. ED course: Spoke with and admitted to Dr. Robert for pneumonia and AMS.. 11:17 ED course: Dr. Robert requests yvonne/zosyn. rn 10/06 09:13 Order name: BMP; Complete Time: 10:47 rn 10/06 09:13 Order name: CBC with Diff rn 10/06 09:13 Order name: NT PRO-BNP; Complete Time: 10:47 rn 10/06 09:13 Order name: Procalcitonin rn 10/06 09:13 Order name: Flu; Complete Time: 10:47 rn 10/06 10:36 Order name: Manual Differential EDMS 10/06 09:13 Order name: XRAY CXR (1 view) rn 10/06 09:13 Order name: EKG; Complete Time: 09:14 rn 10/06 09:13 Order name: Cardiac monitoring; Complete Time: 09:18 rn 10/06 09:13 Order name: EKG - Nurse/Tech; Complete Time: 10:16 rn 10/06 09:13 Order name: IV Saline Lock; Complete Time: 10:16 rn 10/06 09:13 Order name: Labs collected and sent; Complete Time: 10:38 rn 10/06 09:13 Order name: O2 Per Protocol; Complete Time: 09:19 rn 10/06 09:13 Order name: O2 Sat Monitoring; Complete Time: 09:19 rn Administered Medications: 10:00 Drug: Xopenex 1.25 mg Route: Inhalation; vc 10:49 Follow up: Response: No adverse reaction vc 10:00 Drug: NS 0.9% 500 ml Route: IV; Rate: bolus; Site: right forearm; vc 10:49 Follow up: Response: No adverse reaction vc 11:47 Follow up: Response: No adverse reaction; IV Status: Completed infusion ca1 11:47 Drug: Zosyn 3.375 grams Route: IVPB; Infused Over: 60 mins; Site: right antecubital; ca1 11:48 Follow up: IV Status: Infusion continued upon admission ca1 11:59 Not Given (Vanc sent with pt to 2nd floor. Report given to NATALEE Roach): vancoMYCIN 1 ca1 grams IVPB once over 2 hrs Disposition: 10/06/19 11:15 Hospitalization ordered by Jose Luis Robert for Inpatient Admission. Preliminary diagnosis are Pneumonia, Dehydration, Delirium due to known physiological condition. - Bed requested for Telemetry/MedSurg (Inpatient). - Status is Inpatient Admission. ca1 - Condition is Stable. - Problem is new. - Symptoms have improved. UTI on Admission? No Signatures: Dispatcher [employer] EDMS Leigha Gates Roman, MD MD rn Calderon, Audri, RN RN aa5 Eliseo Gay, SLOT FLOOR PERSON-C SLOT FLOOR PERSON-Cla1 Brenda Corral RN RN ca1 Calcote, Judith, RN RN vc Corrections: (The following items were deleted from the chart) 11:46 11:15 Hospitalization Ordered by Jose Luis Robert MD for Inpatient Admission. Preliminary bd diagnosis is Pneumonia; Dehydration; Delirium due to known physiological condition. Bed requested for Telemetry/MedSurg (Inpatient). Status is Inpatient Admission. Condition is Stable. Problem is new. Symptoms have improved. UTI on Admission? No. rn 12:05 11:46 10/06/2019 11:15 Hospitalization Ordered by Jose Luis Robert MD for Inpatient ca1 Admission. Preliminary diagnosis is Pneumonia; Dehydration; Delirium due to known physiological condition. Bed requested for Telemetry/MedSurg (Inpatient). Status is Inpatient Admission. Condition is Stable. Problem is new. Symptoms have improved. UTI on Admission? No. bd
[2019-10-06] MEDS ORDERED: PIPER/TAZO/NS 3.375gm 3.375 GM/100 ML BAG ONE (11:43)
[2019-10-06] MEDS ORDERED: VANCOMYCIN/NS 1 gm 1 GM/250 ML BAG IV ONE (12:00)
[2019-10-06] MEDS ORDERED: ONDANSETRON 4 MG/2 ML VIAL IV PRN (12:56)
[2019-10-06 13:06] LABS: Anisocytosis 1+; Blood Morphology Comment NOTED (NOT SEEN); Platelet Estimate ADEQ
[2019-10-06 13:37] VITALS: BMI 21.1
[2019-10-06] MEDS ORDERED: INFLUENZA VACCINE (for 3y+) 0.5 ML DOSE IMVAC ONE (15:00)
[2019-10-06] MEDS ORDERED: PNEUMOCOCCAL VACCINE 0.5 ML IMVAC ONE (15:00)
--- NOTE | 2019-10-06 16:23 | RAD REPORT ---
EXAM DESCRIPTION: RAD - Chest Single View - 10/06/2019 4:16 pm CLINICAL HISTORY: Confirm PICC line placement COMPARISON: Chest Single View dated 10/06/2019; Chest Single View dated 09/22/2019; Chest Single View dated 08/24/2019; Chest Single View dated 08/23/2019Chest Single View dated 10/06/2019; Chest Single View dated 09/22/2019; Chest Single View dated 08/24/2019; Chest Single View dated 08/23/2019 FINDINGS: Portable chest was obtained following placement of a right upper extremity PICC line. The catheter tip projects over the right atrium. About 2 cm of retraction may be considered for optimum p lacement.
[2019-10-06] MEDS ORDERED: LIDOCAINE 1% MPF 5 ML VIAL ONE (16:36)
--- NOTE | 2019-10-06 16:47 | EKG ---
Test Date: 2019-10-06 Test Time: 09:47:53 Roast Master: MECHELLE MEASUREMENT RESULTS: Intervals: Rate: 92 [place]: QRSD: 72 QT: 318 QTc: 393 [place]: P: [place]: QRS: 57 T: 123 INTERPRETIVE STATEMENTS: Atrial fibrillation Nonspecific ST and T wave abnormality, probably digitalis effect Abnormal ECG Compared to ECG 09/22/2019 02:57:39 ST (T wave) deviation now present Myocardial infarct finding no longer present Electronically Signed On 10-06-19 16:46:15 CATERPILLAR DRIVER by Santiago Ha
[2019-10-06] MEDS: IPRATROPIUM BROM 0.5MG/2.5ML NEB SCH ×2 (17:05→19:45)
[2019-10-06] MEDS: ALBUTEROL 2.5 MG/3 ML NEB SOL NEB SCH ×2 (17:05→19:45)
[2019-10-06] MEDS: PIPER/TAZO/NS 3.375gm 3.375 GM/100 ML BAG IVPB SCH (18:05)
--- NOTE | 2019-10-06 18:16 | P.HP ---
Certification for Inpatient Patient admitted to: Inpatient With expected LOS: >2 Midnights Practitioner: I am a practitioner with admitting privileges, knowledge of patient current condition, hospital course, and medical plan of care. Services: Services provided to patient in accordance with Admission requirements found in Title 42 Section 412.3 of the Code of Federal Regulations Patient History Date of Service: 10/06/19 Reason for admission: DYSPNEA History of Present Illness: MR. JARVIS COMES IN WITH DYSPNEA , FAMILY BROUGHT HIM BY 911. MR. 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 HE HAS WORSENED LATELY. HE IS DYSPNEIC, HE IS WEAK, ON CXR HE HAS INFILTRATE AND WBC HAS RAISED TO 22K. EVEN WITH STEROIDS HIS WBC COUNT WAS LESS THAN 15K. Allergies codeine Adverse Reaction (Verified 10/06/19 12:55) Nausea/Vomiting ANTIHISTAMINES Adverse Reaction (Mild, Uncoded 10/06/19 12:55) Unknown Home Medications: Amlodipine [Norvasc*] 10 mg PO DAILY 08/11/19 Prednisone [Sterapred Ds] 10 mg PO BID 08/11/19 Digoxin [Lanoxin*] 0.125 mg PO DAILY #90 tab 08/13/19 Metoprolol Tartrate [Lopressor] 100 mg PO DAILY 09/22/19 levoFLOXacin [Levaquin*] 500 mg PO DAILY #7 tab 09/25/19 - Past Medical/Surgical History Has patient received pneumonia vaccine in the past: No Diabetic: No -: hypertension -: glaucoma -: anemia -: hypoglycemia supposably many years ago. does nothing for it now. -: blindness -: enlarged prostate -: HTN -: wedgners disease -: [employer] [place] -: hernia -: bone spur in neck -: copd -: vocal cord surg -: corneal transplant sx -: hemorroidectomy -: eye sx - Family History Father -: Lung disease - Social History Smoking Status: Former smoker Alcohol use: No CD- Drugs: No Caffeine use: Yes Place of Residence: Home Review of Systems 10-point ROS is otherwise unremarkable General: Weakness, Malaise Respiratory: Shortness of Breath Physical Examination - Vital Signs Temperature: 98.5 F Blood Pressure: 135/69 Pulse: 86 Respirations: 17 Pulse Ox (%): 95 - Physical Exam General: Other (FRAIL, CONTRACTURES ALL OVER, BED BOUND, NOT ABLE TO EVEN EAT HIMSELF. TOTALLY BLIND.) HEENT: Atraumatic, PERRLA, Mucous membr. moist/pink, EOMI, Sclerae nonicteric Neck: Supple, 2+ carotid pulse no bruit, No LAD, Without JVD or thyroid abnormality Respiratory: Diminished Cardiovascular: Regular rate/rhythm, Normal S1 S2 Gastrointestinal: Normal bowel sounds, No tenderness Musculoskeletal: No tenderness, Swelling, Contractures Integumentary: No rashes Neurological: Abnormal speech, Abnormal strength, Abnormal tone Lymphatics: No axilla or inguinal lymphadenopathy Urinary: Other (LARGE SCROTUM SIZE OF CANTALOUP FROM SEVERE HYDROCELE FROM LOW ALBUMIN. ) - Studies Laboratory Data (last 24 hrs) 10/06/19 10:10: WBC 21.1 H* D, Hgb 12.0 L, Hct 35.6 L, Plt Count 262 D 10/06/19 10:10: Sodium 131 L, Potassium 4.5, BUN 12, Creatinine 0.63, Glucose 79 Microbiology Data (last 24 hrs): 10/06/19 10:05 Nasopharnyx Influenza Type A Antigen Screen - Final 10/06/19 10:05 Nasopharnyx Influenza Type B Antigen Screen - Final Assessment and Plan - Problems (Diagnosis) (1) Bacterial pneumonia Current Visit: Yes Status: Acute Plan: CT CHEST WITH CONTRAST IV VANCOMYCIN AND IV ZOSYN VANCOMYCIN FAILED. IT IS UNFORNUATE FOR SOMEONE TO SUFFER LIKE THIS. HE IS BARELY LIVING. WE WILL CONTINUE TO KEEP HIM COMFORTABLE. (2) Debilitated patient Current Visit: No Status: Chronic Plan: FAMILY IS REALLY TRYING TO TAKE CARE OF HIM 24 HOURS A DAY. 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 Qualifiers: Granulomatosis renal involvement: without renal involvement Qualified Code( s): M31.30 - Jong's granulomatosis without renal involvement - Advance Directives Does patient have a Living Will: No Does patient have a Durable POA for Healthcare: Yes
[2019-10-06] MEDS ORDERED: VANCOMYCIN 1 GM in NA CHLORIDE 0.9% 500 ML IVPB SCH (21:00)
[2019-10-06] MEDS ORDERED: HOME MED 1 EA UNK (Prednisone [Sterapred Ds] 10 MG) PO SCH (21:00)
[2019-10-06] MEDS: predniSONE 10 MG TAB PO SCH (21:02)
[2019-10-06] MEDS: LACTULOSE 20 GM/30 ML UCUP PO SCH (21:02)
[2019-10-07] MEDS: VANCOMYCIN 1.25 GM in NA CHLORIDE 0.9% 250 ML IVPB SCH ×2 (00:26→12:05)
[2019-10-07] MEDS: PIPER/TAZO/NS 3.375gm 3.375 GM/100 ML BAG IVPB SCH ×3 (00:26→17:44)
[2019-10-07] MEDS: IPRATROPIUM BROM 0.5MG/2.5ML NEB SCH ×6 (00:50→20:00)
[2019-10-07] MEDS: ALBUTEROL 2.5 MG/3 ML NEB SOL NEB SCH ×2 (00:50→04:05)
[2019-10-07] MEDS ORDERED: LIDOCAINE 1% MPF 5 ML VIAL IM PRN (03:00)
[2019-10-07] MEDS ORDERED: SODIUM CHLORIDE 0.9% 10ML INJ IV PRN ×2 (03:00)
[2019-10-07] MEDS: METOPROLOL TAR 50 MG TAB PO SCH (05:35)
[2019-10-07 05:46] LABS: Absolute Lymphocytes (CBC) 0.4 K/uL (0.7-4.9); Basophils % 0.3 % (0-1.3); Lymphocytes % 3.8 % (15.3-44.8); MPV 8.1 fL (7.6-11.3); RBC Red Blood Cell Count 3.19 M/uL (4.33-5.43)
[2019-10-07 06:03] LABS: BUN Blood Urea Nitrogen 12 mg/dL (7-18); Bicarbonate 24 mmol/L (21-32); Glucose Level 102 mg/dL (74-106); Potassium 3.9 mmol/L (3.5-5.1); Sodium Level 135 mmol/L (136-145)
[2019-10-07 07:16] LABS: MPV 8.2 fL (7.6-11.3)
[2019-10-07 08:55] LABS: Platelet Estimate ADEQ
[2019-10-07] MEDS ORDERED: HOME MED 1 EA UNK (Metoprolol Tartrate [Lopressor] 100 MG) PO SCH (09:00)
[2019-10-07] MEDS: LACTULOSE 20 GM/30 ML UCUP PO SCH ×2 (09:20→20:50)
[2019-10-07] MEDS: SODIUM CHLORIDE 0.9% 10ML INJ IV SCH ×2 (09:21→20:50)
[2019-10-07] MEDS: DIGOXIN 0.125 MG TABLET PO SCH (09:21)
[2019-10-07] MEDS: predniSONE 10 MG TAB PO SCH ×2 (09:21→20:50)
[2019-10-07] MEDS: AMLODIPINE 10 MG TAB PO SCH (09:21)
--- NOTE | 2019-10-07 10:33 | RAD REPORT ---
EXAM DESCRIPTION: CT - Thorax W/ Con CLINICAL HISTORY: Chest pain pneumonia COMPARISON: Thorax W/ Con dated 02/28/2019; Chest Single View dated 10/06/2019; Thorax W/ Con dated FINDINGS: Airspace opacity is present in both lung bases posteriorly likely representing bibasilar p neumonia. Bilateral small pleural effusions are present. No pneumothorax. Cardiac size is enlarged. No axillary, mediastinal or hilar adenopathy. No lytic or blastic bone lesion. No gross upper abdominal finding. All CT scans are performed using dose optimization technique as appropriate and may include automated exposure control or mA/KV adjustment according to patient size. IMPRESSION: Bibasilar moderate sized airspace opacity is present with small bilateral pleural effusi ons, most compatible with bibasilar pneumonia.
--- NOTE | 2019-10-07 10:43 | RAD REPORT ---
EXAM DESCRIPTION: XR Chest Single View CLINICAL HISTORY: Picc line placement TECHNIQUE: Single frontal view of the chest is submitted. COMPARISON: 02/27/2019 FINDINGS: Heart: The cardiothoracic silhouette is enlarged, stable. Lungs: Central pulmonary vascular and interstitial prominence and bilateral perihilar opacities. Mediastinum: Thoracic aortic atherosclerosis. Pleura: Blunting of the left costophrenic angle. Bones: Multilevel spondylosis. No acute fracture. Upper abdomen: Unremarkable Other: Left upper extremity PICC tip projects over the mid superior vena cava. IMPRESSION: 1. Left upper extremity PICC tip projects over the mid superior vena cava. 2. Findings which may be related to pulmonary congestion including small left pleural effusion. Sup erimposed infection not excluded. Electronically signed by: Nusrat Qureshi MD 10/07/2019 1:03 AM SINGLE END SEWER Due to temporary technical issues with the PACS/Fluency reporting system, reports are being signed by the in house radiologist as a courtesy to ensure prompt reporting. The interpreting radiologist is f ully responsible for the content of the report.
--- NOTE | 2019-10-07 17:00 | RAD REPORT ---
EXAM DESCRIPTION: RAD - Barium Swallow Modified - 10/07/2019 4:50 pm CLINICAL HISTORY: Coughing choking FINDINGS: Laryngeal penetration: not cleared thin by tsp and straw No cough w/ Kinnelon vallecular-mild, pyriform-min, posterior wall-min Fluoroscopy time 3.3 minutes 0.2 fluoroscopic spot series obtained
--- NOTE | 2019-10-07 23:09 | PN ---
Subjective: Mr. Matute is doing lot better with IV antibiotics. He denies any chest pain, nausea, v omiting. Physical Examination: GENERAL: He is really a gentleman who is high risk for aspiration. He is not able to get up and eat anymore. His family has to feed him laying down as his back has severe contractures, all the joints have contractures and he is barely surviving. CHEST: Decreased breath sounds bilaterally. HEART: Irregular. ABDOMEN: Soft. There is a large hydrocele on both sides. Assessment And Plan: Aspiration pneumonia confirmed by CT scan. Continue vancomycin and Zosyn. At this point, I will be able to stop vancomycin and resume Zosyn only. He will need IV antibiotics for about 10 days. Unfortunately, he is not able to swallow food. I have to discuss with his family ab out a G-tube for feeding now instead of letting him eat on his own. Otherwise, he will come back wit h aspiration. Modified barium swallows final finding is pending. KAREN/SAMSON Voice ID: [id number] Report ID: [id number]
[2019-10-08] MEDS: PIPER/TAZO/NS 3.375gm 3.375 GM/100 ML BAG IVPB SCH ×3 (00:42→17:23)
[2019-10-08] MEDS: IPRATROPIUM BROM 0.5MG/2.5ML NEB SCH ×6 (04:00→20:20)
[2019-10-08] MEDS: METOPROLOL TAR 50 MG TAB PO SCH (05:12)
[2019-10-08] MEDS: SODIUM CHLORIDE 0.9% 10ML INJ IV SCH ×2 (09:00→21:00)
[2019-10-08] MEDS: AMLODIPINE 10 MG TAB PO SCH (09:01)
[2019-10-08] MEDS: DIGOXIN 0.125 MG TABLET PO SCH (09:02)
[2019-10-08] MEDS: predniSONE 10 MG TAB PO SCH ×2 (09:03→21:10)
[2019-10-08] MEDS: LACTULOSE 20 GM/30 ML UCUP PO SCH ×2 (09:03→21:10)
--- NOTE | 2019-10-08 12:39 | P.PN ---
Subjective Date of Service: 10/08/19 Chief Complaint: WEAK, LAYING IN BED Subjective: Improving HE IS AT HIS BASELINE. BED BOUND, NO COUGH,NO DYSPNEA. Review of Systems 10-point ROS is otherwise unremarkable General: Weakness Gastrointestinal: As per HPI Physical Examination - Vital Signs Temperature: 97.6 F Blood Pressure: 155/80 Pulse: 90 Respirations: 17 Pulse Ox (%): 95 - Physical Exam General: Alert, Oriented x3 (BLIND, CACHCTIC), Moderate distress HEENT: Atraumatic, PERRLA, EOMI Neck: Supple, JVD not distended Respiratory: Clear to auscultation bilaterally, Normal air movement Cardiovascular: Regular rate/rhythm, Normal S1 S2 Gastrointestinal: Normal bowel sounds, Other (LARGE SCROTUM) Musculoskeletal: No tenderness Integumentary: No rashes Neurological: Normal speech, Normal tone, Normal affect Lymphatics: No axilla or inguinal lymphadenopathy - Studies Medications List Reviewed: Yes Assessment And Plan - Current Problems (Diagnosis) (1) Bacterial pneumonia Current Visit: Yes Status: Acute Plan: CT CHEST WITH CONTRAST IV VANCOMYCIN AND IV ZOSYN VANCOMYCIN FAILED. IT IS UNFORNUATE FOR SOMEONE TO SUFFER LIKE THIS. HE IS BARELY LIVING. WE WILL CONTINUE TO KEEP HIM COMFORTABLE. (2) Debilitated patient Current Visit: No Status: Chronic Plan: FAMILY IS REALLY TRYING TO TAKE CARE OF HIM 24 HOURS A DAY. 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 FAMILY DISCUSSING WITH DR. FUNG NEEDS TO GET IV ABX AT [facility] OR [facility]
[2019-10-09] MEDS: PIPER/TAZO/NS 3.375gm 3.375 GM/100 ML BAG IVPB SCH ×3 (00:07→16:00)
[2019-10-09] MEDS: IPRATROPIUM BROM 0.5MG/2.5ML NEB SCH ×7 (04:00→23:20)
[2019-10-09] MEDS: METOPROLOL TAR 50 MG TAB PO SCH (05:31)
[2019-10-09 06:11] LABS: Absolute Lymphocytes (CBC) 0.5 K/uL (0.7-4.9); Basophils % 0.4 % (0-1.3); Hematocrit 27.2 % (39.6-49.0); Lymphocytes % 5.6 % (15.3-44.8); MPV 8.3 fL (7.6-11.3); RBC Red Blood Cell Count 3.21 M/uL (4.33-5.43)
[2019-10-09] MEDS: SODIUM CHLORIDE 0.9% 10ML INJ IV SCH ×2 (08:55→21:05)
[2019-10-09] MEDS: AMLODIPINE 10 MG TAB PO SCH (09:00)
[2019-10-09] MEDS: predniSONE 10 MG TAB PO SCH ×2 (12:40→21:05)
[2019-10-09] MEDS: DIGOXIN 0.125 MG TABLET PO SCH (12:41)
[2019-10-09] MEDS: LACTULOSE 20 GM/30 ML UCUP PO SCH ×2 (12:42→21:05)
--- NOTE | 2019-10-10 00:04 | PN ---
Subjective: Patient is stable. We are waiting for insurance company to approve for nursing homes fo r IV antibiotics for aspiration pneumonia. He failed oral antibiotic on outpatient basis. He refuse s to do G-tube placement at any rate. He is lucid enough to not agree for any kind of procedures. H haven did adamantly denying that he does not want a G-tube placement. He understands without G tube, he will continue to have aspiration pneumonia. He may get septic from it. He does not want it still. Physical Examination: Vital Signs: Blood pressure 149/79. Chest: Clear. Heart: Regular. General: He is frail, cachectic, older gentleman who has severe contractures. He cannot sit up to e at any longer with severe contractures of his spine and joints. Assessment And Plan: 1.Aspiration pneumonia, awaiting for IV antibiotics, intermediate placement for short time. 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 RVD/MODL Voice ID: [id number] Report ID: [id number]
[2019-10-10] MEDS: PIPER/TAZO/NS 3.375gm 3.375 GM/100 ML BAG IVPB SCH ×2 (00:45→09:12)
[2019-10-10] MEDS: IPRATROPIUM BROM 0.5MG/2.5ML NEB SCH ×3 (03:55→13:10)
[2019-10-10] MEDS: METOPROLOL TAR 50 MG TAB PO SCH (06:13)
[2019-10-10 06:32] LABS: MPV 8.1 fL (7.6-11.3)
[2019-10-10] MEDS: AMLODIPINE 10 MG TAB PO SCH (09:00)
[2019-10-10] MEDS: DIGOXIN 0.125 MG TABLET PO SCH (09:11)
[2019-10-10] MEDS: predniSONE 10 MG TAB PO SCH (09:12)
[2019-10-10] MEDS: LACTULOSE 20 GM/30 ML UCUP PO SCH (09:12)
[2019-10-10] MEDS: SODIUM CHLORIDE 0.9% 10ML INJ IV SCH (09:13)
[2019-10-10 09:55] LABS: Platelet Estimate ADEQ
[2019-10-10 12:28] VITALS: BP 146/79; TEMP 98.2
[2019-10-10 12:30] VITALS: O2SAT 98
--- NOTE | 2019-10-12 10:49 | DS ---
Date of Discharge: 10/10/2019 Final Diagnoses: Aspiration pneumonia and dysphagia. 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 Hospital Course: Patient is 79 years old with past medical history of above problems, comes in with shortness of breath, found to have bilateral pneumonia. He has improved clinically very well on Zosy n IV, but unfortunately he will get worse as he will continue to aspirate. We advised him to get a G -tube placement. He adamantly refuses G-tube placement. Family understands. He is discharged home i n stable condition with overall poor prognosis on Augmentin 875 mg p.o. b.i.d. and aspiration precaut ions as much as they can. KAREN/MODL Voice ID: [id number] Report ID: [id number]
== END 2019-10-10 15:37 | disposition hospice, home (50) | DRG 178 ==
LOC: ER 09:07 → ERHOLD 11:16 → 2ND 11:59
PROVIDERS: ADMIT Internal Medicine; ATTEND Internal Medicine
DX: J69.0 Pneumonitis due to inhalation of food and vomit (principal); M31.30 Wegener's granulomatosis without renal involvement; R13.10 Dysphagia, unspecified; I10 Essential (primary) hypertension; I48.91 Unspecified atrial fibrillation; H54.7 Unspecified visual loss; N43.3 Hydrocele, unspecified; Z74.01 Bed confinement status
CPT/HCPCS: 36415; 71045; 71260; 74230; 80048; 83880; 84145; 85025; 85049; 87804; 92526; 92611; 93005; 94640; 94760; 96361; 96374; 99285; J2543; J3370; J7030; J7040; J7512; Q9967

== ENCOUNTER 2019-11-26 15:51 | Emergency (ER) | payer OTHER ==
--- OUTSIDE RECORDS SUMMARY | 2019-11-26 15:53 | XMS REPORT ---
:1940 [facility] Address [address] [place] [address] [address] [address] Care Team Providers Name Role Phone ZAN BARBERY COURTNEY BECK Unavailable Unavailable Problems This patient has no known problems. Allergies, Adverse Reactions, Alerts This patient has no known allergies or adverse reactions. Medications This patient has no known medications. Results Test Description Test Time Test Comments Text Results Atomic Results Result Comments BLOOD CULTURE 2018-09-29 11:00:00 Test Item Value Reference Range Comments CULTURE (BEAKER) (test nzgm=7503) No growth in 5 days ANAEROBIC [id number] 12:34:00 Test Item Value Reference Range Comments CULTURE (BEAKER) (test kdsl=6865) No anaerobes isolated EAR CULTURE + GRAM [id number] 14:27:00 Test Item Value Reference Range Comments CULTURE (BEAKER) (test PSEUDOMONAS 1+ Pseudomonas jzyc=9576) AERUGINOSA aeruginosa Amikacin (test code=1) Susceptible 0-16 [...] GRAM STAIN RESULT 4+ WBCs (BEAKER) (test xrut=1996) GRAM STAIN RESULT No organisms seen (BEAKER) (test tjfo=916488) RAD, CHEST, 1 VIEW, NON [id number] 16:48:00Reason for exam:->SOBShould this be performed at the bedside?->YesFINAL REPORT INDICATION: SOB TECHNIQUE: Chest radiograph, single view, portable technique. FINDINGS / IMPRESSION: Heart shadow is prominent and there is suggestion of pulmonary venous congestion. No overt pulmonary edema and no pleural effusion demonstrated. No pneumothorax or consolidation. Calcified plaque in the aortic arch noted. Osseous structures unremarkable. Signed: Fabio Rivera MDReport Verified Date/Time: 09/25/2018 16:48:03 Reading Location: [facility] Diagnostic Imaging Reading Room - [place] [address] HEMOGLOBIN AND [id number] 13:03:00 Test Item Value Reference Range Comments HEMOGLOBIN (BEAKER) (test omkf=828) 10.4 GM/DL 13.7-17.5 HEMATOCRIT (BEAKER) (test tmis=806) 32.6 % 40.1-51.0 TSH/FREE T4 IF [id number] 06:43:00 Test Item Value Reference Range Comments THYROID STIMULATING HORMONE (BEAKER) (test 1.57 uIU/mL 0.35-4.94 qldf=018) [id number] 06:28:00 Test Item Value Reference Range Comments MAGNESIUM (BEAKER) (test zeer=164) 1.8 mg/dL 1.6-2.6 BASIC METABOLIC [id number] 06:28:00 Test Item Value Reference Range Comments SODIUM (BEAKER) (test 136 meq/L 136-145 pjyl=881) POTASSIUM (BEAKER) (test 4.0 meq/L 3.5-5.1 ysgi=982) CHLORIDE (BEAKER) (test 109 meq/L 98-107 ljeu=330) CO2 (BEAKER) (test 21 meq/L 22-29 ulyd=034) BLOOD UREA NITROGEN 11 mg/dL 7-21 (BEAKER) (test teen=288) CREATININE (BEAKER) (test 0.70 mg/dL 0.57-1.25 tjsz=369) GLUCOSE RANDOM (BEAKER) 97 mg/dL 70-105 (test wink=701) CALCIUM (BEAKER) (test 8.2 mg/dL 8.4-10.2 kjmb=668) EGFR (BEAKER) (test 109 mL/min/1.73 sq m ESTIMATED GFR IS NOT qtut=3418) ACCURATE CREATININE CLEARANCE IN PREDICTING GLOMERULAR FILTRATION RATE. ESTIMATED GFR IS NOT APPLICABLE FOR DIALYSIS PATIENTS. CBC W/PLT COUNT & AUTO [id number] 05:49:00 Test Item Value Reference Range Comments WHITE BLOOD CELL COUNT (BEAKER) (test rads=832) 9.3 K/ L 3.5-10.5 RED BLOOD CELL COUNT (BEAKER) (test grvf=481) 3.30 M/ L 4.63-6.08 HEMOGLOBIN (BEAKER) (test jwdl=043) 9.9 GM/DL 13.7-17.5 HEMATOCRIT (BEAKER) (test dojm=809) 30.7 % 40.1-51.0 MEAN CORPUSCULAR VOLUME (BEAKER) (test hpeh=440) 93.0 fL 79.0-92.2 MEAN CORPUSCULAR HEMOGLOBIN (BEAKER) (test 30.0 pg 25.7-32.2 skne=412) MEAN CORPUSCULAR HEMOGLOBIN CONC (BEAKER) (test 32.2 GM/DL 32.3-36.5 pmqv=601) RED CELL DISTRIBUTION WIDTH (BEAKER) (test 15.9 % 11.6-14.4 tdfy=870) PLATELET COUNT (BEAKER) (test chwe=538) 143 K/CU MM 150-450 MEAN PLATELET VOLUME (BEAKER) (test dubq=806) 10.9 fL 9.4-12.4 NUCLEATED RED BLOOD CELLS (BEAKER) (test 0 /100 WBC 0-0 pshy=000) NEUTROPHILS RELATIVE PERCENT (BEAKER) (test 87 % upyt=354) LYMPHOCYTES RELATIVE PERCENT (BEAKER) (test 6 % bowr=268) MONOCYTES RELATIVE PERCENT (BEAKER) (test 5 % igim=998) EOSINOPHILS RELATIVE PERCENT (BEAKER) (test 0 % khqy=223) BASOPHILS RELATIVE PERCENT (BEAKER) (test 0 % ykcf=629) NEUTROPHILS ABSOLUTE COUNT (BEAKER) (test 8.10 K/ L 1.78-5.38 tuhk=121) LYMPHOCYTES ABSOLUTE COUNT (BEAKER) (test 0.51 K/ L 1.32-3.57 fxaq=120) MONOCYTES ABSOLUTE COUNT (BEAKER) (test 0.46 K/ L 0.30-0.82 kklw=528) EOSINOPHILS ABSOLUTE COUNT (BEAKER) (test 0.01 K/ L 0.04-0.54 zgec=575) BASOPHILS ABSOLUTE COUNT (BEAKER) (test 0.01 K/ L 0.01-0.08 zwxi=961) IMMATURE GRANULOCYTES-RELATIVE PERCENT (BEAKER) 2 % 0-1 (test exti=2468) CBC W/PLT COUNT & AUTO [id number] 07:25:00 Test Item Value Reference Range Comments WHITE BLOOD CELL COUNT (BEAKER) (test ekzc=503) 11.2 K/ L 3.5-10.5 RED BLOOD CELL COUNT (BEAKER) (test ulbs=184) 3.99 M/ L 4.63-6.08 HEMOGLOBIN (BEAKER) (test oasy=622) 11.8 GM/DL 13.7-17.5 HEMATOCRIT (BEAKER) (test poih=378) 36.4 % 40.1-51.0 MEAN CORPUSCULAR VOLUME (BEAKER) (test pwne=079) 91.2 fL 79.0-92.2 MEAN CORPUSCULAR HEMOGLOBIN (BEAKER) (test 29.6 pg 25.7-32.2 rsor=809) MEAN CORPUSCULAR HEMOGLOBIN CONC (BEAKER) (test 32.4 GM/DL 32.3-36.5 wptf=225) RED CELL DISTRIBUTION WIDTH (BEAKER) (test 16.2 % 11.6-14.4 tahf=324) PLATELET COUNT (BEAKER) (test uqhy=865) 168 K/CU MM 150-450 MEAN PLATELET VOLUME (BEAKER) (test xvsn=671) 11.3 fL 9.4-12.4 NUCLEATED RED BLOOD CELLS (BEAKER) (test 0 /100 WBC 0-0 iyyz=483) NEUTROPHILS RELATIVE PERCENT (BEAKER) (test 75 % vrcs=835) LYMPHOCYTES RELATIVE PERCENT (BEAKER) (test 14 % tbyv=677) MONOCYTES RELATIVE PERCENT (BEAKER) (test 8 % eviu=165) EOSINOPHILS RELATIVE PERCENT (BEAKER) (test 1 % qukt=188) BASOPHILS RELATIVE PERCENT (BEAKER) (test 0 % xvev=425) NEUTROPHILS ABSOLUTE COUNT (BEAKER) (test 8.31 K/ L 1.78-5.38 akri=468) LYMPHOCYTES ABSOLUTE COUNT (BEAKER) (test 1.54 K/ L 1.32-3.57 vqdw=548) MONOCYTES ABSOLUTE COUNT (BEAKER) (test 0.87 K/ L 0.30-0.82 nxhk=330) EOSINOPHILS ABSOLUTE COUNT (BEAKER) (test 0.09 K/ L 0.04-0.54 kezz=572) BASOPHILS ABSOLUTE COUNT (BEAKER) (test 0.03 K/ L 0.01-0.08 zkuo=611) IMMATURE GRANULOCYTES-RELATIVE PERCENT (BEAKER) 3 % 0-1 (test lpjl=6994) [id number] 07:11:00 Test Item Value Reference Range Comments MAGNESIUM (BEAKER) (test cpmb=212) 1.9 mg/dL 1.6-2.6 BASIC METABOLIC [id number] 07:11:00 Test Item Value Reference Range Comments SODIUM (BEAKER) (test 136 meq/L 136-145 hpxj=832) POTASSIUM (BEAKER) (test 3.4 meq/L 3.5-5.1 njwe=025) CHLORIDE (BEAKER) (test 106 meq/L 98-107 xnnv=353) CO2 (BEAKER) (test 23 meq/L 22-29 fezm=348) BLOOD UREA NITROGEN 12 mg/dL 7-21 (BEAKER) (test laxs=426) CREATININE (BEAKER) (test 0.74 mg/dL 0.57-1.25 fbiv=837) GLUCOSE RANDOM (BEAKER) 91 mg/dL 70-105 (test bysc=389) CALCIUM (BEAKER) (test 8.3 mg/dL 8.4-10.2 kwan=428) EGFR (BEAKER) (test 102 mL/min/1.73 sq m ESTIMATED GFR IS NOT rqvb=6335) ACCURATE CREATININE CLEARANCE IN PREDICTING GLOMERULAR FILTRATION RATE. ESTIMATED GFR IS NOT APPLICABLE FOR DIALYSIS PATIENTS.
--- NOTE | 2019-11-26 17:03 | RAD REPORT ---
EXAM DESCRIPTION: RAD - Chest Single View - 11/26/2019 4:25 pm CLINICAL HISTORY: SOB COMPARISON: Chest Single View dated 10/06/2019; Chest Single View dated 10/06/2019 TECHNIQUE: AP portable chest image was obtained 11/26/2019 4:25 pm . FINDINGS: Right lung field is clear. Retrocardiac left base is limited by body habitus and shallow i nspiration. Portable technique also limits retrocardiac assessment. Mid and upper left lung field monica ar. Trachea is midline. Heart and vasculature are normal. No measurable pleural effusion and no pneum othorax. No acute bony abnormality seen. No acute aortic findings suspected. IMPRESSION: Limited shallow inspiration film without acute cardiopulmonary finding. Retrocardiac left base assessment is limited.
[2019-11-26 17:17] LABS: Absolute Lymphocytes (CBC) 0.8 K/uL (0.7-4.9); Basophils % 0.3 % (0-1.3); Hematocrit 36.1 % (39.6-49.0); Lymphocytes % 8.4 % (15.3-44.8); MPV 8.3 fL (7.6-11.3); RBC Red Blood Cell Count 4.37 M/uL (4.33-5.43)
[2019-11-26 17:22] LABS: Protime INR 1.26
[2019-11-26 17:43] LABS: ALT/SGPT 22 U/L (12-78); AST/SGOT 17 U/L (15-37); Albumin 2.5 g/dL (3.4-5.0); Alkaline Phosphatase 162 U/L (45-117); BUN Blood Urea Nitrogen 10 mg/dL (7-18); Bicarbonate 25 mmol/L (21-32); Bilirubin Direct 0.4 mg/dL (0-0.2); Glucose Level 72 mg/dL (74-106); Magnesium 1.9 mg/dL (1.8-2.4); NT PRO-BNP 3732 pg/mL (<450); Potassium 3.9 mmol/L (3.5-5.1); Protein, Total 5.8 g/dL (6.4-8.2); Sodium Level 134 mmol/L (136-145); Troponin (Emerg Dept Use Only) < 0.02 ng/mL (0.0-0.045)
[2019-11-26 17:44] LABS: Blood Morphology Comment NOT SEEN (NOT SEEN); Platelet Estimate DECR; Urine White Blood Cell Casts OK
[2019-11-26 17:49] LABS: Urine Blood 2+ (NEG); Urine Glucose NEGATIVE (NEG); Urine Protein 2+ (NEG)
[2019-11-26 18:04] LABS: Urine Bacteria >50 /HPF (NONE SEEN); Urine Culture Reflex Order REFLEXED; Urine Mucus 1+ /HPF (NONE SEEN)
--- NOTE | 2019-11-26 19:48 | ER ---
Nurse's Notes [facility] Name: Gio Matute Age: 79 yrs Sex: Male : 1940 Arrival Date: 11/26/2019 Time: 15:57 Bed 25 [facility] MD: Diagnosis: Acute cystitis Presentation: 11/26 15:57 Presenting complaint: EMS states: he has shortness of breath, decreased urinary output mg2 for few days and increased swelling on his right lower abdomen/ hernia.BGL- 85 mg/dl. Transition of care: patient was not received from another setting of care. Onset of symptoms was November 2019. Risk Assessment: Do you want to hurt yourself or someone else? Patient reports no desire to harm self or others. Initial Sepsis Screen: Does the patient meet any 2 criteria? No. Patient's initial sepsis screen is negative. Does the patient have a suspected source of infection? No. Patient's initial sepsis screen is negative. Care prior to arrival: None. 15:57 Method Of Arrival: EMS: [facility] mg2 15:57 Acuity: MACI 3 mg2 Historical: - Allergies: 16:00 Antihistamine; mg2 16:00 Codeine; mg2 - Home Meds: 16:00 amlodipine 10 mg tab 1 tab once daily [Active]; digoxin 125 mcg Oral tab 1 tab once mg2 daily [Active]; furosemide 40 mg Oral tab 1 tab once daily [Active]; prednisone 10 mg Oral tab 1 tab 2 times per day [Active]; spironolactone 25 mg Oral tab 1 tab once daily [Active]; - PMHx: 16:00 Atrial Fib; BLINDNESS; CHF; COPD; Diabetes - NIDDM; enlarged prostate; Hearing mg2 difficulty (hearing aids); Hernia; Hypertension; narrow vocal coords.; 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 - Social history:: Smoking status: unknown. - Ebola Screening: : No symptoms or risks identified at this time. Screenin:04 Abuse screen: Denies threats or abuse. Denies injuries from another. Nutritional ca1 screening: No deficits noted. Tuberculosis screening: No symptoms or risk factors identified. Fall Risk Secondary diagnosis (15 points) impaired mobility, IV access (20 points). Ambulatory Aid- None/Bed Rest/Nurse Assist (0 pts). Total Hines Fall Scale indicates High Risk Score (45 or more points). Fall prevention measures have been instituted. Side Rails Up X 2 Frequent Obs/Assessments Occuring Family Present and informed to notify staff if the need to leave the bedside As available patient and family educated on Fall Prevention Program and Strategies. Assessment: 16:15 General: Appears in no apparent distress. comfortable, Behavior is calm, cooperative, ca1 appropriate for age. Pain: Denies pain. Neuro: Level of Consciousness is awake, alert, obeys commands, Oriented to person, place, time, situation, Appropriate for age. Cardiovascular: Heart tones S1 S2 present Capillary refill < 3 seconds Patient's skin is warm and dry. Rhythm is atrial fibrillation. Respiratory: Reports shortness of breath Airway is patent Respiratory effort is even, unlabored, Respiratory pattern is regular, symmetrical, Breath sounds are clear bilaterally. Parent/caregiver reports the patient having shortness of breath. GI: Abdomen is round non-distended, Bowel sounds present X 4 quads. Abd is soft and non tender X 4 quads. : : Urine is cloudy, Swelling noted on scrotum Condom cath in place Parent/caregiver report the patient having decrease urine production. EENT: No signs and/or symptoms were reported regarding the EENT system. Derm: Skin is intact, is healthy with good turgor, Skin is pink, warm \T\ dry. Musculoskeletal: Circulation, motion, and sensation intact. Capillary refill < 3 seconds. 17:49 Reassessment: Patient appears in no apparent distress at this time. No changes from ca1 previously documented assessment. Patient and/or family updated on plan of care and expected duration. Pain level reassessed. 17:49 Reassessment: family at bedside. ca1 18:40 Reassessment: Patient appears in no apparent distress at this time. No changes from ca1 previously documented assessment. Patient and/or family updated on plan of care and expected duration. Pain level reassessed. 19:15 Reassessment: Patient appears in no apparent distress at this time. Patient and/or jb4 family updated on plan of care and expected duration. Pain level reassessed. PT is resting in bed with eyes closed, respirations are even and unlabored with no s/s of distress noted. 20:08 Reassessment: Patient appears in no apparent distress at this time. Patient and/or jb4 family updated on plan of care and expected duration. Pain level reassessed. Patient is alert, oriented x 3, equal unlabored respirations, skin warm/dry/pink. D/c pending ride home. Vital Signs: 15:59 Weight 77.11 kg; Height 6 ft. 1 in. (185.42 cm); mg2 16:04 BP 142 / 79; Pulse 88; Resp 18 S; Temp 97(R); Pulse Ox 100% on R/A; ca1 17:00 BP 119 / 93; Pulse 90; Resp 18 S; Pulse Ox 100% on R/A; ca1 18:00 BP 124 / 95; Pulse 88; Resp 18 S; Pulse Ox 100% on R/A; ca1 19:00 BP 123 / 89; Pulse 78; Resp 18 S; Pulse Ox 100% on R/A; ca1 20:08 BP 133 / 94; Pulse 79; Resp 16; Pulse Ox 100% on R/A; jb4 15:59 Body Mass Index 22.43 (77.11 kg, 185.42 cm) mg2 ED Course: 15:57 Patient arrived in ED. la1 15:59 Triage completed. mg2 15:59 Arm band placed on. mg2 16:03 Brenda Corral, RN is Primary Nurse. ca1 16:03 Eliseo Gay FNP-C is PHCP. la1 16:03 Sid Tirado MD is Attending Physician. la1 16:04 Patient has correct armband on for positive identification. Placed in gown. Bed in low ca1 position. Call light in reach. Side rails up X2. Adult w/ patient. monitor car operator on. Pulse ox on. NIBP on. Warm blanket given. 16:04 No provider procedures requiring assistance completed. ca1 16:25 XRAY Chest (1 view) In Process Unspecified. EDMS 16:45 Missed attempt(s): 22 gauge in left antecubital area. Bleeding controlled, band aid ca1 applied, catheter tip intact. 17:02 Initial lab(s) drawn, by me, sent to lab. Inserted saline lock: 22 gauge in right ca1 forearm, using aseptic technique. Blood collected. 17:30 Speci-cath kit inserted, using sterile technique, 16 Fr., specimen obtained. returned ca1 sofía urine. Patient tolerated well. 17:40 EKG done, by ED staff, reviewed by Eliseo GASTELUM. ca1 20:40 IV discontinued, intact, bleeding controlled, No redness/swelling at site. Pressure jb4 dressing applied. Administered Medications: 19:56 Drug: Rocephin 1 grams Route: IV; Rate: calculated rate; Site: right forearm; jb4 19:58 Follow up: Response: No adverse reaction; IV Status: Completed infusion; IV Intake: [id number] Intake: 19:58 IV: 10ml; Total: 10ml. jb4 Outcome: 19:47 Discharge ordered by . la1 20:42 Discharged to home Via EMS jb4 20:42 Condition: stable 20:42 Discharge instructions given to family, Instructed on discharge instructions, follow up and referral plans. medication usage, Demonstrated understanding of instructions, follow-up care, medications, Prescriptions given X 1. 20:44 Patient left the ED. jb4 Addendum: 12/05/2019 07:09 Addendum: Culture Results: Positive urine culture. No further action required. Bacteria e b sensitive to prescribed antibiotic. Signatures: Dispatcher [employer] EDMS Eliseo Gay FNP-C INDUSTRIAL ORDER CLERK-Cla1 Jairo Lamar, RN RN jb4 Mely Melo Michele, RN RN mg2 Brenda Corral RN RN ca1 Corrections: (The following items were deleted from the chart) 11/26 17:50 16:15 : Urine is cloudy, Swelling noted on scrotum Parent/caregiver report the ca1 patient having decrease urine production ca1 17:50 16:15 Derm: Skin is intact, is healthy with good turgor, Skin is pink, warm \T\ dry. ca1 ca1 17:50 17:49 Reassessment: Patient appears in no apparent distress at this time. No changes ca1 from previously documented assessment. Patient and/or family updated on plan of care and expected duration. Pain level reassessed. ca1
--- NOTE | 2019-11-26 19:48 | EDPHYS ---
Physician Documentation [facility] Name: Gio Matute Age: 79 yrs Sex: Male : 1940 Arrival Date: 11/26/2019 Time: 15:57 Bed 25 Private MD: ED Physician Sid Tirado HPI: 11/26 16:48 This 79 yrs old Male presents to ER via EMS with complaints of shortness of la1 breath. 16:48 The patient has shortness of breath with light activity. Duration: The symptoms are la1 intermittent. The patient's shortness of breath is aggravated by nothing, is alleviated by nothing. Associated signs and symptoms: Pertinent negatives: chest pain, non-productive cough, productive cough, fever, hemoptysis, vomiting. Severity of symptoms: At their worst the symptoms were moderate. pt states he feels like his blood levels are low, feels short of breath, lots of sputum production, caregiver states he may have decreased urine production. . 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 - Social history:: Smoking status: unknown. - Ebola Screening: : No symptoms or risks identified at this time. ROS: 16:50 Constitutional: Negative for fever, chills, and weight loss, Eyes: Negative for injury, la1 pain, redness, and discharge, ENT: Negative for injury, pain, and discharge, Neck: Negative for injury, pain, and swelling. 16:50 Cardiovascular: Negative for chest pain, palpitations, and edema. 16:50 Back: Negative for injury and pain. 16:50 Skin: Negative for injury, rash, and discoloration. 16:50 Respiratory: Positive for shortness of breath, sputum, Negative for cough, hemoptysis, orthopnea, pleurisy. 16:50 Abdomen/GI: Positive for swelling. 16:50 : Positive for small amounts, foul smelling urine. 16:50 : Positive for Exam: 17:15 Constitutional: This is a well developed patient who is awake, alert, and in no acute la1 distress. Head/Face: Normocephalic, atraumatic. Eyes: Periorbital areas with no swelling, redness, or edema. ENT: Mucous membranes moist. Neck: Trachea midline, No Meningismus. Chest/axilla: Normal chest wall appearance and motion. Cardiovascular: Regular rate, Irregular rhythm with a normal S1 and S2. No gallops, murmurs, or rubs. Normal PMI, no JVD. No pulse deficits. Respiratory: Lungs have equal breath sounds bilaterally, clear to auscultation. No rales, rhonchi or wheezes noted. No increased work of breathing 17:15 Neuro: Awake and alert 17:15 Abdomen/GI: Inspection: distension, that is mild, obese Bowel sounds: normal, in all quadrants, Palpation: abdomen is soft and non-tender, in all quadrants. 17:15 : a chirinos is noted, to gravity drainage, urine is dark. Vital Signs: 15:59 Weight 77.11 kg; Height 6 ft. 1 in. (185.42 cm); mg2 16:04 BP 142 / 79; Pulse 88; Resp 18 S; Temp 97(R); Pulse Ox 100% on R/A; ca1 17:00 BP 119 / 93; Pulse 90; Resp 18 S; Pulse Ox 100% on R/A; ca1 18:00 BP 124 / 95; Pulse 88; Resp 18 S; Pulse Ox 100% on R/A; ca1 19:00 BP 123 / 89; Pulse 78; Resp 18 S; Pulse Ox 100% on R/A; ca1 20:08 BP 133 / 94; Pulse 79; Resp 16; Pulse Ox 100% on R/A; jb4 15:59 Body Mass Index 22.43 (77.11 kg, 185.42 cm) mg2 MDM: 16:04 Patient medically screened. la1 19:45 Differential diagnosis: Anemia CHF exacerbation, Chronic Obstructive Pulmonary Disease la1 Myocardial Infarction pneumonia, pulmonary edema, reactive airway disease, Sepsis. Data reviewed: vital signs, nurses notes, lab test result(s), EKG, radiologic studies, and as a result, I will discharge patient. Data interpreted: Pulse oximetry: on room air is 100 %. Interpretation: normal. Test interpretation: by ED physician or midlevel provider: ECG, plain radiologic studies. Counseling: I had a detailed discussion with the patient and/or guardian regarding: the historical points, exam findings, and any diagnostic results supporting the discharge/admit diagnosis, lab results, radiology results, the need for outpatient follow up, a family practitioner, to return to the emergency department if symptoms worsen or persist or if there are any questions or concerns that arise at home. Special discussion: Based on the patient's history, exam, and Dx evaluation, there is no indication for emergent intervention or inpatient Tx. It is understood by the patient/guardian that if the Sx's persist or worsen they need to return immediately for re-evaluation. Based on the history and exam findings, there is no indication for further emergent testing or inpatient evaluation. I discussed with the patient/guardian the need to see the primary care provider for further evaluation of the symptoms. 11/26 16:12 Order name: Basic Metabolic Panel; Complete Time: 18:04 11/26 16:12 Order name: CBC with Diff; Complete Time: 18:11/26 16:12 Order name: LFT's; Complete Time: 18:11/26 16:12 Order name: Magnesium; Complete Time: 18:04 11/26 16:12 Order name: NT PRO-BNP; Complete Time: 18:04 11/26 16:12 Order name: PT-INR; Complete Time: 18:04 11/26 16:12 Order name: Troponin (emerg Dept Use Only); Complete Time: 18:04 11/26 16:12 Order name: XRAY Chest (1 view); Complete Time: 17:06 11/26 16:12 Order name: EKG; Complete Time: 16:13 11/26 16:12 Order name: Urine Microscopic Only; Complete Time: 18:54 il11/26 17:44 Order name: Urine Dipstick--Ancillary (enter results); Complete Time: 18:04 11/26 17:45 Order name: CBC Smear Scan; Complete Time: 18:04 [facility] 11/26 18:05 Order name: Urine Culture [facility] 11/26 16:12 Order name: Cardiac monitoring; Complete Time: 17:18 [facility] 11/26 16:12 Order name: EKG - Nurse/Tech; Complete Time: 17:43 [facility] 11/26 16:12 Order name: IV Saline Lock; Complete Time: 17:18 [facility] 11/26 16:12 Order name: Labs collected and sent; Complete Time: 17:18 [facility] 11/26 16:12 Order name: O2 Per Protocol; Complete Time: 17:18 [facility] 11/26 16:12 Order name: O2 Sat Monitoring; Complete Time: 17:19 [facility] 11/26 16:12 Order name: Urine Dipstick-Ancillary (obtain specimen); Complete Time: 17:43 la Administered Medications: 19:56 Drug: Rocephin 1 grams Route: IV; Rate: calculated rate; Site: right forearm; jb4 19:58 Follow up: Response: No adverse reaction; IV Status: Completed infusion; IV Intake: [id number] Disposition: 11/27 08:12 Co-signature as Attending Physician, Sid Tirado MD. rn Disposition: 11/26/19 19:47 Discharged to Home. Impression: Acute cystitis. - Condition is Stable. - Discharge Instructions: Chirinos Catheter Care, Adult, Urinary Tract Infection, Adult, Urinary Frequency, Adult, Catheter-Associated Urinary Tract Infection FAQs - [place]. - Prescriptions for Bactrim DS 800- 160 mg Oral Tablet - take 1 tablet by ORAL route every 12 hours for 10 days; 20 tablet. - Medication Reconciliation Form, Thank You Letter, Antibiotic Education form. - Follow up: Private Physician; When: 2 - 3 days; Reason: Recheck today's complaints, Re-evaluation by your physician. Follow up: Emergency Department; When: As needed; Reason: Fever > 102 F, Trouble breathing, Worsening of condition. Signatures: Dispatcher [employer] Sid Joseph MD MD rn Attema, Lee, SANDRA-C CONTRACT PREPARER-Cla1 Jairo Lamar RN RN jb4 Harjeet Castaneda RN RN mg2 Corrections: (The following items were deleted from the chart) 11/26 20:44 19:47 11/26/2019 19:47 Discharged to Home. Impression: Acute cystitis. Condition is jb4 Stable. Forms are Medication Reconciliation Form, Thank You Letter, Antibiotic Education, Prescription Opioid Use. Follow up: Private Physician; When: 2 - 3 days; Reason: Recheck today's complaints, Re-evaluation by your physician. Follow up: Emergency Department; When: As needed; Reason: Fever > 102 F, Trouble breathing, Worsening of condition. la1
[2019-11-26] MEDS ORDERED: CEFTRIAXONE/SWI 1gm 1 GM/10 ML SYR ONE (19:50)
[2019-11-27 03:08] VITALS: TEMP 97; O2SAT 100
[2019-11-27 03:14] VITALS: BP 133/94
--- NOTE | 2019-11-27 13:41 | EKG ---
Test Date: 2019-11-26 Test Time: 17:26:58 [employer] Plant Operator: ANJELICA MEASUREMENT RESULTS: Intervals: Rate: 88 [place]: QRSD: 92 QT: 366 QTc: 442 [place]: P: [place]: QRS: 37 T: 196 INTERPRETIVE STATEMENTS: Atrial fibrillation with premature ventricular or aberrantly conducted complexes Nonspecific ST and T wave abnormality, probably digitalis effect Abnormal ECG Compared to ECG 10/06/2019 09:47:53 Ventricular premature complex(es) now present ST (T wave) deviation still present Electronically Signed On 11-27-19 13:38:10 TELEVISION INSTALLER HELPER by Jamir Marie
== END 2019-11-26 20:44 | disposition home or self-care (01) ==
LOC: ER 15:51
DX: N30.00 Acute cystitis without hematuria (principal); I10 Essential (primary) hypertension; E11.9 Type 2 diabetes mellitus without complications; I48.91 Unspecified atrial fibrillation; Z88.6 Allergy status to analgesic agent
CPT/HCPCS: 93005; 87088; 85025; 87086; 80048; 36415; 83735; 85610; 80076; 87077; 87186; 84484; 83880; 71045; 96374; 99285; J0696; 81003; 81015

== ENCOUNTER 2019-12-06 08:14 | Inpatient (IN) | payer OTHER ==
--- OUTSIDE RECORDS SUMMARY | 2019-12-06 08:17 | XMS REPORT ---
:1940 Author Organization [facility] Address [address] [place] [address] Dr. Hill [address] [place] [id number] Care Team Providers Name Role Phone CARLOS BARBER Unavailable Unavailable Problems This patient has no known problems. Allergies, Adverse Reactions, Alerts This patient has no known allergies or adverse reactions. Medications This patient has no known medications. Results Test Description Test Time Test Comments Text Results Atomic Results Result Comments BLOOD CULTURE 2018-09-29 11:00:00 Test Item Value Reference Range Comments CULTURE (BEAKER) (test rrdf=8959) No growth in 5 days ANAEROBIC [id number] 12:34:00 Test Item Value Reference Range Comments CULTURE (BEAKER) (test qhuw=1420) No anaerobes isolated EAR CULTURE + GRAM [id number] 14:27:00 Test Item Value Reference Range Comments CULTURE (BEAKER) (test PSEUDOMONAS 1+ Pseudomonas ttdw=6659) AERUGINOSA aeruginosa Amikacin (test code=1) Susceptible 0-16 [...] GRAM STAIN RESULT 4+ WBCs (BEAKER) (test ejet=0731) GRAM STAIN RESULT No organisms seen (BEAKER) (test bpgj=694475) RAD, CHEST, 1 VIEW, NON [id number] 16:48:00Reason for exam:->SOBShould this be performed at [...] [place] Verified Date/Time: 09/25/2018 16:48:03 Reading Location: [facility] Diagnostic Imaging Reading Room - [place] [address] HEMOGLOBIN AND [id number] 13:03:00 Test Item Value Reference Range Comments HEMOGLOBIN (BEAKER) (test xevz=774) 10.4 GM/DL 13.7-17.5 HEMATOCRIT (BEAKER) (test qklm=864) 32.6 % 40.1-51.0 TSH/FREE T4 IF [id number] 06:43:00 Test Item Value Reference Range Comments THYROID STIMULATING HORMONE (BEAKER) (test 1.57 uIU/mL 0.35-4.94 ftrg=473) [id number] 06:28:00 Test Item Value Reference Range Comments MAGNESIUM (BEAKER) (test uazl=926) 1.8 mg/dL 1.6-2.6 BASIC METABOLIC [id number] 06:28:00 Test Item Value Reference Range Comments SODIUM (BEAKER) (test 136 meq/L 136-145 kxht=830) POTASSIUM (BEAKER) (test 4.0 meq/L 3.5-5.1 pwcn=453) CHLORIDE (BEAKER) (test 109 meq/L 98-107 jtce=116) CO2 (BEAKER) (test 21 meq/L 22-29 xstw=028) BLOOD UREA NITROGEN 11 mg/dL 7-21 (BEAKER) (test gaul=869) CREATININE (BEAKER) (test 0.70 mg/dL 0.57-1.25 fivp=373) GLUCOSE RANDOM (BEAKER) 97 mg/dL 70-105 (test efja=289) CALCIUM (BEAKER) (test 8.2 mg/dL 8.4-10.2 aiwt=203) EGFR (BEAKER) (test 109 mL/min/1.73 sq m ESTIMATED GFR IS NOT uvaj=6134) ACCURATE CREATININE CLEARANCE IN PREDICTING GLOMERULAR FILTRATION RATE. ESTIMATED GFR IS NOT APPLICABLE FOR DIALYSIS PATIENTS. CBC W/PLT COUNT & AUTO [id number] 05:49:00 Test Item Value Reference Range Comments WHITE BLOOD CELL COUNT (BEAKER) (test dsjn=861) 9.3 K/ L 3.5-10.5 RED BLOOD CELL COUNT (BEAKER) (test ukny=441) 3.30 M/ L 4.63-6.08 HEMOGLOBIN (BEAKER) (test lwzv=588) 9.9 GM/DL 13.7-17.5 HEMATOCRIT (BEAKER) (test vnvj=087) 30.7 % 40.1-51.0 MEAN CORPUSCULAR VOLUME (BEAKER) (test smup=912) 93.0 fL 79.0-92.2 MEAN CORPUSCULAR HEMOGLOBIN (BEAKER) (test 30.0 pg 25.7-32.2 ffvd=643) MEAN CORPUSCULAR HEMOGLOBIN CONC (BEAKER) (test 32.2 GM/DL 32.3-36.5 mbse=111) RED CELL DISTRIBUTION WIDTH (BEAKER) (test 15.9 % 11.6-14.4 yfiy=036) PLATELET COUNT (BEAKER) (test bkid=349) 143 K/CU MM 150-450 MEAN PLATELET VOLUME (BEAKER) (test uskx=993) 10.9 fL 9.4-12.4 NUCLEATED RED BLOOD CELLS (BEAKER) (test 0 /100 WBC 0-0 vbzf=177) NEUTROPHILS RELATIVE PERCENT (BEAKER) (test 87 % ebuo=319) LYMPHOCYTES RELATIVE PERCENT (BEAKER) (test 6 % pmxv=676) MONOCYTES RELATIVE PERCENT (BEAKER) (test 5 % qlyb=950) EOSINOPHILS RELATIVE PERCENT (BEAKER) (test 0 % tvlx=211) BASOPHILS RELATIVE PERCENT (BEAKER) (test 0 % bovw=284) NEUTROPHILS ABSOLUTE COUNT (BEAKER) (test 8.10 K/ L 1.78-5.38 pwbf=449) LYMPHOCYTES ABSOLUTE COUNT (BEAKER) (test 0.51 K/ L 1.32-3.57 pfpy=108) MONOCYTES ABSOLUTE COUNT (BEAKER) (test 0.46 K/ L 0.30-0.82 eosu=801) EOSINOPHILS ABSOLUTE COUNT (BEAKER) (test 0.01 K/ L 0.04-0.54 giis=858) BASOPHILS ABSOLUTE COUNT (BEAKER) (test 0.01 K/ L 0.01-0.08 ajbb=583) IMMATURE GRANULOCYTES-RELATIVE PERCENT (BEAKER) 2 % 0-1 (test oyie=5118) CBC W/PLT COUNT & AUTO [id number] 07:25:00 Test Item Value Reference Range Comments WHITE BLOOD CELL COUNT (BEAKER) (test rikp=373) 11.2 K/ L 3.5-10.5 RED BLOOD CELL COUNT (BEAKER) (test ypxu=414) 3.99 M/ L 4.63-6.08 HEMOGLOBIN (BEAKER) (test wccf=382) 11.8 GM/DL 13.7-17.5 HEMATOCRIT (BEAKER) (test syfj=671) 36.4 % 40.1-51.0 MEAN CORPUSCULAR VOLUME (BEAKER) (test xbee=577) 91.2 fL 79.0-92.2 MEAN CORPUSCULAR HEMOGLOBIN (BEAKER) (test 29.6 pg 25.7-32.2 vvzi=555) MEAN CORPUSCULAR HEMOGLOBIN CONC (BEAKER) (test 32.4 GM/DL 32.3-36.5 phfe=644) RED CELL DISTRIBUTION WIDTH (BEAKER) (test 16.2 % 11.6-14.4 fhus=322) PLATELET COUNT (BEAKER) (test szuy=542) 168 K/CU MM 150-450 MEAN PLATELET VOLUME (BEAKER) (test ffam=357) 11.3 fL 9.4-12.4 NUCLEATED RED BLOOD CELLS (BEAKER) (test 0 /100 WBC 0-0 gsio=632) NEUTROPHILS RELATIVE PERCENT (BEAKER) (test 75 % hsjk=432) LYMPHOCYTES RELATIVE PERCENT (BEAKER) (test 14 % tdfz=960) MONOCYTES RELATIVE PERCENT (BEAKER) (test 8 % dzyq=696) EOSINOPHILS RELATIVE PERCENT (BEAKER) (test 1 % hwfc=568) BASOPHILS RELATIVE PERCENT (BEAKER) (test 0 % cazr=683) NEUTROPHILS ABSOLUTE COUNT (BEAKER) (test 8.31 K/ L 1.78-5.38 itqm=435) LYMPHOCYTES ABSOLUTE COUNT (BEAKER) (test 1.54 K/ L 1.32-3.57 spmk=840) MONOCYTES ABSOLUTE COUNT (BEAKER) (test 0.87 K/ L 0.30-0.82 jemo=863) EOSINOPHILS ABSOLUTE COUNT (BEAKER) (test 0.09 K/ L 0.04-0.54 gpsl=899) BASOPHILS ABSOLUTE COUNT (BEAKER) (test 0.03 K/ L 0.01-0.08 yhyc=002) IMMATURE GRANULOCYTES-RELATIVE PERCENT (BEAKER) 3 % 0-1 (test csse=6570) [id number] 07:11:00 Test Item Value Reference Range Comments MAGNESIUM (BEAKER) (test ckim=663) 1.9 mg/dL 1.6-2.6 BASIC METABOLIC [id number] 07:11:00 Test Item Value Reference Range Comments SODIUM (BEAKER) (test 136 meq/L 136-145 klan=340) POTASSIUM (BEAKER) (test 3.4 meq/L 3.5-5.1 vlun=481) CHLORIDE (BEAKER) (test 106 meq/L 98-107 sans=369) CO2 (BEAKER) (test 23 meq/L 22-29 xhvv=495) BLOOD UREA NITROGEN 12 mg/dL 7-21 (BEAKER) (test polt=700) CREATININE (BEAKER) (test 0.74 mg/dL 0.57-1.25 qrmq=315) GLUCOSE RANDOM (BEAKER) 91 mg/dL 70-105 (test fpfv=216) CALCIUM (BEAKER) (test 8.3 mg/dL 8.4-10.2 ppjq=720) EGFR (BEAKER) (test 102 mL/min/1.73 sq m ESTIMATED GFR IS NOT lved=7090) ACCURATE CREATININE CLEARANCE IN PREDICTING GLOMERULAR FILTRATION RATE. ESTIMATED GFR IS NOT APPLICABLE FOR DIALYSIS PATIENTS.
[2019-12-06 09:13] LABS: Absolute Lymphocytes (CBC) 1.1 K/uL (0.7-4.9); Basophils % 0.5 % (0-1.3); Hematocrit 33.9 % (39.6-49.0); Lymphocytes % 9.5 % (15.3-44.8); MPV 8.3 fL (7.6-11.3); RBC Red Blood Cell Count 4.18 M/uL (4.33-5.43)
[2019-12-06 09:14] LABS: Protime INR 1.58
[2019-12-06 09:31] LABS: ALT/SGPT 27 U/L (12-78); AST/SGOT 30 U/L (15-37); Albumin 2.6 g/dL (3.4-5.0); Alkaline Phosphatase 119 U/L (45-117); BUN Blood Urea Nitrogen 14 mg/dL (7-18); Bicarbonate 20 mmol/L (21-32); Bilirubin Direct 0.2 mg/dL (0-0.2); Bilirubin Total 0.7 mg/dL (0.2-1.0); Glucose Level 61 mg/dL (74-106); Lipase 156 U/L (73-393); Magnesium 1.9 mg/dL (1.8-2.4); NT PRO-BNP 5401 pg/mL (<450); Potassium 4.3 mmol/L (3.5-5.1); Protein, Total 5.6 g/dL (6.4-8.2); Sodium Level 133 mmol/L (136-145); Troponin (Emerg Dept Use Only) 0.04 ng/mL (0.0-0.045)
[2019-12-06] MEDS ORDERED: NA CHLORIDE 0.9% 1,000 ML ONE (09:38)
--- NOTE | 2019-12-06 09:56 | RAD REPORT ---
EXAM DESCRIPTION: CT - Chest Abd Pelvis Wo Con - 12/06/2019 9:28 am CLINICAL HISTORY: Chest and abdomen pain. Cough;Abdominal distention COMPARISON: Thorax W/ Con dated 10/07/2019 TECHNIQUE: A limited noncontrast study was submitted. All CT scans are performed using dose optimization technique as appropriate and may include automated exposure control or mA/KV adjustment according to patient size. FINDINGS: Moderate atelectasis or infiltrate is present both lung bases with small bilateral pleural effusions.This appears similar to comparative study.Calcified granulomas are present in both lungs.S mall pericardial effusion.No intrathoracic adenopathy. The liver, spleen, pancreas, adrenal glands and kidneys are within normal limits. Cholelithiasis. No bowel obstruction, free air, free fluid or abscess. There is a very large right inguinal hernia pr esent containing colon and large amount of fluid. Moderate fecal retention also seen rectosigmoid col on. No pathologic lymphadenopathy in the abdomen or pelvis. Bones are osteopenic with multiple mild thoracolumbar wedge compression deformities present. IMPRESSION: A very large right inguinal hernia is present containing section of the colon as well as a large amount of fluid.No bowel obstruction related is seen.
[2019-12-06] MEDS ORDERED: D50W 25 GM/50 ML SYRINGE/VIAL IV ONE (10:26)
--- NOTE | 2019-12-06 10:40 | ER ---
Nurse's Notes [facility] Name: Gio Matute Age: 79 yrs Sex: Male : 1940 Arrival Date: 12/06/2019 Time: 08:18 Bed 18 Private MD: Diagnosis: Weakness;Anorexia;Hypoglycemia, unspecified;Pleural effusion in conditions classified elsewhere;Dysphagia;Atrial fibrillation and flutter Presentation: 12/06 08:18 Presenting complaint: states: excessive oral secretions with trouble swallowing. aa5 Pt's states "he hasn't been eating much and decreased urination, also his last bowel movement was about 7 days ago". Pt is currently on Bactrim for UTI. Transition of care: patient was not received from another setting of care. Onset of symptoms was November 2019. Care prior to arrival: None. 08:18 Acuity: MACI 3 aa5 08:18 Method Of Arrival: EMS: [facility] aa5 08:31 Initial Sepsis Screen: Does the patient meet any 2 criteria? No. Patient's initial sv sepsis screen is negative. Does the patient have a suspected source of infection? No. Patient's initial sepsis screen is negative. 08:32 Risk Assessment: Do you want to hurt yourself or someone else? Patient reports no sv desire to harm self or others. Triage Assessment: 08:20 General: Appears in no apparent distress. uncomfortable, malnourished, Behavior is aa5 calm, cooperative, appropriate for age. Pain: Denies pain. Neuro: Level of Consciousness is awake, alert, obeys commands, Oriented to person, situation, Moves all extremities. Cardiovascular: Patient's skin is warm and dry. Respiratory: Airway is patent Respiratory effort is even, unlabored, Respiratory pattern is regular, symmetrical. GI: Abdomen is flat, Reports constipation. Derm: Skin is pale. 08:20 Neuro: Reports weakness. : Gaviria in place to gravity drainage. aa5 08:20 EENT: Pt is hard of hearing . Musculoskeletal: Pt is bed bound. 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 - Coronavirus screen:: The patient has NOT traveled to [place], [place], or [place] in the past 14 days. Proceed with normal triage process as indicated. The patient has NOT had contact with known/suspected case of Coronavirus? Proceed with normal triage procedures. - Social history:: Smoking status: Patient denies any tobacco usage or history of. - Ebola Screening: : No symptoms or risks identified at this time. Screenin:31 Abuse screen: Denies threats or abuse. Denies injuries from another. Nutritional sv screening: No deficits noted. Tuberculosis screening: No symptoms or risk factors identified. Fall Risk None identified. Assessment: 10:29 Reassessment: Patient appears in no apparent distress at this time. No changes from aa5 previously documented assessment. Patient and/or family updated on plan of care and expected duration. Pain level reassessed. Patient is alert, oriented x 3, equal unlabored respirations, skin warm/dry/pink. 11:25 Reassessment: Patient appears in no apparent distress at this time. No changes from aa5 previously documented assessment. Patient and/or family updated on plan of care and expected duration. Pain level reassessed. Patient is alert, oriented x 3, equal unlabored respirations, skin warm/dry/pink. Vital Signs: 08:20 BP 118 / 79; Pulse 88; Resp 16; Temp 96.8; Pulse Ox 100% ; sv 09:00 BP 118 / 74; Pulse 91; Resp 16; Pulse Ox 100% ; sv 10:00 BP 128 / 74; Pulse 89; Resp 16; Pulse Ox 100% ; sv ED Course: 08:18 Patient arrived in ED. aa5 08:18 Arm band placed on. aa5 08:19 Francheska Pal RN is Primary Nurse. sv 08:19 Gasper Plummer MD is Attending Physician. [facility] 08:19 Patient has correct armband on for positive identification. Bed in low position. Call sv light in reach. Side rails up X2. Adult w/ patient. Pulse ox on. NIBP on. Door closed. Head of bed elevated. 08:20 Triage completed. aa5 08:50 Inserted saline lock: 22 gauge in right forearm, using aseptic technique. ,using sv aseptic technique. diffusics Blood collected. Flushed right forearm with 2 ml normal saline. 09:14 XRAY Chest (1 view) In Process Unspecified. EDMS 09:28 CT Chest Abdomen Pelvis W/O Contrast In Process Unspecified. EDMS 09:30 CT completed. Patient tolerated procedure well. Patient moved back from CT. mw3 09:38 Patient moved back from radiology. 09:50 EKG done, by ED staff, reviewed by Gasper Plummer MD. ms 10:38 Jose Luis Robert MD is Hospitalizing Provider. chaz 11:28 No provider procedures requiring assistance completed. Patient admitted, IV remains in aa5 place. intact. Administered Medications: 09:55 Drug: NS 0.9% 500 ml Route: IV; Rate: bolus; Site: right forearm; sv 10:30 Follow up: Response: No adverse reaction; IV Status: Completed infusion; IV Intake: aa5 500ml 10:29 Drug: D50W 50 ml Route: IVP; Site: right forearm; sv 11:15 Follow up: Response: No adverse reaction; Blood sugar is elevated sv 10:30 Drug: NS 0.9% 1000 ml Route: IV; Rate: 125 ml/hr; Site: right forearm; sv Intake: 10:30 IV: 500ml; Total: 500ml. aa5 Outcome: 10:39 Decision to Hospitalize by Provider. chaz 11:27 Admitted to Tele accompanied by tech, family with patient, via stretcher, room 209, aa5 with chart, Report called to Marley ALBRIGHT 11:27 Condition: stable 11:27 Instructed on the need for admit. 11:35 Patient left the ED. sv Signatures: Dispatcher [employer] Francheska Chicas, Gasper Becker RN, MD MD cha Villarreal, Maria ms Calderon, Audri, NATALEE ALBRIGHT [facility] Tiffanie Marie 3 Pratibha Ha, RN NATALEE
--- NOTE | 2019-12-06 10:40 | EDPHYS ---
Physician Documentation [facility] Name: Gio Matute Age: 79 yrs Sex: Male : 1940 Arrival Date: 12/06/2019 Time: 08:18 Bed 18 Private MD: ED Physician Gasper Plummer HPI: 12/06 08:52 This 79 yrs old Male presents to ER via EMS with complaints of Constipation, chaz Decreased Appetite. 08:52 The patient presents with abdominal pain in the upper abdomen, in the lower abdomen, chaz abdominal distention in the upper abdomen, in the lower abdomen. Onset: The symptoms/episode began/occurred 2 day(s) ago. 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 - Coronavirus screen:: The patient has NOT traveled to [place], [place], or [place] in the past 14 days. Proceed with normal triage process as indicated. The patient has NOT had contact with known/suspected case of Coronavirus? Proceed with normal triage procedures. - Social history:: Smoking status: Patient denies any tobacco usage or history of. - Ebola Screening: : No symptoms or risks identified at this time. ROS: 08:52 Constitutional: Negative for fever, chills, and weight loss, Eyes: Negative for injury, chaz pain, redness, and discharge, ENT: Negative for injury, pain, and discharge, Neck: Negative for injury, pain, and swelling, Cardiovascular: Negative for chest pain, palpitations, and edema, Respiratory: Negative for shortness of breath, cough, wheezing, and pleuritic chest pain, Back: Negative for injury and pain, : Negative for injury, bleeding, discharge, and swelling, MS/Extremity: Negative for injury and deformity, Skin: Negative for injury, rash, and discoloration, Neuro: Negative for headache, weakness, numbness, tingling, and seizure, Psych: Negative for depression, anxiety, suicide ideation, homicidal ideation, and hallucinations, Allergy/Immunology: Negative for hives, rash, and allergies, Endocrine: Negative for neck swelling, polydipsia, polyuria, polyphagia, and marked weight changes, Hematologic/Lymphatic: Negative for swollen nodes, abnormal bleeding, and unusual bruising. 08:52 Abdomen/GI: Positive for abdominal pain. Exam: 08:52 Constitutional: This is a well developed, well nourished patient who is awake, alert, chaz and in no acute distress. Head/Face: Normocephalic, atraumatic. Eyes: Pupils equal round and reactive to light, extra-ocular motions intact. Lids and lashes normal. Conjunctiva and sclera are non-icteric and not injected. Cornea within normal limits. Periorbital areas with no swelling, redness, or edema. ENT: Nares patent. No nasal discharge, no septal abnormalities noted. Tympanic membranes are normal and external auditory canals are clear. Oropharynx with no redness, swelling, or masses, exudates, or evidence of obstruction, uvula midline. Mucous membranes moist. Neck: Trachea midline, no thyromegaly or masses palpated, and no cervical lymphadenopathy. Supple, full range of motion without nuchal rigidity, or vertebral point tenderness. No Meningismus. Chest/axilla: Normal chest wall appearance and motion. Nontender with no deformity. No lesions are appreciated. Cardiovascular: Regular rate and rhythm with a normal S1 and S2. No gallops, murmurs, or rubs. Normal PMI, no JVD. No pulse deficits. Respiratory: Lungs have equal breath sounds bilaterally, clear to auscultation and percussion. No rales, rhonchi or wheezes noted. No increased work of breathing, no retractions or nasal flaring. Back: No spinal tenderness. No costovertebral tenderness. Full range of motion. Male : Normal genitalia with no discharge or lesions. Skin: Warm, dry with normal turgor. Normal color with no rashes, no lesions, and no evidence of cellulitis. MS/ Extremity: Pulses equal, no cyanosis. Neurovascular intact. Full, normal range of motion. Neuro: Awake and alert, GCS 15, oriented to person, place, time, and situation. Cranial nerves II-XII grossly intact. Motor strength 5/5 in all extremities. Sensory grossly intact. Cerebellar exam normal. Normal gait. Psych: Awake, alert, with orientation to person, place and time. Behavior, mood, and affect are within normal limits. 08:52 Abdomen/GI: Inspection: distension, that is mild, Bowel sounds: normal, Palpation: nontender, Liver: no appreciated palpable abnormalities, Hernia: noted in the right inguinal area. Vital Signs: 08:20 BP 118 / 79; Pulse 88; Resp 16; Temp 96.8; Pulse Ox 100% ; sv 09:00 BP 118 / 74; Pulse 91; Resp 16; Pulse Ox 100% ; sv 10:00 BP 128 / 74; Pulse 89; Resp 16; Pulse Ox 100% ; sv MDM: 08:19 Patient medically screened. [facility] 08:54 Data reviewed: vital signs, nurses notes, lab test result(s), EKG, radiologic studies, [facility] CT scan, plain films. 12/06 08:49 Order name: Basic Metabolic Panel; Complete Time: 10:06 [facility] 12/06 08:49 Order name: CBC with Diff [facility] 12/06 08:49 Order name: LFT's; Complete Time: 10:06 [facility] 12/06 08:49 Order name: Magnesium; Complete Time: 10:06 [facility] 12/06 08:49 Order name: NT PRO-BNP; Complete Time: 10:06 [facility] 12/06 08:49 Order name: PT-INR; Complete Time: 10:06 [facility] 12/06 08:49 Order name: Troponin (emerg Dept Use Only); Complete Time: 10:06 [facility] 12/06 08:49 Order name: XRAY Chest (1 view) [facility] 12/06 08:49 Order name: Lipase; Complete Time: 10:06 [facility] 12/06 08:49 Order name: Urine Culture [facility] 12/06 08:49 Order name: CT Chest Abdomen Pelvis W/O Contrast; Complete Time: 10:06 [facility] 12/06 10:53 Order name: CBC Smear Scan [facility] 12/06 11:12 Order name: Glucose, Ancillary Testing [facility] 12/06 08:49 Order name: EKG; Complete Time: 09:01 [facility] 12/06 08:49 Order name: Cardiac monitoring; Complete Time: 09:29 [facility] 12/06 08:49 Order name: EKG - Nurse/Tech; Complete Time: 09:50 [facility] 12/06 08:49 Order name: IV Saline Lock; Complete Time: 08:55 [facility] 12/06 08:49 Order name: Labs collected and sent; Complete Time: 08:55 [facility] 12/06 08:49 Order name: O2 Per Protocol; Complete Time: 08:55 [facility] 12/06 08:49 Order name: O2 Sat Monitoring; Complete Time: 08:55 [facility] Administered Medications: 09:55 Drug: NS 0.9% 500 ml Route: IV; Rate: bolus; Site: right forearm; sv 10:30 Follow up: Response: No adverse reaction; IV Status: Completed infusion; IV Intake: aa5 500ml 10:29 Drug: D50W 50 ml Route: IVP; Site: right forearm; sv 11:15 Follow up: Response: No adverse reaction; Blood sugar is elevated sv 10:30 Drug: NS 0.9% 1000 ml Route: IV; Rate: 125 ml/hr; Site: right forearm; sv Disposition: 12/06/19 10:39 Hospitalization ordered by Jose Luis Robert for Inpatient Admission. Preliminary diagnosis are Weakness, Anorexia, Hypoglycemia, unspecified, Pleural effusion in conditions classified elsewhere, Dysphagia, Atrial fibrillation and flutter. - Bed requested for Telemetry/MedSurg (Inpatient). - Status is Inpatient Admission. sv - Condition is Fair. - Problem is new. - Symptoms have improved. UTI on Admission? No Signatures: Dispatcher [employer] EDMS Francheska Pal RN RN sv Woody, Diana, RN RN dw Anderson, Corey, MD MD cha Calderon, Audri RN RN aa5 Corrections: (The following items were deleted from the chart) 11:00 10:39 Hospitalization Ordered by Jose Luis Robert MD for Inpatient Admission. Preliminary diagnosis is Weakness; Anorexia; Hypoglycemia, unspecified; Pleural effusion in conditions classified elsewhere; Dysphagia; Atrial fibrillation and flutter. Bed requested for Telemetry/MedSurg (Inpatient). Status is Inpatient Admission. Condition is Fair. Problem is new. Symptoms have improved. UTI on Admission? No. [facility] 11:35 11:00 12/06/2019 10:39 Hospitalization Ordered by Jose Luis Robert MD for Inpatient sv Admission. Preliminary diagnosis is Weakness; Anorexia; Hypoglycemia, unspecified; Pleural effusion in conditions classified elsewhere; Dysphagia; Atrial fibrillation and flutter. Bed requested for Telemetry/MedSurg (Inpatient). Status is Inpatient Admission. Condition is Fair. Problem is new. Symptoms have improved. UTI on Admission? No. dw
[2019-12-06 10:53] LABS: Blood Morphology Comment NOT SEEN (NOT SEEN); Platelet Estimate ADEQ; Urine White Blood Cell Casts OK
--- NOTE | 2019-12-06 11:16 | RAD REPORT ---
EXAM DESCRIPTION: RAD - Chest Single View - 12/06/2019 9:14 am CLINICAL HISTORY: COUGH Chest pain. COMPARISON: Chest Single View dated 11/26/2019; Chest Single View dated 10/06/2019; Chest Single View dated 10/06/2019; Chest Single View dated 10/06/2019; Chest Abd Pelvis Wo Con dated 12/06/2019 FINDINGS: Portable technique limits examination quality. Calcified granuloma is present in the right upper lobe. The lungs are emphysematous with small bilate ral pleural effusions and atelectasis in both lung bases suspected. The heart is upper limit normal i n size. No displaced fractures.
[2019-12-06] MEDS ORDERED: MORPHINE 2 MG/ML SYR IV PRN (11:53)
[2019-12-06] MEDS ORDERED: ACETAMINOPHEN 500 MG TAB PO PRN (11:53)
[2019-12-06] MEDS ORDERED: ONDANSETRON 4 MG/2 ML VIAL IV PRN (11:53)
[2019-12-06] MEDS: D5 0.45 NS 1,000 ML IV SCH ×2 (12:26→21:18)
[2019-12-06 13:07] VITALS: BMI 21.1
[2019-12-06] MEDS: LEVALBUTEROL 1.25 MG/3 ML NEB NEB SCH ×2 (13:45→21:40)
[2019-12-06] MEDS: IPRATROPIUM BROM 0.5MG/2.5ML NEB SCH ×2 (13:45→21:40)
[2019-12-06] MEDS: FAMOTIDINE 20 MG/2 ML VIAL IV SCH (21:18)
--- NOTE | 2019-12-06 22:52 | P.SSS ---
Patient History Date of Service: 12/06/19 Reason for admission: VOMITING AND CONSTIPATION. History of Present Illness: MR. 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 HE DID NOT HAVE BM FOR A WEEK DESPITE GLYCERINE SUPPOSITORIES AND HE STARTED TO VOMIT SO THEY BROUGHT HIM TO ER. SOON HE CAME TO FLOOR HE HAD A LARGE BM. HE IS STABLE AND FAMILY WITH TRY TO FEED HIM. Allergies codeine Adverse Reaction (Verified 10/06/19 12:55) Nausea/Vomiting ANTIHISTAMINES Adverse Reaction (Mild, Uncoded 10/06/19 12:55) Unknown Home Medications: Amlodipine [Norvasc*] 10 mg PO DAILY 08/11/19 Prednisone [Sterapred Ds] 10 mg PO BID 08/11/19 Metoprolol Tartrate [Lopressor] 100 mg PO DAILY 09/22/19 - Past Medical/Surgical History Diabetic: No -: hypertension -: glaucoma -: anemia -: hypoglycemia supposably many years ago. does nothing for it now. -: blindness -: enlarged prostate -: HTN -: wedgners disease -: [place] -: hernia -: bone spur in neck -: copd -: vocal cord surg -: corneal transplant sx -: hemorroidectomy -: eye sx - Family History Father -: Lung disease - Social History Smoking Status: Former smoker Alcohol use: No CD- Drugs: No Caffeine use: Yes Place of Residence: Home Review of Systems 10-point ROS is otherwise unremarkable General: Weakness, As per HPI Gastrointestinal: Vomiting, Constipation Physical Examination - Vital Signs Temperature: 97.5 F Blood Pressure: 131/74 Pulse: 111 Respirations: 18 Pulse Ox (%): 94 - Physical Exam General: In no apparent distress, Other (BLIND AND DEAF SINCE WEGNERS ATTACKED EYES.) HEENT: Atraumatic, PERRLA, Mucous membr. moist/pink, EOMI, Sclerae nonicteric Neck: Supple, 2+ carotid pulse no bruit, No LAD, Without JVD or thyroid abnormality Respiratory: Clear to auscultation bilaterally, Normal air movement Cardiovascular: Regular rate/rhythm, Normal S1 S2 Gastrointestinal: Normal bowel sounds, No tenderness Musculoskeletal: No tenderness, Contractures (BED BOUND.) Integumentary: No rashes Neurological: Normal gait, Normal speech, Normal strength at 5/5 x4 extr, Normal tone, Normal affect Lymphatics: No axilla or inguinal lymphadenopathy - Studies Laboratory Data (last 24 hrs) 12/06/19 08:30: PT 18.3 H, INR 1.58 12/06/19 08:30: WBC 12.1 H D, Hgb 11.2 L, Hct 33.9 L, Plt Count 152 D 12/06/19 08:30: Sodium 133 L, Potassium 4.3, BUN 14, Creatinine 0.78, Glucose 61 L, Magnesium 1.9, Total Bilirubin 0.7, AST 30, ALT 27, Alkaline Phosphatase 119 H, Lipase 156 - Diagnosis (Problem(s)) (1) Partial bowel obstruction Current Visit: Yes Status: Acute Plan: RELATED TO CONSTIPATION. 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 THEY ARE DOING A GOOD JOB. DAILY SUPPOSITORY OF GLYCERINE HELPED HIM. HE SHOULD BE ABLE TO GO HOME IN AM AFTER HE TOLERATES FOOD. - Disposition Disposition: ROUTINE DISCHARGE
[2019-12-06] MEDS ORDERED: D5 0.45 NS 1,000 ML IV SCH (23:00)
[2019-12-07] MEDS: IPRATROPIUM BROM 0.5MG/2.5ML NEB SCH ×2 (02:00→07:45)
[2019-12-07] MEDS: LEVALBUTEROL 1.25 MG/3 ML NEB NEB SCH ×2 (02:00→07:45)
[2019-12-07 06:53] LABS: Basophils % 0.4 % (0-1.3); Hematocrit 30.2 % (39.6-49.0); Lymphocytes % 14.7 % (15.3-44.8); MPV 8.6 fL (7.6-11.3); RBC Red Blood Cell Count 3.72 M/uL (4.33-5.43)
[2019-12-07 07:06] LABS: BUN Blood Urea Nitrogen 10 mg/dL (7-18); Bicarbonate 21 mmol/L (21-32); Glucose Level 122 mg/dL (74-106); Potassium 3.5 mmol/L (3.5-5.1); Sodium Level 133 mmol/L (136-145)
--- NOTE | 2019-12-07 08:14 | RAD REPORT ---
EXAM DESCRIPTION: RAD - Chest Single View - 12/07/2019 6:50 am CLINICAL HISTORY: Follow up admission chest Xray COMPARISON: Chest Single View dated 12/06/2019; Chest Single View dated 11/26/2019; Chest Abd Pelvis Wo Con dated 12/06/2019 TECHNIQUE: AP portable chest image was obtained 12/07/2019 6:50 am . FINDINGS: Lung volumes are low. Pleural effusions and atelectasis are still evident. Interstitial yosi ng pattern is not clearly different. Cardiac silhouette remains enlarged. Vasculature not outside of normal range. No pneumothorax. No acute bony abnormality seen. No acute aortic findings suspected. IMPRESSION: Small bilateral pleural effusions and lung base atelectasis still evident. Mild cardiomegaly and mild prominent vasculature again noted. Patient can be monitored for developing failure or volume overload.
[2019-12-07] MEDS ORDERED: AMLODIPINE 10 MG TAB PO SCH (09:00)
[2019-12-07] MEDS ORDERED: predniSONE 10 MG TAB PO SCH (09:00)
[2019-12-07] MEDS ORDERED: METOPROLOL TAR 50 MG TAB PO SCH ×2 (09:00)
[2019-12-07 09:03] VITALS: BP 115/63; TEMP 97.4
[2019-12-07 09:22] VITALS: O2SAT 98
[2019-12-07] MEDS: FAMOTIDINE 20 MG/2 ML VIAL IV SCH (09:24)
--- NOTE | 2019-12-08 05:31 | EKG ---
Test Date: 2019-12-06 Test Time: 09:48:06 Thread Inspector: RAISA MEASUREMENT RESULTS: Intervals: Rate: 98 MA: QRSD: 80 QT: 358 QTc: 457 [place]: P: MA: QRS: 54 T: 239 INTERPRETIVE STATEMENTS: Atrial fibrillation ST & T wave abnormality, consider inferior ischemia or digitalis effect ST & T wave abnormality, consider anterolateral ischemia or digitalis effect Abnormal ECG Compared to ECG 11/26/2019 17:26:58 Possible ischemia now present Ventricular premature complex(es) no longer present ST (T wave) deviation still present Electronically Signed On 12-08-19 05:30:50 GRANULATOR MACHINE OPERATOR by Santiago Ha
== END 2019-12-07 11:40 | disposition home or self-care (01) | DRG 390 ==
LOC: ER 08:14 → ERHOLD 11:06 → 2ND 11:23
PROVIDERS: ADMIT Internal Medicine; ATTEND Internal Medicine
DX: K56.600 Partial intestinal obstruction, unspecified as to cause (principal); K59.00 Constipation, unspecified; I10 Essential (primary) hypertension; H40.9 Unspecified glaucoma; Z87.891 Personal history of nicotine dependence
CPT/HCPCS: 36415; 71045; 71250; 74176; 80048; 80076; 82947; 83690; 83735; 83880; 84484; 85025; 85610; 93005; 94640; 96361; 96374; 99285; J7030; J7512; J7799

== ENCOUNTER 2019-12-26 08:58 | Inpatient (IN) | payer OTHER, SELFPAY ==
--- OUTSIDE RECORDS SUMMARY | 2019-12-26 09:00 | XMS REPORT ---
:1940 [facility] Address [address] [place] [address] Dr. Hill [address] [place] [id number] Care Team Providers Name Role Phone CARLOS BARBER Unavailable Unavailable Problems This patient has no known problems. Allergies, Adverse Reactions, Alerts This patient has no known allergies or adverse reactions. Medications This patient has no known medications. Results Test Description Test Time Test Comments Text Results Atomic Results Result Comments BLOOD CULTURE 2018-09-29 11:00:00 Test Item Value Reference Range Comments CULTURE (BEAKER) (test pqpq=6758) No growth in 5 days ANAEROBIC [id number] 12:34:00 Test Item Value Reference Range Comments CULTURE (BEAKER) (test wjyn=7327) No anaerobes isolated EAR CULTURE + GRAM [id number] 14:27:00 Test Item Value Reference Range Comments CULTURE (BEAKER) (test PSEUDOMONAS 1+ Pseudomonas edqv=0348) AERUGINOSA aeruginosa Amikacin (test code=1) Susceptible 0-16 [...] GRAM STAIN RESULT 4+ WBCs (BEAKER) (test xgfo=7396) GRAM STAIN RESULT No organisms seen (BEAKER) (test znwp=886340) RAD, CHEST, 1 VIEW, NON [id number] 16:48:00Reason for exam:->SOBShould this be performed at [...] [place] Verified Date/Time: 09/25/2018 16:48:03 Reading Location: [facility] Reading Room - [place] [address] HEMOGLOBIN AND [id number] 13:03:00 Test Item Value Reference Range Comments HEMOGLOBIN (BEAKER) (test zhfy=055) 10.4 GM/DL 13.7-17.5 HEMATOCRIT (BEAKER) (test kosv=456) 32.6 % 40.1-51.0 TSH/FREE T4 IF [id number] 06:43:00 Test Item Value Reference Range Comments THYROID STIMULATING HORMONE (BEAKER) (test 1.57 uIU/mL 0.35-4.94 bqhi=523) [id number] 06:28:00 Test Item Value Reference Range Comments MAGNESIUM (BEAKER) (test nqbo=885) 1.8 mg/dL 1.6-2.6 BASIC METABOLIC [id number] 06:28:00 Test Item Value Reference Range Comments SODIUM (BEAKER) (test 136 meq/L 136-145 ktjn=925) POTASSIUM (BEAKER) (test 4.0 meq/L 3.5-5.1 djde=765) CHLORIDE (BEAKER) (test 109 meq/L 98-107 bdni=688) CO2 (BEAKER) (test 21 meq/L 22-29 cxdl=706) BLOOD UREA NITROGEN 11 mg/dL 7-21 (BEAKER) (test ednh=522) CREATININE (BEAKER) (test 0.70 mg/dL 0.57-1.25 bwpx=822) GLUCOSE RANDOM (BEAKER) 97 mg/dL 70-105 (test nicf=907) CALCIUM (BEAKER) (test 8.2 mg/dL 8.4-10.2 zesd=153) EGFR (BEAKER) (test 109 mL/min/1.73 sq m ESTIMATED GFR IS NOT lxrc=4426) ACCURATE CREATININE CLEARANCE IN PREDICTING GLOMERULAR FILTRATION RATE. ESTIMATED GFR IS NOT APPLICABLE FOR DIALYSIS PATIENTS. CBC W/PLT COUNT & AUTO [id number] 05:49:00 Test Item Value Reference Range Comments WHITE BLOOD CELL COUNT (BEAKER) (test lbww=470) 9.3 K/ L 3.5-10.5 RED BLOOD CELL COUNT (BEAKER) (test lmkn=587) 3.30 M/ L 4.63-6.08 HEMOGLOBIN (BEAKER) (test rkwq=172) 9.9 GM/DL 13.7-17.5 HEMATOCRIT (BEAKER) (test lyzp=098) 30.7 % 40.1-51.0 MEAN CORPUSCULAR VOLUME (BEAKER) (test grau=668) 93.0 fL 79.0-92.2 MEAN CORPUSCULAR HEMOGLOBIN (BEAKER) (test 30.0 pg 25.7-32.2 xrax=635) MEAN CORPUSCULAR HEMOGLOBIN CONC (BEAKER) (test 32.2 GM/DL 32.3-36.5 asqi=661) RED CELL DISTRIBUTION WIDTH (BEAKER) (test 15.9 % 11.6-14.4 qowv=980) PLATELET COUNT (BEAKER) (test mzfj=933) 143 K/CU MM 150-450 MEAN PLATELET VOLUME (BEAKER) (test lrzr=475) 10.9 fL 9.4-12.4 NUCLEATED RED BLOOD CELLS (BEAKER) (test 0 /100 WBC 0-0 bgvu=581) NEUTROPHILS RELATIVE PERCENT (BEAKER) (test 87 % dssg=235) LYMPHOCYTES RELATIVE PERCENT (BEAKER) (test 6 % pcsd=769) MONOCYTES RELATIVE PERCENT (BEAKER) (test 5 % jeez=036) EOSINOPHILS RELATIVE PERCENT (BEAKER) (test 0 % clzp=423) BASOPHILS RELATIVE PERCENT (BEAKER) (test 0 % gzhk=532) NEUTROPHILS ABSOLUTE COUNT (BEAKER) (test 8.10 K/ L 1.78-5.38 bfxs=223) LYMPHOCYTES ABSOLUTE COUNT (BEAKER) (test 0.51 K/ L 1.32-3.57 cagl=118) MONOCYTES ABSOLUTE COUNT (BEAKER) (test 0.46 K/ L 0.30-0.82 bpbf=236) EOSINOPHILS ABSOLUTE COUNT (BEAKER) (test 0.01 K/ L 0.04-0.54 pemb=501) BASOPHILS ABSOLUTE COUNT (BEAKER) (test 0.01 K/ L 0.01-0.08 elwu=241) IMMATURE GRANULOCYTES-RELATIVE PERCENT (BEAKER) 2 % 0-1 (test xcqq=8953) CBC W/PLT COUNT & AUTO [id number] 07:25:00 Test Item Value Reference Range Comments WHITE BLOOD CELL COUNT (BEAKER) (test nwto=208) 11.2 K/ L 3.5-10.5 RED BLOOD CELL COUNT (BEAKER) (test tmwr=184) 3.99 M/ L 4.63-6.08 HEMOGLOBIN (BEAKER) (test bduy=237) 11.8 GM/DL 13.7-17.5 HEMATOCRIT (BEAKER) (test vdpq=615) 36.4 % 40.1-51.0 MEAN CORPUSCULAR VOLUME (BEAKER) (test wlyd=079) 91.2 fL 79.0-92.2 MEAN CORPUSCULAR HEMOGLOBIN (BEAKER) (test 29.6 pg 25.7-32.2 bahs=636) MEAN CORPUSCULAR HEMOGLOBIN CONC (BEAKER) (test 32.4 GM/DL 32.3-36.5 zjng=311) RED CELL DISTRIBUTION WIDTH (BEAKER) (test 16.2 % 11.6-14.4 qekh=080) PLATELET COUNT (BEAKER) (test inrz=951) 168 K/CU MM 150-450 MEAN PLATELET VOLUME (BEAKER) (test wjvi=742) 11.3 fL 9.4-12.4 NUCLEATED RED BLOOD CELLS (BEAKER) (test 0 /100 WBC 0-0 gkdb=259) NEUTROPHILS RELATIVE PERCENT (BEAKER) (test 75 % eicv=671) LYMPHOCYTES RELATIVE PERCENT (BEAKER) (test 14 % fzlv=277) MONOCYTES RELATIVE PERCENT (BEAKER) (test 8 % ftgd=892) EOSINOPHILS RELATIVE PERCENT (BEAKER) (test 1 % royd=016) BASOPHILS RELATIVE PERCENT (BEAKER) (test 0 % grno=384) NEUTROPHILS ABSOLUTE COUNT (BEAKER) (test 8.31 K/ L 1.78-5.38 sjre=920) LYMPHOCYTES ABSOLUTE COUNT (BEAKER) (test 1.54 K/ L 1.32-3.57 boqr=275) MONOCYTES ABSOLUTE COUNT (BEAKER) (test 0.87 K/ L 0.30-0.82 rxmv=588) EOSINOPHILS ABSOLUTE COUNT (BEAKER) (test 0.09 K/ L 0.04-0.54 ryrf=464) BASOPHILS ABSOLUTE COUNT (BEAKER) (test 0.03 K/ L 0.01-0.08 afow=369) IMMATURE GRANULOCYTES-RELATIVE PERCENT (BEAKER) 3 % 0-1 (test hctp=6616) [id number] 07:11:00 Test Item Value Reference Range Comments MAGNESIUM (BEAKER) (test gbww=118) 1.9 mg/dL 1.6-2.6 BASIC METABOLIC [id number] 07:11:00 Test Item Value Reference Range Comments SODIUM (BEAKER) (test 136 meq/L 136-145 cbum=502) POTASSIUM (BEAKER) (test 3.4 meq/L 3.5-5.1 bnfp=417) CHLORIDE (BEAKER) (test 106 meq/L 98-107 bcay=271) CO2 (BEAKER) (test 23 meq/L 22-29 byhi=721) BLOOD UREA NITROGEN 12 mg/dL 7-21 (BEAKER) (test deyl=335) CREATININE (BEAKER) (test 0.74 mg/dL 0.57-1.25 erst=074) GLUCOSE RANDOM (BEAKER) 91 mg/dL 70-105 (test okji=658) CALCIUM (BEAKER) (test 8.3 mg/dL 8.4-10.2 rbcb=600) EGFR (BEAKER) (test 102 mL/min/1.73 sq m ESTIMATED GFR IS NOT gigk=1386) ACCURATE CREATININE CLEARANCE IN PREDICTING GLOMERULAR FILTRATION RATE. ESTIMATED GFR IS NOT APPLICABLE FOR DIALYSIS PATIENTS.
[2019-12-26] MEDS ORDERED: NA CHLORIDE 0.9% 2,000 ML ONE (09:16)
[2019-12-26 09:28] LABS: Arterial Blood Carboxyhemoglob 0.6 % (0-1.5); Blood Gas Oxyhemoglobin 90.6 % (94-97); Blood O2 Saturation 92.1 % (92-98.5)
[2019-12-26] MEDS ORDERED: D50W 25 GM/50 ML SYRINGE IV ONE (09:35)
[2019-12-26 09:49] LABS: Absolute Lymphocytes (CBC) 0.3 K/uL (0.7-4.9); Basophils % 0.6 % (0-1.3); Hematocrit 21.7 % (39.6-49.0); Lymphocytes % 2.2 % (15.3-44.8); MPV 10.7 fL (7.6-11.3); RBC Red Blood Cell Count 2.61 M/uL (4.33-5.43)
[2019-12-26 09:59] LABS: Protime INR 3.95
[2019-12-26 10:19] LABS: Albumin 1.6 g/dL (3.4-5.0); Bilirubin Direct 0.6 mg/dL (0-0.2); Bilirubin Total 1.1 mg/dL (0.2-1.0); CKMB Creatine Kinase MB 3.3 ng/mL (0.3-3.6); Potassium 3.3 mmol/L (3.5-5.1); Protein, Total 3.5 g/dL (6.4-8.2); Troponin (Emerg Dept Use Only) 0.1 ng/mL (0.0-0.045)
[2019-12-26 10:24] LABS: Anisocytosis 2+; Blood Morphology Comment NOTED (NOT SEEN); Elliptocytes 1+; Platelet Estimate DECR; Polychromasia 1+
[2019-12-26 10:25] LABS: Burr Cells 2+
--- NOTE | 2019-12-26 10:32 | RAD REPORT ---
EXAM DESCRIPTION: Domenico Single View12/26/2019 10:21 am CLINICAL HISTORY: Shortness of breath COMPARISON: December 07, 2019 FINDINGS: Mild bilateral pulmonary opacities with small pleural effusions The heart is mildly enlarged IMPRESSION: Mild CHF
[2019-12-26] MEDS ORDERED: CEFEPIME 2 GM VIAL ONE (10:41)
[2019-12-26] MEDS ORDERED: NA CHLORIDE 0.9% 100 ML IV ONE ×2 (10:41→13:04)
[2019-12-26] MEDS ORDERED: VANCOMYCIN/NS 1 gm 1 GM/250 ML BAG IV ONE (11:00)
--- NOTE | 2019-12-26 11:17 | ER ---
Nurse's Notes [facility] Name: Gio Matute Age: 79 yrs Sex: Male : 1940 Arrival Date: 12/26/2019 Time: 09:02 Bed 3 Private MD: Diagnosis: Altered mental status, unspecified;Dehydration;Hypoglycemia, unspecified Presentation: 12/26 09:02 Presenting complaint: EMS states: pt has been declining in his condition at home over sg the last several days, family reports today he is very altered and unresponsive and not eating or drinking at home. Transition of care: patient was not received from another setting of care. Onset of symptoms was December 26, 2019. Risk Assessment: Do you want to hurt yourself or someone else? Patient reports no desire to harm self or others. Initial Sepsis Screen: Does the patient meet any 2 criteria? No. Patient's initial sepsis screen is negative. Does the patient have a suspected source of infection? No. Patient's initial sepsis screen is negative. Care prior to arrival: IV initiated. 20 GA, in the right antecubital area. Care prior to arrival: Medication(s) given: Normal saline infusion, 500 mL, IV initiated. 22 GA, in the left forearm. 09:02 Method Of Arrival: EMS: [facility] sg 09:02 Acuity: MACI 2 sg Triage Assessment: 09:02 General: Appears in no apparent distress. ill, slender, unkempt, malnourished. EENT: sg Oral mucosa is dry. Throat is clear. Neuro: Level of Consciousness is obtunded, Oriented to none. Cardiovascular: Heart tones S1 S2 present. Respiratory: Airway is patent Respiratory effort is unlabored, shallow, Respiratory pattern is symmetrical, tachypnea. GI: Abdomen is flat, non-distended, Parent/caregiver reports the patient having anorexia. Derm: Skin is intact, is fragile, is thin, Skin is dry, Skin is pale, Skin temperature is cold. 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 - Coronavirus screen:: The patient has NOT traveled to [place] in the past 14 days. The patient has NOT had contact with known/suspected case of Coronavirus?. - Social history:: Smoking status: Patient denies any tobacco usage or history of. - Ebola Screening: : Patient negative for fever greater than or equal to 101.5 degrees Fahrenheit, and additional compatible Ebola Virus Disease symptoms Patient denies exposure to infectious person Patient denies travel to an Ebola-affected area in the 21 days before illness onset No symptoms or risks identified at this time. Screenin:15 Nutritional screening: No deficits noted. Tuberculosis screening: No symptoms or risk em factors identified. Fall Risk Secondary diagnosis (15 points) impaired mobility, IV access (20 points). Ambulatory Aid- None/Bed Rest/Nurse Assist (0 pts). Total Hines Fall Scale indicates Low Risk Score (25-44 pts). Side Rails Up X 2 Placed close to Nursing Station Family Present and informed to notify staff if they need to leave bedside. 09:25 Abuse screen: no signs of abuse noted at this time. sg Assessment: 09:15 General: Appears ill, slender, cachectic, Behavior is drowsy, flat. Pain: Unable to use em pain scale. Neuro: Level of Consciousness is obtunded. Cardiovascular: Rhythm is sinus tachycardia. Respiratory: Airway is patent Respiratory effort is even, unlabored, shallow, Respiratory pattern is regular, Breath sounds are diminished. GI: Abdomen is flat. : condom catheter noted, yellow cloudy urine noted in bag. Derm: Skin is intact, is thin, Skin is dry, Skin is pale, Skin temperature is cool. 09:24 Reassessment: Patient appears in no apparent distress at this time. Dr. Sanchez at em bedside, set up for central line. 10:05 Reassessment: Patient appears in no apparent distress at this time. a skin tear is sg noted to the right scapular area of the pt back, cleaned and a dry dressing is applied. 10:15 Reassessment: Patient appears in no apparent distress at this time. sacral wound noted, em dressing applied. 10:17 : Chirinos in place to gravity drainage Urine is cloudy, tea colored a chirinos catheter sg has been inserted by ED staff. 10:18 Reassessment: cleaned and applied new brief, placed on waffle mattress, and applied em yo hugger. 10:20 Reassessment: Reassessment: orders received to please hold the Vancomycin due to the pt sg lab results of elevated BUN AND CRE at this time, Cefepime has completed administration, awaiting new orders. 12:00 General: Appears in no apparent distress. comfortable, slender. Neuro: Level of em Consciousness is obtunded. Respiratory: Airway is patent Respiratory effort is even, unlabored, shallow, Respiratory pattern is regular. Derm: Skin is intact, is fragile, is thin, Skin is dry, Skin is pale, Skin temperature is cool. 12:10 Reassessment: BP 69/49, HR 107 provider notified, received verbal orders to start pt on em Levophed. 12:12 Reassessment: Patient appears in no apparent distress at this time. started Levophed at em 4 mcg/min. 12:46 Reassessment: BP 116/70, HR 122, titrated Levophed up to 7.5 mcg/ min. em 13:00 Reassessment: Patient appears in no apparent distress at this time. signed consent em form for PRBCs. 13:10 Reassessment: Patient appears in no apparent distress at this time. initiated blood em transfusion. 13:38 Reassessment: repeat lactate sent. em 15:39 Reassessment: completion of first unit. em 15:40 Reassessment: initiated second unit of PRBCs. em 17:00 Reassessment: Patient appears in no apparent distress at this time. BP 116/70, HR 122, em titrated Levophed down to 2.5 mcg/ min. 18:40 Reassessment: completion of second unit complete, tolerated well. em 18:50 General: Appears in no apparent distress. comfortable. Neuro: Level of Consciousness is em obtunded. Respiratory: Airway is patent Respiratory effort is even, unlabored, shallow, Respiratory pattern is regular, Breath sounds are diminished bilaterally. EENT: Oral mucosa is dry. Derm: Skin is intact, is fragile, is thin, Skin is dry, Skin is pink, Skin temperature is warm. 20:05 Reassessment: Patient appears in no apparent distress at this time. patient's status is rv stable upon transfer. Levophed running at 2.5mcg/min and NS at 125ml/hr, via central line. with hearing aid on the left ear. and chirinos cath with thermometer, urine output noticed to be brownish. urine specimen was sent by AM shift for microscopy. IV on hcica peripheral extremities are flushing well, no redness or tenderness. Vital Signs: 09:00 BP 72 / 55; Pulse 119; Resp 32; Pulse Ox 95% on R/A; em 09:15 BP 73 / 44; Pulse 119; Resp 30; Pulse Ox 99% on R/A; em 09:25 BP 86 / 63; Pulse 109; Resp 28; Pulse Ox 99% on R/A; em 09:29 Weight 70.31 kg; em 09:58 Temp 94.9(R); dm5 10:10 BP 100 / 71; Pulse 84; Resp 18 S; Pulse Ox 99% on R/A; em 10:30 BP 87 / 61; Pulse 100; Resp 18; Pulse Ox 100% on R/A; em 10:59 BP 91 / 62; Pulse 112 MON; Resp 19 S; Temp 91.6; Pulse Ox 100% on R/A; em 11:32 BP 88 / 59; Pulse 107; Resp 18; Pulse Ox 99% on R/A; em 11:50 BP 74 / 49; Pulse 103; Resp 18; Pulse Ox 99% on R/A; em 12:00 BP 83 / 62; Pulse 106; Resp 17; Temp 91.7(C); Pulse Ox 100% on R/A; em 13:10 BP 92 / 63; Pulse 110; Resp 18; Temp 92.0(C); Pulse Ox 100% on R/A; em 13:10 em 14:00 BP 92 / 72; Pulse 100; Resp 19 S; Pulse Ox 99% on R/A; em 14:40 BP 97 / 64; Pulse 105; Resp 17; Temp 93.0(C); Pulse Ox 99% on R/A; em 15:00 BP 101 / 70; Pulse 115; Resp 18 S; Temp 93.4(C); Pulse Ox 98% on R/A; em 15:40 em 16:00 BP 90 / 62; Pulse 113; Resp 20 S; Temp 94.3(C); Pulse Ox 98% on R/A; em 16:40 BP 116 / 70; Pulse 116; Resp 21 S; Temp 94.8(C); Pulse Ox 97% on R/A; em 17:20 BP 100 / 64; Pulse 121; Resp 23 S; Temp 95.5(C); Pulse Ox 97% on R/A; em 18:10 BP 104 / 71; Pulse 119; Resp 20 S; Temp 95.4(C); Pulse Ox 96% on R/A; em 19:00 BP 99 / 67; Pulse 119; Resp 21; Temp 95.6(C); Pulse Ox 97% on R/A; em 19:30 BP 117 / 1; Pulse 116; Resp 19; Temp 95.4(C); Pulse Ox 93% on R/A; rv 13:10 please see transfusion sheet for VS em 15:40 please see transfusion flow sheet for VS em Yara Coma Score: 09:15 Eye Response: to pain(2). Verbal Response: none(1). Motor Response: withdraws from em pain(4). Total: 7. ED Course: 09:02 Patient arrived in ED. sg 09:05 Triage completed. sg 09:05 Arm band placed on. sg 09:05 EKG done, by residential gas heat technician. reviewed by Panda Sanchez MD. tc 09:08 Panda Sanchez MD is Attending Physician. kdr 09:15 Patient has correct armband on for positive identification. Placed in gown. Bed in low em position. Call light in reach. Side rails up X2. Adult w/ patient. stenographer print shop on. Pulse ox on. NIBP on. Warm blanket given. 09:25 Jaswant Sweet, RN is Primary Nurse. em 09:30 First set of blood cultures drawn by physician. sg 09:35 Assisted provider with central line placement. Set up central line tray. Triple lumen em line placed in right femoral. Line placed by Panda Sanchez MD Placement verified by blood return, Dressed with 4X4s, Tape, Tegaderm, Blood was collected. Patient tolerated well. 09:45 Second set of blood cultures drawn by physician. sg 10:13 T\T\S collected, blood band applied to patient. dh3 10:16 Chirinos cath inserted, using sterile technique, 16 Fr., by pr, balloon inflated, to em gravity drainage, urine specimen collected. returned cloudy urine. Patient tolerated well. 10:17 Urine collected: Chirinos catheter specimen, cloudy. dh3 10:21 Chest Single View XRAY In Process Unspecified. EDMS 11:14 Jose Luis Robert MD is Hospitalizing Provider. kdr 20:13 IV is patent, with fluids infusing freely, with good blood return, Flushed right left rv forearm Patient admitted, IV remains in place. Administered Medications: 09:17 Drug: NS 0.9% (30 ml/kg) 30 ml/kg Route: IV; Rate: bolus; Site: left antecubital; em 10:25 Follow up: Response: No adverse reaction; IV Status: Completed infusion; IV Intake: sg 3000ml 09:31 Drug: D50W 50 ml Route: IVP; Site: left antecubital; hb 10:30 Follow up: Response: No adverse reaction; Blood sugar is elevated em 09:32 Drug: Sodium Bicarbonate 1 amp Route: IVP; Site: left antecubital; hb 11:50 Follow up: Response: No adverse reaction em 09:33 Drug: Sodium Bicarbonate 1 amp Route: IVP; Site: left antecubital; hb 11:50 Follow up: Response: No adverse reaction em 10:38 Drug: Cefepime 2 grams Route: IVPB; Rate: 200 ml/hr; Infused Over: 30 mins; Site: right sg femoral; 11:50 Follow up: Response: No adverse reaction; IV Status: Completed infusion; IV Intake: em 100ml 11:49 Drug: NS 0.9% 1000 ml Route: IV; Rate: 125 ml/hr; Site: right femoral; em 20:04 Follow up: IV Status: Infusion continued upon admission rv 12:12 Drug: Norepinephrine (4 mg/250 mL D5W) 4 mcg/min Route: IV; Rate: calculated rate; em Site: right femoral; 17:22 Follow up: Response: No adverse reaction; started at 4 mcg/min at 125 1212, titrated up em to 7.5 mcg/min at 1245 20:04 Follow up: IV Status: Infusion continued upon admission rv 20:03 Not Given (rhythm got better): Phenylephrine 100 mcg/min IV at calculated rate rv continuous; (Standard dilution is 50 mg in 250 mL D5W, final concentration 200 mcg/mL) 20:05 Not Given (Physician Discretion; low kidney function): vancoMYCIN 1 grams IVPB once rv over 2 hrs Intake: 10:25 IV: 3000ml; Total: 3000ml. sg 11:50 IV: 100ml; Total: 3100ml. em Outcome: 11:15 Decision to Hospitalize by Provider. kdr 20:13 Admitted to ICU accompanied by nurse, accompanied by tech, via stretcher, room 2, on rv monitor, with chart, Report called to ENRICO RN 20:13 Condition: stable 20:13 Discharge instructions given to family, Instructed on the need for admit, Demonstrated understanding of instructions. 20:15 Patient left the ED. rv Signatures: Dispatcher [employer] EDViolette Woodard, RN RN Gilson Sheridan RN RN Panda Núñez MD MD kdr Munoz, Edgar, RN RN em Elida Rene, engine assembler EKG Ttc Yolie Pan RN RN Madi, Colleen [facility] Randall Peng RN RN rv Corrections: (The following items were deleted from the chart) 11:13 09:24 Reassessment: Dr. Sanchez at bedside, set up for central line hb em 13:52 12:10 Reassessment: BP 69/49, HR 107 provider notified, received verbal orders to start em pt no Levophed em 14:46 14:40 BP 97 / 64; Pulse 105bpm; Resp 17bpm; Pulse Ox 99% RA; em em 16:30 13:00 Reassessment: Patient appears in no apparent distress at this time. signed em consent form for PRCs em 17:17 09:15 BP 73 / 44; Pulse 119bpm; Resp 30bpm; Pulse Ox 99% 2 lpm Nasal Cannula; em em 17:17 16:30 Reassessment: Patient appears in no apparent distress at this time. No changes em from previously documented assessment. em 19:37 18:50 General: Appears in no apparent distress. comfortable, Behavior is drowsy, flat, em em
--- NOTE | 2019-12-26 11:17 | EDPHYS ---
Physician Documentation [facility] Name: Gio Matute Age: 79 yrs Sex: Male : 1940 Arrival Date: 12/26/2019 Time: 09:02 Bed 3 Private MD: ED Physician Panda Sanchez HPI: 12/26 17:02 This 79 yrs old Male presents to ER via EMS with complaints of Altered Mental kdr Status. 17:02 The patient presents with decreased mental status, decreased responsiveness. Onset: The kdr symptoms/episode began/occurred gradually, 3 day(s) ago. Possible causes: CVA or TIA, sepsis. Associated signs and symptoms: Pertinent positives: weakness, Unresponsive. Current symptoms: In the emergency department the patient's symptoms are unchanged from the initial presentation. Patient's baseline: Neuro: alert but confused, Motor: Generally weak but interactive, Ambulation: unable to walk, is bedridden. The patient has become generally weak over the last few weeks with diminished PO intact and hydration. Family reports that he has had little intake over the past few days. The patient has not recently seen a physician. 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 - Coronavirus screen:: The patient has NOT traveled to [place] in the past 14 days. The patient has NOT had contact with known/suspected case of Coronavirus?. - Social history:: Smoking status: Patient denies any tobacco usage or history of. - Ebola Screening: : Patient negative for fever greater than or equal to 101.5 degrees Fahrenheit, and additional compatible Ebola Virus Disease symptoms Patient denies exposure to infectious person Patient denies travel to an Ebola-affected area in the 21 days before illness onset No symptoms or risks identified at this time. ROS: 17:02 Constitutional: The patient is unable to give any history. The family has stated that kdr he has generally become weaker and over the last 2-3 days has not been eating or drinking. Today he has been poorly or completely unresponsive Exam: 17:02 Constitutional: This is a well developed, poorly nourished patient who is unresponsive kdr but in no acute distress. Head/Face: Normocephalic, atraumatic. Eyes: Pupils equal round and reactive to light, extra-ocular motions intact. Lids and lashes normal. Conjunctiva and sclera are non-icteric and not injected. Cornea within normal limits. Periorbital areas with no swelling, redness, or edema. Neck: Trachea midline, no thyromegaly or masses palpated, and no cervical lymphadenopathy. Supple, full range of motion without nuchal rigidity, or vertebral point tenderness. No Meningismus. Chest/axilla: Normal chest wall appearance and motion. Nontender with no deformity. No lesions are appreciated. Cardiovascular: Regular rate and rhythm with a normal S1 and S2. No gallops, murmurs, or rubs. Normal PMI, no JVD. No pulse deficits. Respiratory: Lungs have equal breath sounds bilaterally, clear to auscultation and percussion. No rales, rhonchi or wheezes noted. No increased work of breathing, no retractions or nasal flaring. Abdomen/GI: Soft, non-tender, with normal bowel sounds. No distension or tympany. No guarding or rebound. No evidence of tenderness throughout. Back: No spinal tenderness. No costovertebral tenderness. Full range of motion. Skin: Warm, dry with normal turgor. Normal color with no rashes, no lesions, and no evidence of cellulitis. MS/ Extremity: Pulses equal, no cyanosis. Neurovascular intact. Full, normal range of motion. 17:02 Neuro: Orientation: unable to test, Mentation: unable to test. Vital Signs: 09:00 BP 72 / 55; Pulse 119; Resp 32; Pulse Ox 95% on R/A; em 09:15 BP 73 / 44; Pulse 119; Resp 30; Pulse Ox 99% on R/A; em 09:25 BP 86 / 63; Pulse 109; Resp 28; Pulse Ox 99% on R/A; em 09:29 Weight 70.31 kg; em 09:58 Temp 94.9(R); dm5 10:10 BP 100 / 71; Pulse 84; Resp 18 S; Pulse Ox 99% on R/A; em 10:30 BP 87 / 61; Pulse 100; Resp 18; Pulse Ox 100% on R/A; em 10:59 BP 91 / 62; Pulse 112 MON; Resp 19 S; Temp 91.6; Pulse Ox 100% on R/A; em 11:32 BP 88 / 59; Pulse 107; Resp 18; Pulse Ox 99% on R/A; em 11:50 BP 74 / 49; Pulse 103; Resp 18; Pulse Ox 99% on R/A; em 12:00 BP 83 / 62; Pulse 106; Resp 17; Temp 91.7(C); Pulse Ox 100% on R/A; em 13:10 BP 92 / 63; Pulse 110; Resp 18; Temp 92.0(C); Pulse Ox 100% on R/A; em 13:10 em 14:00 BP 92 / 72; Pulse 100; Resp 19 S; Pulse Ox 99% on R/A; em 14:40 BP 97 / 64; Pulse 105; Resp 17; Temp 93.0(C); Pulse Ox 99% on R/A; em 15:00 BP 101 / 70; Pulse 115; Resp 18 S; Temp 93.4(C); Pulse Ox 98% on R/A; em 15:40 em 16:00 BP 90 / 62; Pulse 113; Resp 20 S; Temp 94.3(C); Pulse Ox 98% on R/A; em 16:40 BP 116 / 70; Pulse 116; Resp 21 S; Temp 94.8(C); Pulse Ox 97% on R/A; em 17:20 BP 100 / 64; Pulse 121; Resp 23 S; Temp 95.5(C); Pulse Ox 97% on R/A; em 18:10 BP 104 / 71; Pulse 119; Resp 20 S; Temp 95.4(C); Pulse Ox 96% on R/A; em 19:00 BP 99 / 67; Pulse 119; Resp 21; Temp 95.6(C); Pulse Ox 97% on R/A; em 19:30 BP 117 / 1; Pulse 116; Resp 19; Temp 95.4(C); Pulse Ox 93% on R/A; rv 13:10 please see transfusion sheet for VS em 15:40 please see transfusion flow sheet for VS em Yara Coma Score: 09:15 Eye Response: to pain(2). Verbal Response: none(1). Motor Response: withdraws from em pain(4). Total: 7. MDM: 11:15 Patient medically screened. kdr 18:56 Data reviewed: vital signs, nurses notes, lab test result(s), radiologic studies. kdr Counseling: I had a detailed discussion with the patient and/or guardian regarding: the historical points, exam findings, and any diagnostic results supporting the discharge/admit diagnosis, lab results, radiology results, the need for further work-up and treatment in the hospital. 12/26 09:09 Order name: Amylase, Serum; Complete Time: 10:25 kdr 12/26 09:09 Order name: Basic Metabolic Panel; Complete Time: 10:25 kdr 12/26 09:09 Order name: Blood Culture Adult (2) kdr 12/26 09:09 Order name: CBC with Diff; Complete Time: 10:29 kdr 12/26 09:09 Order name: Ckmb; Complete Time: 10:25 kdr 12/26 09:09 Order name: CPK; Complete Time: 10:25 kdr 12/26 09:09 Order name: Lactate; Complete Time: 10:25 kdr 12/26 09:09 Order name: LFT's; Complete Time: 10:25 kdr 12/26 09:09 Order name: Lipase; Complete Time: 10:25 kdr 12/26 09:09 Order name: Procalcitonin; Complete Time: 11:16 kdr 12/26 09:09 Order name: Protime (+inr); Complete Time: 10:25 kdr 12/26 09:09 Order name: Ptt, Activated; Complete Time: 10:25 kdr 12/26 09:09 Order name: Troponin (emerg Dept Use Only); Complete Time: 10:25 kdr 12/26 09:09 Order name: Urine Microscopic Only kdr 12/26 09:14 Order name: ABG; Complete Time: 10:01 dh4 12/26 10:04 Order name: Bb Add On eb 12/26 10:04 Order name: TS eb 12/26 10:08 Order name: glucometer results - FOR PT WITH NO ID dm5 12/26 10:20 Order name: Packed RBC Leukored EDMS 12/26 10:23 Order name: Manual Differential; Complete Time: 10:29 EDMS 12/26 10:30 Order name: Urine Dipstick--Ancillary (enter results) eb 12/26 10:43 Order name: Glucose, Ancillary Testing; Complete Time: 11:16 EDMS 12/26 11:25 Order name: ABG sg 12/26 11:43 Order name: ABG Arterial Blood Gas EDWY 12/26 11:49 Order name: Urine Culture EDWY 12/26 14:19 Order name: Lactate Sepsis 2 HR Follow-up EDMS 12/26 15:30 Order name: Basic Metabolic Panel EDWY 12/26 15:30 Order name: Basic Metabolic Panel EDWY 12/26 15:30 Order name: CBC with Automated Diff EDMS 12/26 15:30 Order name: CBC with Automated Diff EDMS 12/26 09:09 Order name: Chest Single View XRAY; Complete Time: 11:16 kdr 12/26 09:09 Order name: Accucheck; Complete Time: 09:45 kdr 12/26 09:09 Order name: Cardiac monitoring; Complete Time: 09:45 kdr 12/26 09:09 Order name: EKG - Nurse/Tech; Complete Time: 09:45 kdr 12/26 09:09 Order name: IV Saline Lock - Large Bore; Complete Time: 09:45 kdr 12/26 09:09 Order name: Labs collected and sent; Complete Time: 09:45 kdr 12/26 09:09 Order name: O2 Per Protocol; Complete Time: 10:22 kdr 12/26 09:09 Order name: O2 Sat Monitoring; Complete Time: 09:45 kdr 12/26 09:09 Order name: Urine Dipstick-Ancillary (obtain specimen); Complete Time: 10:21 kdr 12/26 10:29 Order name: EKG Electrocardiogram EDWY 12/26 15:30 Order name: NPO ED[facility]Y 12/26 15:30 Order name: Lipase EDWY 12/26 15:30 Order name: Lipase EDWY 12/26 15:30 Order name: Liver (Hepatic) Function EDWY 12/26 15:30 Order name: Liver (Hepatic) Function EDWY 12/26 19:42 Order name: Glucose, Ancillary Testing EDWY Administered Medications: 09:17 Drug: NS 0.9% (30 ml/kg) 30 ml/kg Route: IV; Rate: bolus; Site: left antecubital; em 10:25 Follow up: Response: No adverse reaction; IV Status: Completed infusion; IV Intake: sg 3000ml 09:31 Drug: D50W 50 ml Route: IVP; Site: left antecubital; hb 10:30 Follow up: Response: No adverse reaction; Blood sugar is elevated em 09:32 Drug: Sodium Bicarbonate 1 amp Route: IVP; Site: left antecubital; hb 11:50 Follow up: Response: No adverse reaction em 09:33 Drug: Sodium Bicarbonate 1 amp Route: IVP; Site: left antecubital; hb 11:50 Follow up: Response: No adverse reaction em 10:38 Drug: Cefepime 2 grams Route: IVPB; Rate: 200 ml/hr; Infused Over: 30 mins; Site: right sg femoral; 11:50 Follow up: Response: No adverse reaction; IV Status: Completed infusion; IV Intake: em 100ml 11:49 Drug: NS 0.9% 1000 ml Route: IV; Rate: 125 ml/hr; Site: right femoral; em 20:04 Follow up: IV Status: Infusion continued upon admission rv 12:12 Drug: Norepinephrine (4 mg/250 mL D5W) 4 mcg/min Route: IV; Rate: calculated rate; em Site: right femoral; 17:22 Follow up: Response: No adverse reaction; started at 4 mcg/min at 125 1212, titrated up em to 7.5 mcg/min at 1245 20:04 Follow up: IV Status: Infusion continued upon admission rv 20:03 Not Given (rhythm got better): Phenylephrine 100 mcg/min IV at calculated rate rv continuous; (Standard dilution is 50 mg in 250 mL D5W, final concentration 200 mcg/mL) 20:05 Not Given (Physician Discretion; low kidney function): vancoMYCIN 1 grams IVPB once rv over 2 hrs Disposition: 12/26/19 11:15 Hospitalization ordered by Jose Luis Robert for Inpatient Admission. Preliminary diagnosis are Altered mental status, unspecified, Dehydration, Hypoglycemia, unspecified. - Bed requested for Intensive Care Unit. - Status is Inpatient Admission. rv - Condition is Guarded. - Problem is an ongoing problem. - Symptoms are unchanged. Signatures: Dispatcher [employer] Gilson Vargas RN RN Panda Sanchez MD MD kdr Munoz, Edgar, RN RN Yolie Pan RN RN Randall Peng RN RN Jeffry Chung [facility] Corrections: (The following items were deleted from the chart) 16:09 11:15 Hospitalization Ordered by Jose Luis Robert MD for Inpatient Admission. Preliminary hb diagnosis is Altered mental status, unspecified; Dehydration; Hypoglycemia, unspecified. Bed requested for Telemetry/MedSurg (Inpatient). Status is Inpatient Admission. Condition is Guarded. Problem is an ongoing problem. Symptoms are unchanged. kdr 19:01 16:09 12/26/2019 11:15 Hospitalization Ordered by Jose Luis Robert MD for Inpatient dh4 Admission. Preliminary diagnosis is Altered mental status, unspecified; Dehydration; Hypoglycemia, unspecified. Bed requested for [facility] ER HOLD. Status is Inpatient Admission. Condition is Guarded. Problem is an ongoing problem. Symptoms are unchanged. hb 20:15 19:12/26/2019 11:15 Hospitalization Ordered by Jose Luis Robert MD for Inpatient rv Admission. Preliminary diagnosis is Altered mental status, unspecified; Dehydration; Hypoglycemia, unspecified. Bed requested for Intensive Care Unit. Status is Inpatient Admission. Condition is Guarded. Problem is an ongoing problem. Symptoms are unchanged. dh4
[2019-12-26 11:28] LABS: Urine Blood 3+ (NEG); Urine Glucose NEGATIVE (NEG); Urine Protein 2+ (NEG)
--- NOTE | 2019-12-26 11:31 | EKG ---
Test Date: 2019-12-26 Test Time: 09:02:11 Reproductive Healthcare Assistant: KLAUDIA MEASUREMENT RESULTS: Intervals: Rate: 125 MS: QRSD: 92 QT: 282 QTc: 407 [place]: P: MS: QRS: 80 T: 262 INTERPRETIVE STATEMENTS: Atrial fibrillation with rapid ventricular response ST & T wave abnormality, consider inferior ischemia or digitalis effect ST & T wave abnormality, consider anterolateral ischemia or digitalis effect Abnormal ECG Compared to ECG 12/06/2019 09:48:06 No significant changes Electronically Signed On 12-26-19 11:30:27 KNOCKOUT WORKER by Jamir Marie
[2019-12-26 11:33] LABS: Urine Bacteria LOADED /HPF (NONE SEEN)
[2019-12-26 11:41] LABS: Blood Gas Oxyhemoglobin 90.9 % (94-97); Blood O2 Saturation 92.8 % (92-98.5)
[2019-12-26] MEDS ORDERED: NA CHLORIDE 0.9% 1,000 ML ONE ×2 (11:48→15:47)
[2019-12-26] MEDS ORDERED: NOREPINEPHRINE 4mg/D5W 250mL 4 MG/250 ML BAG IV ONE (12:13)
[2019-12-26] MEDS ORDERED: ONDANSETRON 4 MG/2 ML VIAL IV PRN (15:28)
[2019-12-26] MEDS ORDERED: MORPHINE 4 MG/ML SYR IV PRN (15:28)
[2019-12-26] MEDS ORDERED: ACETAMINOPHEN 500 MG TAB PO PRN (15:28)
[2019-12-26] MEDS: D5 0.45 NS 1,000 ML IV SCH (21:06)
--- NOTE | 2019-12-26 21:11 | P.HP ---
Certification for Inpatient Patient admitted to: Inpatient With expected LOS: >2 Midnights Practitioner: I am a practitioner with admitting privileges, knowledge of patient current condition, hospital course, and medical plan of care. Services: Services provided to patient in accordance with Admission requirements found in Title 42 Section 412.3 of the Code of Federal Regulations Patient History Date of Service: 12/26/19 Reason for admission: QUIT EATING AND DRINKING A WEEK AGO History of Present Illness: MR. JARVIS IS A CHRONICALLY DEBILITATED GENTLEMAN WHO HAS NOT WALKED FOR ABOUT TWO YEARS, CAN'T HEAR ANYTHING, CAN'T SEE ANYTHING AND HAS HAD CARMITA GRANULOMATOSIS TREATED WITH STEROIDS. BEFORE THAT HE HAD BEEN TO MANY ENT DOCTORS FOR EPISTAXIS AND CHRONIC COMPLAINS OF SINUS ISSUES. HIS PECULIAR STYLE OF TALKING TO DOCTORS WAS MAINLY GIVING THEM HIS DIAGNOSIS. DURING EVAL IN ER HE IS FOUND TO HAVE SEVERE HYPOTENSION, DEHYDRATION WITH HYPERNAREMIA AND PUS FROM THE URINE. Allergies codeine Adverse Reaction (Verified 10/06/19 12:55) Nausea/Vomiting ANTIHISTAMINES Adverse Reaction (Mild, Uncoded 10/06/19 12:55) Unknown Home Medications: Amlodipine [Norvasc*] 10 mg PO DAILY 08/11/19 Prednisone [Sterapred Ds] 10 mg PO BID 08/11/19 Metoprolol Tartrate [Lopressor] 100 mg PO DAILY 09/22/19 Gabapentin [Neurontin*] 100 mg PO BID #180 cap 12/07/19 Levofloxacin [Levaquin] 500 mg PO DAILY #5 tablet 12/07/19 - Past Medical/Surgical History Diabetic: No -: hypertension -: glaucoma -: anemia -: hypoglycemia supposably many years ago. does nothing for it now. -: blindness -: enlarged prostate -: HTN -: wedgners disease -: [place] -: hernia -: bone spur in neck -: copd -: vocal cord surg -: corneal transplant sx -: hemorroidectomy -: eye sx - Family History Father -: Lung disease - Social History Alcohol use: No CD- Drugs: No Caffeine use: Yes Review of Systems is unable to be obtained Physical Examination - Physical Exam General: Moderate distress, Unresponsive HEENT: Atraumatic, PERRLA, Mucous membr. moist/pink, EOMI, Sclerae nonicteric Neck: Supple, 2+ carotid pulse no bruit, No LAD, Without JVD or thyroid abnormality Respiratory: Clear to auscultation bilaterally, Normal air movement Cardiovascular: Regular rate/rhythm, Normal S1 S2 Gastrointestinal: Normal bowel sounds, No tenderness Musculoskeletal: No tenderness Integumentary: No rashes Neurological: Other (NOT RESPONSIVE FOR NOW, SOME RESPONSE TO PAINFUL STIMULUS.) Lymphatics: No axilla or inguinal lymphadenopathy - Studies Laboratory Data (last 24 hrs) 12/26/19 09:40: PT 44.2 H, INR 3.95, APTT 24.6 12/26/19 09:40: WBC 11.5 H, Hgb 6.6 L*, Hct 21.7 L, Plt Count 82 L 12/26/19 09:40: Sodium 164 H*, Potassium 3.3 L, BUN 48 H, Creatinine 2.19 H, Glucose 213 H, Total Bilirubin 1.1 H, AST 27, ALT 12, Alkaline Phosphatase 67, Amylase 66, Lipase 232 Assessment and Plan - Problems (Diagnosis) (1) Hypovolemic shock Current Visit: Yes Status: Acute Plan: HE IS SEVERELY DEHYDRATED. WITH HIS BASELINE POOR CONDITION, I AM NOT SURE IF HE WILL SURVIVE OUR EFFORTS THIS TIME. START IV FLUIDS. DAILY LAB. NUTRITION HAS BEEN POOR WITH HIS INABLITY TO SAWLLOW FOOD PROPERLY. HE HAS HAD DYSPHAGIA AND HE HAS REFUSED G TUBE IN PAST. (2) UTI (urinary tract infection) Current Visit: No Status: Acute Plan: START IV ROCEPHIN. CULTURES DONE. PROCALCITONIN IS MILD HIGH. Qualifiers: Urinary tract infection type: acute cystitis (3) Anemia Onset Date: 11/23/17 Current Visit: No Status: Acute Plan: HE COULD HAVE ACUTE BLOOD LOSS. FAMILY HAS NOT SEEN ANY BLEEDING. BLOOD TRANSFUSION GIVEN. OTHER POSSIBILITIES ARE HEMOLYSIS. WILL FU LABWORK FOR THIS. HE HAS HISTORY OF VASCLITIS FOR LONG DURATION. - Advance Directives Does patient have a Living Will: Yes Does patient have a Durable POA for Healthcare: Yes
[2019-12-26 22:06] LABS: Hematocrit 34.4 % (39.6-49.0)
[2019-12-26 22:44] LABS: Ferritin 3533.1 ng/mL (26-388)
[2019-12-27] MEDS: D5 0.45 NS 1,000 ML IV SCH ×2 (05:29)
[2019-12-27 06:27] LABS: Absolute Lymphocytes (CBC) 0.4 K/uL (0.7-4.9); Basophils % 0.3 % (0-1.3); Hematocrit 34.9 % (39.6-49.0); Lymphocytes % 6.9 % (15.3-44.8); MPV 10.5 fL (7.6-11.3); RBC Red Blood Cell Count 4.28 M/uL (4.33-5.43)
[2019-12-27 06:35] LABS: Albumin 1.8 g/dL (3.4-5.0); Bilirubin Direct 0.8 mg/dL (0-0.2); Bilirubin Total 1.7 mg/dL (0.2-1.0)
[2019-12-27 06:36] LABS: Potassium 2.5 mmol/L (3.5-5.1)
[2019-12-27] MEDS ORDERED: D5W 1,000 ML IV SCH (07:00)
[2019-12-27] MEDS ORDERED: KCL 20 MEQ/100 mL IVPB 20 MEQ/100 ML BAG IV ONE ×2 (08:00→10:00)
[2019-12-27] MEDS: NOREPINEPHRINE 4 MG in D5W 250 ML IV PRN ×4 (08:03→21:17)
[2019-12-27] MEDS ORDERED: NA CHLORIDE 0.9% 500 ML IV ONE ×2 (09:00→09:33)
[2019-12-27] MEDS ORDERED: CEFTRIAXONE/SWI 2gm 2 GM/20 ML SYR IVP SCH (09:00)
[2019-12-27] MEDS ORDERED: CEFTRIAXONE 2,000 MG in NA CHLORIDE 0.9% 100 ML IV SCH (09:00)
[2019-12-27] MEDS ORDERED: NACHLORIDE 0.45% 1,000 ML with NA BICARB 8.4% 50 MEQ IV SCH ×2 (10:00)
[2019-12-27] MEDS ORDERED: D5W 1,000 ML with NA BICARB 8.4% 75 MEQ IV SCH ×4 (11:00→20:00)
[2019-12-27] MEDS: HYDROCORTISONE SUC 100 MG INJ IV SCH ×3 (11:02→21:18)
[2019-12-27] MEDS ORDERED: WATER FOR INJ,STERILE 10 ML ONE (11:05)
--- NOTE | 2019-12-27 11:26 | PN ---
Subjective: Mr. Matute is still unresponsive. He was responsive and blood pressure was slightly hig h last night. Physical Examination: Vital Signs: His blood pressure this morning dropped down to 78 systolic, now is 82 systolic. Chest: Clear. Heart: Irregular. Abdomen: No guarding, rebound, or rigidity. Neurologic: Mr. Matute has contractures for last 2 years. He has not been able to do much on his ow n. 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 Laboratory Data: Hemoglobin 11.4 after blood transfusion. Sodium is 167, potassium 2.5, chloride 13 2, bicarb 20, anion gap of 15, BUN 32, creatinine 2.27. Bilirubin, OT and PT are high because of isc hemic hepatitis. Albumin down to 1.8. Assessment And Plannin.Acute renal failure, prerenal most likely. Continue boluses of IV fluids and continuous IV fluid will be D5W with 1.5 amps of bicarb at 125 cc/hour. Prognosis remains overall poor. Discussed with patient's family in detail. 2.Sepsis. Continue Rocephin IV. Urinary tract infection is probably the source of sepsis. 3.Sigifredo's granulomatosis with complications. Prognosis overall poor described above. 4.Anemia. Hemoglobin is now at 11 g after blood transfusion yesterday. 5.Hypokalemia. Potassium protocol is going on currently. 6.Liver dysfunction because of ischemic hepatitis from hypotension. I do not suspect any acute live r problem. RVD/MODL Voice ID: [id number] Report ID: [id number]
[2019-12-27 12:12] LABS: Anisocytosis 1+; Blood Morphology Comment NOTED (NOT SEEN); Burr Cells 1+; Elliptocytes 1+; Platelet Estimate DECR
[2019-12-27] MEDS: NA CHLORIDE 0.9% 250 ML IV PRN ×2 (12:21→23:42)
[2019-12-27] MEDS ORDERED: Meropenem 500 MG VIAL IV SCH (13:00)
[2019-12-27] MEDS: Meropenem 500 MG in NA CHLORIDE 0.9% 100 ML IV SCH (13:39)
[2019-12-27] MEDS ORDERED: KCL 20 MEQ/100 mL IVPB 20 MEQ/100 ML BAG IV SCH (15:00)
[2019-12-27] MEDS: WATER FOR INJ,STERILE 10 ML IV PRN ×2 (16:27→21:17)
[2019-12-27 16:43] LABS: Potassium 3.5 mmol/L (3.5-5.1)
[2019-12-27] MEDS: AA 5%/D20W/ELECTROLYTES-TPN 2,000 ML, Lipids 20% 250 ML with MULTIVITAMINS INJ 10 ML IV SCH ×3 (19:28)
[2019-12-27] MEDS ORDERED: Meropenem 500 MG in NA CHLORIDE 0.9% 100 ML IV SCH (21:00)
[2019-12-27] MEDS ORDERED: GLUCAGON 1 MG/VIAL IM PRN (21:47)
[2019-12-27] MEDS ORDERED: D50W 25 GM/50 ML SYRINGE IV PRN (21:47)
[2019-12-27] MEDS: INSULIN -REGULAR HUMAN 50 UNIT/0.5 ML ML SQ SCH (23:38)
[2019-12-28] MEDS: Meropenem 500 MG in NA CHLORIDE 0.9% 100 ML IV SCH ×2 (01:40→15:22)
[2019-12-28] MEDS: NOREPINEPHRINE 4 MG in D5W 250 ML IV PRN ×2 (02:24→07:40)
[2019-12-28] MEDS ORDERED: NOREPINEPHRINE 4mg/D5W 250mL 4 MG/250 ML BAG IV ONE (02:26)
[2019-12-28 05:29] LABS: Absolute Lymphocytes (CBC) 0.2 K/uL (0.7-4.9); Basophils % 0.2 % (0-1.3); Hematocrit 29.7 % (39.6-49.0); Lymphocytes % 2.8 % (15.3-44.8); RBC Red Blood Cell Count 3.65 M/uL (4.33-5.43)
[2019-12-28 06:02] LABS: Magnesium 1.6 mg/dL (1.8-2.4); Phosphorus 2.4 mg/dL (2.5-4.9); Potassium 3.2 mmol/L (3.5-5.1)
[2019-12-28] MEDS: HYDROCORTISONE SUC 100 MG INJ IV SCH ×4 (06:08→21:41)
[2019-12-28] MEDS: WATER FOR INJ,STERILE 10 ML IV PRN ×3 (06:08→21:41)
[2019-12-28] MEDS: INSULIN -REGULAR HUMAN 50 UNIT/0.5 ML ML SQ SCH ×3 (06:08→17:07)
[2019-12-28 06:24] LABS: Blood Morphology Comment NOTED (NOT SEEN); Platelet Estimate DECR
[2019-12-28 06:25] LABS: Anisocytosis 1+; Burr Cells 2+; Poikilocytosis 1+
[2019-12-28] MEDS ORDERED: MAGNESIUM SULFATE 1 gm IVPB 1 GM/100 ML BAG IV ONE (07:08)
[2019-12-28] MEDS ORDERED: KCL 20 MEQ/100 mL IVPB 20 MEQ/100 ML BAG IV ONE (07:30)
[2019-12-28] MEDS ORDERED: POTASSIUM PHOS IN 0.9 % NACL 15 MMOL/250 ML BAG IV ONE (09:30)
[2019-12-28] MEDS ORDERED: AA 5%/D20W/ELECTROLYTES-TPN 2,000 ML, Lipids 20% 250 ML with MULTIVITAMINS INJ 10 ML IV SCH ×3 (11:00)
[2019-12-28] MEDS ORDERED: D5W 1,000 ML IV SCH (11:00)
--- NOTE | 2019-12-28 11:03 | P.PN ---
Subjective Date of Service: 12/28/19 Chief Complaint: STILL UNRESPONSIVE Subjective: Improving MR. JARVIS IS DOING BETTER LABS. HE LOOKS LITTLE BETTER, STARTING TO RESPONSE WITH SOME PAINFUL STIMULUS. Review of Systems is unable to be obtained Physical Examination - Vital Signs Temperature: 98.1 F Blood Pressure: 101/69 Pulse: 114 Respirations: 20 Pulse Ox (%): 95 - Physical Exam General: Mild distress, Unresponsive HEENT: Atraumatic, PERRLA, EOMI Neck: Supple, JVD not distended Respiratory: Clear to auscultation bilaterally, Normal air movement Cardiovascular: Irregular heart rate/rhythm Gastrointestinal: Normal bowel sounds, No tenderness Musculoskeletal: No tenderness Integumentary: No rashes Neurological: Other ( ABOVE, MILD REPSONSE TO PAINFUL STIMULUS.) Lymphatics: No axilla or inguinal lymphadenopathy - Studies Microbiology Data (last 24 hrs): 12/26/19 10:20 Clean Catch Urine [place] Count - Final >100,000 CFU/ML. 12/26/19 10:20 Clean Catch Urine - Final Escherichia Coli Medications List Reviewed: Yes Assessment And Plan - Current Problems (Diagnosis) (1) Hypovolemic shock Current Visit: Yes Status: Acute Plan: HE IS SEVERELY DEHYDRATED. WITH HIS BASELINE POOR CONDITION, I AM NOT SURE IF HE WILL SURVIVE OUR EFFORTS THIS TIME. START IV FLUIDS. DAILY LAB. NUTRITION HAS BEEN POOR WITH HIS INABLITY TO SAWLLOW FOOD PROPERLY. HE HAS HAD DYSPHAGIA AND HE HAS REFUSED G TUBE IN PAST. SODIUM IS IMPROVING WITH IVF. CHANGE TO HALF NS HIS ANION GAP IS NORMAL NOW. TPN STARTED YESTERDAY. (2) UTI (urinary tract infection) Current Visit: No Status: Acute Plan: START IV ROCEPHIN. CULTURES DONE. PROCALCITONIN IS MILD HIGH. URINE OUTPUT IS ENVIRONMENTAL MANAGER NOW. Qualifiers: Urinary tract infection type: acute cystitis (3) Anemia Onset Date: 11/23/17 Current Visit: No Status: Acute Plan: HE COULD HAVE ACUTE BLOOD LOSS. FAMILY HAS NOT SEEN ANY BLEEDING. BLOOD TRANSFUSION GIVEN. OTHER POSSIBILITIES ARE HEMOLYSIS. WILL FU LABWORK FOR THIS. HE HAS HISTORY OF VASCLITIS FOR LONG DURATION. HG IS STABLE. (4) Electrolyte abnormality Current Visit: Yes Status: Acute Plan: LOW K, LOW MG, LOW PO4 BEING REPLACED. LOW CALCIUM IS FALSE LOW. CORRECTED ALBUMIN IS ABOUT 7.5. WILL FU WITH IONIZED CALCIUM LEVEL.
[2019-12-28] MEDS: NACHLORIDE 0.45% 1,000 ML IV SCH (12:08)
[2019-12-28 17:02] LABS: Potassium 3.8 mmol/L (3.5-5.1)
[2019-12-28] MEDS ORDERED: KCL 20 MEQ/100 mL IVPB 20 MEQ/100 ML BAG IV SCH (18:00)
[2019-12-28] MEDS: AA 5%/D20W/ELECTROLYTES-TPN 2,000 ML, Lipids 20% 250 ML with MULTIVITAMINS INJ 10 ML IV SCH ×3 (19:54)
[2019-12-28] MEDS: NOREPINEPHRINE 8 MG in Dextrose 5%-Water 500 ML IV PRN (21:41)
[2019-12-29] MEDS: INSULIN -REGULAR HUMAN 50 UNIT/0.5 ML ML SQ SCH ×4 (00:12→17:48)
[2019-12-29] MEDS: NACHLORIDE 0.45% 1,000 ML IV SCH ×2 (00:20→05:46)
[2019-12-29] MEDS: Meropenem 500 MG in NA CHLORIDE 0.9% 100 ML IV SCH ×2 (02:14→14:58)
[2019-12-29] MEDS: WATER FOR INJ,STERILE 10 ML IV PRN ×2 (03:24→21:45)
[2019-12-29] MEDS: HYDROCORTISONE SUC 100 MG INJ IV SCH ×4 (03:24→21:45)
[2019-12-29] MEDS: NOREPINEPHRINE 8 MG in Dextrose 5%-Water 500 ML IV PRN ×3 (03:24→23:04)
[2019-12-29 05:16] LABS: Absolute Lymphocytes (CBC) 0.7 K/uL (0.7-4.9); Basophils % 0.1 % (0-1.3); Hematocrit 28.2 % (39.6-49.0); Lymphocytes % 6.1 % (15.3-44.8); MPV 9.4 fL (7.6-11.3); RBC Red Blood Cell Count 3.41 M/uL (4.33-5.43)
[2019-12-29 05:49] LABS: Magnesium 1.8 mg/dL (1.8-2.4); Phosphorus 4.2 mg/dL (2.5-4.9); Potassium 4.5 mmol/L (3.5-5.1)
[2019-12-29] MEDS ORDERED: MAGNESIUM SULFATE 1 gm IVPB 1 GM/100 ML BAG IV ONE (07:07)
[2019-12-29 07:25] LABS: Anisocytosis 1+; Blood Morphology Comment NOTED (NOT SEEN); Burr Cells 1+; Platelet Estimate DECR
[2019-12-29 18:18] LABS: Protime INR 0.98
[2019-12-29] MEDS: AA 5%/D20W/ELECTROLYTES-TPN 2,000 ML, Lipids 20% 250 ML with MULTIVITAMINS INJ 10 ML IV SCH ×3 (21:31)
--- NOTE | 2019-12-29 21:37 | PN ---
Subjective: Mr. Matute is comatose, hardly responds to any pressure commands or painful commands. Review of Systems: Not available. Physical Examination: Vital Signs: Blood pressure 100/53 on Levophed 16 mg of dose. Temperature 97.4. HEENT: He is totally unresponsive. Chest: Clear. Heart: Irregular. Abdomen: No guarding, no rebound, no rigidity. Neurologic: He is bed-bound with contractures for last 2 to 3 years. Labs: White count is 11,000, hemoglobin 9, hematocrit 28, platelets are 25,000. BUN 63, creatinine 1.76, glucose 420 because of TPN. Assessment And Plan: 1.Comatose status because of overall multi-system failure. His debilitated condition as we expected will take him to this state sooner or later. He has Jong's granulomatosis, which is a baseline c ondition for many years, which has debilitated him for long duration. 2.Possible DIC, thrombocytopenia, increased PT, increased INR, increased PTT suggestive of DIC. Karla gill treatment protocol for DIC is treatment of the cause, which is what we have done with IV antibiotic s for the last few days. Platelets are down to 25,000. The family understands below 20,000 there us a chance of bleeding. I do not see a long-term solution for this gentleman who is barely alive at t his point. He will within a few hours after being discontinue Levophed. Recommended this to family at this point because we do not see any signs of recover in his condition. 3.Renal failure has improved. BUN and creatinine down to 63 and 1.76, but that is not translating into improved survival for this gentleman. RVD/MODL Voice ID: [id number] Report ID: [id number]
[2019-12-30] MEDS: INSULIN -REGULAR HUMAN 50 UNIT/0.5 ML ML SQ SCH ×5 (00:58→23:49)
[2019-12-30] MEDS: Meropenem 500 MG in NA CHLORIDE 0.9% 100 ML IV SCH ×2 (00:59→14:52)
[2019-12-30] MEDS: WATER FOR INJ,STERILE 10 ML IV PRN ×3 (04:14→16:46)
[2019-12-30] MEDS: HYDROCORTISONE SUC 100 MG INJ IV SCH ×4 (04:14→21:55)
[2019-12-30 05:13] LABS: Absolute Lymphocytes (CBC) 0.2 K/uL (0.7-4.9); Basophils % 0.3 % (0-1.3); Hematocrit 25.6 % (39.6-49.0); Lymphocytes % 3.4 % (15.3-44.8); MPV 10.4 fL (7.6-11.3); RBC Red Blood Cell Count 3.05 M/uL (4.33-5.43)
[2019-12-30 05:20] LABS: Potassium 5.1 mmol/L (3.5-5.1)
[2019-12-30 06:31] VITALS: BMI 21.4
[2019-12-30] MEDS: NOREPINEPHRINE 8 MG in Dextrose 5%-Water 500 ML IV PRN ×2 (09:00→16:43)
[2019-12-30] MEDS ORDERED: MORPHINE 2 MG/ML SYR IV PRN (20:57)
[2019-12-30] MEDS ORDERED: LORazepam 2 MG/ML VIAL IV PRN (20:58)
[2019-12-30] MEDS ORDERED: SCOPOLAMINE HYDROBROMIDE PATCH TD ONE (20:59)
[2019-12-30 22:34] VITALS: O2SAT 91
[2019-12-30 22:54] VITALS: BP 67/36
[2019-12-31 00:40] VITALS: TEMP 96.4
[2019-12-31 01:00] LABS: Albumin, (SPE) 2.1 g/dL (3.8-4.8); Alpha-1-Globulins 0.3 g/dL (0.2-0.3); Alpha-2-Globulins 0.4 g/dL (0.5-0.9); Gamma Globulins 0.6 g/dL (0.8-1.7); INTERPRETATION REPORT
[2019-12-31] MEDS: Meropenem 500 MG in NA CHLORIDE 0.9% 100 ML IV SCH (03:12)
--- NOTE | 2019-12-31 12:54 | P.DS ---
Admission Date: 12/26/19 Discharge Date: 12/31/19 Disposition: Discharge Condition: Reason for Admission: STILL UNRESPONSIVE - Problems (1) Hypovolemic shock Status: Acute (2) UTI (urinary tract infection) Status: Acute Qualifiers: Urinary tract infection type: acute cystitis (3) Anemia Onset Date: 11/23/17 Status: Acute (4) Electrolyte abnormality Status: Acute Brief History of Present Illness: MR. JARVIS IS A CHRONICALLY DEBILITATED GENTLEMAN WHO HAS NOT WALKED FOR ABOUT TWO YEARS, CAN'T HEAR ANYTHING, CAN'T SEE ANYTHING AND HAS HAD CARMITA GRANULOMATOSIS TREATED WITH STEROIDS. BEFORE THAT HE HAD BEEN TO MANY ENT DOCTORS FOR EPISTAXIS AND CHRONIC COMPLAINS OF SINUS ISSUES. HIS PECULIAR STYLE OF TALKING TO DOCTORS WAS MAINLY GIVING THEM HIS DIAGNOSIS. DURING EVAL IN ER HE IS FOUND TO HAVE SEVERE HYPOTENSION, DEHYDRATION WITH HYPERNAREMIA AND PUS FROM THE URINE. MR. JARVIS NEVER GAINED CONSCIOUSNESS ON ALL THE CARE HE RECEIVED. HIS BP STARTED TO DROP AND NEEDED MORE AND MORE LEVOPHED. DAILY I DISCUSSED FOR FAMILY TO DECIDE TO WITHDRAW CARE FROM DAY ON I THOUGHT HE IS NOT GOING TO SURVIVE. AT LAST YESTERDAY THEY DECIDED TO REMOVE ALL AGGRESSIVE CARE AND WITHIN A FEW HOURS LIKE I ADVISED HE . Vital Signs/Physical Exam: Temp Pulse Resp BP Pulse Ox 96.4 F L 87 16 67/36 L 91 12/31/19 00:00 12/31/19 00:00 12/31/19 00:00 12/31/19 00:00 12/30/19 22:00 Laboratory Data at Discharge: WBC 5.4 K/uL (4.3-10.9) D 12/30/19 04:40 Hgb 8.2 g/dL (13.6-17.9) L 12/30/19 04:40 Hct 25.6 % (39.6-49.0) L 12/30/19 04:40 Plt Count 15 K/uL (152-406) L* D 12/30/19 04:40 PT 11.6 SECONDS (9.5-12.5) 12/29/19 18:03 INR 0.98 12/29/19 18:03 APTT 62.4 SECONDS (24.3-36.9) H 12/29/19 18:03 Sodium 139 mmol/L (136-145) 12/30/19 04:40 Potassium 5.1 mmol/L (3.5-5.1) 12/30/19 04:40 BUN 77 mg/dL (7-18) H 12/30/19 04:40 Creatinine 2.15 mg/dL (0.55-1.3) H 12/30/19 04:40 Glucose 335 mg/dL (74-106) H 12/30/19 04:40 Phosphorus 4.2 mg/dL (2.5-4.9) D 12/29/19 04:50 Magnesium 1.8 mg/dL (1.8-2.4) 12/29/19 04:50 Total Bilirubin 1.7 mg/dL (0.2-1.0) H 12/27/19 05:05 AST 164 U/L (15-37) H D 12/27/19 05:05 ALT 89 U/L (12-78) H 12/27/19 05:05 Alkaline Phosphatase 75 U/L (45-117) 12/27/19 05:05 Amylase 66 U/L (25-115) 12/26/19 09:40 Lipase 383 U/L (73-393) 12/27/19 05:05 Home Medications: Amlodipine [Norvasc*] 10 mg PO DAILY 08/11/19 Prednisone [Sterapred Ds] 10 mg PO BID 08/11/19 Metoprolol Tartrate [Lopressor] 100 mg PO DAILY 09/22/19 Gabapentin [Neurontin*] 100 mg PO BID #180 cap 12/07/19
== END 2019-12-31 05:50 | disposition expired | DRG 871 ==
LOC: ER 08:58 → ERHOLD 15:24 → 3RD-ICU 19:37 → 2ND 12-30 21:15
PROVIDERS: ADMIT Internal Medicine; ATTEND Internal Medicine
PROC: 30233N1 Transfusion of Nonautologous Red Blood Cells into Peripheral Vein, Percutaneous Approach (ICD-10-PCS; principal; 2019-12-26)
PROC: 3E0336Z Introduction of Nutritional Substance into Peripheral Vein, Percutaneous Approach (ICD-10-PCS; 2019-12-27)
DX: A41.9 Sepsis, unspecified organism (principal); G93.41 Metabolic encephalopathy; D65 Disseminated intravascular coagulation [defibrination syndrome]; K72.00 Acute and subacute hepatic failure without coma; R65.21 Severe sepsis with septic shock; E43 Unspecified severe protein-calorie malnutrition; R53.2 Functional quadriplegia; M31.31 Wegener's granulomatosis with renal involvement; N30.00 Acute cystitis without hematuria; R64 Cachexia; N17.9 Acute kidney failure, unspecified; D62 Acute posthemorrhagic anemia; R57.1 Hypovolemic shock; E87.6 Hypokalemia; R13.10 Dysphagia, unspecified; B96.20 Unspecified Escherichia coli [E. coli] as the cause of diseases classified elsewhere; L89.322 Pressure ulcer of left buttock, stage 2; L89.312 Pressure ulcer of right buttock, stage 2; L89.152 Pressure ulcer of sacral region, stage 2; Z74.01 Bed confinement status; Z68.21 Body mass index [BMI] 21.0-21.9, adult
CPT/HCPCS: 36415; 51702; 71045; 80048; 80076; 81003; 81015; 82150; 82274; 82550; 82553; 82607; 82728; 82805; 82947; 83010; 83605; 83615; 83690; 83735; 84100; 84132; 84145; 84165; 84484; 85014; 85018; 85025; 85379; 85610; 85730; 86850; 86900; 86901; 87040; 87077; 87086; 87088; 87186; 93005; 96365; 96366; 96367; 96375; 99285; J0692; J0696; J1720; J3370; J3475; J7030; J7040; J7060; J7799; P9016